=== PATIENT | male | born 1950 | race Caucasian/White ===

== ENCOUNTER → 2017-05-10 | Outpatient (CLI) | payer MEDICARE, OTHER ==
[2017-05-10 13:51] LABS: Basophils # (A) 0.1 k/uL (0-0.2); Basophils % (A) 1 %; Eosinophils # (A) 0.5 k/uL (0-0.7); Eosinophils % (A) 5 %; HCT 41.3 % (39.0-53.0); HDW 2.64; HGB 13.7 gm/dL (13.0-17.5); Luc # (Auto) 0.24; Luc % (Auto) 2; Lymphocytes # (A) 1.8 k/uL (1.0-4.8); Lymphocytes % (A) 17 %; MCH 31.5 pg (25.0-35.0); MCHC 33.3 g/dL (31.0-37.0); MCV 94.7 fL (80.0-100.0); Monocytes # (A) 0.5 k/uL (0-1.0); Monocytes % (A) 5 %; Neutrophils # (A) 7.9 k/uL (1.3-7.7); Neutrophils % (A) 71 %; RBC 4.36 m/uL (4.30-5.90); RDW 14.1 % (11.5-15.5); WBC 11.1 k/uL (3.8-10.6); WBC (Perox) 11.28
[2017-05-10 14:08] LABS: Appearance,Urine Clear (Clear); Bilirubin,Urine Negative (Negative); Glucose,Urine (UA) Negative (Negative); Ketones,Urine Negative (Negative); Leukocyte Esterase,Urine Negative (Negative); Nitrite,Urine Negative (Negative); Protein,Urine Negative (Negative); Specific Gravity,Urine 1.006 (1.001-1.035); UA Billing (MACRO vs. MICRO) CHEM; Urobilinogen,Urine <2.0 mg/dL (<2.0)
[2017-05-10 15:41] LABS: Calcium 9.3 mg/dL (8.4-10.2); Magnesium 1.6 mg/dL (1.6-2.3); Phosphorous 4.1 mg/dL (2.5-4.5); Potassium 4.4 mmol/L (3.5-5.1)
[2017-05-10 15:50] LABS: % Iron Saturation 22.7 % (20-50)
== END | disposition home or self-care (01) ==
LOC: LABWHC1 13:06
PROVIDERS: ATTEND Internal Medicine Nephrology
DX: D64.9 Anemia, unspecified (principal); E55.9 Vitamin D deficiency, unspecified; E21.3 Hyperparathyroidism, unspecified; N39.0 Urinary tract infection, site not specified; M10.9 Gout, unspecified; N18.3 Chronic kidney disease, stage 3 (moderate)
CPT/HCPCS: 36415; 80048; 81003; 82306; 82728; 83540; 83550; 83735; 83970; 84100; 84550; 85025

== ENCOUNTER 2018-09-15 09:55 | Inpatient (IN) | payer MEDICARE, OTHER ==
[2018-09-15] MEDS ORDERED: ACETAMINOPHEN TAB 500 MG TAB PO STA (10:17)
[2018-09-15] MEDS ORDERED: SODIUM CHLORIDE 0.9% 1,000 ML IV STA ×3 (10:17→11:07)
--- NOTE | 2018-09-15 10:49 | ED ---
General Adult HPI - General Chief complaint: Fever Stated complaint: fever, uti Time Seen by Provider: 09/15/18 10:10 Source: patient Mode of arrival: ambulatory Limitations: no limitations - History of Present Illness Initial comments: This 67-year-old white male presents with a complaint of problems walking. He states that he feels very weak with ambulation and has some ataxia. He states that it has been going on for the past one week but worse over the last 2 days. He is unsure if he has a fever at home. He does have some generalized weakness. He denies any localized weakness. He denies any cough or shortness of breath. He does have an indwelling Dumont catheter which she's had for the last 3 months and apparently was placed for some urinary retention issues. He has not had it changed until 2 days ago when he saw his urologist. They apparently removed it and he still is unable to urinate so they did place the Dumont back in. He denies any falls or injuries. He denies any other complaints or modifying factors. He does present with a slight fever. His urine looks quite infected. - Related Data Home Medications Medication Instructions Recorded Confirmed Aspirin EC [Ecotrin Low Dose] 81 mg PO DAILY 09/15/18 09/15/18 Atenolol [Tenormin] 25 mg PO DAILY 09/15/18 09/15/18 Tamsulosin [Flomax] 0.4 mg PO DAILY 09/15/18 09/15/18 buPROPion XL [Wellbutrin Xl] 150 mg PO DAILY 09/15/18 09/15/18 Allergies Allergy/AdvReac Type Severity Reaction Status Date / Time milk Allergy Unknown Verified 09/15/18 10:35 Review of Systems ROS Statement: Those systems with pertinent positive or pertinent negative responses have been documented in the HPI. ROS Other: All systems not noted in ROS Statement are negative. Past Medical History Past Medical History: Coronary Artery Disease (CAD), Hypertension Additional Past Medical History / Comment(s): bladder issues chronic dumont History of Any Multi-Drug Resistant Organisms: None Reported Past Surgical History: Heart Catheterization With Stent Additional Past Surgical History / Comment(s): cystoscope Past Psychological History: Depression Smoking Status: Never smoker Past Alcohol Use History: None Reported Past Drug Use History: None Reported General Exam - General Exam Comments Initial Comments: GENERAL: The patient is well nourished and mildly dehydrated. VITAL SIGNS: Heart rate, blood pressure, respiratory rate reviewed as recorded in nurse's notes. EYES: Pupils are round and reactive. Extraocular movements are intact. No conjunctival / lid redness or swelling. ENT: No external evidence of injury, swelling, or ecchymosis. Airway is patent. Throat is clear. NECK: Nontender. No swelling or evidence of injury. No subcutaneous emphysema. Trachea is midline. No thyroid mass. HEART: Regular rate and rhythm. Good peripheral pulses. LUNGS/CHEST: Breath sounds clear and equal bilaterally. No rales, rhonchi, or wheezes. No ecchymosis, subcutaneous emphysema, or tenderness. ABDOMEN: Abdomen soft without tenderness. No palpable masses or organomegaly. No peritoneal signs. No abdominal wall swelling or ecchymosis. The patient has an indwelling Dumont catheter noted. EXTREMITIES: No extremity tenderness. Normal muscle tone and function. No thoracolumbar tenderness. NEUROLOGIC: Sensation is grossly intact. Cranial nerve exam reveals face is symmetrical, tongue is midline, speech is clear. SKIN: No abrasions or ecchymosis is noted. No induration or masses noted. PSYCHIATRIC: Alert and oriented. Appropriate behavior and judgment. Limitations: no limitations Course Vital Signs 09/15/18 09/15/18 09/15/18 10:00 10:10 11:00 Temperature 100.3 F H Pulse Rate 105 H 102 H 100 Respiratory 18 18 42 H Rate Blood Pressure 99/59 99/55 88/66 O2 Sat by Pulse 96 95 96 Oximetry Medical Decision Making - Medical Decision Making The patient was seen and examined. All diagnostics are reviewed. An IV is established and he does receive some intravenous Rocephin and IV fluids. The patient refuses any Tylenol. Toradol was given intravenously prior to lab results being back. The EKG is completed and shows a normal sinus rhythm at a rate of 100. There is a right bundle branch block with associated ST-T wave changes. The heart rate is 100, QRS duration is 138, GA interval is 188, and the QTC intervals 479. The laboratory does show some electrolyte abnormalities as well as significant renal failure and anemia. The urinalysis does come back showing significant infection. Additional IV fluids are administered. The chest x-ray shows bilateral atelectasis. The computed tomography scan does not show any acute processes. Is felt as though the patient would require admission for further treatment. The case is discussed with Dr. Parson and he is agreeable with admission with nephrology to consult. - Lab Data Result diagrams: 09/15/18 10:04 09/15/18 10:04 Lab Results 09/15/18 09/15/18 09/15/18 Range/Units 10:04 10:04 10:04 WBC 21.0 H (3.8-10.6) k/uL RBC 3.36 L (4.30-5.90) m/uL Hgb 10.2 L (13.0-17.5) gm/dL Hct 30.6 L (39.0-53.0) % MCV 91.0 (80.0-100.0) fL MCH 30.2 (25.0-35.0) pg MCHC 33.2 (31.0-37.0) g/dL RDW 14.9 (11.5-15.5) % Plt Count 377 (150-450) k/uL Neutrophils % (Manual) 62 % Band Neutrophils % 29 % Lymphocytes % (Manual) 4 % Monocytes % (Manual) 5 % Neutrophils # (Manual) 19.10 H (1.3-7.7) k/uL Lymphocytes # (Manual) 0.84 L (1.0-4.8) k/uL Monocytes # (Manual) 1.05 H (0-1.0) k/uL Nucleated RBCs 0 (0-0) /100 WBC Toxic Granulation Present Toxic Vacuolation Present Polychromasia Present Poikilocytosis (manual Present Anisocytosis (manual) Present PT 11.8 (9.0-12.0) sec INR 1.2 H (<1.2) APTT 27.6 (22.0-30.0) sec Sodium 128 L (137-145) mmol/L Potassium 4.2 (3.5-5.1) mmol/L Chloride 93 L (98-107) mmol/L Carbon Dioxide 19 L (22-30) mmol/L Anion Gap 16 mmol/L BUN 56 H (9-20) mg/dL Creatinine 4.70 H (0.66-1.25) mg/dL Est GFR (CKD-EPI)AfAm 14 (>60 ml/min/1.73 sqM) Est GFR (CKD-EPI)NonAf 12 (>60 ml/min/1.73 sqM) Glucose 132 H (74-99) mg/dL Calcium 7.6 L (8.4-10.2) mg/dL Phosphorus 4.7 H (2.5-4.5) mg/dL Magnesium 1.5 L (1.6-2.3) mg/dL Total Bilirubin 0.9 (0.2-1.3) mg/dL AST 241 H (17-59) U/L ALT 70 (21-72) U/L Alkaline Phosphatase 62 (38-126) U/L Total Protein 5.0 L (6.3-8.2) g/dL Albumin 2.5 L (3.5-5.0) g/dL Urine Color Urine Appearance (Clear) Urine pH (5.0-8.0) Ur Specific [place] (1.001-1.035) Urine Protein (Negative) Urine Glucose (UA) (Negative) Urine Ketones (Negative) Urine Blood (Negative) Urine Nitrite (Negative) Urine Bilirubin (Negative) Urine Urobilinogen (<2.0) mg/dL Ur Leukocyte Esterase (Negative) Urine RBC (0-5) /hpf Urine WBC Clumps (None) /hpf 09/15/18 Range/Units 10:04 WBC (3.8-10.6) k/uL RBC (4.30-5.90) m/uL Hgb (13.0-17.5) gm/dL Hct (39.0-53.0) % MCV (80.0-100.0) fL MCH (25.0-35.0) pg MCHC (31.0-37.0) g/dL RDW (11.5-15.5) % Plt Count (150-450) k/uL Neutrophils % (Manual) % Band Neutrophils % % Lymphocytes % (Manual) % Monocytes % (Manual) % Neutrophils # (Manual) (1.3-7.7) k/uL Lymphocytes # (Manual) (1.0-4.8) k/uL Monocytes # (Manual) (0-1.0) k/uL Nucleated RBCs (0-0) /100 WBC Toxic Granulation Toxic Vacuolation Polychromasia Poikilocytosis (manual Anisocytosis (manual) PT (9.0-12.0) sec INR (<1.2) APTT (22.0-30.0) sec Sodium (137-145) mmol/L Potassium (3.5-5.1) mmol/L Chloride (98-107) mmol/L Carbon Dioxide (22-30) mmol/L Anion Gap mmol/L BUN (9-20) mg/dL Creatinine (0.66-1.25) mg/dL Est GFR (CKD-EPI)AfAm (>60 ml/min/1.73 sqM) Est GFR (CKD-EPI)NonAf (>60 ml/min/1.73 sqM) Glucose (74-99) mg/dL Calcium (8.4-10.2) mg/dL Phosphorus (2.5-4.5) mg/dL Magnesium (1.6-2.3) mg/dL Total Bilirubin (0.2-1.3) mg/dL AST (17-59) U/L ALT (21-72) U/L Alkaline Phosphatase (38-126) U/L Total Protein (6.3-8.2) g/dL Albumin (3.5-5.0) g/dL Urine Color Yellow Urine Appearance Turbid (Clear) Urine pH 6.0 (5.0-8.0) Ur Specific [place] (1.001-1.035) Urine Protein 2+ H (Negative) Urine Glucose (UA) Negative (Negative) Urine Ketones Negative (Negative) Urine Blood Moderate H (Negative) Urine Nitrite Negative (Negative) Urine Bilirubin Negative (Negative) Urine Urobilinogen <2.0 (<2.0) mg/dL Ur Leukocyte Esterase Large H (Negative) Urine RBC 22 H (0-5) /hpf Urine WBC Clumps Many H (None) /hpf Disposition Clinical Impression: Fever, UTI (urinary tract infection), Weakness, Anemia, Leukocytosis, Acute kidney injury, Hyponatremia, Hypochloremia, Dehydration, Hypomagnesemia, Hypocalcemia, Hyperphosphatemia, Chronic renal disease, Atelectasis Disposition: ADMITTED IP TO THIS [facility] Condition: Fair Is patient prescribed a controlled substance at d/c from ED?: No Time of Disposition: 11:52 Decision Date: 09/15/18 Decision Time: 11:52
[2018-09-15 10:52] LABS: INR 1.2 (<1.2); Partial Thromboplastin Time 27.6 sec (22.0-30.0); Prothrombin Time 11.8 sec (9.0-12.0)
[2018-09-15] MEDS ORDERED: KETOROLAC 30 MG/ML 1 ML VIAL IVP STA (10:53)
[2018-09-15 10:54] LABS: HCT 30.6 % (39.0-53.0); HGB 10.2 gm/dL (13.0-17.5); MCH 30.2 pg (25.0-35.0); MCHC 33.2 g/dL (31.0-37.0); Mean Platelet Volume 7.1; Platelet Count 377 k/uL (150-450); RBC 3.36 m/uL (4.30-5.90); RDW 14.9 % (11.5-15.5)
[2018-09-15 10:55] LABS: Albumin 2.5 g/dL (3.5-5.0); Calcium 7.6 mg/dL (8.4-10.2); Magnesium 1.5 mg/dL (1.6-2.3); Phosphorus 4.7 mg/dL (2.5-4.5); Potassium 4.2 mmol/L (3.5-5.1); Total Bilirubin 0.9 mg/dL (0.2-1.3)
[2018-09-15 10:56] LABS: Appearance,Urine Turbid (Clear); Bilirubin,Urine Negative (Negative); Blood,Urine Moderate (Negative); Color,Urine Yellow; Glucose,Urine (UA) Negative (Negative); Ketones,Urine Negative (Negative); Leukocyte Esterase,Urine Large (Negative); Nitrite,Urine Negative (Negative); Protein,Urine 2+ (Negative); RBC,Urine 22 /hpf (0-5); Urobilinogen,Urine <2.0 mg/dL (<2.0)
[2018-09-15 11:35] LABS: Band Neutrophils % 29 %; Lymphocytes # (M) 0.84 k/uL (1.0-4.8); Monocytes # (M) 1.05 k/uL (0-1.0); Neutrophils % (M) 62 %; Nucleated Red Blood Cells 0 /100 WBC (0-0); Total Cells Counted 200
[2018-09-15 11:36] LABS: Toxic Granulation Present
[2018-09-15 11:37] LABS: Anisocytosis (M) Present; Poikilocytosis (M) Present; Polychromasia Present; Toxic Vacuolation Present
--- NOTE | 2018-09-15 11:39 | XR ---
EXAMINATION TYPE: XR chest 2V DATE OF EXAM: 09/15/2018 COMPARISON: NONE TECHNIQUE: PA and lateral views submitted. HISTORY: Fever, weakness FINDINGS: The lungs are clear and there is no pneumothorax, pleural effusion, or focal pneumonia. Heart size is prominent is atherosclerotic change aorta. Shoulder. No overt failure. Hypertrophic change and deg enerative disc disease noted. Subsegmental changes at the lung bases on the lateral view. IMPRESSION: 1. Basilar atelectasis favored over early infiltrate correlate clinically
[2018-09-15 11:40] LABS: Creatine Kinase MB 37.4 ng/mL (0.0-2.4)
[2018-09-15] MEDS ORDERED: ONDANSETRON 4 MG/2 ML VIAL IVP PRN (11:45)
[2018-09-15] MEDS ORDERED: NALOXONE 0.4 MG/ML 1 ML VIAL IV PRN (11:45)
--- NOTE | 2018-09-15 11:46 | CT ---
EXAMINATION TYPE: CT brain wo con DATE OF EXAM: 09/15/2018 HISTORY: Weakness and ataxia, fever with urinary tract infection. CT DLP: 1238.4 mGycm. Automated Exposure Control for Dose Reduction was Utilized. TECHNIQUE: CT scan of the head is performed without contrast. COMPARISON: None. FINDINGS: There is no acute intracranial hemorrhage or midline shift identified. There is diffuse v entricular and sulcal prominence consistent with diffuse age-related cerebral atrophy. There is low- attenuation in the periventricular white matter consistent with chronic small vessel ischemic change. The globes are intact and the visualized sinuses are clear. Soft tissue density bilateral externa l auditory canals is felt to reflect cerumen. Nasal septum is deviated to right of midline. Nonaerate d right frontal sinus incidentally seen. Some vascular calcification distal internal carotid arteries is present bilaterally. IMPRESSION: No acute intracranial hemorrhage or midline shift. There is mild to moderate diffuse ag e-related cerebral atrophy and mild chronic small vessel ischemic change noted.
[2018-09-15 11:54] LABS: Troponin I 0.094 ng/mL (0.000-0.034)
[2018-09-15] MEDS ORDERED: SODIUM CHLORIDE 0.9% 1,000 ML IV ONE ×2 (12:21→22:39)
--- NOTE | 2018-09-15 12:25 | ED ---
Medical Decision Making - Lab Data Result diagrams: 09/15/18 10:04 09/15/18 10:04 Lab Results 09/15/18 09/15/18 09/15/18 Range/Units 10:04 10:04 10:04 WBC 21.0 H (3.8-10.6) k/uL RBC 3.36 L (4.30-5.90) m/uL Hgb 10.2 L (13.0-17.5) gm/dL Hct 30.6 L (39.0-53.0) % MCV 91.0 (80.0-100.0) fL MCH 30.2 (25.0-35.0) pg MCHC 33.2 (31.0-37.0) g/dL RDW 14.9 (11.5-15.5) % Plt Count 377 (150-450) k/uL Neutrophils % (Manual) 62 % Band Neutrophils % 29 % Lymphocytes % (Manual) 4 % Monocytes % (Manual) 5 % Neutrophils # (Manual) 19.10 H (1.3-7.7) k/uL Lymphocytes # (Manual) 0.84 L (1.0-4.8) k/uL Monocytes # (Manual) 1.05 H (0-1.0) k/uL Nucleated RBCs 0 (0-0) /100 WBC Toxic Granulation Present Toxic Vacuolation Present Polychromasia Present Poikilocytosis (manual Present Anisocytosis (manual) Present PT (9.0-12.0) sec INR (<1.2) APTT (22.0-30.0) sec Sodium 128 L (137-145) mmol/L Potassium 4.2 (3.5-5.1) mmol/L Chloride 93 L (98-107) mmol/L Carbon Dioxide 19 L (22-30) mmol/L Anion Gap 16 mmol/L BUN 56 H (9-20) mg/dL Creatinine 4.70 H (0.66-1.25) mg/dL Est GFR (CKD-EPI)AfAm 14 (>60 ml/min/1.73 sqM) Est GFR (CKD-EPI)NonAf 12 (>60 ml/min/1.73 sqM) Glucose 132 H (74-99) mg/dL Plasma Lactic Acid [place] (0.7-2.0) mmol/L Calcium 7.6 L (8.4-10.2) mg/dL Phosphorus 4.7 H (2.5-4.5) mg/dL Magnesium 1.5 L (1.6-2.3) mg/dL Total Bilirubin 0.9 (0.2-1.3) mg/dL AST 241 H (17-59) U/L ALT 70 (21-72) U/L Alkaline Phosphatase 62 (38-126) U/L Total Creatine Kinase 81398 H* (55-170) U/L CK-MB (CK-2) 37.4 H (0.0-2.4) ng/mL CK-MB (CK-2) Rel Index Troponin I 0.094 H* (0.000-0.034) ng/mL Total Protein 5.0 L (6.3-8.2) g/dL Albumin 2.5 L (3.5-5.0) g/dL Urine Color Urine Appearance (Clear) Urine pH (5.0-8.0) Ur Specific [place] (1.001-1.035) Urine Protein (Negative) Urine Glucose (UA) (Negative) Urine Ketones (Negative) Urine Blood (Negative) Urine Nitrite (Negative) Urine Bilirubin (Negative) Urine Urobilinogen (<2.0) mg/dL Ur Leukocyte Esterase (Negative) Urine RBC (0-5) /hpf Urine WBC Clumps (None) /hpf 09/15/18 09/15/18 09/15/18 Range/Units 10:04 10:04 10:04 WBC (3.8-10.6) k/uL RBC (4.30-5.90) m/uL Hgb (13.0-17.5) gm/dL Hct (39.0-53.0) % MCV (80.0-100.0) fL MCH (25.0-35.0) pg MCHC (31.0-37.0) g/dL RDW (11.5-15.5) % Plt Count (150-450) k/uL Neutrophils % (Manual) % Band Neutrophils % % Lymphocytes % (Manual) % Monocytes % (Manual) % Neutrophils # (Manual) (1.3-7.7) k/uL Lymphocytes # (Manual) (1.0-4.8) k/uL Monocytes # (Manual) (0-1.0) k/uL Nucleated RBCs (0-0) /100 WBC Toxic Granulation Toxic Vacuolation Polychromasia Poikilocytosis (manual Anisocytosis (manual) PT 11.8 (9.0-12.0) sec INR 1.2 H (<1.2) APTT 27.6 (22.0-30.0) sec Sodium (137-145) mmol/L Potassium (3.5-5.1) mmol/L Chloride (98-107) mmol/L Carbon Dioxide (22-30) mmol/L Anion Gap mmol/L BUN (9-20) mg/dL Creatinine (0.66-1.25) mg/dL Est GFR (CKD-EPI)AfAm (>60 ml/min/1.73 sqM) Est GFR (CKD-EPI)NonAf (>60 ml/min/1.73 sqM) Glucose (74-99) mg/dL Plasma Lactic Acid [place] 4.3 H* (0.7-2.0) mmol/L Calcium (8.4-10.2) mg/dL Phosphorus (2.5-4.5) mg/dL Magnesium (1.6-2.3) mg/dL Total Bilirubin (0.2-1.3) mg/dL AST (17-59) U/L ALT (21-72) U/L Alkaline Phosphatase (38-126) U/L Total Creatine Kinase (55-170) U/L CK-MB (CK-2) (0.0-2.4) ng/mL CK-MB (CK-2) Rel Index Troponin I (0.000-0.034) ng/mL Total Protein (6.3-8.2) g/dL Albumin (3.5-5.0) g/dL Urine Color Yellow Urine Appearance Turbid (Clear) Urine pH 6.0 (5.0-8.0) Ur Specific [place] (1.001-1.035) Urine Protein 2+ H (Negative) Urine Glucose (UA) Negative (Negative) Urine Ketones Negative (Negative) Urine Blood Moderate H (Negative) Urine Nitrite Negative (Negative) Urine Bilirubin Negative (Negative) Urine Urobilinogen <2.0 (<2.0) mg/dL Ur Leukocyte Esterase Large H (Negative) Urine RBC 22 H (0-5) /hpf Urine WBC Clumps Many H (None) /hpf Disposition Clinical Impression: Fever, UTI (urinary tract infection), Weakness, Anemia, Leukocytosis, Acute kidney injury, Hyponatremia, Hypochloremia, Dehydration, Hypomagnesemia, Hypocalcemia, Hyperphosphatemia, Chronic renal disease, Atelectasis Disposition: ADMITTED IP TO THIS HOSP Condition: Fair Procedures - Sepsis Sepsis Focused Exam #1 Time Sepsis Criteria Met: 12:24 Sepsis Focused Exam Date: 09/15/18 Sepsis Focused Exam Time: 12:24 Sepsis Focused Exam Complete: Yes Vital Signs & RN Notes Reviewed: Yes Capillary Refill: < 2 Seconds: Fingers, Toes Peripheral Pulses: Normal: Radial (R), Radial (L) Skin Color: Normal for Patient Respiratory Exam: normal lung sounds Cardiovascular Exam: regular rate
--- NOTE | 2018-09-15 12:32 | ED ---
Medical Decision Making - Medical Decision Making The patient's initial systolic blood pressure was 99. Throughout the ER course , his blood pressure decreased with a systolic blood pressure of 85. The CPK came back severely elevated in the troponin was mildly elevated. This felt as though the patient potentially could have a degree of rhabdomyolysis. It is felt as though he likely is septic as well. He is started on 30 mL/kg IV fluid boluses. He is reassessed multiple times. He does have normal mentation. He initially refused Tylenol stating that he cannot take it and it is bad on his kidneys. He was educated that Tylenol does not affect the kidney function will return does instead. He now is willing to take Tylenol and this is reordered. His lactic acid came back elevated at 4.2. It is felt as though he likely is in septic shock. It is felt as though he is significantly ill and his admission is changed to telemetry. He may need ICU admission if he does not improve with his boluses. He is currently approximately one and a half liters through his 3 L worth of boluses. Approximately 30 minutes of critical care time is utilized and the treatment of this patient. Dr. Parson later does present to the ER and would like the patient admitted to the hospital with Dr. Leon from infectious disease and Dr. Daniels from ICU to consult. He also would like antibiotics switched to vancomycin and Zosyn and this is initiated. Case is discussed with Dr. Daniels and he is agreeable with admission to ICU. - Lab Data Result diagrams: 09/15/18 10:04 09/15/18 10:04 Lab Results 09/15/18 09/15/18 09/15/18 Range/Units 10:04 10:04 10:04 WBC 21.0 H (3.8-10.6) k/uL RBC 3.36 L (4.30-5.90) m/uL Hgb 10.2 L (13.0-17.5) gm/dL Hct 30.6 L (39.0-53.0) % MCV 91.0 (80.0-100.0) fL MCH 30.2 (25.0-35.0) pg MCHC 33.2 (31.0-37.0) g/dL RDW 14.9 (11.5-15.5) % Plt Count 377 (150-450) k/uL Neutrophils % (Manual) 62 % Band Neutrophils % 29 % Lymphocytes % (Manual) 4 % Monocytes % (Manual) 5 % Neutrophils # (Manual) 19.10 H (1.3-7.7) k/uL Lymphocytes # (Manual) 0.84 L (1.0-4.8) k/uL Monocytes # (Manual) 1.05 H (0-1.0) k/uL Nucleated RBCs 0 (0-0) /100 WBC Toxic Granulation Present Toxic Vacuolation Present Polychromasia Present Poikilocytosis (manual Present Anisocytosis (manual) Present PT (9.0-12.0) sec INR (<1.2) APTT (22.0-30.0) sec Sodium 128 L (137-145) mmol/L Potassium 4.2 (3.5-5.1) mmol/L Chloride 93 L (98-107) mmol/L Carbon Dioxide 19 L (22-30) mmol/L Anion Gap 16 mmol/L BUN 56 H (9-20) mg/dL Creatinine 4.70 H (0.66-1.25) mg/dL Est GFR (CKD-EPI)AfAm 14 (>60 ml/min/1.73 sqM) Est GFR (CKD-EPI)NonAf 12 (>60 ml/min/1.73 sqM) Glucose 132 H (74-99) mg/dL Plasma Lactic Acid [place] (0.7-2.0) mmol/L Calcium 7.6 L (8.4-10.2) mg/dL Phosphorus 4.7 H (2.5-4.5) mg/dL Magnesium 1.5 L (1.6-2.3) mg/dL Total Bilirubin 0.9 (0.2-1.3) mg/dL AST 241 H (17-59) U/L ALT 70 (21-72) U/L Alkaline Phosphatase 62 (38-126) U/L Total Creatine Kinase 32009 H* (55-170) U/L CK-MB (CK-2) 37.4 H (0.0-2.4) ng/mL CK-MB (CK-2) Rel Index Troponin I 0.094 H* (0.000-0.034) ng/mL Total Protein 5.0 L (6.3-8.2) g/dL Albumin 2.5 L (3.5-5.0) g/dL Urine Color Urine Appearance (Clear) Urine pH (5.0-8.0) Ur Specific [place] (1.001-1.035) Urine Protein (Negative) Urine Glucose (UA) (Negative) Urine Ketones (Negative) Urine Blood (Negative) Urine Nitrite (Negative) Urine Bilirubin (Negative) Urine Urobilinogen (<2.0) mg/dL Ur Leukocyte Esterase (Negative) Urine RBC (0-5) /hpf Urine WBC Clumps (None) /hpf 09/15/18 09/15/18 09/15/18 Range/Units 10:04 10:04 10:04 WBC (3.8-10.6) k/uL RBC (4.30-5.90) m/uL Hgb (13.0-17.5) gm/dL Hct (39.0-53.0) % MCV (80.0-100.0) fL MCH (25.0-35.0) pg MCHC (31.0-37.0) g/dL RDW (11.5-15.5) % Plt Count (150-450) k/uL Neutrophils % (Manual) % Band Neutrophils % % Lymphocytes % (Manual) % Monocytes % (Manual) % Neutrophils # (Manual) (1.3-7.7) k/uL Lymphocytes # (Manual) (1.0-4.8) k/uL Monocytes # (Manual) (0-1.0) k/uL Nucleated RBCs (0-0) /100 WBC Toxic Granulation Toxic Vacuolation Polychromasia Poikilocytosis (manual Anisocytosis (manual) PT 11.8 (9.0-12.0) sec INR 1.2 H (<1.2) APTT 27.6 (22.0-30.0) sec Sodium (137-145) mmol/L Potassium (3.5-5.1) mmol/L Chloride (98-107) mmol/L Carbon Dioxide (22-30) mmol/L Anion Gap mmol/L BUN (9-20) mg/dL Creatinine (0.66-1.25) mg/dL Est GFR (CKD-EPI)AfAm (>60 ml/min/1.73 sqM) Est GFR (CKD-EPI)NonAf (>60 ml/min/1.73 sqM) Glucose (74-99) mg/dL Plasma Lactic Acid [place] 4.3 H* (0.7-2.0) mmol/L Calcium (8.4-10.2) mg/dL Phosphorus (2.5-4.5) mg/dL Magnesium (1.6-2.3) mg/dL Total Bilirubin (0.2-1.3) mg/dL AST (17-59) U/L ALT (21-72) U/L Alkaline Phosphatase (38-126) U/L Total Creatine Kinase (55-170) U/L CK-MB (CK-2) (0.0-2.4) ng/mL CK-MB (CK-2) Rel Index Troponin I (0.000-0.034) ng/mL Total Protein (6.3-8.2) g/dL Albumin (3.5-5.0) g/dL Urine Color Yellow Urine Appearance Turbid (Clear) Urine pH 6.0 (5.0-8.0) Ur Specific [place] (1.001-1.035) Urine Protein 2+ H (Negative) Urine Glucose (UA) Negative (Negative) Urine Ketones Negative (Negative) Urine Blood Moderate H (Negative) Urine Nitrite Negative (Negative) Urine Bilirubin Negative (Negative) Urine Urobilinogen <2.0 (<2.0) mg/dL Ur Leukocyte Esterase Large H (Negative) Urine RBC 22 H (0-5) /hpf Urine WBC Clumps Many H (None) /hpf Disposition Clinical Impression: Fever, UTI (urinary tract infection), Weakness, Anemia, Leukocytosis, Acute kidney injury, Hyponatremia, Hypochloremia, Dehydration, Hypomagnesemia, Hypocalcemia, Hyperphosphatemia, Chronic renal disease, Atelectasis, Septic shock, Rhabdomyolysis, Elevated troponin Disposition: ADMITTED IP TO THIS HOSP Condition: Fair Procedures - Sepsis Sepsis Focused Exam #1 Time Sepsis Criteria Met: 12:24 Sepsis Focused Exam #2 Time Sepsis Criteria Met: 15:51 Sepsis Focused Exam Date: 09/15/18 Sepsis Focused Exam Time: 15:51 Sepsis Focused Exam Complete: Yes Vital Signs & RN Notes Reviewed: Yes Capillary Refill: < 2 Seconds: Fingers Peripheral Pulses: Normal: Radial (R), Radial (L) Skin Color: Normal for Patient Respiratory Exam: normal lung sounds Cardiovascular Exam: regular rate
[2018-09-15] MEDS: MAGNESIUM SULFATE-D5W PMX 1 GM in DEXTROSE/WATER 1 100ML.BAG IVPB SCH ×2 (12:51→14:56)
[2018-09-15] MEDS ORDERED: PIPERACILLIN-TAZOBACTAM 3.375 GM in SODIUM CHLORIDE 0.9% 100 ML IVPB STA (15:01)
[2018-09-15] MEDS ORDERED: VANCOMYCIN 2,000 MG in SODIUM CHLORIDE 0.9% 500 ML 500 ML IVPB STA ×2 (15:01→21:00)
[2018-09-15] MEDS ORDERED: VANCOMYCIN IV PER PHARMACY 1 EACH MISC MISCELLANE PRN (15:01)
[2018-09-15] MEDS ORDERED: HYDROcodone/APAP 5-325MG 1 EACH TAB PO PRN (18:04)
[2018-09-15] MEDS ORDERED: ACETAMINOPHEN TAB 500 MG TAB PO PRN (18:04)
[2018-09-15 18:44] LABS: Glucose,Whole Blood 94 mg/dL (75-99)
[2018-09-15 20:43] LABS: Amphetamine Screen,Urine Not Detected (NotDetected); Barbiturate Screen,Urine Not Detected (NotDetected); Benzodiazepines Screen,Urine Not Detected (NotDetected); Cocaine Screen,Urine Not Detected (NotDetected); Methadone Screen, Urine Not Detected (NotDetected); Opiate Screen,Urine Not Detected (NotDetected); Oxycodone Screen, Urine Not Detected (NotDetected); Phencyclidine Screen,Urine Not Detected (NotDetected); Tricyclic Antidepressant,Urine Not Detected (NotDetected); Urn Cannabinoid Scrn Not Detected (NotDetected)
[2018-09-15] MEDS: HEPARIN SODIUM,PORCINE 5,000 UNIT/ML 1 ML VIAL SQ SCH (21:34)
--- NOTE | 2018-09-15 21:44 | HP ---
HISTORY AND PHYSICAL CHIEF COMPLAINT: Weakness. HISTORY OF PRESENT ILLNESS: This 67-year-old gentleman with past medical history of CAD, history of myocardial infarction, history of bladder issues with chronic Harper's and CAD stent, tonsillectomy, depression being followed by Dr. Kinza Elizabeth in the outpatient not feeling well over the past several days. The patient complains of weak and dizzy. Patient feeling ataxic. The patient also had a fever and because of multiple symptomatology, patient came to [facility] and was admitted for further evaluation and treatment. Sepsis suspected. Patient also had borderline hypotension with systolic blood pressure 90s. Renal failure. Creatinine is up to 4.6 and white count is also elevated up to 21,000. Patient had multiple electrolytes abnormalities. Patient was admitted for further evaluation and treatment. Plasma lactic acid also elevated. The patient's baseline creatinine was between 1.9 and 2. There is no history of fevers, rigors or chills. There is no history of headache, loss of consciousness or seizures. PAST MEDICAL HISTORY: CAD, stent, history of hypertension, myocardial infarction, prostate disorder , Harper catheter. MEDICATIONS: Home medications are: 1. Wellbutrin XL 150 mg p.o. daily. 2. Flomax 0.4 daily. 3. Tenormin 25 mg daily. 4. Ecotrin 81 mg daily. ALLERGIES: None. FAMILY HISTORY: History of colon cancer in the family. SOCIAL HISTORY: No history of smoking. No history of alcohol intake. REVIEW OF SYSTEMS: ENT: No diminished hearing or vision. CARDIOVASCULAR: No angina or palpitations. RESPIRATORY: As mentioned earlier. GI: As mentioned earlier. : As mentioned earlier. NERVOUS SYSTEM: No numbness or weakness. Allergy/Immunology: No asthma or hayfever. Musculoskeletal as mentioned earlier. Hematology/oncology: No history of anemia. Endocrine as mentioned earlier. CONSTITUTIONAL: As mentioned earlier. Dermatology: Negative. Rheumatology: Negative. Psychiatry: As mentioned earlier. PHYSICAL EXAM: Patient is alert, oriented x2. Pulse 74, blood pressure 92/60. Respirations 18. Temperature is normal. Pulse ox 97% on 2 L. HEENT is conjunctivae normal. Oral mucosa moist. Neck is no jugular venous distention. No lymph node enlargement. Cardiovascular system: S1, S2 muffled. Respirations: Breath sounds diminished in the bases. A few scattered rhonchi and crackles. ABDOMEN: Soft, obese, nontender. No mass palpable. Legs no edema. No swelling. NERVOUS SYSTEM: Higher functions as mentioned earlier. Moves all four extremities. Lymphatics: No lymph nodes palpable in the neck, axillae or groin. SKIN: No ulcer, rash or bleeding. LAB STUDIES: WBC 10, hemoglobin 10.2, sodium 128, creatinine is 1.4 0.70 and lactic acid 4.3 , UA noted. ASSESSMENT: 1. Acute urinary tract infection present on admission probably secondary to Harper catheter with severe sepsis and hypotension. 2. Renal failure, acute on chronic with acute tubular necrosis. 3. Chronic kidney disease stage III baseline. 4. Increased WBC. 5. Anemia. 6. Hyponatremia. 7. Possible acute rhabdomyolysis and increased plasma lactic acid. 8. Hypomagnesemia. 9. Possible acute urinary tract infection. 10.History of coronary artery disease/stent. 11.History of hypertension. 12.History of myocardial infarction. 13.History of prostate issues. 14.History of depression. 15.FULL CODE. RECOMMENDATIONS AND DISCUSSION: In this 67-year-old gentleman who presented with multiple complex medical issues , we will monitor the patient closely, recommend to continue with broad-spectrum IV antibiotics. The patient had features of septic shock and severe sepsis. The exact etiology and origin of sepsis unknown at this time. Possibly UTI. I would recommend IV fluids. The blood pressure is not improving. I would recommend Levophed drip and transferred to ICU with consultation to Dr. Daniels. Otherwise, Dr. Leon, Infectious Disease will be consulted. Resume the home medications and guarded prognosis because of multiple complex medical issues. Further recommendations to follow. Repeat labs after adequate hydration. Patient also acute rhabdomyolysis. Further recommendations to follow. Copy of dictation being forwarded to Dr. Kinza Elizabeth, who is the primary physician. MMODL / DIANEN: [id number] / SANTHOSH
[2018-09-16] MEDS: NOREPINEPHRINE 4 MG in SODIUM CHLORIDE 0.9% 250 ML IV SCH (01:15)
[2018-09-16 01:28] LABS: Glucose,Whole Blood 83 mg/dL (75-99)
[2018-09-16 06:32] LABS: HCT 32.6 % (39.0-53.0); HGB 10.5 gm/dL (13.0-17.5); MCHC 32.1 g/dL (31.0-37.0); MCV 93.4 fL (80.0-100.0); Mean Platelet Volume 7.5; Platelet Count 370 k/uL (150-450); RBC 3.49 m/uL (4.30-5.90); RDW 14.8 % (11.5-15.5); WBC 20.4 k/uL (3.8-10.6)
[2018-09-16 06:40] LABS: Albumin 2.3 g/dL (3.5-5.0); Calcium 6.9 mg/dL (8.4-10.2); Magnesium 2.1 mg/dL (1.6-2.3); Phosphorus 7.9 mg/dL (2.5-4.5); Potassium 4.6 mmol/L (3.5-5.1); Total Bilirubin 0.6 mg/dL (0.2-1.3); Total Protein 4.7 g/dL (6.3-8.2)
--- NOTE | 2018-09-16 08:25 | XR ---
EXAMINATION TYPE: XR chest 1V portable DATE OF EXAM: 09/16/2018 COMPARISON: 09/15/2018 HISTORY: Recent fever and weakness TECHNIQUE: Single frontal view of the chest is obtained. FINDINGS: There is no focal air space opacity, pleural effusion, or pneumothorax seen. There remain s left basilar atelectasis and slight right hemidiaphragm elevation similar to the prior AV right inf rahilar atelectasis is also noted The cardiac silhouette size is upper limits of normal. The osseou s structures are intact. IMPRESSION: Redemonstration of bibasilar atelectasis, overall similar to the prior. Otherwise no acu te cardiopulmonary process.
[2018-09-16] MEDS: ATENOLOL 25 MG TAB PO SCH (08:49)
[2018-09-16] MEDS: buPROPion XL 150 MG TAB.ER.24H PO SCH (08:53)
[2018-09-16] MEDS: ASPIRIN 81 MG PO SCH (08:53)
[2018-09-16] MEDS: HEPARIN SODIUM,PORCINE 5,000 UNIT/ML 1 ML VIAL SQ SCH (08:53)
[2018-09-16] MEDS: TAMSULOSIN 0.4 MG CAP.ER.24H PO SCH ×2 (08:53→08:57)
[2018-09-16] MEDS: PANTOPRAZOLE 40 MG/10 ML VIAL IV SCH (08:53)
[2018-09-16] MEDS ORDERED: VANCOMYCIN 1,750 MG in SODIUM CHLORIDE 0.9% 500 ML 500 ML IVPB ONE ×2 (09:00→14:00)
[2018-09-16] MEDS ORDERED: ENOXAPARIN 40 MG/0.4 ML SYRINGE SQ SCH (09:00)
[2018-09-16] MEDS ORDERED: PIPERACILLIN-TAZOBACTAM 3.375 GM in SODIUM CHLORIDE 0.9% 100 ML IVPB STA (09:29)
--- NOTE | 2018-09-16 12:21 | CONS ---
CONSULTATION This is a 67-year-old male who presented to the emergency department on September 15 with weakness in his legs. He apparently was unable to really get up and move around. It has been going on for at least a number of days, probably a week or so and certainly much worse in the last couple days prior to admission. In addition, he apparently had a fever at home. He had generalized weakness. The patient denied any respiratory complaints including cough, shortness of breath, or phlegm production. He did state that he had an indwelling Harper in because of benign prostatic hypertrophy for a number of months and then more recently it was manipulated by Dr. Kirby and changed. Subsequent to that, that is when he started really noticing that he was not feeling well. The patient was evaluated in the emergency room and thought to have sepsis secondary to urinary tract infection and had some hypotension and received 4 L of fluid. The patient was transferred here to the ICU for further evaluation and management. Currently, he is on 2 L nasal cannula. He did receive 4 L of fluid, 1 L in the ICU at 3 L in the emergency room. He is on norepinephrine at 5 mcg/minute. He is getting a saline IV at 100 mL an hour and has another IV at KVO with saline. The patient is developing some rapid heart rate with irregularity, probably consistent with atrial fibrillation. The patient was placed on Zosyn and Vanco. PAST MEDICAL HISTORY: Include CAD with stents x3, BPH, hypertension, [place], and indwelling Harper catheter. His only allergy is MILK. He is a lifelong nonsmoker. Does not use any alcohol or illicit drugs. Again, currently he is doing reasonably well. He states he is feeling a bit better. The patient does feel weak, though. Past medical history is positive for CAD with stenting x3, BPH, hypertension, myocardial infarction. He has had a chronic indwelling Harper for at least 3 months, which was recently changed. MEDICATIONS: Include aspirin, atenolol, Flomax, and Wellbutrin. SOCIAL HISTORY: Negative for tobacco, alcohol, or illicit drug use. FAMILY HISTORY: Noncontributory as is his occupational history. REVIEW OF SYSTEMS: CONSTITUTIONAL: Weakness and fever. NEUROLOGIC: Negative. HEENT: Negative. CARDIOVASCULAR: Negative. PULMONARY: Negative. GI: Negative. : Negative. RHEUMATOLOGIC: Negative. IMMUNOLOGIC: Negative. ENDOCRINOLOGIC: Negative. DERMATOLOGIC: Negative. Current vital signs are reviewed. His most recent temperature is 97.6, heart rate 77, respiratory rate is 24, blood pressure is 99/66 with a mean 77. Saturations on 4 L are 97%. Does not appear to be too ill. Does not demonstrate any respiratory difficulty, use of accessory muscles or audible wheezing. HEENT examination is grossly unremarkable. Mucous membranes are somewhat dry. No oral lesions. NECK: Supple. Full range of motion. No adenopathy or thyromegaly. Neck veins are flat. Cardiovascular examination reveals an irregular rhythm and rate. Heart rate about 103 beats per minute. It sounds like he might be going into atrial fibrillation. Lungs reveal relatively clear breath sounds. A few scattered mild rhonchi. No wheezes or crackles. Breath sounds equal bilaterally. Abdomen is obese. Bowel sounds are heard. Extremities are intact. No cyanosis, clubbing, or edema. Skin without rash. Neurologic examination appears to be normal. LABS: Reviewed. White count 20.4, hemoglobin 10.5, hematocrit 32.6, platelet count 370, 000, sodium 133, potassium 4.6, chloride is 103, CO2 is 15, anion gap is 15, BUN and creatinine were 61 and 5.08. These electrolytes are consistent with an anion gap metabolic acidosis likely secondary to his renal failure. Calcium 6.9, phosphorus 7.9. His bilirubin is 0.6, AST 174, ALT 73. His alkaline phosphatase is 89. His CK is 5,285. His troponins were 0.069 and 0.067. Urine shows it to be yellow and turbid, 2+ protein, moderate blood, large leukocyte esterase, 22 RBCs, and many WBCs. Drug screen is negative. Cortisol level is 48. Microbiologic studies are pending thus far. Medications are reviewed. He is currently on Zosyn and vancomycin. He is also on the IV fluids and the norepinephrine at 5 mcg/minute. The rest of the medications look appropriate. ASSESSMENT: 1. Hypotension, secondary to urinary tract infection/urosepsis with a chronic indwelling Harper catheter that was recently manipulated and changed. 2. History of coronary artery disease with previous stenting x3. 3. History of benign prostatic hypertrophy with chronic indwelling Harper catheter. 4. History of hypertension. 5. Previous history of myocardial infarction. 6. Anion gap metabolic acidosis. 7. Chronic kidney disease. PLAN: The patient should benefit from an ID and Nephrology consultation. The patient's current situation is relatively stable. He has been adequately fluid resuscitated. He is on a small amount of norepinephrine. The patient will be seen by Nephrology and Infectious Disease. Their input will be appreciated. Will continue to follow closely. Prognosis is guarded. Additional recommendations and suggestions are forthcoming. Will continue to follow. Critical care time is 33 minutes. SCOTT / SRIDHAR: [id number] /
[2018-09-16 14:07] LABS: Band Neutrophils % 15 %; Lymphocytes # (M) 0.61 k/uL (1.0-4.8); Metamyelocytes % 1 %; Monocytes # (M) 0.61 k/uL (0-1.0); Neutrophils % (M) 78 %; Nucleated Red Blood Cells 0 /100 WBC (0-0); Total Cells Counted 200
[2018-09-16 14:08] LABS: Poikilocytosis (M) Present; Toxic Granulation Present; Toxic Vacuolation Present
[2018-09-16] MEDS ORDERED: DEXTROSE 5% IN WATER 250 ML with AMIODARONE 300 MG IV ONE (14:31)
[2018-09-16] MEDS ORDERED: DEXTROSE 5% IN WATER 100 ML with AMIODARONE 150 MG IV ONE (15:00)
--- NOTE | 2018-09-16 16:00 | P.NPCON ---
History of Present Illness - Reason for Consult Consult date: 09/16/18 acute renal failure - Chief Complaint Fever and urinary tract infection - History of Present Illness This is a 67-year-old male known to us previously with chronic kidney disease. He came in because of fever and chills and urinary tract infection with gram negatives. His blood pressure is low and running in the 80s in spite of being hydrated vigorously. He had 6 L in. He was started on levo fed. He went into atrial fibrillation this morning and currently is additionally on Amiodarine drip. He denies any chest pain nausea vomiting diarrhea abdominal pain. No history of taking any nonsteroidals. No history of hematuria kidney stones. He had a Dumont catheter inserted about 3 weeks ago. He has had chronic prostate problems in the past Previously his creatinine has been 1.9 on 10/13/2016 2 years ago, 2.6 dated . Since then he has not had any labs in this hospital. He is known with coronary artery disease, hypertension, was on atenolol at home as well as on Flomax. Past Medical History Past Medical History: Coronary Artery Disease (CAD), Hypertension, Myocardial Infarction ([place]), Prostate Disorder Additional Past Medical History / Comment(s): bladder issues chronic dumont -pt stated it was changed on 09-13-18 Last Myocardial Infarction Date:: 2005 History of Any Multi-Drug Resistant Organisms: None Reported Past Surgical History: Heart Catheterization With Stent, Tonsillectomy Additional Past Surgical History / Comment(s): cystoscope Past Anesthesia/Blood Transfusion Reactions: Motion Sickness Date of Last Stent Placement:: 2005 Smoking Status: Never smoker - Past Family History Mother Family Medical History: Cancer Additional Family Medical History / Comment(s): colon cancer Father Family Medical History: Myocardial Infarction (NC) Medications and Allergies Home Medications Medication Instructions Recorded Confirmed Type Aspirin EC [Ecotrin Low Dose] 81 mg PO DAILY 09/15/18 09/15/18 History Atenolol [Tenormin] 25 mg PO DAILY 09/15/18 09/15/18 History Tamsulosin [Flomax] 0.4 mg PO DAILY 09/15/18 09/15/18 History buPROPion XL [Wellbutrin Xl] 150 mg PO DAILY 09/15/18 09/15/18 History Allergies Allergy/AdvReac Type Severity Reaction Status Date / Time milk Allergy Unknown Verified 09/15/18 10:35 Physical Exam Vitals: Vital Signs Temp Pulse Resp BP Pulse Ox 09/16/18 14:45 103 H 39 H 82/60 96 09/16/18 14:30 122 H 33 H 80/67 95 09/16/18 14:15 142 H 24 80/62 95 09/16/18 14:00 110 H 26 H 92/54 97 09/16/18 13:45 137 H 39 H 97/79 97 09/16/18 13:30 144 H 40 H 84/55 96 09/16/18 13:15 126 H 24 112/37 96 09/16/18 13:00 141 H 31 H 92/70 94 L 09/16/18 12:45 129 H 39 H 97/86 90 L 09/16/18 12:30 131 H 34 H 79/40 95 09/16/18 12:15 116 H 38 H 84/69 90 L 09/16/18 12:00 140 H 30 H 78/64 96 09/16/18 11:45 135 H 32 H 96/66 92 L 09/16/18 11:30 99 24 92/80 96 09/16/18 11:15 128 H 23 89/63 09/16/18 11:00 123 H 27 H 94/73 09/16/18 10:45 122 H 18 97/67 09/16/18 10:30 125 H 30 H 92/75 93 L 09/16/18 10:15 107 H 32 H 87/75 98 09/16/18 10:00 115 H 35 H 78/64 98 09/16/18 09:45 122 H 35 H 84/65 97 09/16/18 09:30 98 49 H 85/58 96 09/16/18 09:15 122 H 34 H 91/66 96 09/16/18 09:00 116 H 51 H 87/67 97 09/16/18 08:45 111 H 29 H 81/61 96 09/16/18 08:30 98 37 H 97/61 98 09/16/18 08:15 80 30 H 96/75 96 09/16/18 08:00 97.8 F 84 33 H 92/64 96 09/16/18 07:45 80 34 H 99/64 96 09/16/18 07:30 80 13 98/65 96 09/16/18 07:15 78 35 H 100/69 97 09/16/18 07:00 77 32 H 99/66 97 09/16/18 06:45 73 41 H 105/66 96 09/16/18 06:30 76 36 H 91/62 97 09/16/18 06:15 72 27 H 95/61 98 09/16/18 06:00 73 24 98/65 97 09/16/18 05:45 76 26 H 100/65 98 09/16/18 05:30 73 25 H 95/59 97 09/16/18 05:15 75 31 H 96/67 97 09/16/18 05:00 74 30 H 91/59 98 09/16/18 04:45 75 26 H 92/64 98 09/16/18 04:30 76 26 H 88/64 97 09/16/18 04:15 75 23 85/58 98 09/16/18 04:00 97.6 F 78 26 H 81/57 97 09/16/18 03:45 79 25 H 88/59 97 09/16/18 03:30 78 24 87/57 97 09/16/18 03:15 80 25 H 85/60 96 09/16/18 03:00 80 24 83/57 96 09/16/18 02:45 79 25 H 86/59 96 09/16/18 02:30 80 29 H 80/53 94 L 09/16/18 02:15 80 28 H 84/54 96 09/16/18 02:00 83 27 H 77/53 96 09/16/18 01:45 86 41 H 80/49 97 09/16/18 01:30 87 34 H 78/50 96 09/16/18 01:15 85 42 H 71/44 97 09/16/18 01:00 86 32 H 78/53 96 09/16/18 00:30 91 30 H 84/59 99 09/16/18 00:00 100.1 F H 98 30 H 78/54 100 09/15/18 23:30 93 35 H 75/49 99 09/15/18 23:00 96 30 H 75/43 99 09/15/18 22:30 96 30 H 78/49 99 09/15/18 22:00 95 20 80/52 100 09/15/18 21:30 94 24 87/57 100 09/15/18 21:00 95 17 98/68 99 09/15/18 20:30 94 28 H 95/62 99 09/15/18 20:00 98.3 F 95 19 95/58 100 09/15/18 19:30 87 28 H 90/70 100 09/15/18 19:04 100.3 F H 72 18 92/62 97 09/15/18 18:17 72 18 92/62 97 09/15/18 18:02 72 18 92/62 97 09/15/18 16:55 71 22 86/59 97 Intake and Output 09/16/18 09/16/18 09/16/18 06:59 14:59 22:59 Intake Total 1903.625 800 Output Total 255 525 Balance 1648.625 275 Intake: IV 1700 800 Sodium Chloride 0.9% 1, 700 800 000 ml @ 100 mls/hr IV . Q10H [facility] Rx#:[id number] Sodium Chloride 0.9% 1, 1000 000 ml @ 999 mls/hr IV . Q1H1M ONE Rx#:[id number] Intake, IV Titration 203.625 Amount Norepinephrine 4 mg In 203.625 Sodium Chloride 0.9% 250 ml @ Titrate IV .Q0M [facility] Rx#:[id number] Output: Urine 255 525 Other: Voiding Method Indwelling Catheter Weight 121 kg On examination is awake alert oriented warm to touch in spite of blood pressure being the 80s to 90s currently on levo fed HEENT exam no JVP neck is supple no facial asymmetry Lungs are clear to auscultation good air entry bilaterally Heart sounds are significant for atrial fibrillation but no murmur rub gallop Abdomen soft nontender no organomegaly ascites masses Extremity exam was no edema Neurologically awake alert oriented. Results - Lab Results Most recent lab results Calcium 6.9 mg/dL (8.4-10.2) L 09/16/18 05:07 Phosphorus 7.9 mg/dL (2.5-4.5) H 09/16/18 05:07 Magnesium 2.1 mg/dL (1.6-2.3) 09/16/18 05:07 09/16/18 05:07 09/16/18 05:07 Assessment and Plan Plan: Impression 1. Acute kidney injury secondary to low blood pressure, likely sepsis with urinary tract infection growing gram-negative but blood culture is so far negative. 2. Chronic kidney disease creatinine has been 1.92 years ago and 10/13/2016 and 2.6 as of 05/10/2017 more than a year ago. Likely from nephrosclerosis. There may be an element of chronic hydronephrosis as well as an ultrasound in 2014 showed hydronephrosis. 3. Non-gap acidosis and gap acidosis from acute kidney injury gap is 15 and bicarb is 15. 4. Hypocalcemia secondary to acute kidney injury and chronic kidney disease. 5. Hyperphosphatemia secondary to same. 6. Anemia of chronic kidney disease hemoglobin is 10.5 7. History of coronary artery disease, possible cardiomyopathy. Currently in A. fib after being started on levo fed Recommendation. 1. Continue IV normal saline 100 mL an hour. 2. Discontinue vancomycin. Subsequently with other antibiotics if necessary for the urinary tract infection 3. Ultrasound of the kidney and bladder to ensure there is no STREAM obstruction such as urethral 4. Avoid any nephrotoxic medications including Toradol. Will continue follow thank you for this consultation
[2018-09-16] MEDS: AMIODARONE 450 MG in DEXTROSE 5% IN WATER 250 ML IV SCH ×4 (16:46→22:50)
--- NOTE | 2018-09-16 17:41 | US ---
EXAMINATION TYPE: US bladder DATE OF EXAM: 09/16/2018 COMPARISON: NONE CLINICAL HISTORY: Urinary retention . EXAM MEASUREMENTS: Post Void Residual Volume: 220.7 mL Bladder appears to have hypoechoic complex debris surrounding the catheter. IMPRESSION: Sonographic evaluation of the urinary bladder reveals the presence of a Harper catheter with echogenic material layering within the urinary bladder likely representing debris.
[2018-09-16] MEDS: CALCIUM ACETATE 667 MG CAP PO SCH (18:12)
[2018-09-16] MEDS: ERGOCALCIFEROL 50,000 UNIT CAP PO SCH (18:12)
[2018-09-16] MEDS ORDERED: HEPARIN SODIUM,PORCINE 5,000 UNIT/ML 1 ML VIAL IV ONE (19:59)
[2018-09-16] MEDS ORDERED: APIXABAN 5 MG TAB PO SCH (21:00)
[2018-09-16] MEDS: HEPARIN SOD,PORK IN 0.45% NACL 25,000 UNIT in 0.45% NACL 1 500ML.BAG IV SCH (21:06)
[2018-09-16 21:19] LABS: Basophils % (A) 0 %; Eosinophils # (A) 0.2 k/uL (0-0.7); Eosinophils % (A) 1 %; HCT 30.4 % (39.0-53.0); HGB 9.9 gm/dL (13.0-17.5); Lymphocytes # (A) 0.8 k/uL (1.0-4.8); Lymphocytes % (A) 4 %; MCH 30.5 pg (25.0-35.0); MCHC 32.7 g/dL (31.0-37.0); MCV 93.3 fL (80.0-100.0); Mean Platelet Volume 7.6; Monocytes # (A) 0.4 k/uL (0-1.0); Monocytes % (A) 2 %; Neutrophils % (A) 93 %; Platelet Count 412 k/uL (150-450); RBC 3.25 m/uL (4.30-5.90); RDW 15.1 % (11.5-15.5); WBC 19.4 k/uL (3.8-10.6)
[2018-09-16 21:23] LABS: INR 1.1 (<1.2); Partial Thromboplastin Time 33.4 sec (22.0-30.0); Prothrombin Time 10.7 sec (9.0-12.0)
[2018-09-16] MEDS: SODIUM CHLORIDE 0.9% 1,000 ML IV SCH (21:50)
--- NOTE | 2018-09-16 22:34 | P.CONS ---
History of Present Illness - Reason for Consult Consult date: 09/16/18 - Chief Complaint weakness - History of Present Illness 67-year-old male presents to Hospital from his assisted living setting because of several days of progressive weakness. The patient relates that he has been somewhat recently hospitalized at which point in time was having further difficulties with urinary retention. He has a known history of BPH and difficulties with his urination. He follows with urology in the outpatient setting. The patient relates that recently he became ill and was hospitalized an outside facility. There he was found and evidence of urinary tract infection and urinary obstruction. Dumont catheter was placed he was treated with a short course of antibiotics and discharged home. He did have follow-up with urology and cultures were performed the outpatient setting the patient relates were negative. The patient did have a change of his Dumont catheter. Within several days he started to feel considerably worse. Having increasing difficulties with fevers chills and progressive weakness to the point in time we was unable to ambulate and he was brought to Hospital by EMS. The patient relates that currently he is feeling poorly. He is weak but his fever and chills and improved. His appetite is improved. He is no longer having emesis he was having briefly while at home. Review of Systems 67 -year-old male HEENT:Denies headache or acute visual change. Denies sinus or mouth discomforts. Denies neck stiffness or pain. Denies significant oral cavity pain. Denies difficulty on swallowing. Lungs: Denies significant shortness of breath, cough, sputum production, or hemoptysis. Cardiovascular: Denies significant shortness of breath, chest pain, chest wall pain, orthopnea, dyspnea on exertion, syncope Gastrointestinal: A brief episode of nausea and emesis this is improved. No abdominal pain. No hematemesis melena or hematochezia. Musculoskeletal: denies significant myalgias or arthralgias. No new joint swelling. Denies new back pain. Skin: Denies new rash or lesions. No new ulcers or wounds are related.. Neuro: No headache present but developed generalized weakness and inability to ambulate because he was so weak does not have gross focal complaint Psychiatric:Denies anxiety or depression. Endocrine: Denies significant chronic fatigue, denies significant weight loss or weight gain. Past Medical History Past Medical History: Coronary Artery Disease (CAD), Hypertension, Myocardial Infarction ([place]), Prostate Disorder Additional Past Medical History / Comment(s): bladder issues chronic dumont -pt stated it was changed on 09-13-18 Last Myocardial Infarction Date:: 2005 History of Any Multi-Drug Resistant Organisms: None Reported Past Surgical History: Heart Catheterization With Stent, Tonsillectomy Additional Past Surgical History / Comment(s): cystoscope Past Anesthesia/Blood Transfusion Reactions: Motion Sickness Date of Last Stent Placement:: 2005 Additional Psychological History / Comment(s): Lives in an assisted living situation. 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 No experience. No international travel. No animal exposures. No tobacco or alcohol use Smoking Status: Never smoker - Past Family History Mother Family Medical History: Cancer Additional Family Medical History / Comment(s): colon cancer Father Family Medical History: Myocardial Infarction ([place]) Medications and Allergies Home Medications and Allergies Comment(s): Current Medications Acetaminophen (Tylenol Tab) 500 mg PO Q6HR PRN PRN Reason: Fever and/ or Pain Last Admin: 09/16/18 00:03 Dose: 500 mg Hydrocodone Bitart/Acetaminophen ([place] 5-325) 1 each PO Q6HR PRN PRN Reason: Pain Aspirin (Aspirin) 81 mg PO DAILY [facility] Last Admin: 09/16/18 08:53 Dose: 81 mg Atenolol (Tenormin) 25 mg PO DAILY [facility] Last Admin: 09/16/18 08:49 Dose: Not Given Bupropion HCl (Wellbutrin Xl) 150 mg PO DAILY [facility] Last Admin: 09/16/18 08:53 Dose: 150 mg Calcium Acetate (Phoslo) 1,334 mg PO BID-W/MEALS [facility] Last Admin: 09/16/18 18:12 Dose: 1,334 mg Ergocalciferol (Vitamin D2) 50,000 unit PO Q7D [facility] Last Admin: 09/16/18 18:12 Dose: 50,000 unit Heparin Sodium (Porcine) (Heparin) 0 unit IV PER PROTOCOL PRN; Protocol PRN Reason: Low PTT Norepinephrine Bitartrate 4 mg (/ Sodium Chloride) 250 mls @ 0 mls/hr IV .Q0M [facility]; Protocol Last Titration: 09/16/18 13:00 Dose: Infused Amiodarone HCl 450 mg/ (Dextrose/Water) 250 mls @ 33.33 mls/hr IV .Q7H31M [facility]; Protocol Stop: 09/17/18 15:01 Last Admin: 09/16/18 16:46 Dose: 1 mg/min, 33.33 mls/hr Ceftazidime 0.5 gm/ Sodium (Chloride) 50 mls @ 100 mls/hr IVPB Q48H [facility] Heparin Sodium/Sodium Chloride (25,000 unit/ Sodium Chloride) 500 mls @ 19.84 mls/hr IV .Q24H [facility]; Protocol Last Admin: 09/16/18 21:06 Dose: 8.2 units/kg/hr, 19.84 mls/hr Sodium Chloride (Saline 0.9%) 1,000 mls @ 100 mls/hr IV .Q10H [facility] Miscellaneous Information (Pharmacy To Dose Iv Vancomycin) 1 each MISCELLANE DIRECTED PRN PRN Reason: Per Protocol Naloxone HCl (Narcan) 0.2 mg IV Q2M PRN PRN Reason: Opioid Reversal Ondansetron HCl (Zofran) 4 mg IVP Q4HR PRN PRN Reason: Nausea And Vomiting Pantoprazole Sodium (Protonix) 40 mg IV DAILY [facility] Last Admin: 09/16/18 08:53 Dose: 40 mg Tamsulosin HCl (Flomax) 0.4 mg PO DAILY [facility] Last Admin: 09/16/18 08:57 Dose: Not Given Home Medications Medication Instructions Recorded Confirmed Type Aspirin EC [Ecotrin Low Dose] 81 mg PO DAILY 09/15/18 09/15/18 History Atenolol [Tenormin] 25 mg PO DAILY 09/15/18 09/15/18 History Tamsulosin [Flomax] 0.4 mg PO DAILY 09/15/18 09/15/18 History buPROPion XL [Wellbutrin Xl] 150 mg PO DAILY 09/15/18 09/15/18 History Allergies Allergy/AdvReac Type Severity Reaction Status Date / Time milk Allergy Unknown Verified 09/15/18 10:35 Physical Exam Vitals: Vital Signs Temp Pulse Resp BP Pulse Ox 09/16/18 21:30 76 28 H 95/61 99 09/16/18 21:15 80 22 93/64 98 09/16/18 21:00 81 34 H 88/61 97 09/16/18 20:45 84 29 H 89/63 97 09/16/18 20:30 106 H 33 H 100/62 96 09/16/18 20:15 98 26 H 83/63 95 09/16/18 20:00 98.4 F 89 33 H 109/58 93 L 09/16/18 19:45 80 35 H 98/37 95 09/16/18 19:30 116 H 28 H 99/58 95 09/16/18 19:15 102 H 37 H 81/63 96 09/16/18 19:00 94 37 H 114/39 96 09/16/18 18:45 110 H 34 H 79/60 96 09/16/18 18:30 90 36 H 84/59 97 09/16/18 18:15 121 H 48 H 79/64 95 09/16/18 18:00 111 H 48 H 94 L 09/16/18 17:45 124 H 16 106/54 93 L 09/16/18 17:30 126 H 51 H 85/70 95 09/16/18 17:15 121 H 30 H 95/79 89 L 09/16/18 17:00 107 H 40 H 87/54 95 09/16/18 16:45 100 37 H 89/62 95 09/16/18 16:30 113 H 41 H 85/71 95 09/16/18 16:15 120 H 37 H 77/67 95 09/16/18 16:00 116 H 31 H 87/70 95 09/16/18 15:45 120 H 43 H 79/67 95 09/16/18 15:30 125 H 41 H 94/68 96 09/16/18 15:15 124 H 24 89/75 95 09/16/18 15:00 131 H 35 H 84/61 95 09/16/18 14:45 103 H 39 H 82/60 96 09/16/18 14:30 122 H 33 H 80/67 95 09/16/18 14:15 142 H 24 80/62 95 09/16/18 14:00 110 H 26 H 92/54 97 09/16/18 13:45 137 H 39 H 97/79 97 09/16/18 13:30 144 H 40 H 84/55 96 09/16/18 13:15 126 H 24 112/37 96 09/16/18 13:00 141 H 31 H 92/70 94 L 09/16/18 12:45 129 H 39 H 97/86 90 L 09/16/18 12:30 131 H 34 H 79/40 95 12/01/18 12:15 116 H 38 H 84/69 90 L 09/16/18 12:00 140 H 30 H 78/64 96 09/16/18 11:45 135 H 32 H 96/66 92 L 09/16/18 11:30 99 24 92/80 96 09/16/18 11:15 128 H 23 89/63 09/16/18 11:00 123 H 27 H 94/73 09/16/18 10:45 122 H 18 97/67 09/16/18 10:30 125 H 30 H 92/75 93 L 09/16/18 10:15 107 H 32 H 87/75 98 09/16/18 10:00 115 H 35 H 78/64 98 09/16/18 09:45 122 H 35 H 84/65 97 09/16/18 09:30 98 49 H 85/58 96 09/16/18 09:15 122 H 34 H 91/66 96 09/16/18 09:00 116 H 51 H 87/67 97 09/16/18 08:45 111 H 29 H 81/61 96 09/16/18 08:30 98 37 H 97/61 98 09/16/18 08:15 80 30 H 96/75 96 09/16/18 08:00 97.8 F 84 33 H 92/64 96 09/16/18 07:45 80 34 H 99/64 96 09/16/18 07:30 80 13 98/65 96 09/16/18 07:15 78 35 H 100/69 97 09/16/18 07:00 77 32 H 99/66 97 09/16/18 06:45 73 41 H 105/66 96 09/16/18 06:30 76 36 H 91/62 97 09/16/18 06:15 72 27 H 95/61 98 09/16/18 06:00 73 24 98/65 97 09/16/18 05:45 76 26 H 100/65 98 09/16/18 05:30 73 25 H 95/59 97 09/16/18 05:15 75 31 H 96/67 97 09/16/18 05:00 74 30 H 91/59 98 09/16/18 04:45 75 26 H 92/64 98 09/16/18 04:30 76 26 H 88/64 97 09/16/18 04:15 75 23 85/58 98 09/16/18 04:00 97.6 F 78 26 H 81/57 97 09/16/18 03:45 79 25 H 88/59 97 09/16/18 03:30 78 24 87/57 97 09/16/18 03:15 80 25 H 85/60 96 09/16/18 03:00 80 24 83/57 96 09/16/18 02:45 79 25 H 86/59 96 09/16/18 02:30 80 29 H 80/53 94 L 09/16/18 02:15 80 28 H 84/54 96 09/16/18 02:00 83 27 H 77/53 96 09/16/18 01:45 86 41 H 80/49 97 09/16/18 01:30 87 34 H 78/50 96 09/16/18 01:15 85 42 H 71/44 97 09/16/18 01:00 86 32 H 78/53 96 09/16/18 00:30 91 30 H 84/59 99 09/16/18 00:00 100.1 F H 98 30 H 78/54 100 09/15/18 23:30 93 35 H 75/49 99 09/15/18 23:00 96 30 H 75/43 99 09/15/18 22:30 96 30 H 78/49 99 09/15/18 22:00 95 20 80/52 100 Intake and Output 09/16/18 09/16/18 09/16/18 06:59 14:59 22:59 Intake Total 1903.625 513.880 4213 Output Total 255 525 610 Balance 1648.625 321.375 590 Intake: IV 1700 800 700 Sodium Chloride 0.9% 1, 700 800 700 000 ml @ 100 mls/hr IV . Q10H [facility] Rx#:[id number] Sodium Chloride 0.9% 1, 1000 000 ml @ 999 mls/hr IV . Q1H1M [facility] Rx#:[id number] Intake, IV Titration 203.625 46.375 Amount Norepinephrine 4 mg In 203.625 46.375 Sodium Chloride 0.9% 250 ml @ Titrate IV .Q0M [facility] Rx#:[id number] Oral 500 Output: Urine 255 525 610 Other: Voiding Method Indwelling Catheter Indwelling Catheter Indwelling Catheter Weight 121 kg HEENT: Anicteric conjunctiva are pink and moist nasal mucosa grossly intact without significant lesions, there is no thrush. Neck: The neck is supple without significant lymphadenopathy or thyromegaly. Lungs: Good bilateral air entry without significant crackles or wheezing. There is no significant bronchial sounds. There is no egophony or dullness. Heart: Regular rate and rhythm with an audible S1-S2, no S3 no S4. There is no significant murmur click or rub, PMI was nondisplaced. Abdomen: Positive bowel sounds soft and nontender without palpable masses or organomegaly. There was no guarding or rebound. Extremities: The upper extremities have excellent pulses they are symmetric, no significant petechiae or telangiectasia. No splinter hemorrhages were noted. The lower extremities are free from significant edema. The peripheral pulses were 2+ and symmetric. Neuro: Awake alert oriented to person place and time. There are no acute new gross focal sensory motor deficits. Dumont catheter in place without tenderness to testicles or penis is no erythema of the region Skin is without rash or breakdown Results CBC & Chem 7: 09/16/18 20:49 09/16/18 05:07 Labs: Abnormal Lab Results - Last 24 Hours (Table) 09/15/18 09/16/18 09/16/18 Range/Units 22:10 05:07 05:07 WBC 20.4 H (3.8-10.6) k/uL RBC 3.49 L (4.30-5.90) m/uL Hgb 10.5 L (13.0-17.5) gm/dL Hct 32.6 L (39.0-53.0) % Neutrophils # (1.3-7.7) k/uL Neutrophils # (Manual) 18.90 H (1.3-7.7) k/uL Lymphocytes # (1.0-4.8) k/uL Lymphocytes # (Manual) 0.61 L (1.0-4.8) k/uL Metamyelocytes # (Man) 0.20 H (0) k/uL APTT (22.0-30.0) sec Sodium 133 L (137-145) mmol/L Carbon Dioxide 15 L (22-30) mmol/L BUN 61 H (9-20) mg/dL Creatinine 5.08 H (0.66-1.25) mg/dL Glucose 71 L (74-99) mg/dL Calcium 6.9 L (8.4-10.2) mg/dL Phosphorus 7.9 H (2.5-4.5) mg/dL AST 174 H (17-59) U/L ALT 73 H (21-72) U/L Creatine Kinase 5285 H* (55-170) U/L Troponin I 0.067 H* (0.000-0.034) ng/mL Total Protein 4.7 L (6.3-8.2) g/dL Albumin 2.3 L (3.5-5.0) g/dL 09/16/18 09/16/18 Range/Units 20:49 20:49 WBC 19.4 H (3.8-10.6) k/uL RBC 3.25 L (4.30-5.90) m/uL Hgb 9.9 L (13.0-17.5) gm/dL Hct 30.4 L (39.0-53.0) % Neutrophils # 18.0 H (1.3-7.7) k/uL Neutrophils # (Manual) (1.3-7.7) k/uL Lymphocytes # 0.8 L (1.0-4.8) k/uL Lymphocytes # (Manual) (1.0-4.8) k/uL Metamyelocytes # (Man) (0) k/uL APTT 33.4 H (22.0-30.0) sec Sodium (137-145) mmol/L Carbon Dioxide (22-30) mmol/L BUN (9-20) mg/dL Creatinine (0.66-1.25) mg/dL Glucose (74-99) mg/dL Calcium (8.4-10.2) mg/dL Phosphorus (2.5-4.5) mg/dL AST (17-59) U/L ALT (21-72) U/L Creatine Kinase (55-170) U/L Troponin I (0.000-0.034) ng/mL Total Protein (6.3-8.2) g/dL Albumin (3.5-5.0) g/dL Microbiology - Last 24 Hours (Table) 09/15/18 10:21 Blood Culture Gram Stain - Preliminary Blood 09/15/18 10:04 Blood Culture - Final Blood 09/15/18 10:04 Urine Culture - Preliminary Urine,Voided Gram Neg Bacilli Laboratory Results WBC 19.4 k/uL (3.8-10.6) H 09/16/18 20:49 RBC 3.25 m/uL (4.30-5.90) L 09/16/18 20:49 Hgb 9.9 gm/dL (13.0-17.5) L 09/16/18 20:49 Hct 30.4 % (39.0-53.0) L 09/16/18 20:49 MCV 93.3 fL (80.0-100.0) 09/16/18 20:49 MCH 30.5 pg (25.0-35.0) 09/16/18 20:49 MCHC 32.7 g/dL (31.0-37.0) 09/16/18 20:49 RDW 15.1 % (11.5-15.5) 09/16/18 20:49 Plt Count 412 k/uL (150-450) 09/16/18 20:49 Neutrophils % 93 % 09/16/18 20:49 Neutrophils % (Manual) 78 % 09/16/18 05:07 Band Neutrophils % 15 % 09/16/18 05:07 Lymphocytes % 4 % 09/16/18 20:49 Lymphocytes % (Manual) 3 % 09/16/18 05:07 Monocytes % 2 % 09/16/18 20:49 Monocytes % (Manual) 3 % 09/16/18 05:07 Eosinophils % 1 % 09/16/18 20:49 Basophils % 0 % 09/16/18 20:49 Metamyelocytes % 1 % 09/16/18 05:07 Neutrophils # 18.0 k/uL (1.3-7.7) H 09/16/18 20:49 Neutrophils # (Manual) 18.90 k/uL (1.3-7.7) H 09/16/18 05:07 Lymphocytes # 0.8 k/uL (1.0-4.8) L 09/16/18 20:49 Lymphocytes # (Manual) 0.61 k/uL (1.0-4.8) L 09/16/18 05:07 Monocytes # 0.4 k/uL (0-1.0) 09/16/18 20:49 Monocytes # (Manual) 0.61 k/uL (0-1.0) 09/16/18 05:07 Eosinophils # 0.2 k/uL (0-0.7) 09/16/18 20:49 Basophils # 0.0 k/uL (0-0.2) 09/16/18 20:49 Metamyelocytes # (Man) 0.20 k/uL (0) H 09/16/18 05:07 Nucleated RBCs 0 /100 WBC (0-0) 09/16/18 05:07 Toxic Granulation Present 09/16/18 05:07 Toxic Vacuolation Present 09/16/18 05:07 Polychromasia Present 09/15/18 10:04 Poikilocytosis (manual Present 09/16/18 05:07 Anisocytosis (manual) Present 09/15/18 10:04 PT 10.7 sec (9.0-12.0) 09/16/18 20:49 INR 1.1 (<1.2) 09/16/18 20:49 APTT 33.4 sec (22.0-30.0) H 09/16/18 20:49 Sodium 133 mmol/L (137-145) L 09/16/18 05:07 Potassium 4.6 mmol/L (3.5-5.1) 09/16/18 05:07 Chloride 103 mmol/L (98-107) 09/16/18 05:07 Carbon Dioxide 15 mmol/L (22-30) L 09/16/18 05:07 Anion Gap 15 mmol/L 09/16/18 05:07 BUN 61 mg/dL (9-20) H 09/16/18 05:07 Creatinine 5.08 mg/dL (0.66-1.25) H 09/16/18 05:07 Est GFR (CKD-EPI)AfAm 13 (>60 ml/min/1.73 sqM) 09/16/18 05:07 Est GFR (CKD-EPI)NonAf 11 (>60 ml/min/1.73 sqM) 09/16/18 05:07 Glucose 71 mg/dL (74-99) L 09/16/18 05:07 POC Glucose (mg/dL) 83 mg/dL (75-99) 09/16/18 01:15 POC Glu Senior [employer] Administrator ID Pari Hunt 09/16/18 01:15 Lactic Ac Sepsis Rflx Y 09/15/18 12:20 Plasma Lactic Acid [place] 1.4 mmol/L (0.7-2.0) 09/15/18 15:55 Calcium 6.9 mg/dL (8.4-10.2) L 09/16/18 05:07 Phosphorus 7.9 mg/dL (2.5-4.5) H 09/16/18 05:07 Magnesium 2.1 mg/dL (1.6-2.3) 09/16/18 05:07 Total Bilirubin 0.6 mg/dL (0.2-1.3) 09/16/18 05:07 AST 174 U/L (17-59) H 09/16/18 05:07 ALT 73 U/L (21-72) H 09/16/18 05:07 Alkaline Phosphatase 89 U/L (38-126) 09/16/18 05:07 Creatine Kinase 5285 U/L (55-170) H* 09/16/18 05:07 Total Creatine Kinase 29802 U/L (55-170) H* 09/15/18 10:04 CK-MB (CK-2) 37.4 ng/mL (0.0-2.4) H 09/15/18 10:04 CK-MB (CK-2) Rel Index 09/15/18 10:04 Troponin I 0.067 ng/mL (0.000-0.034) H* 09/15/18 22:10 Total Protein 4.7 g/dL (6.3-8.2) L 09/16/18 05:07 Albumin 2.3 g/dL (3.5-5.0) L 09/16/18 05:07 Cortisol 48 ug/dL 09/16/18 05:07 Urine Color Yellow 09/15/18 10:04 Urine Appearance Turbid (Clear) 09/15/18 10:04 Urine pH 6.0 (5.0-8.0) 09/15/18 10:04 Ur Specific [place] (1.001-1.035) 09/15/18 10:04 Urine Protein 2+ (Negative) H 09/15/18 10:04 Urine Glucose (UA) Negative (Negative) 09/15/18 10:04 Urine Ketones Negative (Negative) 09/15/18 10:04 Urine Blood Moderate (Negative) H 09/15/18 10:04 Urine Nitrite Negative (Negative) 09/15/18 10:04 Urine Bilirubin Negative (Negative) 09/15/18 10:04 Urine Urobilinogen <2.0 mg/dL (<2.0) 09/15/18 10:04 Ur Leukocyte Esterase Large (Negative) H 09/15/18 10:04 Urine RBC 22 /hpf (0-5) H 09/15/18 10:04 Urine WBC Clumps Many /hpf (None) H 09/15/18 10:04 Urine Opiates Screen Not Detected (NotDetected) 09/15/18 10:21 Ur Oxycodone Screen Not Detected (NotDetected) 09/15/18 10:21 Urine Methadone Screen Not Detected (NotDetected) 09/15/18 10:21 Ur Propoxyphene Screen Not Detected (NotDetected) 09/15/18 10:21 Ur Barbiturates Screen Not Detected (NotDetected) 09/15/18 10:21 U Tricyclic Antidepress Not Detected (NotDetected) 09/15/18 10:21 Ur Phencyclidine Scrn Not Detected (NotDetected) 09/15/18 10:21 Ur Amphetamines Screen Not Detected (NotDetected) 09/15/18 10:21 U Methamphetamines Scrn Not Detected (NotDetected) 09/15/18 10:21 U Benzodiazepines Scrn Not Detected (NotDetected) 09/15/18 10:21 Urine Cocaine Screen Not Detected (NotDetected) 09/15/18 10:21 U Marijuana (THC) Screen Not Detected (NotDetected) 09/15/18 10:21 Microbiology 09/15/18 10:21 Blood Blood Culture Gram Stain - Preliminary 09/15/18 10:04 Blood Blood Culture - Final 09/15/18 10:04 Urine,Voided Urine Culture - Preliminary Gram Neg Bacilli Assessment and Plan (1) Septic shock Narrative/Plan: Who has a complex past medical history presents to Hospital feeling very poorly with markedly increased weakness and about of nausea and emesis. At presentation the patient was hypotensive he had a temperature of 100.3 leukocytosis and evidence of infection from the urinary tract. He has was admitted to the intensive care unit because of his knees for vasopressor therapy despite fluid resuscitation. Patient is doing somewhat better today. He is no longer having nausea and able to eat his dinner. There is evidence of the gram-negative sepsis with the urinalysis being positive and urine culture with gram-negative bacilli. Blood cultures are being positive for gram-positive cocci which is somewhat puzzling at this point in time and await further data. with his history of recent hosiztion and concern for more resitant grm-negatve pathogen ceftaz ting is [place] utiized as well as vanomycin fr now unil we hae further data. Leukocytosis to be monitored. There is evidence of acute renal failure and is being monitored closely also by nephrology. Followup blood cultures to be requested. Current Visit: Yes Status: Acute Code(s): A41.9 - SEPSIS, UNSPECIFIED ORGANISM; R65.21 - SEVERE SEPSIS WITH SEPTIC SHOCK SNOMED Code(s): 71352655 (2) UTI (urinary tract infection) Current Visit: Yes Status: Acute Code(s): N39.0 - URINARY TRACT INFECTION, SITE NOT SPECIFIED SNOMED Code(s): 72428699 (3) Fever Current Visit: Yes Status: Resolved Code(s): R50.9 - FEVER, UNSPECIFIED SNOMED Code(s): 079792435 (4) Leukocytosis Current Visit: Yes Status: Acute Code(s): D72.829 - ELEVATED WHITE BLOOD CELL COUNT, UNSPECIFIED SNOMED Code(s): 399086332
[2018-09-17] MEDS: NOREPINEPHRINE 4 MG in SODIUM CHLORIDE 0.9% 250 ML IV SCH ×2
--- NOTE | 2018-09-17 00:05 | PN ---
PROGRESS NOTE DATE OF SERVICE: 09/16/2018. HISTORY: This 67-year-old gentleman who was admitted with acute urinary tract infection with possible sepsis, also had hypotension. The patient is on pressor support. Patient is being closely monitored in ICU at this time. The creatinine has worsened for 4.7 to 5.08 at this time. White count is still elevated at 20. Creatinine kinase also slightly improved at 5285, indicating rhabdomyolysis. The cultures are showing gram- negative bacilli in the urine. PAST MEDICAL HISTORY: Reviewed. REVIEW OF SYSTEMS: CARDIOVASCULAR: No angina. RESPIRATORY: As mentioned. GI: As mentioned. NERVOUS SYSTEM: As mentioned earlier. CURRENT MEDICATIONS: 1. Tylenol 500 mg as needed. 2. [place] 5 mg. 3. Midodrine drip. 4. Eliquis 5 mg b.i.d. 5. Aspirin 81 mg. 6. Tenormin 25 mg daily. 7. Wellbutrin XL 150 mg daily. 8. PhosLo. 9. Ceftazidime every 48 hours hours. 10.Vitamin D2. 11.Narcan. 12.Levophed drip. 13.Protonix. 14.Flomax. PHYSICAL EXAMINATION: Alert, oriented x2. Pulse is 111, blood pressure 106/60, respirations 16, temperature normal, pulse ox 93% on room air. HEENT: Conjunctivae normal. Oral mucosa moist. NECK: No jugular venous distention. No lymph node enlargement. CARDIOVASCULAR: S1 and S2 muffled. LUNGS: Breath sounds diminished in the bases. A few scattered rhonchi and crackles. ABDOMEN: Soft, nontender. No mass palpable. LEGS: No edema or swelling. NERVOUS SYSTEM: Higher functions as mentioned earlier. Moves all 4 limbs. No focal motor deficits. LYMPHATICS: No lymphadenopathy. SKIN: No ulcer, rash, bleeding. LAB STUDIES: WBC 10.4, hemoglobin is 10.5, sodium 133, creatinine is 5.08. CK is 5285. ASSESSMENT: 1. Acute urinary tract infection possibly gram-negative, present on admission, secondary to Harper catheter with severe sepsis and hypotensive septic shock. 2. Renal failure acute on chronic with acute tubular necrosis prerenal factors. 3. Chronic kidney stage 3 baseline. 4. Increased WBC. 5. Anemia. 6. Hyponatremia. 7. Acute rhabdomyolysis. 8. Increased plasma lactic acid lactic acidosis. 9. Hypomagnesemia. 10.History of coronary artery disease with stent. 11.Hypertension. 12.History of myocardial infarction. 13.History of prostatic issues. 14.History of depression. 15.FULL CODE. RECOMMENDATIONS: Continue current management. Continue monitoring. Symptomatic treatment. Continue broad spectrum IV antibiotics. We will await final ID of the organism. Closely monitor with ICU attending as well as Nephrology. Continue the fluid resuscitation. Bladder ultrasound was requested which showed presence of Harper catheter and echogenic material and debris. Otherwise, will continue to monitor. Once again, the prognosis is guarded because of multiple consultations. See orders for details. Further recommendations to follow. MMODL / IJN: [id number] /
--- NOTE | 2018-09-17 03:03 | CONS ---
CONSULTATION Mr. De La Fuente is a 67-year-old gentleman who is seen in the intensive care unit for cardiac evaluation. Patient's medical records are reviewed. This patient came to the emergency room come with a complaint of primary weakness in his legs and the patient an indwelling Harper because of the prostatic hypertrophy for several months. The patient was found to have urinary tract infection with sepsis with high lactic acid level and the patient was taken to the intensive care unit with sepsis ( ) because of fluid. He denies any chest pain at present. Denies any shortness of breath. PAST MEDICAL HISTORY: Includes history of coronary artery disease with stent, hypertension, MD and indwelling Harper catheter. HOME MEDICATIONS: Aspirin 81 mg ( ) REVIEW OF THE SYSTEM: Otherwise unremarkable. PHYSICAL EXAMINATION: At present reveals a 67-year-old obesely built gentleman who does not appear to be in any acute distress at present. Patient's heart rate is running at the rate 120 to 130. Blood pressure is 106/74 mmHg. Head/. HEENT examination is negative. Neck is supple. Jugular venous pressure is not elevated. Both the carotid pulses are felt. There is no bruit. Chest is symmetrical. HEART: The PMI is not felt. First and second heart sounds are normal Lungs are clinically clear to auscultation and percussion. ABDOMEN: Soft. EXTREMITIES: Peripheral pulses 2+. Chest x-ray shows bilateral basilar atelectasis. Patient's white count is 20,408. Electrolytes are normal. BUN is 61 and creatinine is 5.8. The patient's CPK was 5,400. The patient has a minimally elevated troponin of 0.067 and 0.069 IMPRESSION: 1. This patient is admitted with urinary tract infection and sepsis. The patient developed atrial fibrillation with a regular periventricular response. The patient is not in any acute respiratory distress at present. We will start the patient on Amiodarone drip to control the rate and the patient was supposed to be started on the Eliquis but, in view of the patient's significant renal failure, we will discontinue the Eliquis and resume the patient's IV heparin at present. resume the patient's IV heparin at the present. 2. The patient has a mild elevation in the troponin which is not suggestive of acute coronary syndrome by itself. Most likely secondary to acute sepsis and hypoxia. MMODL / IJN: [id number] /
[2018-09-17 03:48] LABS: Albumin 2.1 g/dL (3.5-5.0); Total Bilirubin 0.4 mg/dL (0.2-1.3); Total Protein 4.4 g/dL (6.3-8.2)
[2018-09-17 03:57] LABS: Basophils % (A) 0 %; Eosinophils # (A) 0.2 k/uL (0-0.7); Eosinophils % (A) 1 %; HCT 30.2 % (39.0-53.0); HGB 9.6 gm/dL (13.0-17.5); Lymphocytes # (A) 0.7 k/uL (1.0-4.8); Lymphocytes % (A) 4 %; MCH 29.5 pg (25.0-35.0); MCHC 31.8 g/dL (31.0-37.0); MCV 92.8 fL (80.0-100.0); Mean Platelet Volume 7.4; Monocytes # (A) 0.4 k/uL (0-1.0); Monocytes % (A) 2 %; Neutrophils # (A) 16.6 k/uL (1.3-7.7); Neutrophils % (A) 92 %; Platelet Count 363 k/uL (150-450); RBC 3.25 m/uL (4.30-5.90); RDW 15.2 % (11.5-15.5); WBC 17.9 k/uL (3.8-10.6)
[2018-09-17 04:12] LABS: Magnesium 2.2 mg/dL (1.6-2.3); Phosphorus 5.8 mg/dL (2.5-4.5)
[2018-09-17] MEDS: HEPARIN SODIUM,PORCINE 5,000 UNIT/ML 1 ML VIAL IV PRN ×3 (04:21→23:55)
[2018-09-17] MEDS: AMIODARONE 450 MG in DEXTROSE 5% IN WATER 250 ML IV SCH ×4 (06:10→16:15)
[2018-09-17] MEDS ORDERED: INSULIN ASPART 100 UNIT/ML 1 ML 10 ML VIAL SQ SCH (07:30)
[2018-09-17] MEDS: PANTOPRAZOLE 40 MG/10 ML VIAL IV SCH (08:27)
[2018-09-17] MEDS: buPROPion XL 150 MG TAB.ER.24H PO SCH (08:28)
[2018-09-17] MEDS: TAMSULOSIN 0.4 MG CAP.ER.24H PO SCH (08:29)
[2018-09-17] MEDS: CALCIUM ACETATE 667 MG CAP PO SCH ×2 (08:29→18:28)
[2018-09-17] MEDS: ASPIRIN 81 MG PO SCH (08:29)
[2018-09-17] MEDS: ATENOLOL 25 MG TAB PO SCH (08:29)
[2018-09-17] MEDS: SODIUM CHLORIDE 0.9% 1,000 ML IV SCH ×2 (09:25→18:28)
--- NOTE | 2018-09-17 10:43 | PN ---
PROGRESS NOTE DATE OF SERVICE: 09/17/2018 This is a 67-year-old gentleman that we saw in consultation yesterday. This is a patient we saw in consultation yesterday. This is a 67-year-old male presented to the emergency department on September 15. He complained of weakness in his legs. He was not able to really get up and move around. He had not been feeling well for a number of days prior to admission and maybe up to a week. He apparently also had a fever. He had a little bit of a respiratory complaint including cough, shortness of breath as well as some phlegm production. The patient has a history of chronic indwelling Harper catheter for BPH. He has had the catheter in for at least 3 months. More recently, Dr. Kirby did a change and probably during the process of manipulation of the catheter, the patient developed what appears to be some underlying sepsis. The patient had blood cultures apparently growing some enterococci and his urine were positive for gram-negative bacilli. The patient has been seen by Dr. Leon. He remains on antibiotics. Yesterday, he was on a higher dose of norepinephrine and it has been weaned down to 3 mcg/minute. Currently he is on O2 at 2 L nasal cannula. An IV 0.9 at 100 mL an hour. The norepinephrine at 3 mcg/minute, amiodarone of 0.5 mg/ minute and heparin via weight based protocol. His cortisol was 48. He remains on Zosyn and vancomycin. He does feel better today. Much more alert and awake. Feels stronger. He has a history of CAD with stents x3, BPH, hypertension, VT, and a chronic indwelling Harper catheter for the BPH. Current vital signs are reviewed temperature is 99.3, heart rate 75, respiratory rate about 20, blood pressure 97/57 with a mean of 70, and saturations are 95% on 2 L. Appears in no acute distress. Looks much more comfortable today. HEENT examination is grossly unremarkable. Nasal O2 in place. Neck is supple. Full range of motion. No adenopathy or thyromegaly. Cardiovascular examination reveals regular rhythm and rate. Heart rate about the 70s. He appears now to be in sinus rhythm. S1, S2 normal. No distinct murmur noted. Lungs reveal a few scattered rhonchi. No wheezes or crackles. Breath sounds equal. Abdomen is obese. Bowel sounds are heard. Extremities are intact. Mild edema. Skin without rash. Neurologic examination appears to be nonfocal. No chest x-ray today. LAB DATA: Includes a white count of 17.9, hemoglobin 9.6, hematocrit 30.2, and platelet count which is normal. His PTT is 35.7, sodium 129, potassium 4, chloride 105, CO2 14 , anion gap is 10, BUN and creatinine were 66, 4.66. His CK is come down nicely to 1195. As I mentioned, his cortisol level was 48. His troponins were mildly elevated. Microbiologic studies as mentioned above includes the Enterococcus species in the blood and gram-negative bacilli in the urine. Medications are reviewed. ASSESSMENT: 1. Hypotension, secondary to urinary tract infection with gram-negative bacilli , yet to be identified from a chronic indwelling Harper catheter that was recently manipulated. 2. History of chronic benign prostatic hypertrophy with chronic indwelling Harper catheter and previous history of urinary tract infection. 3. History of coronary artery disease with previous stenting x3, and mildly elevated troponins, rule out ischemia. 4. History of benign prostatic hypertrophy. 5. History of hypertension. 6. Previous history of myocardial infarction. 7. Anion gap metabolic acidosis, resolved. 8. Chronic kidney disease. 9. Bacteremia, secondary to enterococci. PLAN: Dated September 17, 2018 Nephrology and Infectious Disease were consulted and have seen the patient. He remains on Zosyn and vancomycin. His norepinephrine requirements have come down. Because of atrial fibrillation he was started on amiodarone. He seems to be in normal sinus rhythm now. He continues on IV heparin. He feels better and looks better. We will continue to follow closely. Prognosis is guarded. He will stay here in the ICU obviously. We will continue to see him and make additional recommendations where appropriate. Labs, x-rays, and so forth are reviewed. Critical care time 31 minutes. MMODL / IJN: [id number] / [place]
[2018-09-17] MEDS ORDERED: VANCOMYCIN 1,750 MG in SODIUM CHLORIDE 0.9% 500 ML 500 ML IVPB ONE (13:00)
--- NOTE | 2018-09-17 13:57 | P.PN ---
Subjective Progress Note Date: 09/17/18 Principal diagnosis: This is a 67-year-old male known to us previously with chronic kidney disease. He is being seen in consultation because of acute kidney injury, hyponatremia. He came in because of fever and chills and urinary tract infection with Pseudomonas growing in the urine and blood cultures is showing gram negatives. His blood pressure is low and running in the 80s in spite of being hydrated vigorously. He had 6 L in. He was started on levo fed. He went into atrial fibrillation yesterday morning and was additionally on Amiodarine drip. This morning he is off the the Levophed, he is moving mean arterial pressure is in the mid 60s, his urine output is maintained and his creatinine is improved. He denies any chest pain nausea vomiting diarrhea abdominal pain. He had a Harper catheter inserted about 3 weeks ago. He has had chronic prostate problems in the past Previously his creatinine has been 1.9 on 10/13/2016 2 years ago, 2.6 dated . Since then he has not had any labs in this hospital. He is known with coronary artery disease, hypertension, was on atenolol at home as well as on Flomax. Objective - Vital Signs Vital signs: Vital Signs Temp 98.7 F 09/17/18 12:00 Pulse 71 09/17/18 12:00 Resp 33 H 09/17/18 12:00 BP 91/59 09/17/18 12:00 Pulse Ox 97 09/17/18 12:00 Intake & Output 09/16/18 09/17/18 09/17/18 18:59 06:59 18:59 Intake Total 5964.069 8429.042 600 Output Total 735 1280 830 Balance 511.375 941.042 -230 Weight 125.7 kg Intake: IV 1200 1200 600 Sodium Chloride 0.9% 1, 600 600 000 ml @ 100 mls/hr IV . Q10H [facility] Rx#:[id number] Sodium Chloride 0.9% 1, 1200 600 000 ml @ 100 mls/hr IV . Q10H STA Rx#:[id number] Intake, IV Titration 46.375 521.042 Amount Amiodarone 450 mg In 202.202 Dextrose 5% in Water 250 ml @ 1 MG/MIN 33.33 mls/ hr IV .Q7H31M [facility] Rx#: [id number] Heparin Sod,Pork in 0.45% 143.84 NaCl 25,000 unit In 0.45 % NaCl 1 500ml.bag @ 8.2 UNITS/KG/HR 19.84 mls/hr IV .Q24H [facility]OTT Rx#: [id number] Norepinephrine 4 mg In 46.375 175 Sodium Chloride 0.9% 250 ml @ Titrate IV .Q0M [facility]OTT Rx#:[id number] Oral 500 Output: Urine 735 1280 830 Other: Voiding Method Indwelling Catheter Indwelling Catheter Indwelling Catheter On examination is awake alert oriented comfortable HEENT exam no JVP neck is supple no facial asymmetry Lungs clear to auscultation good air entry bilaterally Heart sounds unremarkable for any murmur rub gallop Abdomen soft nontender slightly protuberant Extremity exam was trace edema Neurologically awake alert oriented but generalized weakness. - Labs CBC & Chem 7: 09/17/18 03:09 09/17/18 03:09 Labs: Abnormal Lab Results - Last 24 Hours (Table) 09/16/18 09/16/18 09/16/18 Range/Units 05:07 20:49 20:49 WBC 19.4 H (3.8-10.6) k/uL RBC 3.25 L (4.30-5.90) m/uL Hgb 9.9 L (13.0-17.5) gm/dL Hct 30.4 L (39.0-53.0) % Neutrophils # 18.0 H (1.3-7.7) k/uL Neutrophils # (Manual) 18.90 H (1.3-7.7) k/uL Lymphocytes # 0.8 L (1.0-4.8) k/uL Lymphocytes # (Manual) 0.61 L (1.0-4.8) k/uL Metamyelocytes # (Man) 0.20 H (0) k/uL APTT 33.4 H (22.0-30.0) sec Sodium (137-145) mmol/L Carbon Dioxide (22-30) mmol/L BUN (9-20) mg/dL Creatinine (0.66-1.25) mg/dL Glucose (74-99) mg/dL Calcium (8.4-10.2) mg/dL Phosphorus (2.5-4.5) mg/dL AST (17-59) U/L Creatine Kinase (55-170) U/L Total Protein (6.3-8.2) g/dL Albumin (3.5-5.0) g/dL 09/17/18 09/17/18 09/17/18 Range/Units 03:09 03:09 03:09 WBC 17.9 H (3.8-10.6) k/uL RBC 3.25 L (4.30-5.90) m/uL Hgb 9.6 L (13.0-17.5) gm/dL Hct 30.2 L (39.0-53.0) % Neutrophils # 16.6 H (1.3-7.7) k/uL Neutrophils # (Manual) (1.3-7.7) k/uL Lymphocytes # 0.7 L (1.0-4.8) k/uL Lymphocytes # (Manual) (1.0-4.8) k/uL Metamyelocytes # (Man) (0) k/uL APTT 35.7 H (22.0-30.0) sec Sodium 129 L (137-145) mmol/L Carbon Dioxide 14 L (22-30) mmol/L BUN 66 H (9-20) mg/dL Creatinine 4.66 H (0.66-1.25) mg/dL Glucose 109 H (74-99) mg/dL Calcium 7.0 L (8.4-10.2) mg/dL Phosphorus (2.5-4.5) mg/dL AST 78 H (17-59) U/L Creatine Kinase 1195 H* (55-170) U/L Total Protein 4.4 L (6.3-8.2) g/dL Albumin 2.1 L (3.5-5.0) g/dL 09/17/18 09/17/18 Range/Units 03:09 10:20 WBC (3.8-10.6) k/uL RBC (4.30-5.90) m/uL Hgb (13.0-17.5) gm/dL Hct (39.0-53.0) % Neutrophils # (1.3-7.7) k/uL Neutrophils # (Manual) (1.3-7.7) k/uL Lymphocytes # (1.0-4.8) k/uL Lymphocytes # (Manual) (1.0-4.8) k/uL Metamyelocytes # (Man) (0) k/uL APTT 36.9 H (22.0-30.0) sec Sodium (137-145) mmol/L Carbon Dioxide (22-30) mmol/L BUN (9-20) mg/dL Creatinine (0.66-1.25) mg/dL Glucose (74-99) mg/dL Calcium (8.4-10.2) mg/dL Phosphorus 5.8 H (2.5-4.5) mg/dL AST (17-59) U/L Creatine Kinase (55-170) U/L Total Protein (6.3-8.2) g/dL Albumin (3.5-5.0) g/dL Microbiology - Last 24 Hours (Table) 09/15/18 10:21 Blood Culture Gram Stain - Preliminary Blood Blood Culture - Preliminary Gram Neg Bacilli 09/15/18 10:04 Urine Culture - Final Urine,Voided Pseudomonas aeruginosa 09/15/18 10:04 Blood Culture - Final Blood Assessment and Plan Plan: Impression 1. Acute kidney injury secondary to low blood pressure, Pseudomonas urinary tract infection and gram-negative sepsis , creatinine is improving urine output is maintained. He is on levo fed which was started yesterday. 2. Chronic kidney disease creatinine has been 1.92 years ago and 10/13/2016 and 2.6 as of 05/10/2017 more than a year ago. Likely from nephrosclerosis. There may be an element of chronic hydronephrosis as well as an ultrasound in 2014 showed hydronephrosis. 3. Non-gap acidosis and gap acidosis from acute kidney injury gap is 15 and bicarb is 15. This morning his bicarb was 14 and anion gap is 10 therefore it is converted to a Non-gap acidosis 4. Hypocalcemia secondary to acute kidney injury and chronic kidney disease. 5. Hyperphosphatemia secondary to same. 6. Anemia of chronic kidney disease hemoglobin is 10.5, down to 9.6 7. History of coronary artery disease, possible cardiomyopathy. Currently in A. fib after being started on levo fed Recommendation. 1. Continue IV normal saline 100 mL an hour. 2. Discontinue vancomycin. Covered with appropriate antibiotics, defer to ID 3. Ultrasound of the kidney and bladder to ensure there is anatomical abnormalities explain his bacteremia 4. Avoid any nephrotoxic medications including Toradol. Will continue follow thank you for this consultation
--- NOTE | 2018-09-17 15:55 | US ---
EXAMINATION TYPE: US renals and bladder DATE OF EXAM: 09/17/2018 COMPARISON: 09/24/2015 CLINICAL HISTORY: renal failure ; ICU patient with UTI per patient EXAM MEASUREMENTS: Right Kidney: 13.5 x 7.6 x 6.0 cm Left Kidney: 13.3 x 5.8 x 6.5 cm Post Void Residual Volume: not assessed as Harper Catheter is present Right Kidney: hydroureter with moderate hydronephrosis Left Kidney: hydroureter with moderate hydronephrosis; lobular cortex is seen; possible junctional fa t wedge defect seen in cortex on image #[id number]. Bladder: Harper Catheter noted in bladder, with internal debris surrounding catheter Bilateral Jets seen: no, IMPRESSION: There is bilateral hydronephrosis. This appears slightly worse than old exam. Kidneys are further enl arged compared to old exam. There is echogenicity in the urinary bladder consistent with inflammatory process. No discrete bladder mass. No definite renal mass.
--- NOTE | 2018-09-17 18:24 | PN ---
PROGRESS NOTE DATE OF SERVICE: 09/17/2018 This 67-year-old gentleman who was admitted with acute urinary tract infection with possible sepsis related to Harper catheter, also had hypotensive shock. The patient has improved significantly. The cultures are showing urine cultures showing Pseudomonas aeruginosa which is poly sensitive and the blood cultures are pending, which are showing gram-negative bacilli. Currently the patient closely monitored in ICU and the patient is on a combination of Zosyn and vancomycin. Infectious disease evaluation has been sought as well. The patient also had evaluated with rapid ventricular response. The patient is on amiodarone drip. PAST MEDICAL HISTORY: Reviewed. REVIEW OF SYSTEMS: Cardiovascular: No angina. Respiratory: As mentioned earlier. GI: No nausea or vomiting. as mentioned earlier. CURRENT MEDICATIONS ARE: 1. Tylenol 500 q.6 hours. 2. Inman 5 mg p.r.n. 3. Aspirin 81 mg. 4. Tenormin 25 mg. 6. PhosLo 1334 b.i.d. 7. Ceftazidime 0.5 mg q4. 8. Vitamin D2 3000. 9. Heparin drip. 10.Narcan. 11. which was stopped this morning. 12.Flomax. 13.Vancomycin. PHYSICAL EXAM: Patient is alert, oriented x3. Pulse 73, blood pressure ntd, respiration 27, temperature normal. Pulse ox 97% on room air. HEENT: Conjunctivae normal. NECK: No jugular venous distention. CARDIOVASCULAR: S1, S2 muffled. RESPIRATORY: Breath sound diminished in the bases. Bilateral scattered rhonchi and crackles. ABDOMEN: Soft, nontender. No mass palpable. LEGS: No edema. No swelling. CENTRAL NERVOUS SYSTEM: No focal deficits. LAB STUDIES: Hemoglobin 9.6, creatinine is 4.66 and creatinine kinase is 1195. ASSESSMENT: 1. Acute urinary tract infection with infection with possible Pseudomonas sepsis secondary to Harper catheter with severe sepsis and hypotensive shock and septic shock. 2. Renal failure, acute on chronic with acute tubular necrosis prerenal factors. 3. Chronic kidney stage 3 baseline. 4. Increased WBC. 5. Anemia. 6. Hyponatremia. 7. Acute rhabdomyolysis. 8. Increased plasma lactic acidosis. 9. Hypomagnesemia. 10.History of coronary artery disease, stent. 11.Hypertension. 12.History of myocardial infarction. 13.History of prostate issues. 14.History of depression. 15.FULL CODE. RECOMMENDATIONS AND DISCUSSION: I recommend to continue current medications, management. Symptomatic treatment. Otherwise at this time, I recommend continue the antibiotics. Final ID of the blood cultures pending at this time. Continue with broad-spectrum IV antibiotics. Monitor blood pressure closely. White count is 17.9 today and CK is also noted. Further recommendations to follow. Prognosis guarded. MMODL / IJN: [id number] / MTDD
[2018-09-17] MEDS: HEPARIN SOD,PORK IN 0.45% NACL 25,000 UNIT in 0.45% NACL 1 500ML.BAG IV SCH (22:17)
[2018-09-17] MEDS: SODIUM BICARBONATE TAB 650 MG TAB PO SCH (22:17)
--- NOTE | 2018-09-18 00:37 | P.PN ---
Subjective Progress Note Date: 09/17/18 67-year-old male presents to Hospital from his assisted living setting because of several days of progressive weakness. The patient relates that he has been somewhat recently hospitalized at which point in time was having further difficulties with urinary retention. He has a known history of BPH and difficulties with his urination. He follows with urology in the outpatient setting. The patient relates that recently he became ill and was hospitalized an outside facility. There he was found and evidence of urinary tract infection and urinary obstruction. Harper catheter was placed he was treated with a short course of antibiotics and discharged home. He did have follow-up with urology and cultures were performed the outpatient setting the patient relates were negative. The patient did have a change of his Harper catheter. Within several days he started to feel considerably worse. Having increasing difficulties with fevers chills and progressive weakness to the point in time we was unable to ambulate and he was brought to Hospital by EMS. The patient relates that currently he is feeling poorly. He is weak but his fever and chills and improved. His appetite is improved. He is no longer having emesis he was having briefly while at home. 09/17/2018 patient is feeling better today. Vasopressor therapy has reduced. He is eating without nausea or emesis. Not having much pain. Fever and chills have improved. Tolerating antibiotic therapy well. Patient's daughter and son- in-law are present and there informed of the current problems. Objective - Vital Signs Vital signs: Vital Signs Temp 98.5 F 09/17/18 20:00 Pulse 80 09/17/18 22:30 Resp 29 H 09/17/18 22:30 BP 97/58 09/17/18 22:30 Pulse Ox 96 09/17/18 22:30 Intake & Output 09/17/18 09/17/18 09/18/18 06:59 18:59 06:59 Intake Total 2221.042 1806.16 454.403 Output Total 1280 1680 800 Balance 941.042 126.16 -345.597 Weight 125.7 kg Intake: IV 1200 1200 400 Sodium Chloride 0.9% 1, 600 1200 400 000 ml @ 100 mls/hr IV . Q10H [facility] Rx#:[id number] Sodium Chloride 0.9% 1, 600 000 ml @ 100 mls/hr IV . Q10H [facility] Rx#:[id number] Intake, IV Titration 521.042 606.16 54.403 Amount Amiodarone 450 mg In 202.202 250 Dextrose 5% in Water 250 ml @ 1 MG/MIN 33.33 mls/ hr IV .Q7H31M [facility] Rx#: [id number] Heparin Sod,Pork in 0.45% 143.84 356.16 54.403 NaCl 25,000 unit In 0.45 % NaCl 1 500ml.bag @ 8.2 UNITS/KG/HR 19.84 mls/hr IV .Q24H [facility] Rx#: [id number] Norepinephrine 4 mg In 175 Sodium Chloride 0.9% 250 ml @ Titrate IV .Q0M [facility] Rx#:[id number] Oral 500 Output: Urine 1280 1680 800 Other: Voiding Method Indwelling Catheter Indwelling Catheter Indwelling Catheter - Exam HEENT: Anicteric conjunctiva are pink and moist nasal mucosa grossly intact without significant lesions, there is no thrush. Neck: The neck is supple without significant lymphadenopathy or thyromegaly. Lungs: Good bilateral air entry without significant crackles or wheezing. There is no significant bronchial sounds. There is no egophony or dullness. Heart: Regular rate and rhythm with an audible S1-S2, no S3 no S4. There is no significant murmur click or rub, PMI was nondisplaced. Abdomen: Positive bowel sounds soft and nontender without palpable masses or organomegaly. There was no guarding or rebound. Extremities: The upper extremities have excellent pulses they are symmetric, no significant petechiae or telangiectasia. No splinter hemorrhages were noted. The lower extremities are free from significant edema. The peripheral pulses were 2+ and symmetric. Neuro: Awake alert oriented to person place and time. There are no acute new gross focal sensory motor deficits. Harper catheter in place without tenderness to testicles or penis is no erythema of the region Skin is without rash or breakdown - Labs CBC & Chem 7: 09/17/18 03:09 09/17/18 03:09 Labs: Abnormal Lab Results - Last 24 Hours (Table) 09/17/18 09/17/18 09/17/18 Range/Units 03:09 03:09 03:09 WBC 17.9 H (3.8-10.6) k/uL RBC 3.25 L (4.30-5.90) m/uL Hgb 9.6 L (13.0-17.5) gm/dL Hct 30.2 L (39.0-53.0) % Neutrophils # 16.6 H (1.3-7.7) k/uL Lymphocytes # 0.7 L (1.0-4.8) k/uL APTT 35.7 H (22.0-30.0) sec Sodium 129 L (137-145) mmol/L Carbon Dioxide 14 L (22-30) mmol/L BUN 66 H (9-20) mg/dL Creatinine 4.66 H (0.66-1.25) mg/dL Glucose 109 H (74-99) mg/dL Calcium 7.0 L (8.4-10.2) mg/dL Phosphorus (2.5-4.5) mg/dL AST 78 H (17-59) U/L Creatine Kinase 1195 H* (55-170) U/L Total Protein 4.4 L (6.3-8.2) g/dL Albumin 2.1 L (3.5-5.0) g/dL 09/17/18 09/17/18 09/17/18 Range/Units 03:09 10:20 22:14 WBC (3.8-10.6) k/uL RBC (4.30-5.90) m/uL Hgb (13.0-17.5) gm/dL Hct (39.0-53.0) % Neutrophils # (1.3-7.7) k/uL Lymphocytes # (1.0-4.8) k/uL APTT 36.9 H 38.1 H (22.0-30.0) sec Sodium (137-145) mmol/L Carbon Dioxide (22-30) mmol/L BUN (9-20) mg/dL Creatinine (0.66-1.25) mg/dL Glucose (74-99) mg/dL Calcium (8.4-10.2) mg/dL Phosphorus 5.8 H (2.5-4.5) mg/dL AST (17-59) U/L Creatine Kinase (55-170) U/L Total Protein (6.3-8.2) g/dL Albumin (3.5-5.0) g/dL Microbiology - Last 24 Hours (Table) 09/15/18 10:21 Blood Culture Gram Stain - Preliminary Blood Blood Culture - Preliminary Gram Neg Bacilli 09/15/18 10:04 Urine Culture - Final Urine,Voided Pseudomonas aeruginosa 09/15/18 10:04 Blood Culture - Final Blood Laboratory Results WBC 17.9 k/uL (3.8-10.6) H 09/17/18 03:09 RBC 3.25 m/uL (4.30-5.90) L 09/17/18 03:09 Hgb 9.6 gm/dL (13.0-17.5) L 09/17/18 03:09 Hct 30.2 % (39.0-53.0) L 09/17/18 03:09 MCV 92.8 fL (80.0-100.0) 09/17/18 03:09 MCH 29.5 pg (25.0-35.0) 09/17/18 03:09 MCHC 31.8 g/dL (31.0-37.0) 09/17/18 03:09 RDW 15.2 % (11.5-15.5) 09/17/18 03:09 Plt Count 363 k/uL (150-450) 09/17/18 03:09 Neutrophils % 92 % 09/17/18 03:09 Neutrophils % (Manual) 78 % 09/16/18 05:07 Band Neutrophils % 15 % 09/16/18 05:07 Lymphocytes % 4 % 09/17/18 03:09 Lymphocytes % (Manual) 3 % 09/16/18 05:07 Monocytes % 2 % 09/17/18 03:09 Monocytes % (Manual) 3 % 09/16/18 05:07 Eosinophils % 1 % 09/17/18 03:09 Basophils % 0 % 09/17/18 03:09 Metamyelocytes % 1 % 09/16/18 05:07 Neutrophils # 16.6 k/uL (1.3-7.7) H 09/17/18 03:09 Neutrophils # (Manual) 18.90 k/uL (1.3-7.7) H 09/16/18 05:07 Lymphocytes # 0.7 k/uL (1.0-4.8) L 09/17/18 03:09 Lymphocytes # (Manual) 0.61 k/uL (1.0-4.8) L 09/16/18 05:07 Monocytes # 0.4 k/uL (0-1.0) 09/17/18 03:09 Monocytes # (Manual) 0.61 k/uL (0-1.0) 09/16/18 05:07 Eosinophils # 0.2 k/uL (0-0.7) 09/17/18 03:09 Basophils # 0.0 k/uL (0-0.2) 09/17/18 03:09 Metamyelocytes # (Man) 0.20 k/uL (0) H 09/16/18 05:07 Nucleated RBCs 0 /100 WBC (0-0) 09/16/18 05:07 Toxic Granulation Present 09/16/18 05:07 Toxic Vacuolation Present 09/16/18 05:07 Polychromasia Present 09/15/18 10:04 Poikilocytosis (manual Present 09/16/18 05:07 Anisocytosis (manual) Present 09/15/18 10:04 PT 10.7 sec (9.0-12.0) 09/16/18 20:49 INR 1.1 (<1.2) 09/16/18 20:49 APTT 38.1 sec (22.0-30.0) H 09/17/18 22:14 Sodium 129 mmol/L (137-145) L 09/17/18 03:09 Potassium 4.0 mmol/L (3.5-5.1) 09/17/18 03:09 Chloride 105 mmol/L (98-107) 09/17/18 03:09 Carbon Dioxide 14 mmol/L (22-30) L 09/17/18 03:09 Anion Gap 10 mmol/L 09/17/18 03:09 BUN 66 mg/dL (9-20) H 09/17/18 03:09 Creatinine 4.66 mg/dL (0.66-1.25) H 09/17/18 03:09 Est GFR (CKD-EPI)AfAm 14 (>60 ml/min/1.73 sqM) 09/17/18 03:09 Est GFR (CKD-EPI)NonAf 12 (>60 ml/min/1.73 sqM) 09/17/18 03:09 Glucose 109 mg/dL (74-99) H 09/17/18 03:09 POC Glucose (mg/dL) 83 mg/dL (75-99) 09/16/18 01:15 POC Glu Finance Specialist ID Pari Hunt 09/16/18 01:15 Lactic Ac Sepsis Rflx Y 09/15/18 12:20 Plasma Lactic Acid Juwan 1.4 mmol/L (0.7-2.0) 09/15/18 15:55 Calcium 7.0 mg/dL (8.4-10.2) L 09/17/18 03:09 Phosphorus 5.8 mg/dL (2.5-4.5) H 09/17/18 03:09 Magnesium 2.2 mg/dL (1.6-2.3) 09/17/18 03:09 Total Bilirubin 0.4 mg/dL (0.2-1.3) 09/17/18 03:09 AST 78 U/L (17-59) H 09/17/18 03:09 ALT 60 U/L (21-72) 09/17/18 03:09 Alkaline Phosphatase 88 U/L (38-126) 09/17/18 03:09 Creatine Kinase 1195 U/L (55-170) H* 09/17/18 03:09 Total Creatine Kinase 83747 U/L (55-170) H* 09/15/18 10:04 CK-MB (CK-2) 37.4 ng/mL (0.0-2.4) H 09/15/18 10:04 CK-MB (CK-2) Rel Index 09/15/18 10:04 Troponin I 0.067 ng/mL (0.000-0.034) H* 09/15/18 22:10 Total Protein 4.4 g/dL (6.3-8.2) L 09/17/18 03:09 Albumin 2.1 g/dL (3.5-5.0) L 09/17/18 03:09 Cortisol 48 ug/dL 09/16/18 05:07 Urine Color Yellow 09/15/18 10:04 Urine Appearance Turbid (Clear) 09/15/18 10:04 Urine pH 6.0 (5.0-8.0) 09/15/18 10:04 Ur Specific [place] (1.001-1.035) 09/15/18 10:04 Urine Protein 2+ (Negative) H 09/15/18 10:04 Urine Glucose (UA) Negative (Negative) 09/15/18 10:04 Urine Ketones Negative (Negative) 09/15/18 10:04 Urine Blood Moderate (Negative) H 09/15/18 10:04 Urine Nitrite Negative (Negative) 09/15/18 10:04 Urine Bilirubin Negative (Negative) 09/15/18 10:04 Urine Urobilinogen <2.0 mg/dL (<2.0) 09/15/18 10:04 Ur Leukocyte Esterase Large (Negative) H 09/15/18 10:04 Urine RBC 22 /hpf (0-5) H 09/15/18 10:04 Urine WBC Clumps Many /hpf (None) H 09/15/18 10:04 Random Vancomycin 12.4 ug/mL 09/17/18 10:20 Urine Opiates Screen Not Detected (NotDetected) 09/15/18 10:21 Ur Oxycodone Screen Not Detected (NotDetected) 09/15/18 10:21 Urine Methadone Screen Not Detected (NotDetected) 09/15/18 10:21 Ur Propoxyphene Screen Not Detected (NotDetected) 09/15/18 10:21 Ur Barbiturates Screen Not Detected (NotDetected) 09/15/18 10:21 U Tricyclic Antidepress Not Detected (NotDetected) 09/15/18 10:21 Ur Phencyclidine Scrn Not Detected (NotDetected) 09/15/18 10:21 Ur Amphetamines Screen Not Detected (NotDetected) 09/15/18 10:21 U Methamphetamines Scrn Not Detected (NotDetected) 09/15/18 10:21 U Benzodiazepines Scrn Not Detected (NotDetected) 09/15/18 10:21 Urine Cocaine Screen Not Detected (NotDetected) 09/15/18 10:21 U Marijuana (THC) Screen Not Detected (NotDetected) 09/15/18 10:21 Microbiology 09/15/18 10:21 Blood Blood Culture Gram Stain - Preliminary 09/15/18 10:21 Blood Blood Culture - Preliminary Gram Neg Bacilli 09/15/18 10:04 Urine,Voided Urine Culture - Final Pseudomonas aeruginosa 09/15/18 10:04 Blood Blood Culture - Final Assessment and Plan (1) Septic shock Narrative/Plan: Who has a complex past medical history presents to Hospital feeling very poorly with markedly increased weakness and about of nausea and emesis. At presentation the patient was hypotensive he had a temperature of 100.3 leukocytosis and evidence of infection from the urinary tract. He has was admitted to the intensive care unit because of his knees for vasopressor therapy despite fluid resuscitation. Patient is doing somewhat better today. He is no longer having nausea and able to eat his dinner. There is evidence of the gram-negative sepsis with the urinalysis being positive and urine culture with gram-negative bacilli. Blood cultures are being positive for gram-positive cocci which is somewhat puzzling at this point in time and await further data. with his history of recent hospitalization and concern for more resistant gram-negative pathogen ceftazidime is being utilized as well as vanomycin for now until we have further data Leukocytosis to be monitored. There is evidence of acute renal failure and is being monitored closely also by nephrology. Followup blood cultures to be requested. 09/17/2018 patient is doing somewhat better today. Vasopressor therapy has been titrated and nearly stopped. Patient is a definitely feeling better eating and drinking well. We'll continue the Fortaz for the isolated Pseudomonas. Blood cultures also gram-negative bacilli awaiting the final identification. Once finalized vancomycin can be discontinued. Follow-up blood cultures are in process at this time. The patient's atrial fibrillation is now converted with amiodarone. This is a lot of significant improvement in his hemodynamics, heart rate was in the 70s today it was 126 yesterday. This is contributing to his improved blood pressure and diminishing vasopressor needs. It is possible the patient will need to go to rehab to complete his course of intravenous antibiotic therapy. Await renal ultrasound. Current Visit: Yes Status: Acute Code(s): A41.9 - SEPSIS, UNSPECIFIED ORGANISM; R65.21 - SEVERE SEPSIS WITH SEPTIC SHOCK SNOMED Code(s): 56174325 (2) UTI (urinary tract infection) Current Visit: Yes Status: Acute Code(s): N39.0 - URINARY TRACT INFECTION, SITE NOT SPECIFIED SNOMED Code(s): 02364725 (3) Fever Current Visit: Yes Status: Resolved Code(s): R50.9 - FEVER, UNSPECIFIED SNOMED Code(s): 053110733 (4) Leukocytosis Current Visit: Yes Status: Acute Code(s): D72.829 - ELEVATED WHITE BLOOD CELL COUNT, UNSPECIFIED SNOMED Code(s): 709060704
[2018-09-18 05:03] LABS: Basophils % (A) 0 %; Eosinophils # (A) 0.4 k/uL (0-0.7); Eosinophils % (A) 3 %; HCT 28.8 % (39.0-53.0); HGB 9.1 gm/dL (13.0-17.5); Hypochromasia Slight; Lymphocytes # (A) 0.8 k/uL (1.0-4.8); Lymphocytes % (A) 8 %; MCH 29.7 pg (25.0-35.0); MCHC 31.6 g/dL (31.0-37.0); MCV 93.8 fL (80.0-100.0); Mean Platelet Volume 7.8; Monocytes # (A) 0.3 k/uL (0-1.0); Monocytes % (A) 3 %; Neutrophils # (A) 9.1 k/uL (1.3-7.7); Neutrophils % (A) 85 %; Platelet Count 343 k/uL (150-450); RBC 3.07 m/uL (4.30-5.90); RDW 15.4 % (11.5-15.5); WBC 10.7 k/uL (3.8-10.6)
[2018-09-18 05:17] LABS: Calcium 7.5 mg/dL (8.4-10.2); Magnesium 2.1 mg/dL (1.6-2.3); Phosphorus 4.6 mg/dL (2.5-4.5); Potassium 4.4 mmol/L (3.5-5.1); Total Bilirubin 0.2 mg/dL (0.2-1.3); Total Protein 4.3 g/dL (6.3-8.2)
[2018-09-18] MEDS: HEPARIN SODIUM,PORCINE 5,000 UNIT/ML 1 ML VIAL IV PRN (05:42)
[2018-09-18] MEDS: HEPARIN SOD,PORK IN 0.45% NACL 25,000 UNIT in 0.45% NACL 1 500ML.BAG IV SCH ×2 (07:48→18:14)
[2018-09-18] MEDS: CALCIUM ACETATE 667 MG CAP PO SCH ×2 (07:48→17:31)
[2018-09-18] MEDS: SODIUM CHLORIDE 0.9% 1,000 ML IV SCH ×2 (07:49→13:55)
[2018-09-18] MEDS: ASPIRIN 81 MG PO SCH (08:30)
[2018-09-18] MEDS: ATENOLOL 25 MG TAB PO SCH (08:30)
[2018-09-18] MEDS: buPROPion XL 150 MG TAB.ER.24H PO SCH (08:30)
[2018-09-18] MEDS: TAMSULOSIN 0.4 MG CAP.ER.24H PO SCH (08:31)
[2018-09-18] MEDS: PANTOPRAZOLE 40 MG/10 ML VIAL IV SCH (08:31)
[2018-09-18] MEDS: SODIUM BICARBONATE TAB 650 MG TAB PO SCH ×4 (08:31→21:30)
--- NOTE | 2018-09-18 09:44 | PN ---
PROGRESS NOTE This patient's laboratory tests and clinical panel were reviewed. Patient is admitted with urosepsis, has been treated with antibiotics. The patient went into atrial fibrillation yesterday morning. Patient was started on IV amiodarone and he has converted to the normal sinus rhythm. Patient is feeling better. Denies any shortness of breath. The patient is afebrile. Heart rate is now 70. First and second heart sounds are heard. Lungs are clinically clear to auscultation [place]. [place] [address] and creatinine is down to 4.66. We will continue the patient on IV heparin. Once the patient's creatinine improves, the patient can be switched to the p.o. Eliquis. MMODL / IJN: [id number] /
--- NOTE | 2018-09-18 09:51 | P.PN ---
Subjective Progress Note Date: 09/18/18 This is 67-year-old gentleman is basically admitted to the hospital with UTI and sepsis. Patient was in atrial fibrillation with fast and corresponds but converted back to sinus rhythm at this time. He does have history of hypertension and also coronary artery disease. He is in acute renal failure with creatinine of about 4.7. Ideally, patient requests anti-cognition therapy. Currently is on heparin. Probably he may have switched to by mouth Coumadin. Patient is in sinus rhythm. He seemed to be feeling well. He denies any chest pain. Doesn't appear to be in acute respiratory distress. He is feeling much better since admission here Objective - Vital Signs Vital signs: Vital Signs Temp 97.6 F 09/18/18 08:00 Pulse 74 09/18/18 09:00 Resp 24 09/18/18 09:00 BP 104/52 09/18/18 09:00 Pulse Ox 99 09/18/18 09:00 Intake & Output 09/17/18 09/18/18 09/18/18 18:59 06:59 18:59 Intake Total 1806.16 1492.331 767.986 Output Total 1680 1900 555 Balance 126.16 -407.669 212.986 Weight 128.3 kg Intake: IV 1200 1200 300 Sodium Chloride 0.9% 1, 1200 1200 300 000 ml @ 100 mls/hr IV . Q10H [facility] Rx#:[id number] Intake, IV Titration 606.16 292.331 102.986 Amount Amiodarone 450 mg In 250 Dextrose 5% in Water 250 ml @ 1 MG/MIN 33.33 mls/ hr IV .Q7H31M [facility] Rx#: [id number] Heparin Sod,Pork in 0.45% 356.16 292.331 102.986 NaCl 25,000 unit In 0.45 % NaCl 1 500ml.bag @ 8.2 UNITS/KG/HR 19.84 mls/hr IV .Q24H [facility] Rx#: [id number] Oral 365 Output: Urine 1680 1900 555 Other: Voiding Method Indwelling Catheter Indwelling Catheter Indwelling Catheter - Exam GENERAL EXAM: Patient is alert and oriented and doesn't appear to be in any acute distress HEENT: Normocephalic. Normal reaction of pupils, equal size, normal range of extraocular motion. No erythema or exudates in the throat. NECK: No masses, no nuchal rigidity. CHEST: No chest wall deformity. LUNGS: Equal air entry with no crackles or wheeze. HEART: S1 and S2 normal with no audible mumurs or gallops. Regular rhythm, ABDOMEN: No hepatosplenomegaly, normal bowel sounds, no guarding or rigidity. SKIN: No rashes CENTRAL NERVOUS SYSTEM: No focal deficits. EXTREMITIES: No cyanosis, clubbing or edema. - Labs CBC & Chem 7: 09/18/18 04:48 09/18/18 04:48 Labs: Abnormal Lab Results - Last 24 Hours (Table) 09/17/18 09/17/18 09/18/18 Range/Units 10:20 22:14 04:48 WBC 10.7 H (3.8-10.6) k/uL RBC 3.07 L (4.30-5.90) m/uL Hgb 9.1 L (13.0-17.5) gm/dL Hct 28.8 L (39.0-53.0) % Neutrophils # 9.1 H (1.3-7.7) k/uL Lymphocytes # 0.8 L (1.0-4.8) k/uL APTT 36.9 H 38.1 H (22.0-30.0) sec Sodium (137-145) mmol/L Carbon Dioxide (22-30) mmol/L BUN (9-20) mg/dL Creatinine (0.66-1.25) mg/dL Calcium (8.4-10.2) mg/dL Phosphorus (2.5-4.5) mg/dL Creatine Kinase (55-170) U/L Total Protein (6.3-8.2) g/dL Albumin (3.5-5.0) g/dL 09/18/18 09/18/18 Range/Units 04:48 04:48 WBC (3.8-10.6) k/uL RBC (4.30-5.90) m/uL Hgb (13.0-17.5) gm/dL Hct (39.0-53.0) % Neutrophils # (1.3-7.7) k/uL Lymphocytes # (1.0-4.8) k/uL APTT 45.7 H (22.0-30.0) sec Sodium 133 L (137-145) mmol/L Carbon Dioxide 17 L (22-30) mmol/L BUN 71 H (9-20) mg/dL Creatinine 4.81 H (0.66-1.25) mg/dL Calcium 7.5 L (8.4-10.2) mg/dL Phosphorus 4.6 H (2.5-4.5) mg/dL Creatine Kinase 313 H (55-170) U/L Total Protein 4.3 L (6.3-8.2) g/dL Albumin 2.0 L (3.5-5.0) g/dL Microbiology - Last 24 Hours (Table) 09/15/18 10:21 Blood Culture Gram Stain - Preliminary Blood Blood Culture - Preliminary Gram Neg Bacilli 09/15/18 10:04 Urine Culture - Final Urine,Voided Pseudomonas aeruginosa Assessment and Plan (1) Paroxysmal atrial fibrillation Current Visit: Yes Status: Acute Code(s): I48.0 - PAROXYSMAL ATRIAL FIBRILLATION SNOMED Code(s): 136866199 (2) Acute kidney injury Current Visit: Yes Status: Acute Code(s): N17.9 - ACUTE KIDNEY FAILURE, UNSPECIFIED SNOMED Code(s): 00241441 (3) Chronic renal disease Current Visit: Yes Status: Acute Code(s): N18.9 - CHRONIC KIDNEY DISEASE, UNSPECIFIED SNOMED Code(s): 629547583 (4) Elevated troponin Narrative/Plan: Patient is back in sinus rhythm. Elevation of troponin is appear to be noncardiac and related to sepsis. Continue with current medical therapy with heparin and anticoagulation. Most probably patient should be switched to by mouth Coumadin Current Visit: Yes Status: Acute Code(s): R74.8 - ABNORMAL LEVELS OF OTHER SERUM ENZYMES SNOMED Code(s): 062558992
--- NOTE | 2018-09-18 10:21 | ECHOF ---
Referral Reason:cad MEASUREMENTS -------- HEIGHT: 177.8 cm WEIGHT: 120.7 kg BP: 84/55 RVIDd: 2.9 cm (< 3.3) IVSd: 1.2 cm (0.6 - 1.1) LVIDd: 4.9 cm (3.9 - 5.3) LVPWd: 1.2 cm (0.6 - 1.1) IVSs: 1.6 cm LVIDs: 3.8 cm LVPWs: 1.4 cm LA Diam: 3.5 cm (2.7 - 3.8) LAESV Index (A-L): 17.03 ml/m Ao Diam: 3.6 cm (2.0 - 3.7) AV Cusp: 2.4 cm (1.5 - 2.6) MV EXCURSION: 18.742 mm (> 18.000) MV EF SLOPE: 150 mm/s (70 - 150) EPSS: 1.4 cm FINDINGS -------- Atrial fibrillation. This was a technically difficult study with suboptimal views. The left ventricular size is normal. There is borderline concentric left ventricular hypertrophy. There is moderate global hypokinesis of LV . Overall left ventricular systolic function is moderat janelle impaired with, an EF between 35 - 40 %. The right ventricle is normal in size. Normal LA size by volume 22+/-6 ml/m2. The right atrium is normal in size. xx ml of Lumason was utilized for enhancement of images. There is mild aortic valve sclerosis. Mild mitral annular calcification present. Mild mitral regurgitation is present. The tricuspid valve appears structurally normal. Mild tricuspid regurgitation present. Trace/mild (physiologic) pulmonic regurgitation. The aortic root size is normal. IVC Not well visulized. There is no pericardial effusion. CONCLUSIONS -------- 1. Atrial fibrillation. 2. This was a technically difficult study with suboptimal views. 3. The left ventricular size is normal. 4. There is borderline concentric left ventricular hypertrophy. 5. There is moderate global hypokinesis of LV . 6. Overall left ventricular systolic function is moderately impaired with, an EF between 35 - 40 %. 7. Normal LA size by volume 22+/-6 ml/m2. 8. xx ml of Lumason was utilized for enhancement of images. 9. There is mild aortic valve sclerosis. 10. Mild mitral annular calcification present. 11. Mild mitral regurgitation is present. 12. The tricuspid valve appears structurally normal. 13. Mild tricuspid regurgitation present. 14. Trace/mild (physiologic) pulmonic regurgitation. 15. The aortic root size is normal. 16. IVC Not well visulized. 17. There is no pericardial effusion. CHIEF OF SERVICE: Bozena Cleary RDCS
[2018-09-18] MEDS: ALBUTEROL NEBULIZED 2.5 MG/3 ML INHALATION SCH ×2 (11:11→19:13)
--- NOTE | 2018-09-18 11:18 | P.PN ---
Subjective Progress Note Date: 09/18/18 Principal diagnosis: Acute urinary tract infection with pseudomonas aeruginosa, gram-negative bacteremia, with septic shock This is a 67-year-old white male patient who was admitted to the hospital from the assisted living setting for acute urinary checked infection, septic shock, urine culture is positive for pseudomonas aeruginosa, blood cultures are positive for gram-negative bacilli, final culture is pending. Patient has a chronic indwelling catheter for his benign prostatic hypertrophy and urinary retention. He follows with urology in the outpatient setting. Patient came in with symptoms of progressive weakness, fevers, chills, and feeling very poorly. Patient was fluid resuscitated, initial blood work on admission showed WBC of 21.0, hemoglobin of 10.2, INR 1.2, sodium 128, chloride is 93, CO2 is 19, BUN is 56, creatinine 4.7, plasma lactic acid was 4.3 and improved with hydration, currently at 1.4. Patient had a elevated CKs, 10,529 on admission, and borderline elevated troponins of 0.094, 0.0169, 0.067. Urinalysis showed large leukocyte esterase, wbc clumps, red blood cells, and protein. Patient is currently on Fortaz, initial antibiotic coverage included Zosyn and vancomycin. Patient also had some altered mentation, and new onset A. fib RVR. Currently he remains in A. fib, and the rate is well controlled, afebrile, he is on 2 L per nasal cannula his pulse ox is 100%, his been off levo fed since 06 50 on 11/2017. He is on heparin infusion at 19.2 units per kilo per hour for anticoagulation for his atrial fibrillation. Ultrasound was completed and showed mild bilateral hydronephrosis. Other medical history includes chronic kidney disease stage III, chronic anemia, hypertension, history of coronary artery disease with previous stenting, history of myocardial infarction, depression. Today patient is seen in follow-up on 09/18/2018 in the intensive care unit, he is awake and alert, responding appropriately, denies any specific complaints, no dyspnea and no chest pain. His A. fib is better controlled. Afebrile. CKs are down to 313, BUN 71 and creatinine 4.81. Urology is following, patient continues on gentle hydration with 0.9 normal saline at a rate of 50 ML per hour, he is receiving oral sodium bicarbonate tablets. His CO2 is improving, and is at 17 today. Objective - Vital Signs Vital signs: Vital Signs Temp 97.6 F 09/18/18 08:00 Pulse 78 09/18/18 10:00 Resp 22 09/18/18 10:00 BP 104/57 09/18/18 10:00 Pulse Ox 100 09/18/18 10:00 Intake & Output 09/17/18 09/18/18 09/18/18 18:59 06:59 18:59 Intake Total 1806.16 1492.331 817.986 Output Total 1680 1900 730 Balance 126.16 -407.669 87.986 Weight 128.3 kg Intake: IV 1200 1200 350 Sodium Chloride 0.9% 1, 1200 1200 350 000 ml @ 50 mls/hr IV . Q20H SCOTT Rx#:[id number] Intake, IV Titration 606.16 292.331 102.986 Amount Amiodarone 450 mg In 250 Dextrose 5% in Water 250 ml @ 1 MG/MIN 33.33 mls/ hr IV .Q7H31M [facility]OTT Rx#: [id number] Heparin Sod,Pork in 0.45% 356.16 292.331 102.986 NaCl 25,000 unit In 0.45 % NaCl 1 500ml.bag @ 8.2 UNITS/KG/HR 19.84 mls/hr IV .Q24H [facility]OTT Rx#: [id number] Oral 365 Output: Urine 1680 1900 730 Other: Voiding Method Indwelling Catheter Indwelling Catheter Indwelling Catheter - Exam GENERAL EXAM: Alert, pleasant, 67-year-old obese white comfortable in no apparent distress. HEAD: Normocephalic/atraumatic. EYES: Normal reaction of pupils, equal size. Conjunctiva pink, sclera white. NOSE: Clear with pink turbinates. THROAT: No erythema or exudates. NECK: No masses, no JVD, no thyroid enlargement, no adenopathy. CHEST: No chest wall deformity. Symmetrical expansion. LUNGS: Equal air entry with a few scattered expiratory wheezes CVS: Irregular rate and rhythm, normal S1 and S2, no gallops, no murmurs, no rubs ABDOMEN: Soft, nontender. No hepatosplenomegaly, normal bowel sounds, no guarding or rigidity. EXTREMITIES: No clubbing, no edema, no cyanosis, 2+ pulses and upper and lower extremities. MUSCULOSKELETAL: Muscle strength and tone normal. SPINE: No scoliosis or deformity SKIN: No rashes CENTRAL NERVOUS SYSTEM: Alert and oriented -3. No focal deficits, tone is normal in all 4 extremities. PSYCHIATRIC: Alert and oriented -3. Appropriate affect. Intact judgment and insight. - Labs CBC & Chem 7: 09/18/18 04:48 09/18/18 04:48 Labs: Abnormal Lab Results - Last 24 Hours (Table) 09/17/18 09/17/18 09/18/18 Range/Units 10:20 22:14 04:48 WBC 10.7 H (3.8-10.6) k/uL RBC 3.07 L (4.30-5.90) m/uL Hgb 9.1 L (13.0-17.5) gm/dL Hct 28.8 L (39.0-53.0) % Neutrophils # 9.1 H (1.3-7.7) k/uL Lymphocytes # 0.8 L (1.0-4.8) k/uL APTT 36.9 H 38.1 H (22.0-30.0) sec Sodium (137-145) mmol/L Carbon Dioxide (22-30) mmol/L BUN (9-20) mg/dL Creatinine (0.66-1.25) mg/dL Calcium (8.4-10.2) mg/dL Phosphorus (2.5-4.5) mg/dL Creatine Kinase (55-170) U/L Total Protein (6.3-8.2) g/dL Albumin (3.5-5.0) g/dL 09/18/18 09/18/18 Range/Units 04:48 04:48 WBC (3.8-10.6) k/uL RBC (4.30-5.90) m/uL Hgb (13.0-17.5) gm/dL Hct (39.0-53.0) % Neutrophils # (1.3-7.7) k/uL Lymphocytes # (1.0-4.8) k/uL APTT 45.7 H (22.0-30.0) sec Sodium 133 L (137-145) mmol/L Carbon Dioxide 17 L (22-30) mmol/L BUN 71 H (9-20) mg/dL Creatinine 4.81 H (0.66-1.25) mg/dL Calcium 7.5 L (8.4-10.2) mg/dL Phosphorus 4.6 H (2.5-4.5) mg/dL Creatine Kinase 313 H (55-170) U/L Total Protein 4.3 L (6.3-8.2) g/dL Albumin 2.0 L (3.5-5.0) g/dL Microbiology - Last 24 Hours (Table) 09/15/18 10:21 Blood Culture Gram Stain - Preliminary Blood Blood Culture - Preliminary Gram Neg Bacilli 09/15/18 10:04 Urine Culture - Final Urine,Voided Pseudomonas aeruginosa Assessment and Plan Plan: Assessment: #1. Septic shock related to acute urinary tract infection, urine culture was positive for pseudomonas aeruginosa #2. Gram-negative bacteremia with sepsis, final culture is pending #3. Altered mental status, hypotension, new onset A. fib RVR, febrile illness related to the above #4. Anion gap metabolic acidosis, related to elevated lactic acidosis secondary to sepsis, improved #5. Non-anion gap metabolic acidosis related to acute kidney injury #6. Chronic kidney disease stage III #7. 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 Hypertension #9. Hyponatremia, improving #10. Rhabdomyolysis, improving #11. He is myocardial infarction #12. History of depression #13. Resident of assisted living facility Plan: With IV hydration, CK is trending down, patient is nonoliguric, nephrology is following, ID service is managing the antibiotics, and current antibiotic coverage includes Fortaz, awaiting final results of the blood culture. Fever no chills, mentation is appropriate. A. fib is better controlled, cardiology is following, patient is anticoagulated with IV heparin. He has been weaned off of the vasopressor support since yesterday. A bit wheezy on this mornings exam, patient is a lifetime nonsmoker, no underlying chronic pulmonary disease, we'll add albuterol 3 times a day. Continue to follow I performed a history & physical examination of the patient and discussed their management with my nurse practitioner, Shannon Hunt. I reviewed the nurse practitioner's note and agree with the documented findings and plan of care. Lung sounds are positive for a few scattered wheezes throughout the lung woods. The findings and the impression was discussed with the patient. I attest to the documentation by the nurse practitioner. Time with Patient: Greater than 30
[2018-09-18] MEDS ORDERED: DEXTROSE 5% IN WATER 100 ML with AMIODARONE 150 MG IV ONE (13:00)
[2018-09-18] MEDS: AMIODARONE 450 MG in DEXTROSE 5% IN WATER 250 ML IV SCH ×4 (14:14→21:31)
--- NOTE | 2018-09-18 17:38 | PN ---
PROGRESS NOTE DATE OF SERVICE: 09/18/2018 This 67-year-old gentleman who was admitted with acute urinary tract infection with possible Pseudomonas sepsis secondary to Harper catheter, also had severe sepsis and hypotension shock and septic shock. At this time, the patient is being closely monitored in ICU. Multiple consultants are following the patient closely. Renal ultrasound showed bilateral hydronephrosis slightly worse than previous. The creatinine is 4.81 at this time. Creatinine kinase is 313. As mentioned earlier, urine cultures showed pseudomonas aeruginosa, blood cultures pending at this time. The patient is currently on Fortaz IV per Infectious Disease recommendations. PAST MEDICAL HISTORY: Reviewed. REVIEW OF SYSTEMS: CARDIOVASCULAR: No angina or palpitations. RESPIRATIONS: As mentioned earlier. GI as mentioned earlier. no dysuria. Central nervous system: As mentioned earlier. CURRENT MEDICATIONS: Reviewed and include: 1. Tylenol 500 q.6 hours. 2. Sloan 5 mg q.8h p.r.n. 3. Ventolin 2.5 t.i.d. 4. Amiodarone. 5. Aspirin 81 mg. 6. Tenormin 25 mg daily. 7. Wellbutrin XR 150 mg. 8. PhosLo 1334 mg b.i.d. 9. Ceftazidime 0.5 g q.48h hours. 10.Vitamin B12 50,000 q.7 days. 11.Heparin. 12.Narcan. 13.Levophed drip previously. 14.Zofran. 15.Protonix. 16.Sodium bicarb. PHYSICAL EXAM: Patient is alert, oriented x3. Pulse of 117, blood pressure 119/62, respiration 18, temperature normal, pulse ox 98% on room air. HEENT: Conjunctivae normal. Oral mucosa moist. Neck is no jugular venous distention. No carotid bruit. No lymph node enlargement. CARDIOVASCULAR: S1, S2. RESPIRATORY SYSTEM: Breath sounds diminished at the bases. Bilateral scattered rhonchi and crackles. ABDOMEN: Soft, nontender. No mass. Legs: No edema. No swelling. NERVOUS SYSTEM: Higher functions as mentioned earlier. Moves all 4 limbs. No focal motor deficits. Lymphatics: No lymph nodes palpable in the neck, axillae or groin. SKIN: No ulcer, rash or bleeding. LAB STUDIES: WBC 11.1, hemoglobin 9.1, sodium 133, and creatinine is 4.81, phosphorus 4.6, creatinine kinase 113. ASSESSMENT: 1. Acute urinary tract infection with possibly Pseudomonas aeruginosa and sepsis secondary to Harper catheter with severe sepsis, hypotension shock and septic shock. 2. Renal failure, acute on chronic with acute tubular necrosis with prerenal factors. 3. Chronic kidney stage 3 baseline. 4. Increased WBC. 5. Anemia. 6. Paroxysmal atrial fibrillation with fast ventricular rate. 7. Hyponatremia. 8. Acute rhabdomyolysis. 9. Increased plasma lactic acidosis. 10.Hypomagnesemia. 11.History of coronary artery disease/stent. 12.Hypertension. 13.History of myocardial infarction. 14.History of prostate issues. 15.History of depression. 16.FULL CODE. RECOMMENDATIONS AND DISCUSSION: I recommend to continue current medications, management. Continue monitoring and symptomatic treatment. Otherwise at this time I recommend continue the current medication, Amiodarone, continue with symptomatic treatment and continue with broad spectrum IV antibiotics. Blood cultures are pending at this time. The patient is currently on heparin. Coumadin is being planned to be initiated at this time. Once again, the prognosis guarded. See orders for details. Further recommendations will follow. Closely follow with multiple consultants. Patient is still monitored in ICU at this time. MMODL / IJN: [id number] / [place]
--- NOTE | 2018-09-18 19:44 | PN ---
PROGRESS NOTE Patient is seen for followup for acute kidney injury, which is mainly cardiorenal. Patient has had good urine output. His serum creatinine is about the same at 4.8 from 4.6 yesterday. The patient went back into atrial fibrillation. He will be started again on amiodarone. PHYSICAL EXAMINATION: On examination today, blood pressure this afternoon 85/63, heart rate of about 125 per minute. Patient is afebrile. Examination of the heart S1, S2. Examination of the lungs, decreased breath sounds at the bases. Abdomen is soft, nontender. Examination of lower extremity shows edema 1+ bilaterally. REIMBURSEMENT SPECIALIST exam is grossly intact. LAB: Shows sodium 133, potassium 4.4, BUN 71, serum creatinine 4.8. CK is 313, albumin 2.0. Vancomycin level 12.4, hemoglobin 9.1. ASSESSMENT: 1. Acute kidney injury mainly cardiorenal and associated with hemodynamic instability with atrial fibrillation. The patient's urine output has improved. Serum creatinine remains elevated. He is not on any nephrotoxic agents. We will repeat labs in a.m. 2. His acute tubular necrosis is also secondary to gram-negative sepsis. 3. CKD, creatinine at about 2.6 as of April of 2017. Evidence of hydronephrosis on a previous ultrasound. The repeat ultrasound done yesterday shows bilateral hydronephrosis. No bladder mass was seen. There is moderate hydronephrosis bilaterally. We should get urology to see the patient. 4. Atrial fibrillation with RVR, being followed by Cardiology. 5. Urinary tract infection with sepsis. PLAN: Consult urology regarding the bilateral hydronephrosis, the patient has had indwelling Harper catheter this admission. MMODL / IJN: [id number] /
--- NOTE | 2018-09-18 21:35 | P.PN ---
Subjective Progress Note Date: 09/18/18 67-year-old male presents to Hospital from his assisted living setting because of several days of progressive weakness. The patient relates that he has been somewhat recently hospitalized at which point in time was having further difficulties with urinary retention. He has a known history of BPH and difficulties with his urination. He follows with urology in the outpatient setting. The patient relates that recently he became ill and was hospitalized an outside facility. There he was found and evidence of urinary tract infection and urinary obstruction. Harper catheter was placed he was treated with a short course of antibiotics and discharged home. He did have follow-up with urology and cultures were performed the outpatient setting the patient relates were negative. The patient did have a change of his Harper catheter. Within several days he started to feel considerably worse. Having increasing difficulties with fevers chills and progressive weakness to the point in time we was unable to ambulate and he was brought to Hospital by EMS. The patient relates that currently he is feeling poorly. He is weak but his fever and chills and improved. His appetite is improved. He is no longer having emesis he was having briefly while at home. 09/17/2018 patient is feeling better today. Vasopressor therapy has reduced. He is eating without nausea or emesis. Not having much pain. Fever and chills have improved. Tolerating antibiotic therapy well. Patient's daughter and son- in-law are present and there informed of the current problems. 09/18/2018 patient does feel slightly better today. He's no longer on vasopressor therapy. However still is being closely monitored with his new onset A. fib and his ongoing sepsis. Follow blood cultures remain positive. Objective - Vital Signs Vital signs: Vital Signs Temp 98.2 F 09/18/18 20:00 Pulse 90 09/18/18 20:00 Resp 27 H 09/18/18 20:00 BP 96/57 09/18/18 20:00 Pulse Ox 95 09/18/18 20:00 Intake & Output 09/18/18 09/18/18 09/19/18 06:59 18:59 06:59 Intake Total 7355.950 3744.719 304.424 Output Total 1900 2275 325 Balance -407.669 -47.281 -20.576 Weight 128.3 kg Intake: IV 1200 900 100 Dextrose 5% in Water 100 100 ml @ 618 mls/hr IV .Q10M ONE with Amiodarone 150 mg Rx#:[id number] Sodium Chloride 0.9% 1, 1200 750 100 000 ml @ 50 mls/hr IV . Q20H [facility] [place] Rx#:[id number] cefTAZidime 0.5 gm In 50 Sodium Chloride 0.9% 50 ml @ 100 mls/hr IVPB Q48H [facility] Rx#:[id number] Intake, IV Titration 292.331 587.719 204.424 Amount Amiodarone 450 mg In 204.424 Dextrose 5% in Water 250 ml @ 1 MG/MIN 33.33 mls/ hr IV .Q7H31M [facility] Rx#: [id number] Heparin Sod,Pork in 0.45% 292.331 587.719 NaCl 25,000 unit In 0.45 % NaCl 1 500ml.bag @ 8.2 UNITS/KG/HR 19.84 mls/hr IV .Q24H [facility] [place] Rx#: [id number] Oral 740 Output: Urine 1900 2275 325 Other: Voiding Method Indwelling Catheter Indwelling Catheter Indwelling Catheter - Exam HEENT: Anicteric conjunctiva are pink and moist nasal mucosa grossly intact without significant lesions, there is no thrush. Neck: The neck is supple without significant lymphadenopathy or thyromegaly. Lungs: Good bilateral air entry without significant crackles or wheezing. There is no significant bronchial sounds. There is no egophony or dullness. Heart: Regular rate and rhythm with an audible S1-S2, no S3 no S4. There is no significant murmur click or rub, PMI was nondisplaced. Abdomen: Positive bowel sounds soft and nontender without palpable masses or organomegaly. There was no guarding or rebound. Extremities: The upper extremities have excellent pulses they are symmetric, no significant petechiae or telangiectasia. No splinter hemorrhages were noted. The lower extremities are free from significant edema. The peripheral pulses were 2+ and symmetric. Neuro: Awake alert oriented to person place and time. There are no acute new gross focal sensory motor deficits. Harper catheter in place without tenderness to testicles or penis is no erythema of the region Skin is without rash or breakdown - Labs CBC & Chem 7: 09/18/18 04:48 09/18/18 04:48 Labs: Abnormal Lab Results - Last 24 Hours (Table) 09/17/18 09/18/18 09/18/18 Range/Units 22:14 04:48 04:48 WBC 10.7 H (3.8-10.6) k/uL RBC 3.07 L (4.30-5.90) m/uL Hgb 9.1 L (13.0-17.5) gm/dL Hct 28.8 L (39.0-53.0) % Neutrophils # 9.1 H (1.3-7.7) k/uL Lymphocytes # 0.8 L (1.0-4.8) k/uL APTT 38.1 H (22.0-30.0) sec Sodium 133 L (137-145) mmol/L Carbon Dioxide 17 L (22-30) mmol/L BUN 71 H (9-20) mg/dL Creatinine 4.81 H (0.66-1.25) mg/dL Calcium 7.5 L (8.4-10.2) mg/dL Phosphorus 4.6 H (2.5-4.5) mg/dL Creatine Kinase 313 H (55-170) U/L Total Protein 4.3 L (6.3-8.2) g/dL Albumin 2.0 L (3.5-5.0) g/dL 09/18/18 09/18/18 Range/Units 04:48 10:40 WBC (3.8-10.6) k/uL RBC (4.30-5.90) m/uL Hgb (13.0-17.5) gm/dL Hct (39.0-53.0) % Neutrophils # (1.3-7.7) k/uL Lymphocytes # (1.0-4.8) k/uL APTT 45.7 H 47.0 H (22.0-30.0) sec Sodium (137-145) mmol/L Carbon Dioxide (22-30) mmol/L BUN (9-20) mg/dL Creatinine (0.66-1.25) mg/dL Calcium (8.4-10.2) mg/dL Phosphorus (2.5-4.5) mg/dL Creatine Kinase (55-170) U/L Total Protein (6.3-8.2) g/dL Albumin (3.5-5.0) g/dL Microbiology - Last 24 Hours (Table) 09/17/18 11:30 Blood Culture Gram Stain - Preliminary Blood Blood Culture - Final Pseudomonas aeruginosa 09/17/18 11:31 Blood Culture - Final Blood Laboratory Results WBC 10.7 k/uL (3.8-10.6) H 09/18/18 04:48 RBC 3.07 m/uL (4.30-5.90) L 09/18/18 04:48 Hgb 9.1 gm/dL (13.0-17.5) L 09/18/18 04:48 Hct 28.8 % (39.0-53.0) L 09/18/18 04:48 MCV 93.8 fL (80.0-100.0) 09/18/18 04:48 MCH 29.7 pg (25.0-35.0) 09/18/18 04:48 MCHC 31.6 g/dL (31.0-37.0) 09/18/18 04:48 RDW 15.4 % (11.5-15.5) 09/18/18 04:48 Plt Count 343 k/uL (150-450) 09/18/18 04:48 Neutrophils % 85 % 09/18/18 04:48 Neutrophils % (Manual) 78 % 09/16/18 05:07 Band Neutrophils % 15 % 09/16/18 05:07 Lymphocytes % 8 % 09/18/18 04:48 Lymphocytes % (Manual) 3 % 09/16/18 05:07 Monocytes % 3 % 09/18/18 04:48 Monocytes % (Manual) 3 % 09/16/18 05:07 Eosinophils % 3 % 09/18/18 04:48 Basophils % 0 % 09/18/18 04:48 Metamyelocytes % 1 % 09/16/18 05:07 Neutrophils # 9.1 k/uL (1.3-7.7) H 09/18/18 04:48 Neutrophils # (Manual) 18.90 k/uL (1.3-7.7) H 09/16/18 05:07 Lymphocytes # 0.8 k/uL (1.0-4.8) L 09/18/18 04:48 Lymphocytes # (Manual) 0.61 k/uL (1.0-4.8) L 09/16/18 05:07 Monocytes # 0.3 k/uL (0-1.0) 09/18/18 04:48 Monocytes # (Manual) 0.61 k/uL (0-1.0) 09/16/18 05:07 Eosinophils # 0.4 k/uL (0-0.7) 09/18/18 04:48 Basophils # 0.0 k/uL (0-0.2) 09/18/18 04:48 Metamyelocytes # (Man) 0.20 k/uL (0) H 09/16/18 05:07 Nucleated RBCs 0 /100 WBC (0-0) 09/16/18 05:07 Toxic Granulation Present 09/16/18 05:07 Toxic Vacuolation Present 09/16/18 05:07 Polychromasia Present 09/15/18 10:04 Hypochromasia Slight 09/18/18 04:48 Poikilocytosis (manual Present 09/16/18 05:07 Anisocytosis (manual) Present 09/15/18 10:04 PT 10.7 sec (9.0-12.0) 09/16/18 20:49 INR 1.1 (<1.2) 09/16/18 20:49 APTT 47.0 sec (22.0-30.0) H 09/18/18 10:40 Sodium 133 mmol/L (137-145) L 09/18/18 04:48 Potassium 4.4 mmol/L (3.5-5.1) 09/18/18 04:48 Chloride 107 mmol/L (98-107) 09/18/18 04:48 Carbon Dioxide 17 mmol/L (22-30) L 09/18/18 04:48 Anion Gap 9 mmol/L 09/18/18 04:48 BUN 71 mg/dL (9-20) H 09/18/18 04:48 Creatinine 4.81 mg/dL (0.66-1.25) H 09/18/18 04:48 Est GFR (CKD-EPI)AfAm 13 (>60 ml/min/1.73 sqM) 09/18/18 04:48 Est GFR (CKD-EPI)NonAf 12 (>60 ml/min/1.73 sqM) 09/18/18 04:48 Glucose 96 mg/dL (74-99) 09/18/18 04:48 POC Glucose (mg/dL) 83 mg/dL (75-99) 09/16/18 01:15 POC Glu Vp Strategy Pari Rea 09/16/18 01:15 Lactic Ac Sepsis Rflx Y 09/15/18 12:20 Plasma Lactic Acid Juwan 1.4 mmol/L (0.7-2.0) 09/15/18 15:55 Calcium 7.5 mg/dL (8.4-10.2) L 09/18/18 04:48 Phosphorus 4.6 mg/dL (2.5-4.5) H 09/18/18 04:48 Magnesium 2.1 mg/dL (1.6-2.3) 09/18/18 04:48 Total Bilirubin 0.2 mg/dL (0.2-1.3) 09/18/18 04:48 AST 52 U/L (17-59) 09/18/18 04:48 ALT 59 U/L (21-72) 09/18/18 04:48 Alkaline Phosphatase 74 U/L (38-126) 09/18/18 04:48 Creatine Kinase 313 U/L (55-170) H 09/18/18 04:48 Total Creatine Kinase 56818 U/L (55-170) H* 09/15/18 10:04 CK-MB (CK-2) 37.4 ng/mL (0.0-2.4) H 09/15/18 10:04 CK-MB (CK-2) Rel Index 09/15/18 10:04 Troponin I 0.067 ng/mL (0.000-0.034) H* 09/15/18 22:10 Total Protein 4.3 g/dL (6.3-8.2) L 09/18/18 04:48 Albumin 2.0 g/dL (3.5-5.0) L 09/18/18 04:48 Cortisol 48 ug/dL 09/16/18 05:07 Urine Color Yellow 09/15/18 10:04 Urine Appearance Turbid (Clear) 09/15/18 10:04 Urine pH 6.0 (5.0-8.0) 09/15/18 10:04 Ur Specific [place] (1.001-1.035) 09/15/18 10:04 Urine Protein 2+ (Negative) H 09/15/18 10:04 Urine Glucose (UA) Negative (Negative) 09/15/18 10:04 Urine Ketones Negative (Negative) 09/15/18 10:04 Urine Blood Moderate (Negative) H 09/15/18 10:04 Urine Nitrite Negative (Negative) 09/15/18 10:04 Urine Bilirubin Negative (Negative) 09/15/18 10:04 Urine Urobilinogen <2.0 mg/dL (<2.0) 09/15/18 10:04 Ur Leukocyte Esterase Large (Negative) H 09/15/18 10:04 Urine RBC 22 /hpf (0-5) H 09/15/18 10:04 Urine WBC Clumps Many /hpf (None) H 09/15/18 10:04 Random Vancomycin 12.4 ug/mL 09/17/18 10:20 Urine Opiates Screen Not Detected (NotDetected) 09/15/18 10:21 Ur Oxycodone Screen Not Detected (NotDetected) 09/15/18 10:21 Urine Methadone Screen Not Detected (NotDetected) 09/15/18 10:21 Ur Propoxyphene Screen Not Detected (NotDetected) 09/15/18 10:21 Ur Barbiturates Screen Not Detected (NotDetected) 09/15/18 10:21 U Tricyclic Antidepress Not Detected (NotDetected) 09/15/18 10:21 Ur Phencyclidine Scrn Not Detected (NotDetected) 09/15/18 10:21 Ur Amphetamines Screen Not Detected (NotDetected) 09/15/18 10:21 U Methamphetamines Scrn Not Detected (NotDetected) 09/15/18 10:21 U Benzodiazepines Scrn Not Detected (NotDetected) 09/15/18 10:21 Urine Cocaine Screen Not Detected (NotDetected) 09/15/18 10:21 U Marijuana (THC) Screen Not Detected (NotDetected) 09/15/18 10:21 Microbiology 09/17/18 11:30 Blood Blood Culture Gram Stain - Preliminary 09/17/18 11:30 Blood Blood Culture - Final Pseudomonas aeruginosa 09/17/18 11:31 Blood Blood Culture - Final 09/15/18 10:21 Blood Blood Culture Gram Stain - Preliminary 09/15/18 10:21 Blood Blood Culture - Preliminary Gram Neg Bacilli 09/15/18 10:04 Urine,Voided Urine Culture - Final Pseudomonas aeruginosa 09/15/18 10:04 Blood Blood Culture - Final laboratory is corrected the blood culture and pseudomonas being isolated as in the urine - Imaging and Cardiology US - abdomen: report reviewed (bilateral hydronephrosis) Assessment and Plan (1) Septic shock Narrative/Plan: Who has a complex past medical history presents to Hospital feeling very poorly with markedly increased weakness and about of nausea and emesis. At presentation the patient was hypotensive he had a temperature of 100.3 leukocytosis and evidence of infection from the urinary tract. He has was admitted to the intensive care unit because of his knees for vasopressor therapy despite fluid resuscitation. Patient is doing somewhat better today. He is no longer having nausea and able to eat his dinner. There is evidence of the gram-negative sepsis with the urinalysis being positive and urine culture with gram-negative bacilli. Blood cultures are being positive for gram-positive cocci which is somewhat puzzling at this point in time and await further data. with his history of recent hospitalization and concern for more resistant gram-negative pathogen ceftazidime is being utilized as well as vanomycin for now until we have further data Leukocytosis to be monitored. There is evidence of acute renal failure and is being monitored closely also by nephrology. Followup blood cultures to be requested. 09/17/2018 patient is doing somewhat better today. Vasopressor therapy has been titrated and nearly stopped. Patient is a definitely feeling better eating and drinking well. We'll continue the Fortaz for the isolated Pseudomonas. Blood cultures also gram-negative bacilli awaiting the final identification. Once finalized vancomycin can be discontinued. Follow-up blood cultures are in process at this time. The patient's atrial fibrillation is now converted with amiodarone. This is a lot of significant improvement in his hemodynamics, heart rate was in the 70s today it was 126 yesterday. This is contributing to his improved blood pressure and diminishing vasopressor needs. It is possible the patient will need to go to rehab to complete his course of intravenous antibiotic therapy. Await renal ultrasound. 09/18/2018 patient feels a little better. There is evidence of urine culture as well as blood cultures now with the pseudomonas aeruginosa. No other pathogens have been isolated. Follow blood culture remains positive. There is evidence of the ultrasound revealing the bilateral hydronephrosis and constantly urological consult has been requested to see if patient needs relief of the obstruction. With his ongoing bacteremia is of great concern. We need to have clearance of his bacteremia before next set of plans can be made. Current Visit: Yes Status: Acute Code(s): A41.9 - SEPSIS, UNSPECIFIED ORGANISM; R65.21 - SEVERE SEPSIS WITH SEPTIC SHOCK SNOMED Code(s): 33524766 (2) UTI (urinary tract infection) Current Visit: Yes Status: Acute Code(s): N39.0 - URINARY TRACT INFECTION, SITE NOT SPECIFIED SNOMED Code(s): 22081126 (3) Fever Current Visit: Yes Status: Resolved Code(s): R50.9 - FEVER, UNSPECIFIED SNOMED Code(s): 852388434 (4) Leukocytosis Current Visit: Yes Status: Acute Code(s): D72.829 - ELEVATED WHITE BLOOD CELL COUNT, UNSPECIFIED SNOMED Code(s): 624668475
--- NOTE | 2018-09-18 22:21 | P.GSCN ---
History of Present Illness Consult date: 09/18/18 Reason for Consult: Urinary retention History of present illness: The patient is a 67-year-old male admitted through the emergency room on 09/15 for evaluation of weakness and a fever secondary to sepsis from a urinary tract infection. The patient was hypotensive in the emergency room and transferred to the intensive care unit where he has been treated with fluids, pressors and antibiotics. Urine and blood cultures are growing pseudomonas aeruginosa. BUN/ creatinine at the time of admission were 56/4.7. Renal ultrasound was obtained and showed evidence of bilateral hydronephrosis. The patient has been treated with an indwelling catheter and has improved hemodynamically. His BUN/ creatinine today remained elevated at 71/4.81. The patient's history began sometime in June or July when he apparently developed abdominal distention and a ventral hernia. He also had a Staphylococcus epidermidis urinary tract infection. He was admitted to [facility] on 08/18 and noted to have a BUN of 31 and a creatinine of 3.7. CT scan of the abdomen and pelvis on 08/18 showed bilateral hydronephrosis and a markedly distended bladder. Apparently 2 L drained from the bladder and a catheter was inserted. The patient was seen by Dr. Kirby who recommended a longer period of catheter drainage. He was seen by Dr Kirby on 09/13 and cystoscopy and a cystometrogram was performed. The patient was able to void following the procedure with a postvoid residual of 200 cc. He returned the following day because he was unable to void and a catheter was inserted and drained 1225 cc. At the time of cystoscopy the patient was noted to have some abnormality of the anterior bladder wall and it was planned for the patient to undergo cystoscopy under anesthesia in 2 or 3 weeks for further evaluation. Patient has a history of bladder outflow obstruction and had previously been evaluated by Dr. Thao but had not been seen by him for at least 7 or 8 years. He apparently had used tamsulosin but had problems with dizziness. He has never undergone surgical treatment of bladder outflow obstruction. Review of Systems - Constitutional Reports weakness, Denies chills - Cardiovascular Reports lightheadedness, Denies chest pain, Denies shortness of breath - Respiratory Denies cough, Denies wheezing - Gastrointestinal Denies abdominal pain - Genitourinary Reports as per HPI Past Medical History Past Medical History: Coronary Artery Disease (CAD), Hypertension, Myocardial Infarction ([place]), Prostate Disorder Additional Past Medical History / Comment(s): bladder issues chronic [facility] -pt stated it was changed on 09-13-18 Last Myocardial Infarction Date:: 2005 History of Any Multi-Drug Resistant Organisms: None Reported Past Surgical History: Heart Catheterization With Stent, Tonsillectomy Additional Past Surgical History / Comment(s): cystoscope Past Anesthesia/Blood Transfusion Reactions: Motion Sickness Date of Last Stent Placement:: 2005 Additional Psychological History / Comment(s): Lives in an assisted living situation. 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 No experience. No international travel. No animal exposures. No tobacco or alcohol use Smoking Status: Never smoker - Past Family History Mother Family Medical History: Cancer Additional Family Medical History / Comment(s): colon cancer Father Family Medical History: Myocardial Infarction ([place]) Medications and Allergies Home Medications Medication Instructions Recorded Confirmed Type Aspirin EC [Ecotrin Low Dose] 81 mg PO DAILY 09/15/18 09/15/18 History Atenolol [Tenormin] 25 mg PO DAILY 09/15/18 09/15/18 History Tamsulosin [Flomax] 0.4 mg PO DAILY 09/15/18 09/15/18 History buPROPion XL [Wellbutrin Xl] 150 mg PO DAILY 09/15/18 09/15/18 History Allergies Allergy/AdvReac Type Severity Reaction Status Date / Time milk Allergy Unknown Verified 09/15/18 10:35 Surgical - Exam Vital Signs Pulse Resp BP Pulse Ox 105 H 18 99/59 96 09/15/18 10:00 09/15/18 10:00 09/15/18 10:00 09/15/18 10:00 - General well developed, well nourished, obese - ENT no hearing loss - Neck no masses, no lymphadectomy - Respiratory normal respiratory effort - Abdomen Abdomen: soft, no organomegaly - Genitourinary normal penis with no external lesions, testicles non-tender, other (Moderate scrotal edema) Results - Labs 09/18/18 04:48 09/18/18 04:48 Abnormal Lab Results - Last 24 Hours (Table) 09/17/18 09/18/18 09/18/18 Range/Units 22:14 04:48 04:48 WBC 10.7 H (3.8-10.6) k/uL RBC 3.07 L (4.30-5.90) m/uL Hgb 9.1 L (13.0-17.5) gm/dL Hct 28.8 L (39.0-53.0) % Neutrophils # 9.1 H (1.3-7.7) k/uL Lymphocytes # 0.8 L (1.0-4.8) k/uL APTT 38.1 H (22.0-30.0) sec Sodium 133 L (137-145) mmol/L Carbon Dioxide 17 L (22-30) mmol/L BUN 71 H (9-20) mg/dL Creatinine 4.81 H (0.66-1.25) mg/dL Calcium 7.5 L (8.4-10.2) mg/dL Phosphorus 4.6 H (2.5-4.5) mg/dL Creatine Kinase 313 H (55-170) U/L Total Protein 4.3 L (6.3-8.2) g/dL Albumin 2.0 L (3.5-5.0) g/dL 09/18/18 09/18/18 Range/Units 04:48 10:40 WBC (3.8-10.6) k/uL RBC (4.30-5.90) m/uL Hgb (13.0-17.5) gm/dL Hct (39.0-53.0) % Neutrophils # (1.3-7.7) k/uL Lymphocytes # (1.0-4.8) k/uL APTT 45.7 H 47.0 H (22.0-30.0) sec Sodium (137-145) mmol/L Carbon Dioxide (22-30) mmol/L BUN (9-20) mg/dL Creatinine (0.66-1.25) mg/dL Calcium (8.4-10.2) mg/dL Phosphorus (2.5-4.5) mg/dL Creatine Kinase (55-170) U/L Total Protein (6.3-8.2) g/dL Albumin (3.5-5.0) g/dL Microbiology - Last 24 Hours (Table) 09/17/18 11:30 Blood Culture Gram Stain - Preliminary Blood Blood Culture - Final Pseudomonas aeruginosa 09/17/18 11:31 Blood Culture - Final Blood Diabetes panel 09/18/18 Range/Units 04:48 Sodium 133 L (137-145) mmol/L Potassium 4.4 (3.5-5.1) mmol/L Chloride 107 (98-107) mmol/L Carbon Dioxide 17 L (22-30) mmol/L BUN 71 H (9-20) mg/dL Creatinine 4.81 H (0.66-1.25) mg/dL Glucose 96 (74-99) mg/dL Calcium 7.5 L (8.4-10.2) mg/dL AST 52 (17-59) U/L ALT 59 (21-72) U/L Alkaline Phosphatase 74 (38-126) U/L Total Protein 4.3 L (6.3-8.2) g/dL Albumin 2.0 L (3.5-5.0) g/dL Calcium panel 09/18/18 Range/Units 04:48 Calcium 7.5 L (8.4-10.2) mg/dL Phosphorus 4.6 H (2.5-4.5) mg/dL Albumin 2.0 L (3.5-5.0) g/dL Pituitary panel 09/18/18 Range/Units 04:48 Sodium 133 L (137-145) mmol/L Potassium 4.4 (3.5-5.1) mmol/L Chloride 107 (98-107) mmol/L Carbon Dioxide 17 L (22-30) mmol/L BUN 71 H (9-20) mg/dL Creatinine 4.81 H (0.66-1.25) mg/dL Glucose 96 (74-99) mg/dL Calcium 7.5 L (8.4-10.2) mg/dL Adrenal panel 09/18/18 Range/Units 04:48 Sodium 133 L (137-145) mmol/L Potassium 4.4 (3.5-5.1) mmol/L Chloride 107 (98-107) mmol/L Carbon Dioxide 17 L (22-30) mmol/L BUN 71 H (9-20) mg/dL Creatinine 4.81 H (0.66-1.25) mg/dL Glucose 96 (74-99) mg/dL Calcium 7.5 L (8.4-10.2) mg/dL Total Bilirubin 0.2 (0.2-1.3) mg/dL AST 52 (17-59) U/L ALT 59 (21-72) U/L Alkaline Phosphatase 74 (38-126) U/L Total Protein 4.3 L (6.3-8.2) g/dL Albumin 2.0 L (3.5-5.0) g/dL Assessment and Plan (1) Hydronephrosis Narrative/Plan: The patient's bilateral hydronephrosis dates back at least several months and possibly even longer than that. It appears to be related to long-standing bladder outflow obstruction with marked overdistention of the bladder. For the time being an indwelling catheter would be the best treatment option. I suspect that the reason the patient's renal function has not improved further is that he did have some nephrotoxic effects related to hypotension and bacteremia at the time of admission. His creatinine had fallen to 2.6 on 08/[address] Kirby plans further evaluation with bladder biopsy later in the month. Current Visit: Yes Status: Acute Code(s): N13.30 - UNSPECIFIED HYDRONEPHROSIS SNOMED Code(s): 86693845 Time with Patient: Greater than 30
[2018-09-19 05:30] LABS: Basophils % (A) 0 %; Eosinophils # (A) 0.4 k/uL (0-0.7); Eosinophils % (A) 3 %; HCT 31.1 % (39.0-53.0); HGB 9.9 gm/dL (13.0-17.5); Hypochromasia Slight; Lymphocytes # (A) 0.9 k/uL (1.0-4.8); Lymphocytes % (A) 8 %; MCH 29.9 pg (25.0-35.0); MCHC 31.7 g/dL (31.0-37.0); MCV 94.2 fL (80.0-100.0); Mean Platelet Volume 7.7; Monocytes # (A) 0.5 k/uL (0-1.0); Monocytes % (A) 4 %; Neutrophils # (A) 9.9 k/uL (1.3-7.7); Neutrophils % (A) 84 %; Platelet Count 408 k/uL (150-450); RDW 15.5 % (11.5-15.5); WBC 11.8 k/uL (3.8-10.6)
[2018-09-19] MEDS: HEPARIN SODIUM,PORCINE 5,000 UNIT/ML 1 ML VIAL IV PRN (05:58)
[2018-09-19] MEDS: HEPARIN SOD,PORK IN 0.45% NACL 25,000 UNIT in 0.45% NACL 1 500ML.BAG IV SCH ×2 (05:59→17:48)
[2018-09-19] MEDS: AMIODARONE 450 MG in DEXTROSE 5% IN WATER 250 ML IV SCH ×4 (06:10→13:39)
[2018-09-19 06:16] LABS: Calcium 7.9 mg/dL (8.4-10.2); Phosphorus 4.5 mg/dL (2.5-4.5); Potassium 4.3 mmol/L (3.5-5.1); Total Bilirubin 0.3 mg/dL (0.2-1.3); Total Protein 4.3 g/dL (6.3-8.2)
[2018-09-19] MEDS: ALBUTEROL NEBULIZED 2.5 MG/3 ML INHALATION SCH ×3 (07:10→19:30)
[2018-09-19] MEDS: CALCIUM ACETATE 667 MG CAP PO SCH ×2 (08:26→17:05)
[2018-09-19] MEDS: SODIUM BICARBONATE TAB 650 MG TAB PO SCH ×4 (08:26→20:11)
[2018-09-19] MEDS: buPROPion XL 150 MG TAB.ER.24H PO SCH (08:26)
[2018-09-19] MEDS: ASPIRIN 81 MG PO SCH (08:27)
[2018-09-19] MEDS: TAMSULOSIN 0.4 MG CAP.ER.24H PO SCH ×2 (08:27→08:31)
[2018-09-19] MEDS: ATENOLOL 25 MG TAB PO SCH (08:27)
[2018-09-19] MEDS: PANTOPRAZOLE 40 MG/10 ML VIAL IV SCH (08:27)
--- NOTE | 2018-09-19 08:46 | P.PN ---
Subjective Progress Note Date: 09/19/18 This is 67-year-old gentleman is basically admitted to the hospital with UTI and sepsis. Patient was in atrial fibrillation with fast and corresponds but converted back to sinus rhythm at this time. He does have history of hypertension and also coronary artery disease. He is in acute renal failure with creatinine of about 4.7. Ideally, patient requests anti-cognition therapy. Currently is on heparin. Probably he may have switched to by mouth Coumadin. Patient is in sinus rhythm. He seemed to be feeling well. He denies any chest pain. Doesn't appear to be in acute respiratory distress. He is feeling much better since admission here. 09/19/2018: This 67-year-old gentleman is admitted to the hospital with sepsis and UTI. He also has bilateral hydronephrosis no chronic out for tract obstruction. Patient went into atrial fibrillation again last night with fast ventricular response. He was in flutter with rates about 110. We will continue his beta isabel and amiodarone. Amiodarone could be switched to by mouth amiodarone after the completion of the tip. His creatinine is still in the range of 4.3. He denies any chest pain, shortness of breath and doesn't appear to be acute distress. His white count longest normal. He is on antibiotics. His blood pressures running in the range of 90. Objective - Vital Signs Vital signs: Vital Signs Temp 97.6 F 09/19/18 08:00 Pulse 141 H 09/19/18 08:00 Resp 13 09/19/18 08:00 BP 93/63 09/19/18 08:00 Pulse Ox 94 L 09/19/18 08:00 Intake & Output 09/18/18 09/19/18 09/19/18 18:59 06:59 18:59 Intake Total 2227.719 1323.583 100 Output Total 2275 7750 475 Balance -47.281 -926.417 -375 Weight 123.8 kg Intake: IV 900 600 100 Dextrose 5% in Water 100 100 ml @ 618 mls/hr IV .Q10M ONE with Amiodarone 150 mg Rx#:[id number] Sodium Chloride 0.9% 1, 750 600 100 000 ml @ 50 mls/hr IV . Q20H [facility] Rx#:[id number] cefTAZidime 0.5 gm In 50 Sodium Chloride 0.9% 50 ml @ 100 mls/hr IVPB Q48H [facility] Rx#:[id number] Intake, IV Titration 587.719 723.583 Amount Amiodarone 450 mg In 223.583 Dextrose 5% in Water 250 ml @ 1 MG/MIN 33.33 mls/ hr IV .Q7H31M [facility] Rx#: [id number] Heparin Sod,Pork in 0.45% 587.719 500 NaCl 25,000 unit In 0.45 % NaCl 1 500ml.bag @ 8.2 UNITS/KG/HR 19.84 mls/hr IV .Q24H [facility] Rx#: [id number] Oral 740 Output: Urine 2275 2250 475 Other: Voiding Method Indwelling Catheter Indwelling Catheter - Exam GENERAL EXAM: Patient is alert and oriented and doesn't appear to be in any acute distress HEENT: Normocephalic. Normal reaction of pupils, equal size, normal range of extraocular motion. No erythema or exudates in the throat. NECK: No masses, no nuchal rigidity. CHEST: No chest wall deformity. LUNGS: Equal air entry with no crackles or wheeze. HEART: S1 and S2 normal. Irregular heart rhythm ABDOMEN: No hepatosplenomegaly, normal bowel sounds, no guarding or rigidity. SKIN: No rashes CENTRAL NERVOUS SYSTEM: No focal deficits. EXTREMITIES: No cyanosis, clubbing or edema. - Labs CBC & Chem 7: 09/19/18 04:38 09/19/18 04:38 Labs: Abnormal Lab Results - Last 24 Hours (Table) 09/18/18 09/19/18 09/19/18 Range/Units 10:40 04:38 04:38 WBC 11.8 H (3.8-10.6) k/uL RBC 3.30 L (4.30-5.90) m/uL Hgb 9.9 L (13.0-17.5) gm/dL Hct 31.1 L (39.0-53.0) % Neutrophils # 9.9 H (1.3-7.7) k/uL Lymphocytes # 0.9 L (1.0-4.8) k/uL APTT 47.0 H (22.0-30.0) sec Sodium 132 L (137-145) mmol/L Chloride 109 H (98-107) mmol/L Carbon Dioxide 14 L (22-30) mmol/L BUN 75 H (9-20) mg/dL Creatinine 4.66 H (0.66-1.25) mg/dL Calcium 7.9 L (8.4-10.2) mg/dL Total Protein 4.3 L (6.3-8.2) g/dL Albumin 2.0 L (3.5-5.0) g/dL 09/19/18 Range/Units 04:38 WBC (3.8-10.6) k/uL RBC (4.30-5.90) m/uL Hgb (13.0-17.5) gm/dL Hct (39.0-53.0) % Neutrophils # (1.3-7.7) k/uL Lymphocytes # (1.0-4.8) k/uL APTT 44.0 H (22.0-30.0) sec Sodium (137-145) mmol/L Chloride (98-107) mmol/L Carbon Dioxide (22-30) mmol/L BUN (9-20) mg/dL Creatinine (0.66-1.25) mg/dL Calcium (8.4-10.2) mg/dL Total Protein (6.3-8.2) g/dL Albumin (3.5-5.0) g/dL Microbiology - Last 24 Hours (Table) 09/17/18 11:30 Blood Culture Gram Stain - Preliminary Blood Blood Culture - Final Pseudomonas aeruginosa 09/17/18 11:31 Blood Culture - Final Blood Assessment and Plan (1) Acute kidney injury Current Visit: Yes Status: Acute Code(s): N17.9 - ACUTE KIDNEY FAILURE, UNSPECIFIED SNOMED Code(s): 51378005 (2) Chronic renal disease Current Visit: Yes Status: Acute Code(s): N18.9 - CHRONIC KIDNEY DISEASE, UNSPECIFIED SNOMED Code(s): 861180401 (3) Elevated troponin Current Visit: Yes Status: Acute Code(s): R74.8 - ABNORMAL LEVELS OF OTHER SERUM ENZYMES SNOMED Code(s): 148870054 (4) Persistent atrial fibrillation Current Visit: Yes Status: Acute Code(s): I48.1 - PERSISTENT ATRIAL FIBRILLATION SNOMED Code(s): 720373363 Plan: We'll continue current medical therapy. Switch to by mouth amiodarone. Continue beta isabel. Patient may be constricted for long-term anticoagulation. Probably, Coumadin may be the best choice for him. He is currently on heparin
--- NOTE | 2018-09-19 11:28 | P.PN ---
Subjective Progress Note Date: 09/19/18 Principal diagnosis: Acute urinary tract infection with pseudomonas aeruginosa, gram-negative bacteremia, with septic shock This is a 67-year-old white male patient who was admitted to the hospital from the assisted living setting for acute urinary checked infection, septic shock, urine culture is positive for pseudomonas aeruginosa, blood cultures are positive for gram-negative bacilli, final culture is pending. Patient has a chronic indwelling catheter for his benign prostatic hypertrophy and urinary retention. He follows with urology in the outpatient setting. Patient came in with symptoms of progressive weakness, fevers, chills, and feeling very poorly. Patient was fluid resuscitated, initial blood work on admission showed WBC of 21.0, hemoglobin of 10.2, INR 1.2, sodium 128, chloride is 93, CO2 is 19, BUN is 56, creatinine 4.7, plasma lactic acid was 4.3 and improved with hydration, currently at 1.4. Patient had a elevated CKs, 10,529 on admission, and borderline elevated troponins of 0.094, 0.0169, 0.067. Urinalysis showed large leukocyte esterase, wbc clumps, red blood cells, and protein. Patient is currently on Fortaz, initial antibiotic coverage included Zosyn and vancomycin. Patient also had some altered mentation, and new onset A. fib RVR. Currently he remains in A. fib, and the rate is well controlled, afebrile, he is on 2 L per nasal cannula his pulse ox is 100%, his been off levo fed since 06 50 on 11/2017. He is on heparin infusion at 19.2 units per kilo per hour for anticoagulation for his atrial fibrillation. Ultrasound was completed and showed mild bilateral hydronephrosis. Other medical history includes chronic kidney disease stage III, chronic anemia, hypertension, history of coronary artery disease with previous stenting, history of myocardial infarction, depression. Today patient is seen in follow-up on 09/18/2018 in the intensive care unit, he is awake and alert, responding appropriately, denies any specific complaints, no dyspnea and no chest pain. His A. fib is better controlled. Afebrile. CKs are down to 313, BUN 71 and creatinine 4.81. Urology is following, patient continues on gentle hydration with 0.9 normal saline at a rate of 50 ML per hour, he is receiving oral sodium bicarbonate tablets. His CO2 is improving, and is at 17 today. On 09/19/2018 patient seen in follow-up in the intensive care unit. He is awake and alert, in no acute distress, on 2 L per nasal cannula his pulse ox of 94%, he remains in A. fib and atrial flutter, and the rate is currently between 82 and 101 BPM. Patient remains on amiodarone drip at 0.5 mg per hour, he is on heparin infusion for anticoagulation. Dyspnea, denies any chest pain, chest x-rays today, urology consultation was noted, patient will continue with the indwelling catheter. Blood and urine cultures were positive for Pseudomonas faecalis, and pseudomonas aeruginosa, blood culture also showed Enterococcus faecalis, patient is currently on Fortaz. His labs have been reviewed, WBCs 11.8, hemoglobin is 9.9, sodium is 142, chloride is 109, CO2 is 14, BUN 75, creatinine is 4.6. No fever no chills. Hemodynamically patient stable. Objective - Vital Signs Vital signs: Vital Signs Temp 97.6 F 09/19/18 08:00 Pulse 90 09/19/18 11:18 Resp 11 L 09/19/18 11:00 BP 96/57 09/19/18 11:00 Pulse Ox 96 09/19/18 11:00 Intake & Output 09/18/18 09/19/18 09/19/18 18:59 06:59 18:59 Intake Total 2227.719 1323.583 700 Output Total 2275 2250 955 Balance -47.281 -926.417 -255 Weight 123.8 kg Intake: IV 900 600 250 Dextrose 5% in Water 100 100 ml @ 618 mls/hr IV .Q10M ONE with Amiodarone 150 mg Rx#:[id number] Sodium Chloride 0.9% 1, 750 600 250 000 ml @ 50 mls/hr IV . Q20H [facility] Rx#:[id number] cefTAZidime 0.5 gm In 50 Sodium Chloride 0.9% 50 ml @ 100 mls/hr IVPB Q48H [facility] Rx#:[id number] Intake, IV Titration 587.719 723.583 Amount Amiodarone 450 mg In 223.583 Dextrose 5% in Water 250 ml @ 1 MG/MIN 33.33 mls/ hr IV .Q7H31M [facility] Rx#: [id number] Heparin Sod,Pork in 0.45% 587.719 500 NaCl 25,000 unit In 0.45 % NaCl 1 500ml.bag @ 8.2 UNITS/KG/HR 19.84 mls/hr IV .Q24H [facility] Rx#: [id number] Oral 740 450 Output: Urine 2275 2250 955 Other: Voiding Method Indwelling Catheter Indwelling Catheter Indwelling Catheter - Exam GENERAL EXAM: Alert, pleasant, 67-year-old obese white comfortable in no apparent distress. HEAD: Normocephalic/atraumatic. EYES: Normal reaction of pupils, equal size. Conjunctiva pink, sclera white. NOSE: Clear with pink turbinates. THROAT: No erythema or exudates. NECK: No masses, no JVD, no thyroid enlargement, no adenopathy. CHEST: No chest wall deformity. Symmetrical expansion. LUNGS: Equal air entry with a few scattered expiratory wheezes CVS: Irregular rate and rhythm, normal S1 and S2, no gallops, no murmurs, no rubs ABDOMEN: Soft, nontender. No hepatosplenomegaly, normal bowel sounds, no guarding or rigidity. EXTREMITIES: No clubbing, no edema, no cyanosis, 2+ pulses and upper and lower extremities. MUSCULOSKELETAL: Muscle strength and tone normal. SPINE: No scoliosis or deformity SKIN: No rashes CENTRAL NERVOUS SYSTEM: Alert and oriented -3. No focal deficits, tone is normal in all 4 extremities. PSYCHIATRIC: Alert and oriented -3. Appropriate affect. Intact judgment and insight. - Labs CBC & Chem 7: 09/19/18 04:38 09/19/18 04:38 Labs: Abnormal Lab Results - Last 24 Hours (Table) 09/19/18 09/19/18 09/19/18 Range/Units 04:38 04:38 04:38 WBC 11.8 H (3.8-10.6) k/uL RBC 3.30 L (4.30-5.90) m/uL Hgb 9.9 L (13.0-17.5) gm/dL Hct 31.1 L (39.0-53.0) % Neutrophils # 9.9 H (1.3-7.7) k/uL Lymphocytes # 0.9 L (1.0-4.8) k/uL APTT 44.0 H (22.0-30.0) sec Sodium 132 L (137-145) mmol/L Chloride 109 H (98-107) mmol/L Carbon Dioxide 14 L (22-30) mmol/L BUN 75 H (9-20) mg/dL Creatinine 4.66 H (0.66-1.25) mg/dL Calcium 7.9 L (8.4-10.2) mg/dL Total Protein 4.3 L (6.3-8.2) g/dL Albumin 2.0 L (3.5-5.0) g/dL Microbiology - Last 24 Hours (Table) 09/15/18 10:21 Blood Culture Gram Stain - Final Blood Blood Culture - Final Enterococcus faecalis Pseudomonas aeruginosa 09/17/18 11:30 Blood Culture Gram Stain - Preliminary Blood Blood Culture - Final Pseudomonas aeruginosa 09/17/18 11:31 Blood Culture - Final Blood Assessment and Plan Plan: Assessment: #1. Septic shock related to acute urinary tract infection, urine culture was positive for pseudomonas aeruginosa #2. Gram-negative bacteremia with sepsis, final culture is pending #3. Altered mental status, hypotension, new onset A. fib RVR, febrile illness related to the above #4. Anion gap metabolic acidosis, related to elevated lactic acidosis secondary to sepsis, improved #5. Non-anion gap metabolic acidosis related to acute kidney injury #6. Chronic kidney disease stage III #7. 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 Hypertension #9. Hyponatremia, improving #10. Rhabdomyolysis, improving #11. He is myocardial infarction #12. History of depression #13. Resident of assisted living facility Plan: Continue current antibiotic coverage, we will check with cardiology whether patient can be started on oral coagulation, and perhaps Coumadin. No fever no chills, and is appropriate, patient denies any acute complaints, increase activity as tolerated. Patient is stable, remains in A. fib flutter and the rate is better controlled. Continue to follow. I performed a history & physical examination of the patient and discussed their management with my nurse practitioner, Shannon Hunt. I reviewed the nurse practitioner's note and agree with the documented findings and plan of care. Lung sounds are positive for clear lung sounds. The findings and the impression was discussed with the patient. I attest to the documentation by the nurse practitioner. Time with Patient: Greater than 30
[2018-09-19] MEDS: SODIUM CHLORIDE 0.9% 1,000 ML IV SCH (11:33)
[2018-09-19 12:39] LABS: INR 1.1 (<1.2); Partial Thromboplastin Time 60.1 sec (22.0-30.0); Prothrombin Time 10.6 sec (9.0-12.0)
[2018-09-19] MEDS: DEXTROSE 5% IN WATER 1,000 ML with SODIUM BICARB (1 MEQ/ML) 150 ML IV SCH (13:10)
[2018-09-19] MEDS: AMIODARONE 200 MG TAB PO SCH ×2 (13:10→20:11)
[2018-09-19] MEDS ORDERED: AMIODARONE 100 MG TAB PO SCH (14:00)
--- NOTE | 2018-09-19 16:00 | PN ---
PROGRESS NOTE DATE OF SERVICE: 09/19/2018 This 67-year-old gentleman admitted with UTI with possible pseudomonas and sepsis secondary to Harper catheter is being closely monitored. Patient has acute on chronic renal failure, also. Currently the creatinine is 4.6 as compared to 4.88 yesterday. Multiple consultants are following the patient. The patient is on broad-spectrum IV antibiotics. Patient is still relatively hypotensive at this time, being followed by multiple consultants. The patient also has bilateral hydronephrosis and Urology has seen the patient for hydronephrosis and recommended that it is probably related to long- standing bladder outlet obstruction with marked overdistention of the bladder. They recommend indwelling Harper catheter. There is no history of any fever, rigor or chills. No history of headache, loss of consciousness, seizures. Past medical history reviewed. REVIEW OF SYSTEMS: CARDIOVASCULAR SYSTEM: No angina, palpitations. RESPIRATORY SYSTEM: As mentioned earlier. GI: No nausea, vomiting. : No dysuria or retention. NERVOUS SYSTEM: No numbness. Generalized weakness. CURRENT MEDICATIONS: Reviewed. They include: 1. Tylenol 500 q.6 p.r.n. 2. [place] 5 mg q.6 p.r.n. 3. Ventolin 2.5 t.i.d. 4. Cordarone 400 mg b.i.d. 5. Aspirin 81 mg daily. 6. Tenormin 25 mg. 7. Wellbutrin XR. 8. PhosLo. 9. Ceftazidime 4.5 mg daily. 10.Vitamin D2. 11.Heparin. 12.Narcan. 13.Protonix. 14.Flomax. 15.Coumadin 5 mg p.o. daily. PHYSICAL EXAMINATION: Patient is alert, oriented x3. Pulse is 124, blood pressure 106/61, respiration 16, temperature 97.9, pulse ox 97% on 2 L. HEENT: Conjunctivae normal. Oral mucosa moist. NECK: No jugular venous distention. No carotid bruit. No lymph node enlargement. CARDIOVASCULAR SYSTEM: S1, S2 muffled. RESPIRATORY SYSTEM: Breath sounds diminished at the bases. Scattered rhonchi and crackles. ABDOMEN: Soft, obese, non-tender. No mass palpable. LEGS: Bilateral leg edema. NERVOUS SYSTEM: Diffusely weak. LABS: WBC 11.2, hemoglobin 9.9, APTT noted. Sodium 132. Creatinine is 4.66. ASSESSMENT: 1. Acute urinary tract infection with possibly Pseudomonas aeruginosa with sepsis secondary to Harper catheter with severe sepsis, hypotensive shock and septic shock. 2. Enterococcus faecalis and vancomycin-sensitive sepsis. 3. Renal failure, acute on chronic, with acute tubular necrosis with prerenal factors. 4. Bilateral hydronephrosis, chronic, because of the urine outflow obstruction. 5. Chronic kidney disease, stage III baseline. 6. Increased white count. 7. Anemia. 8. Paroxysmal atrial fibrillation with a fast ventricular rate. 9. Hyponatremia. 10.Acute rhabdomyolysis. 11.Increased plasma lactic acid and acidosis. 12.Hypomagnesemia. 13.History of coronary artery disease, stent. 14.Hypertension. 15.History of myocardial infarction. 16.History of prostate issues, prostate disease. 17.History of depression. 18.FULL CODE. RECOMMENDATIONS AND DISCUSSION: I recommend to continue current medication, continue symptomatic treatment. Otherwise, continue with broad-spectrum IV antibiotics. The blood cultures also showed Enterococcus faecalis. The most recent culture on 09/17/2018 is also possible for Pseudomonas aeruginosa. We will repeat cultures. I would also recommend a 2D echo with Doppler to complete the workup. Otherwise, continue with current medications. I would also recommend Harper catheter as per urology recommendations. Follow closely with multiple consultants. The blood pressure is borderline at this time. Continue to monitor. Further recommendations to follow. MMODL / IJN: [id number] /
[2018-09-19] MEDS ORDERED: WARFARIN 5 MG TAB PO SCH (18:00)
--- NOTE | 2018-09-19 21:18 | PN ---
PROGRESS NOTE The patient was seen this morning. He was comfortable, not in any acute distress. The patient remains on amiodarone drip. His heart rate this morning was about 110 beats per minute. The patient has had good urine output. Serum creatinine is slightly improved to about 4.6 from 4.8 yesterday. PHYSICAL EXAMINATION: Blood pressure this morning was 99/81, heart rate of about 110 per minute. Patient is afebrile. Examination of the heart S1, S2. Examination of the lungs, decreased breath sounds at bases. Abdomen is soft, nontender, distended. Examination of lower extremity shows edema 1+ bilaterally. 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 The patient is moving all 4 extremities. LABS SHOW: Sodium 132, potassium 4.3, CO2 is 14, chloride 109, BUN 75, serum creatinine 4.6, hemoglobin 9.9 g/dL. ASSESSMENT: 1. Acute kidney injury, currently nonoliguric secondary to hemodynamic instability with atrial fibrillation with RVR as well as cardiorenal syndrome currently with good urine output. Serum creatinine is trending down. 2. Non-anion gap metabolic acidosis secondary to renal failure. Change IV fluids to IV bicarb. 3. Atrial fibrillation with RVR. 4. Bilateral hydronephrosis, which appears to be chronic. The patient has been evaluated by Urology. Further evaluation and followup as outpatient. The patient does have an indwelling Harper catheter, which will be continued. 5. Chronic kidney disease can be associated with chronic outflow obstruction to be followed by Urology as outpatient. 6. Urinary tract infection with sepsis with blood cultures growing pseudomonas aeruginosa and Enterococcus faecalis, and urine culture growing Pseudomonas, maintained on antibiotics. PLAN: Change IV fluids to IV bicarb. Continue to avoid nephrotoxic agents. Continue indwelling Harper catheter. Repeat labs in a.m. MMODL / IJN: [id number] /
[2018-09-19] MEDS ORDERED: ATENOLOL 25 MG TAB PO STA (23:20)
[2018-09-20 05:14] LABS: Basophils # (A) 0.1 k/uL (0-0.2); Basophils % (A) 0 %; Eosinophils # (A) 0.3 k/uL (0-0.7); Eosinophils % (A) 2 %; HGB 9.8 gm/dL (13.0-17.5); Hypochromasia Slight; Lymphocytes % (A) 7 %; MCH 29.7 pg (25.0-35.0); MCHC 31.6 g/dL (31.0-37.0); Mean Platelet Volume 7.3; Monocytes # (A) 0.6 k/uL (0-1.0); Monocytes % (A) 4 %; Neutrophils # (A) 12.3 k/uL (1.3-7.7); Neutrophils % (A) 85 %; Platelet Count 414 k/uL (150-450); RDW 15.7 % (11.5-15.5); WBC 14.5 k/uL (3.8-10.6)
[2018-09-20 05:15] LABS: INR 1.1 (<1.2); Partial Thromboplastin Time 53.7 sec (22.0-30.0); Prothrombin Time 10.7 sec (9.0-12.0)
[2018-09-20 05:22] LABS: Calcium 7.7 mg/dL (8.4-10.2); Magnesium 1.8 mg/dL (1.6-2.3); Phosphorus 4.1 mg/dL (2.5-4.5); Potassium 4.2 mmol/L (3.5-5.1); Total Bilirubin 0.3 mg/dL (0.2-1.3); Total Protein 4.5 g/dL (6.3-8.2)
[2018-09-20] MEDS: ALBUTEROL NEBULIZED 2.5 MG/3 ML INHALATION SCH ×3 (07:20→20:04)
[2018-09-20] MEDS: ATENOLOL 25 MG TAB PO SCH ×2 (08:55→21:17)
[2018-09-20] MEDS: CALCIUM ACETATE 667 MG CAP PO SCH ×3 (08:55→18:15)
[2018-09-20] MEDS: AMIODARONE 200 MG TAB PO SCH ×2 (08:55→21:17)
[2018-09-20] MEDS: PANTOPRAZOLE 40 MG/10 ML VIAL IV SCH (08:55)
[2018-09-20] MEDS: SODIUM BICARBONATE TAB 650 MG TAB PO SCH ×4 (08:55→21:18)
[2018-09-20] MEDS: buPROPion XL 150 MG TAB.ER.24H PO SCH (08:55)
[2018-09-20] MEDS: ASPIRIN 81 MG PO SCH (08:55)
[2018-09-20] MEDS: TAMSULOSIN 0.4 MG CAP.ER.24H PO SCH (08:56)
--- NOTE | 2018-09-20 10:17 | P.PN ---
Subjective Progress Note Date: 09/20/18 This is 67-year-old gentleman is basically admitted to the hospital with UTI and sepsis. Patient was in atrial fibrillation with fast and corresponds but converted back to sinus rhythm at this time. He does have history of hypertension and also coronary artery disease. He is in acute renal failure with creatinine of about 4.7. Ideally, patient requests anti-cognition therapy. Currently is on heparin. Probably he may have switched to by mouth Coumadin. Patient is in sinus rhythm. He seemed to be feeling well. He denies any chest pain. Doesn't appear to be in acute respiratory distress. He is feeling much better since admission here. 09/19/2018: This 67-year-old gentleman is admitted to the hospital with sepsis and UTI. He also has bilateral hydronephrosis no chronic out for tract obstruction. Patient went into atrial fibrillation again last night with fast ventricular response. He was in flutter with rates about 110. We will continue his beta isabel and amiodarone. Amiodarone could be switched to by mouth amiodarone after the completion of the tip. His creatinine is still in the range of 4.3. He denies any chest pain, shortness of breath and doesn't appear to be acute distress. His white count longest normal. He is on antibiotics. His blood pressures running in the range of 90. 09/20/2018: This patient is admitted with sepsis and renal failure. Patient has bilateral hydronephrosis with outflow tract obstruction. Patient is in atrial fibrillation/flutter. Rate seemed to be better controlled this morning. We started Coumadin yesterday. His INR is subtherapeutic. He is going to get Coumadin 7.5 g today. Patient otherwise has no cardiac symptoms. Continue rest of the medication and treatment for sepsis. From cardiac point, patient could be transferred to stepdown unit Objective - Vital Signs Vital signs: Vital Signs Temp 97.3 F L 09/20/18 08:00 Pulse 117 H 09/20/18 10:00 Resp 18 09/20/18 10:00 BP 103/57 09/20/18 10:00 Pulse Ox 94 L 09/20/18 10:00 Intake & Output 09/19/18 09/20/18 09/20/18 18:59 06:59 18:59 Intake Total 1800 1000 750 Output Total 2305 2960 850 Balance -505 -1960 - Weight 121.3 kg Intake: IV 600 600 200 Dextrose 5% in Water 1, 550 200 000 ml @ 50 mls/hr IV . Q23H [facility] with Sodium Bicarb (1 Meq/ml) 150 ml Rx#:[id number] Sodium Chloride 0.9% 1, 600 50 000 ml @ 50 mls/hr IV . Q20H [facility] Rx#:[id number] Oral 1200 400 550 Output: Urine 2305 2960 850 Other: Voiding Method Indwelling Catheter Indwelling Catheter Indwelling Catheter - Exam GENERAL EXAM: Patient is alert and oriented and doesn't appear to be in any acute distress HEENT: Normocephalic. Normal reaction of pupils, equal size, normal range of extraocular motion. No erythema or exudates in the throat. NECK: No masses, no nuchal rigidity. CHEST: No chest wall deformity. LUNGS: Equal air entry with no crackles or wheeze. HEART: S1 and S2 normal. Irregular heart rhythm ABDOMEN: No hepatosplenomegaly, normal bowel sounds, no guarding or rigidity. SKIN: No rashes CENTRAL NERVOUS SYSTEM: No focal deficits. EXTREMITIES: No cyanosis, clubbing or edema. - Labs CBC & Chem 7: 09/20/18 04:35 09/20/18 04:35 Labs: Abnormal Lab Results - Last 24 Hours (Table) 09/19/18 09/20/18 09/20/18 Range/Units 12:05 04:35 04:35 WBC 14.5 H (3.8-10.6) k/uL RBC 3.30 L (4.30-5.90) m/uL Hgb 9.8 L (13.0-17.5) gm/dL Hct 31.0 L (39.0-53.0) % RDW 15.7 H (11.5-15.5) % Neutrophils # 12.3 H (1.3-7.7) k/uL APTT 60.1 H (22.0-30.0) sec Sodium 133 L (137-145) mmol/L Carbon Dioxide 16 L (22-30) mmol/L BUN 77 H (9-20) mg/dL Creatinine 4.42 H (0.66-1.25) mg/dL Glucose 107 H (74-99) mg/dL Calcium 7.7 L (8.4-10.2) mg/dL Creatine Kinase 53 L (55-170) U/L Total Protein 4.5 L (6.3-8.2) g/dL Albumin 2.0 L (3.5-5.0) g/dL 09/20/18 Range/Units 04:35 WBC (3.8-10.6) k/uL RBC (4.30-5.90) m/uL Hgb (13.0-17.5) gm/dL Hct (39.0-53.0) % RDW (11.5-15.5) % Neutrophils # (1.3-7.7) k/uL APTT 53.7 H (22.0-30.0) sec Sodium (137-145) mmol/L Carbon Dioxide (22-30) mmol/L BUN (9-20) mg/dL Creatinine (0.66-1.25) mg/dL Glucose (74-99) mg/dL Calcium (8.4-10.2) mg/dL Creatine Kinase (55-170) U/L Total Protein (6.3-8.2) g/dL Albumin (3.5-5.0) g/dL Microbiology - Last 24 Hours (Table) 09/17/18 11:30 Blood Culture Gram Stain - Final Blood Blood Culture - Final Pseudomonas aeruginosa 09/15/18 10:21 Blood Culture Gram Stain - Final Blood Blood Culture - Final Enterococcus faecalis Pseudomonas aeruginosa Assessment and Plan (1) Acute kidney injury Current Visit: Yes Status: Acute Code(s): N17.9 - ACUTE KIDNEY FAILURE, UNSPECIFIED SNOMED Code(s): 41299016 (2) Chronic renal disease Current Visit: Yes Status: Acute Code(s): N18.9 - CHRONIC KIDNEY DISEASE, UNSPECIFIED SNOMED Code(s): 602798489 (3) Elevated troponin Current Visit: Yes Status: Acute Code(s): R74.8 - ABNORMAL LEVELS OF OTHER SERUM ENZYMES SNOMED Code(s): 749552010 (4) Persistent atrial fibrillation Current Visit: Yes Status: Acute Code(s): I48.1 - PERSISTENT ATRIAL FIBRILLATION SNOMED Code(s): 378882645 Plan: Patient's heart rate is better controlled. He is on combination of beta isabel and amiodarone. We also started him on Coumadin. Patient is going to get to 7.5 g off Coumadin today. May increase activity as tolerated.
[2018-09-20] MEDS: DEXTROSE 5% IN WATER 1,000 ML with SODIUM BICARB (1 MEQ/ML) 150 ML IV SCH (12:36)
--- NOTE | 2018-09-20 14:28 | P.PN ---
Subjective Progress Note Date: 09/20/18 Principal diagnosis: Acute urinary tract infection with pseudomonas aeruginosa, gram-negative bacteremia, with septic shock This is a 67-year-old white male patient who was admitted to the hospital from the assisted living setting for acute urinary checked infection, septic shock, urine culture is positive for pseudomonas aeruginosa, blood cultures are positive for gram-negative bacilli, final culture is pending. Patient has a chronic indwelling catheter for his benign prostatic hypertrophy and urinary retention. He follows with urology in the outpatient setting. Patient came in with symptoms of progressive weakness, fevers, chills, and feeling very poorly. Patient was fluid resuscitated, initial blood work on admission showed WBC of 21.0, hemoglobin of 10.2, INR 1.2, sodium 128, chloride is 93, CO2 is 19, BUN is 56, creatinine 4.7, plasma lactic acid was 4.3 and improved with hydration, currently at 1.4. Patient had a elevated CKs, 10,529 on admission, and borderline elevated troponins of 0.094, 0.0169, 0.067. Urinalysis showed large leukocyte esterase, wbc clumps, red blood cells, and protein. Patient is currently on Fortaz, initial antibiotic coverage included Zosyn and vancomycin. Patient also had some altered mentation, and new onset A. fib RVR. Currently he remains in A. fib, and the rate is well controlled, afebrile, he is on 2 L per nasal cannula his pulse ox is 100%, his been off levo fed since 06 50 on 11/2017. He is on heparin infusion at 19.2 units per kilo per hour for anticoagulation for his atrial fibrillation. Ultrasound was completed and showed mild bilateral hydronephrosis. Other medical history includes chronic kidney disease stage III, chronic anemia, hypertension, history of coronary artery disease with previous stenting, history of myocardial infarction, depression. Today patient is seen in follow-up on 09/18/2018 in the intensive care unit, he is awake and alert, responding appropriately, denies any specific complaints, no dyspnea and no chest pain. His A. fib is better controlled. Afebrile. CKs are down to 313, BUN 71 and creatinine 4.81. Urology is following, patient continues on gentle hydration with 0.9 normal saline at a rate of 50 ML per hour, he is receiving oral sodium bicarbonate tablets. His CO2 is improving, and is at 17 today. On 09/19/2018 patient seen in follow-up in the intensive care unit. He is awake and alert, in no acute distress, on 2 L per nasal cannula his pulse ox of 94%, he remains in A. fib and atrial flutter, and the rate is currently between 82 and 101 BPM. Patient remains on amiodarone drip at 0.5 mg per hour, he is on heparin infusion for anticoagulation. Dyspnea, denies any chest pain, chest x-rays today, urology consultation was noted, patient will continue with the indwelling catheter. Blood and urine cultures were positive for Pseudomonas faecalis, and pseudomonas aeruginosa, blood culture also showed Enterococcus faecalis, patient is currently on Fortaz. His labs have been reviewed, WBCs 11.8, hemoglobin is 9.9, sodium is 142, chloride is 109, CO2 is 14, BUN 75, creatinine is 4.6. No fever no chills. Hemodynamically patient stable. On 09/20/2018 patient seen in follow-up in the intensive care unit, he is awake and alert, oriented 3, in no acute distress, currently is standing, and taken a few steps with the assistance of physical therapy. Lung sounds are clear to auscultation, on 2 L per nasal cannula his pulse ox is 95%, patient is afebrile , hemodynamically stable, IV amiodarone has been switched to oral amiodarone. Patient remains on heparin drip, and he was started on oral Coumadin, today's INR is 1.1, WBC is 14.5, hemoglobin is 9.8, sodium is 133, potassium is 4.2, chloride is 107, CO2 16, BUN is 77 and creatinine is 4.42. Patient is on ceftazidime for evidence of pseudomonas aeruginosa in the urine and blood cultures. No fever, no chills, clinically patient is stable, no difficulty breathing. Objective - Vital Signs Vital signs: Vital Signs Temp 98.1 F 09/20/18 12:00 Pulse 88 09/20/18 13:09 Resp 17 09/20/18 12:00 BP 107/62 09/20/18 12:00 Pulse Ox 95 09/20/18 12:00 Intake & Output 09/19/18 09/20/18 09/20/18 18:59 06:59 18:59 Intake Total 1800 1000 850 Output Total 2305 2960 1495 Balance -746 -7755 -018 Weight 121.3 kg Intake: IV 600 600 300 Dextrose 5% in Water 1, 550 300 000 ml @ 50 mls/hr IV . Q23H [facility] with Sodium Bicarb (1 Meq/ml) 150 ml Rx#:[id number] Sodium Chloride 0.9% 1, 600 50 000 ml @ 50 mls/hr IV . Q20H [facility] Rx#:[id number] Oral 1200 400 550 Output: Urine 2305 2960 1495 Other: Voiding Method Indwelling Catheter Indwelling Catheter Indwelling Catheter - Exam GENERAL EXAM: Alert, pleasant, 67-year-old obese white comfortable in no apparent distress. HEAD: Normocephalic/atraumatic. EYES: Normal reaction of pupils, equal size. Conjunctiva pink, sclera white. NOSE: Clear with pink turbinates. THROAT: No erythema or exudates. NECK: No masses, no JVD, no thyroid enlargement, no adenopathy. CHEST: No chest wall deformity. Symmetrical expansion. LUNGS: Equal air entry with a few scattered expiratory wheezes CVS: Irregular rate and rhythm, normal S1 and S2, no gallops, no murmurs, no rubs ABDOMEN: Soft, nontender. No hepatosplenomegaly, normal bowel sounds, no guarding or rigidity. EXTREMITIES: No clubbing, no edema, no cyanosis, 2+ pulses and upper and lower extremities. MUSCULOSKELETAL: Muscle strength and tone normal. SPINE: No scoliosis or deformity SKIN: No rashes CENTRAL NERVOUS SYSTEM: Alert and oriented -3. No focal deficits, tone is normal in all 4 extremities. PSYCHIATRIC: Alert and oriented -3. Appropriate affect. Intact judgment and insight. - Labs CBC & Chem 7: 09/20/18 04:35 09/20/18 04:35 Labs: Abnormal Lab Results - Last 24 Hours (Table) 09/20/18 09/20/18 09/20/18 Range/Units 04:35 04:35 04:35 WBC 14.5 H (3.8-10.6) k/uL RBC 3.30 L (4.30-5.90) m/uL Hgb 9.8 L (13.0-17.5) gm/dL Hct 31.0 L (39.0-53.0) % RDW 15.7 H (11.5-15.5) % Neutrophils # 12.3 H (1.3-7.7) k/uL APTT 53.7 H (22.0-30.0) sec Sodium 133 L (137-145) mmol/L Carbon Dioxide 16 L (22-30) mmol/L BUN 77 H (9-20) mg/dL Creatinine 4.42 H (0.66-1.25) mg/dL Glucose 107 H (74-99) mg/dL Calcium 7.7 L (8.4-10.2) mg/dL Creatine Kinase 53 L (55-170) U/L Total Protein 4.5 L (6.3-8.2) g/dL Albumin 2.0 L (3.5-5.0) g/dL Microbiology - Last 24 Hours (Table) 09/17/18 11:30 Blood Culture Gram Stain - Final Blood Blood Culture - Final Pseudomonas aeruginosa 09/15/18 10:21 Blood Culture Gram Stain - Final Blood Blood Culture - Final Enterococcus faecalis Pseudomonas aeruginosa Assessment and Plan Plan: Assessment: #1. Septic shock related to acute urinary tract infection, urine culture was positive for pseudomonas aeruginosa #2. Gram-negative bacteremia with sepsis, blood cultures showed Enterococcus faecalis and pseudomonas aeruginosa #3. Altered mental status, hypotension, new onset A. fib RVR, febrile illness related to the above, mentation is back to normal, patient remains in A. fib/ flutter #4. Anion gap metabolic acidosis, related to elevated lactic acidosis secondary to sepsis, improved #5. Non-anion gap metabolic acidosis related to acute kidney injury, improving #6. Chronic kidney disease stage III #7. 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 Hypertension #9. Hyponatremia, improving #10. Rhabdomyolysis, improving #11. He is myocardial infarction #12. History of depression #13. Resident of assisted living facility Plan: Patient is clinically stable, no fever no chills, no specific complaints, increase activity as tolerated, encourage deep breathing and coughing, patient remains on IV Fortaz, and we will check with infectious disease service whether patient can be switched to oral antibiotic, possibly Levaquin. Remains in A. fib, and the rate is better controlled, has been transitioned to oral amiodarone , heparin drip, and he was started on Coumadin, will receiving on the 7.5 mg tonight, from pulmonary/critical care perspective patient is stable, and can move out of the intensive care unit today to selective care. I performed a history & physical examination of the patient and discussed their management with my nurse practitioner, Shannon Hunt. I reviewed the nurse practitioner's note and agree with the documented findings and plan of care. Lung sounds are positive for clear lung sounds. The findings and the impression was discussed with the patient. I attest to the documentation by the nurse practitioner. Time with Patient: Greater than 30
[2018-09-20] MEDS: HEPARIN SOD,PORK IN 0.45% NACL 25,000 UNIT in 0.45% NACL 1 500ML.BAG IV SCH (15:39)
[2018-09-20] MEDS: WARFARIN 7.5 MG TAB PO SCH (18:14)
--- NOTE | 2018-09-20 19:03 | P.PN ---
Subjective this is a pleasant 67 yo M with pmh of hypertension , coronary artery disease presents because he felt generally wean and inability to walk, found to have sever sepsis secondary to UTI and he was admitted to ICU for septic shock . hypotension , new onset a fib. and chronic kidney disease . pt has chronic indwelling catheter secondary to urine retension and BPH. he is more awake today and participated in physical therapy . he has normal temp , BP 115/62 , HR 89, oxygen saturation 94 % on room air. wbc 14.5K . hb 9.8 and creatinine of 4.42. Na 133. pt continued on heparin drip and coumadin. he is also on sodium bicarb drip . REVIEW OF SYSTEMS: CONSTITUTIONAL: No fever, no malaise, no fatigue. HEENT: No recent visual problems or hearing problems. Denied any sore throat. CARDIOVASCULAR:no palpitations, no syncope. PULMONARY: no cough, no hemoptysis. GASTROINTESTINAL: No diarrhea, no nausea, no vomiting, no abdominal pain. Normoactive bowel sounds. NEUROLOGICAL: No headaches, no weakness, no numbness. HEMATOLOGICAL: Denies any bleeding or petechiae. GENITOURINARY: Denies any burning micturition, frequency, or urgency. MUSCULOSKELETAL/RHEUMATOLOGICAL: Denies any joint pain, swelling, or any muscle pain. ENDOCRINE: Denies any polyuria or polydipsia. Objective - Vital Signs Vital signs: Vital Signs Temp 98.2 F 09/20/18 16:00 Pulse 89 09/20/18 18:00 Resp 23 09/20/18 18:00 BP 115/62 09/20/18 18:00 Pulse Ox 94 L 09/20/18 18:00 Intake & Output 09/19/18 09/20/18 09/20/18 18:59 06:59 18:59 Intake Total 1800 1500 1400 Output Total 2305 2960 2150 Balance -505 -1460 -750 Weight 121.3 kg Intake: IV 600 600 550 Dextrose 5% in Water 1, 550 500 000 ml @ 50 mls/hr IV . Q23H [facility] with Sodium Bicarb (1 Meq/ml) 150 ml Rx#:[id number] Sodium Chloride 0.9% 1, 600 50 000 ml @ 50 mls/hr IV . Q20H [facility] Rx#:[id number] cefTAZidime 0.5 gm In 50 Sodium Chloride 0.9% 50 ml @ 100 mls/hr IVPB Q48H [facility] Rx#:[id number] Intake, IV Titration 500 Amount Heparin Sod,Pork in 0.45% 500 NaCl 25,000 unit In 0.45 % NaCl 1 500ml.bag @ 8.2 UNITS/KG/HR 19.84 mls/hr IV .Q24H [facility] Rx#: [id number] Oral 1200 400 850 Output: Urine 2305 2960 2150 Other: Voiding Method Indwelling Catheter Indwelling Catheter Indwelling Catheter - Exam GENERAL: The patient is alert and oriented x3, not in any acute distress. Well developed, well nourished. HEENT: Pupils are round and equally reacting to light. EOMI. No scleral icterus. No conjunctival pallor. Normocephalic, atraumatic. No pharyngeal erythema. No thyromegaly. CARDIOVASCULAR: S1 and S2 present. No murmurs, rubs, or gallops. PULMONARY: Chest is clear to auscultation, no wheezing or crackles. ABDOMEN: Soft, nontender, nondistended, normoactive bowel sounds. No palpable organomegaly. MUSCULOSKELETAL: No joint swelling or deformity. EXTREMITIES: No cyanosis, clubbing, or pedal edema. NEUROLOGICAL: Gross neurological examination did not reveal any focal deficits. SKIN: No rashes. - Labs CBC & Chem 7: 09/20/18 04:35 09/20/18 04:35 Labs: Abnormal Lab Results - Last 24 Hours (Table) 09/20/18 09/20/18 09/20/18 Range/Units 04:35 04:35 04:35 WBC 14.5 H (3.8-10.6) k/uL RBC 3.30 L (4.30-5.90) m/uL Hgb 9.8 L (13.0-17.5) gm/dL Hct 31.0 L (39.0-53.0) % RDW 15.7 H (11.5-15.5) % Neutrophils # 12.3 H (1.3-7.7) k/uL APTT 53.7 H (22.0-30.0) sec Sodium 133 L (137-145) mmol/L Carbon Dioxide 16 L (22-30) mmol/L BUN 77 H (9-20) mg/dL Creatinine 4.42 H (0.66-1.25) mg/dL Glucose 107 H (74-99) mg/dL Calcium 7.7 L (8.4-10.2) mg/dL Creatine Kinase 53 L (55-170) U/L Total Protein 4.5 L (6.3-8.2) g/dL Albumin 2.0 L (3.5-5.0) g/dL Microbiology - Last 24 Hours (Table) 09/17/18 11:30 Blood Culture Gram Stain - Final Blood Blood Culture - Final Pseudomonas aeruginosa Assessment and Plan Assessment: s/p septic shock , secondary to UTI pseudomonas UTI chronic kidney disease stage 3 a fib on anticoagulation with hr is controlled. hypertension Plan: this is pleasant 67 yo M who presents with septic shock and UTI. critical care team are following the pt . c/w antibioitic with ceftazidime. c/w anticoagulation . continue with the same treatment , continue with symptomatic treatment , resume home medication , monitor lytes and vitals including glucose , c/w iv fluids, cardiology consult is appreciated. . c/w same antibioitc . GI and DVT prophylaxis , further recommendation based upon pt clinical course and progress DVT prophylaxis heparin and coumadin GI prophylaxis Protonix PT/OT: pending Prognosis is guarded
--- NOTE | 2018-09-20 21:54 | PN ---
PROGRESS NOTE Patient was seen this morning for followup for acute kidney injury. The patient does have a history of bilateral hydronephrosis, currently with indwelling Harper catheter. He has been evaluated by Urology and no plans for intervention at this time. He will need to follow up as outpatient with Urology. The patient has had atrial fibrillation with RVR. Currently, his ventricular rate is better controlled. Renal function is fairly stable with creatinine staying at about 4.8-4.4 mg/dL. His serum creatinine was 2.6 in 2017. The patient has had good urine output. He was acidotic and was started on IV bicarb yesterday. PHYSICAL EXAMINATION: On examination today, blood pressure this morning was 106/52, heart rate of about 105 per minute. Patient is afebrile. Examination of the heart S1, S2. Examination of the lungs, decreased breath sounds at bases. Abdomen is soft, nontender. Examination of lower extremity shows edema 1+ bilaterally. [employer] exam grossly intact. LAB: Show sodium 133, potassium 4.2, CO2 16, BUN 77, serum creatinine 4.42, hemoglobin 9.8. ASSESSMENT: 1. Chronic kidney disease with evidence of bilateral chronic hydronephrosis, currently with indwelling Harper catheter. There is an element of acute kidney injury associated with hemodynamic instability. Serum creatinine has been fairly stable ranging from 4.8-4.6. The patient has had good urine output. 2. Atrial fibrillation with RVR with improved and controlled ventricular response. 3. Non anion gap metabolic acidosis, currently maintained on IV fluids. Etiology secondary to renal failure. 4. Urinary tract infection with sepsis with urine cultures growing pseudomonas and bacteremia with Pseudomonas and Enterococcus faecalis. PLAN: Continue with IV sodium bicarb. Repeat labs in a.m. Continue to avoid nephrotoxic medications. MMODL / IJN: [id number] /
[2018-09-21] MEDS: HEPARIN SOD,PORK IN 0.45% NACL 25,000 UNIT in 0.45% NACL 1 500ML.BAG IV SCH ×2 (00:24→21:50)
[2018-09-21 06:31] LABS: INR 1.2 (<1.2); Partial Thromboplastin Time 65.5 sec (22.0-30.0); Prothrombin Time 12.4 sec (9.0-12.0)
[2018-09-21 06:36] LABS: Anisocytosis Slight; Basophils # (A) 0.1 k/uL (0-0.2); Basophils % (A) 0 %; Eosinophils # (A) 0.4 k/uL (0-0.7); Eosinophils % (A) 2 %; HCT 30.4 % (39.0-53.0); HGB 9.9 gm/dL (13.0-17.5); Lymphocytes # (A) 1.4 k/uL (1.0-4.8); Lymphocytes % (A) 9 %; MCHC 32.6 g/dL (31.0-37.0); MCV 91.9 fL (80.0-100.0); Mean Platelet Volume 8.5; Monocytes # (A) 0.6 k/uL (0-1.0); Monocytes % (A) 4 %; Neutrophils # (A) 13.5 k/uL (1.3-7.7); Neutrophils % (A) 83 %; Platelet Count 429 k/uL (150-450); RBC 3.31 m/uL (4.30-5.90); RDW 16.2 % (11.5-15.5); WBC 16.2 k/uL (3.8-10.6)
[2018-09-21] MEDS: CALCIUM ACETATE 667 MG CAP PO SCH ×2 (07:02→18:48)
[2018-09-21 07:32] LABS: Albumin 2.3 g/dL (3.5-5.0); Calcium 8.5 mg/dL (8.4-10.2); Potassium 4.7 mmol/L (3.5-5.1); Total Bilirubin 0.3 mg/dL (0.2-1.3); Total Protein 5.4 g/dL (6.3-8.2)
[2018-09-21] MEDS: ALBUTEROL NEBULIZED 2.5 MG/3 ML INHALATION SCH ×3 (08:26→19:30)
[2018-09-21] MEDS: ASPIRIN 81 MG PO SCH (09:57)
[2018-09-21] MEDS: ATENOLOL 25 MG TAB PO SCH ×2 (09:57→21:50)
[2018-09-21] MEDS: SODIUM BICARBONATE TAB 650 MG TAB PO SCH ×4 (09:57→21:49)
[2018-09-21] MEDS: AMIODARONE 200 MG TAB PO SCH ×2 (09:57→21:50)
[2018-09-21] MEDS: PANTOPRAZOLE 40 MG/10 ML VIAL IV SCH (09:57)
[2018-09-21] MEDS: TAMSULOSIN 0.4 MG CAP.ER.24H PO SCH (09:58)
[2018-09-21] MEDS: DEXTROSE 5% IN WATER 1,000 ML with SODIUM BICARB (1 MEQ/ML) 150 ML IV SCH (09:59)
[2018-09-21] MEDS: buPROPion XL 150 MG TAB.ER.24H PO SCH (09:59)
--- NOTE | 2018-09-21 10:45 | P.PN ---
Subjective this is a pleasant 67 yo M with pmh of hypertension , coronary artery disease presents because he felt generally weak and inability to walk, found to have sever sepsis secondary to UTI and he was admitted to ICU for septic shock . hypotension , new onset a fib. and chronic kidney disease . pt has chronic indwelling catheter secondary to urine retension and BPH. he is more awake today and participated in physical therapy . he has normal temp , BP 115/62 , HR 89, oxygen saturation 94 % on room air. wbc 14.5K . hb 9.8 and creatinine of 4.42. Na 133. pt continued on heparin drip and coumadin. he is also on sodium bicarb drip . 09/21/2018 Patient was transferred to the general medical floor. His Harper was still draining purulent discharge and has been changed by the thread grinder tool bedside nurse. Patient denies chest pain or dyspnea. No abdominal pain or discomfort. Harper catheter is in place. His INR is 1.2. Patient got 7.5 mg of Coumadin last night. And atenolol 25 mg twice a day. He has mild leukocytosis at 16 K. He is on ceftazidime. ID team are following the patient. Nephrology team follow-up is appreciated. Continue with IV sodium bicarb and monitor labs. REVIEW OF SYSTEMS: CONSTITUTIONAL: No fever, no malaise, no fatigue. HEENT: No recent visual problems or hearing problems. Denied any sore throat. CARDIOVASCULAR:no palpitations, no syncope. PULMONARY: no cough, no hemoptysis. GASTROINTESTINAL: No diarrhea, no nausea, no vomiting, no abdominal pain. Normoactive bowel sounds. NEUROLOGICAL: No headaches, no weakness, no numbness. HEMATOLOGICAL: Denies any bleeding or petechiae. GENITOURINARY: Denies any burning micturition, frequency, or urgency. MUSCULOSKELETAL/RHEUMATOLOGICAL: Denies any joint pain, swelling, or any muscle pain. ENDOCRINE: Denies any polyuria or polydipsia. Objective - Vital Signs Vital signs: Vital Signs Temp 97.8 F 09/21/18 04:00 Pulse 76 09/21/18 08:33 Resp 10 L 09/21/18 04:00 BP 103/56 09/21/18 04:00 Pulse Ox 94 L 09/21/18 04:00 Intake & Output 09/20/18 09/21/18 09/21/18 18:59 06:59 18:59 Intake Total 1400 898.875 200 Output Total 2150 1525 Balance -750 -626.125 200 Weight 121.7 kg Intake: IV 550 450 Dextrose 5% in Water 1, 500 450 000 ml @ 50 mls/hr IV . Q23H [facility] with Sodium Bicarb (1 Meq/ml) 150 ml Rx#:[id number] cefTAZidime 0.5 gm In 50 Sodium Chloride 0.9% 50 ml @ 100 mls/hr IVPB Q48H [facility] Rx#:[id number] Intake, IV Titration 448.875 Amount Heparin Sod,Pork in 0.45% 448.875 NaCl 25,000 unit In 0.45 % NaCl 1 500ml.bag @ 8.2 UNITS/KG/HR 19.84 mls/hr IV .Q24H [facility] Rx#: [id number] Oral 850 200 Output: Urine 2150 1525 Other: Voiding Method Indwelling Catheter Indwelling Catheter - Exam GENERAL: The patient is alert and oriented x3, not in any acute distress. Well developed, well nourished. HEENT: Pupils are round and equally reacting to light. EOMI. No scleral icterus. No conjunctival pallor. Normocephalic, atraumatic. No pharyngeal erythema. No thyromegaly. CARDIOVASCULAR: S1 and S2 present. No murmurs, rubs, or gallops. PULMONARY: Chest is clear to auscultation, no wheezing or crackles. ABDOMEN: Soft, nontender, nondistended, normoactive bowel sounds. No palpable organomegaly. MUSCULOSKELETAL: No joint swelling or deformity. EXTREMITIES: No cyanosis, clubbing, or pedal edema. NEUROLOGICAL: Gross neurological examination did not reveal any focal deficits. SKIN: No rashes. - Labs CBC & Chem 7: 09/21/18 05:50 09/21/18 05:50 Labs: Abnormal Lab Results - Last 24 Hours (Table) 09/21/18 09/21/18 09/21/18 Range/Units 05:50 05:50 05:50 WBC 16.2 H (3.8-10.6) k/uL RBC 3.31 L (4.30-5.90) m/uL Hgb 9.9 L (13.0-17.5) gm/dL Hct 30.4 L (39.0-53.0) % RDW 16.2 H (11.5-15.5) % Neutrophils # 13.5 H (1.3-7.7) k/uL PT 12.4 H (9.0-12.0) sec INR 1.2 H (<1.2) APTT 65.5 H (22.0-30.0) sec Sodium 136 L (137-145) mmol/L Carbon Dioxide 19 L (22-30) mmol/L BUN 80 H (9-20) mg/dL Creatinine 4.36 H (0.66-1.25) mg/dL Creatine Kinase 44 L (55-170) U/L Total Protein 5.4 L (6.3-8.2) g/dL Albumin 2.3 L (3.5-5.0) g/dL Microbiology - Last 24 Hours (Table) 09/17/18 11:30 Blood Culture Gram Stain - Final Blood Blood Culture - Final Pseudomonas aeruginosa Assessment and Plan Assessment: s/p septic shock , secondary to UTI pseudomonas UTI chronic kidney disease stage 3 Chronic hydronephrosis on both sides. BPH with indwelling Harper catheter a fib on anticoagulation with hr is controlled. hypertension Plan: this is pleasant 67 yo M who presents with septic shock and UTI. critical care team are following the pt . c/w antibioitic with ceftazidime. c/w anticoagulation . continue with the same treatment , continue with symptomatic treatment , resume home medication , monitor lytes and vitals including glucose , c/w iv fluids, cardiology consult is appreciated. . c/w same antibioitc . GI and DVT prophylaxis , further recommendation based upon pt clinical course and progress DVT prophylaxis heparin and coumadin GI prophylaxis Protonix PT/OT: pending Prognosis is guarded
--- NOTE | 2018-09-21 14:43 | P.PN ---
Subjective Progress Note Date: 09/21/18 This is a 67-year-old gentleman admitted to the hospital with UTI and sepsis. He was in atrial fibrillation with rapid ventricular response and converted back to normal sinus rhythm. He does have history of hypertension as well as coronary artery disease. Patient is in acute renal failure. He has bilateral hydronephrosis with outflow tract obstruction. Continues to be in a typical atrial flutter today. Heart rate in the 60s to 70s, blood pressure 115/60. White blood cell count 16.2, hemoglobin 9.9, platelet count 429. Sodium 136, potassium 4.7, BUN 80, creatinine 4.3. INR 1.2, patient is receiving 7-1/2 mg of Coumadin daily Objective - Vital Signs Vital signs: Vital Signs Temp 97.8 F 09/21/18 12:00 Pulse 80 09/21/18 13:28 Resp 20 09/21/18 12:00 BP 115/66 09/21/18 12:00 Pulse Ox 99 09/21/18 12:00 Intake & Output 09/20/18 09/21/18 09/21/18 18:59 06:59 18:59 Intake Total 1400 898.875 300 Output Total 2150 1525 100 Balance -750 -626.125 200 Weight 121.7 kg Intake: IV 550 450 50 Dextrose 5% in Water 1, 500 450 50 000 ml @ 50 mls/hr IV . Q23H [facility] with Sodium Bicarb (1 Meq/ml) 150 ml Rx#:[id number] cefTAZidime 0.5 gm In 50 Sodium Chloride 0.9% 50 ml @ 100 mls/hr IVPB Q48H [facility] Rx#:[id number] Intake, IV Titration 448.875 50 Amount Dextrose 5% in Water 1, 50 000 ml @ 50 mls/hr IV . Q23H [facility] with Sodium Bicarb (1 Meq/ml) 150 ml Rx#:[id number] Heparin Sod,Pork in 0.45% 448.875 NaCl 25,000 unit In 0.45 % NaCl 1 500ml.bag @ 8.2 UNITS/KG/HR 19.84 mls/hr IV .Q24H [facility] Rx#: [id number] Oral 850 200 Output: Urine 2150 1525 100 Other: Voiding Method Indwelling Catheter Indwelling Catheter Indwelling Catheter - Exam GENERAL EXAM: Alert, pleasant, 67-year-old obese white comfortable in no apparent distress. HEAD: Normocephalic/atraumatic. EYES: Normal reaction of pupils, equal size. Conjunctiva pink, sclera white. NOSE: Clear with pink turbinates. THROAT: No erythema or exudates. NECK: No masses, no JVD, no thyroid enlargement, no adenopathy. CHEST: No chest wall deformity. Symmetrical expansion. LUNGS: Equal air entry with a few scattered expiratory wheezes CVS: Irregular rate and rhythm, normal S1 and S2, no gallops, no murmurs, no rubs ABDOMEN: Soft, nontender. No hepatosplenomegaly, normal bowel sounds, no guarding or rigidity. EXTREMITIES: No clubbing, no edema, no cyanosis, 2+ pulses and upper and lower extremities. MUSCULOSKELETAL: Muscle strength and tone normal. SPINE: No scoliosis or deformity SKIN: No rashes CENTRAL NERVOUS SYSTEM: Alert and oriented -3. No focal deficits, tone is normal in all 4 extremities. PSYCHIATRIC: Alert and oriented -3. Appropriate affect. Intact judgment and insight. - Labs CBC & Chem 7: 09/21/18 05:50 09/21/18 05:50 Labs: Abnormal Lab Results - Last 24 Hours (Table) 09/21/18 09/21/18 09/21/18 Range/Units 05:50 05:50 05:50 WBC 16.2 H (3.8-10.6) k/uL RBC 3.31 L (4.30-5.90) m/uL Hgb 9.9 L (13.0-17.5) gm/dL Hct 30.4 L (39.0-53.0) % RDW 16.2 H (11.5-15.5) % Neutrophils # 13.5 H (1.3-7.7) k/uL PT 12.4 H (9.0-12.0) sec INR 1.2 H (<1.2) APTT 65.5 H (22.0-30.0) sec Sodium 136 L (137-145) mmol/L Carbon Dioxide 19 L (22-30) mmol/L BUN 80 H (9-20) mg/dL Creatinine 4.36 H (0.66-1.25) mg/dL Creatine Kinase 44 L (55-170) U/L Total Protein 5.4 L (6.3-8.2) g/dL Albumin 2.3 L (3.5-5.0) g/dL Microbiology - Last 24 Hours (Table) 09/17/18 11:30 Blood Culture Gram Stain - Final Blood Blood Culture - Final Pseudomonas aeruginosa Assessment and Plan Plan: Assessment and plan: #1. Septic shock related to acute urinary tract infection, urine culture was positive for pseudomonas aeruginosa #2. Gram-negative bacteremia with sepsis, blood cultures showed Enterococcus faecalis and pseudomonas aeruginosa #3. Altered mental status, hypotension, new onset A. fib RVR, febrile illness related to the above, mentation is back to normal, patient remains in A. fib/ flutter #4. Anion gap metabolic acidosis, related to elevated lactic acidosis secondary to sepsis, improved #5. Non-anion gap metabolic acidosis related to acute kidney injury, improving #6. Chronic kidney disease stage III #7. 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 Hypertension #9. Hyponatremia, improving #10. Rhabdomyolysis, improving #11. He is myocardial infarction #12. History of depression Plan From cardiology's perspective, we'll continue the patient on his current medications including a daily dose of Coumadin at 7-1/2 mg daily. Check daily PT/INRs. 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
--- NOTE | 2018-09-21 15:29 | P.PN ---
Subjective Patient is seen in follow-up for acute kidney injury. Renal function is stable with creatinine at 4.36 today. Patient has chronic bilateral hydronephrosis and currently is a Harper catheter in place. Urology's following. He is also noted to be bacteremic with blood cultures positive for Pseudomonas and enterococcus and urine culture positive for Pseudomonas. He is maintained on bicarb drip at 50 mL an hour. Oral intake is good. He is nonoliguric. No vomiting or diarrhea. Vital signs are stable. General: The patient appeared well nourished and normally developed. HEENT: Head exam is unremarkable. Neck is without jugular venous distension. LUNGS: Lungs are clear to auscultation and percussion. Breath sounds decreased. HEART: Rate and Rhythm are regular. First and second heart sounds normal. No murmurs, rubs or gallops. ABDOMEN: Abdominal exam reveals normal bowel sounds. Non-tender and non- distended. No evidence of peritonitis. EXTREMITITES: No clubbing, cyanosis, or edema. Objective - Vital Signs Vital signs: Vital Signs Temp 97.8 F 09/21/18 12:00 Pulse 80 09/21/18 13:28 Resp 20 09/21/18 12:00 BP 115/66 09/21/18 12:00 Pulse Ox 99 09/21/18 12:00 Intake & Output 09/20/18 09/21/18 09/21/18 18:59 06:59 18:59 Intake Total 1400 898.875 300 Output Total 2150 1525 1500 Balance -750 -626.125 -1200 Weight 121.7 kg Intake: IV 550 450 50 Dextrose 5% in Water 1, 500 450 50 000 ml @ 50 mls/hr IV . Q23H [facility] with Sodium Bicarb (1 Meq/ml) 150 ml Rx#:[id number] cefTAZidime 0.5 gm In 50 Sodium Chloride 0.9% 50 ml @ 100 mls/hr IVPB Q48H [facility] Rx#:[id number] Intake, IV Titration 448.875 50 Amount Dextrose 5% in Water 1, 50 000 ml @ 50 mls/hr IV . Q23H [facility] with Sodium Bicarb (1 Meq/ml) 150 ml Rx#:[id number] Heparin Sod,Pork in 0.45% 448.875 NaCl 25,000 unit In 0.45 % NaCl 1 500ml.bag @ 8.2 UNITS/KG/HR 19.84 mls/hr IV .Q24H [facility] Rx#: [id number] Oral 850 200 Output: Urine 2150 1525 1500 Other: Voiding Method Indwelling Catheter Indwelling Catheter Indwelling Catheter - Labs CBC & Chem 7: 09/21/18 05:50 09/21/18 05:50 Labs: Abnormal Lab Results - Last 24 Hours (Table) 09/21/18 09/21/18 09/21/18 Range/Units 05:50 05:50 05:50 WBC 16.2 H (3.8-10.6) k/uL RBC 3.31 L (4.30-5.90) m/uL Hgb 9.9 L (13.0-17.5) gm/dL Hct 30.4 L (39.0-53.0) % RDW 16.2 H (11.5-15.5) % Neutrophils # 13.5 H (1.3-7.7) k/uL PT 12.4 H (9.0-12.0) sec INR 1.2 H (<1.2) APTT 65.5 H (22.0-30.0) sec Sodium 136 L (137-145) mmol/L Carbon Dioxide 19 L (22-30) mmol/L BUN 80 H (9-20) mg/dL Creatinine 4.36 H (0.66-1.25) mg/dL Creatine Kinase 44 L (55-170) U/L Total Protein 5.4 L (6.3-8.2) g/dL Albumin 2.3 L (3.5-5.0) g/dL Microbiology - Last 24 Hours (Table) 09/17/18 11:30 Blood Culture Gram Stain - Final Blood Blood Culture - Final Pseudomonas aeruginosa Assessment and Plan Plan: Assessment: 1. Acute kidney injury secondary to ATN secondary to hemodynamic instability and infection. Renal function stable with creatinine at 4.32 today. 2. 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 Will need to establish his baseline renal function. 3. Chronic bilateral hydronephrosis with Harper catheter in place. Urology following. No surgical interventions planned at this time. 4. Metabolic acidosis secondary to acute kidney injury maintained on IV bicarb. Better. 5. Hypovolemic hyponatremia improved with IV hydration. 6. A. fib with RVR. Rate controlled. Maintain on anticoagulation. 7. Bacteremia and UTI as cultures positive for Pseudomonas maintained on IV antibiotics. Plan: Maintain bicarb drip for another 24 hours. Encourage oral intake. Patient will need to follow-up with urology as an outpatient. No urgent need for renal replacement therapy at this time.
--- NOTE | 2018-09-21 16:50 | P.PN ---
Subjective Progress Note Date: 09/21/18 Principal diagnosis: Acute urinary tract infection with pseudomonas aeruginosa, gram-negative bacteremia, with septic shock This is a 67-year-old white male patient who was admitted to the hospital from the assisted living setting for acute urinary checked infection, septic shock, urine culture is positive for pseudomonas aeruginosa, blood cultures are positive for gram-negative bacilli, final culture is pending. Patient has a chronic indwelling catheter for his benign prostatic hypertrophy and urinary retention. He follows with urology in the outpatient setting. Patient came in with symptoms of progressive weakness, fevers, chills, and feeling very poorly. Patient was fluid resuscitated, initial blood work on admission showed WBC of 21.0, hemoglobin of 10.2, INR 1.2, sodium 128, chloride is 93, CO2 is 19, BUN is 56, creatinine 4.7, plasma lactic acid was 4.3 and improved with hydration, currently at 1.4. Patient had a elevated CKs, 10,529 on admission, and borderline elevated troponins of 0.094, 0.0169, 0.067. Urinalysis showed large leukocyte esterase, wbc clumps, red blood cells, and protein. Patient is currently on Fortaz, initial antibiotic coverage included Zosyn and vancomycin. Patient also had some altered mentation, and new onset A. fib RVR. Currently he remains in A. fib, and the rate is well controlled, afebrile, he is on 2 L per nasal cannula his pulse ox is 100%, his been off levo fed since 06 50 on 11/2017. He is on heparin infusion at 19.2 units per kilo per hour for anticoagulation for his atrial fibrillation. Ultrasound was completed and showed mild bilateral hydronephrosis. Other medical history includes chronic kidney disease stage III, chronic anemia, hypertension, history of coronary artery disease with previous stenting, history of myocardial infarction, depression. Today patient is seen in follow-up on 09/18/2018 in the intensive care unit, he is awake and alert, responding appropriately, denies any specific complaints, no dyspnea and no chest pain. His A. fib is better controlled. Afebrile. CKs are down to 313, BUN 71 and creatinine 4.81. Urology is following, patient continues on gentle hydration with 0.9 normal saline at a rate of 50 ML per hour, he is receiving oral sodium bicarbonate tablets. His CO2 is improving, and is at 17 today. On 09/19/2018 patient seen in follow-up in the intensive care unit. He is awake and alert, in no acute distress, on 2 L per nasal cannula his pulse ox of 94%, he remains in A. fib and atrial flutter, and the rate is currently between 82 and 101 BPM. Patient remains on amiodarone drip at 0.5 mg per hour, he is on heparin infusion for anticoagulation. Dyspnea, denies any chest pain, chest x-rays today, urology consultation was noted, patient will continue with the indwelling catheter. Blood and urine cultures were positive for Pseudomonas faecalis, and pseudomonas aeruginosa, blood culture also showed Enterococcus faecalis, patient is currently on Fortaz. His labs have been reviewed, WBCs 11.8, hemoglobin is 9.9, sodium is 142, chloride is 109, CO2 is 14, BUN 75, creatinine is 4.6. No fever no chills. Hemodynamically patient stable. On 09/20/2018 patient seen in follow-up in the intensive care unit, he is awake and alert, oriented 3, in no acute distress, currently is standing, and taken a few steps with the assistance of physical therapy. Lung sounds are clear to auscultation, on 2 L per nasal cannula his pulse ox is 95%, patient is afebrile , hemodynamically stable, IV amiodarone has been switched to oral amiodarone. Patient remains on heparin drip, and he was started on oral Coumadin, today's INR is 1.1, WBC is 14.5, hemoglobin is 9.8, sodium is 133, potassium is 4.2, chloride is 107, CO2 16, BUN is 77 and creatinine is 4.42. Patient is on ceftazidime for evidence of pseudomonas aeruginosa in the urine and blood cultures. No fever, no chills, clinically patient is stable, no difficulty breathing. On 09/21/2018 patient seen in follow-up in the selective care unit. Resting in bed, in no acute distress, denies any dyspnea or chest pain, room air pulse ox is 98%, afebrile, hemodynamically stable. Urine and blood cultures were positive for pseudomonas aeruginosa, patient is on ceftazidime. ID service is following. Today's blood work has been reviewed, WBC is 16.2, hemoglobin is 9.9 , INR is 1.2, sodium is 136, potassium is 4.7, chloride is 107, CO2 is 19, renal profile is relatively stable, BUN is 80 and creatinine is 4.36, nephrology is following. We'll catheter remains in place, urology is planning on leaving the Harper catheter in place. No complaints of dyspnea, discomfort, no fever or chills, patient is on oral Coumadin for anticoagulation for his A. fib flutter. Objective - Vital Signs Vital signs: Vital Signs Temp 98.1 F 09/21/18 15:30 Pulse 71 09/21/18 15:30 Resp 20 09/21/18 15:30 BP 118/70 09/21/18 15:30 Pulse Ox 98 09/21/18 15:30 Intake & Output 09/20/18 09/21/18 09/21/18 18:59 06:59 18:59 Intake Total 1400 898.875 350 Output Total 2150 1525 1500 Balance -750 -626.125 -1150 Weight 121.7 kg Intake: IV 550 450 100 Dextrose 5% in Water 1, 500 450 100 000 ml @ 50 mls/hr IV . Q23H [facility] with Sodium Bicarb (1 Meq/ml) 150 ml Rx#:[id number] cefTAZidime 0.5 gm In 50 Sodium Chloride 0.9% 50 ml @ 100 mls/hr IVPB Q48H [facility] Rx#:[id number] Intake, IV Titration 448.875 50 Amount Dextrose 5% in Water 1, 50 000 ml @ 50 mls/hr IV . Q23H [facility] with Sodium Bicarb (1 Meq/ml) 150 ml Rx#:[id number] Heparin Sod,Pork in 0.45% 448.875 NaCl 25,000 unit In 0.45 % NaCl 1 500ml.bag @ 8.2 UNITS/KG/HR 19.84 mls/hr IV .Q24H [facility] Rx#: [id number] Oral 850 200 Output: Urine 2150 1525 1500 Other: Voiding Method Indwelling Catheter Indwelling Catheter Indwelling Catheter - Exam GENERAL EXAM: Alert, pleasant, 67-year-old obese white comfortable in no apparent distress. HEAD: Normocephalic/atraumatic. EYES: Normal reaction of pupils, equal size. Conjunctiva pink, sclera white. NOSE: Clear with pink turbinates. THROAT: No erythema or exudates. NECK: No masses, no JVD, no thyroid enlargement, no adenopathy. CHEST: No chest wall deformity. Symmetrical expansion. LUNGS: Equal air entry, no rhonchi, no wheezes no crackles CVS: Irregular rate and rhythm, normal S1 and S2, no gallops, no murmurs, no rubs ABDOMEN: Soft, nontender. No hepatosplenomegaly, normal bowel sounds, no guarding or rigidity. EXTREMITIES: No clubbing, no edema, no cyanosis, 2+ pulses and upper and lower extremities. MUSCULOSKELETAL: Muscle strength and tone normal. SPINE: No scoliosis or deformity SKIN: No rashes CENTRAL NERVOUS SYSTEM: Alert and oriented -3. No focal deficits, tone is normal in all 4 extremities. PSYCHIATRIC: Alert and oriented -3. Appropriate affect. Intact judgment and insight. - Labs CBC & Chem 7: 09/21/18 05:50 09/21/18 05:50 Labs: Abnormal Lab Results - Last 24 Hours (Table) 09/21/18 09/21/18 09/21/18 Range/Units 05:50 05:50 05:50 WBC 16.2 H (3.8-10.6) k/uL RBC 3.31 L (4.30-5.90) m/uL Hgb 9.9 L (13.0-17.5) gm/dL Hct 30.4 L (39.0-53.0) % RDW 16.2 H (11.5-15.5) % Neutrophils # 13.5 H (1.3-7.7) k/uL PT 12.4 H (9.0-12.0) sec INR 1.2 H (<1.2) APTT 65.5 H (22.0-30.0) sec Sodium 136 L (137-145) mmol/L Carbon Dioxide 19 L (22-30) mmol/L BUN 80 H (9-20) mg/dL Creatinine 4.36 H (0.66-1.25) mg/dL Creatine Kinase 44 L (55-170) U/L Total Protein 5.4 L (6.3-8.2) g/dL Albumin 2.3 L (3.5-5.0) g/dL Microbiology - Last 24 Hours (Table) 09/17/18 11:30 Blood Culture Gram Stain - Final Blood Blood Culture - Final Pseudomonas aeruginosa Assessment and Plan Plan: Assessment: #1. Septic shock related to acute urinary tract infection, urine culture was positive for pseudomonas aeruginosa #2. Gram-negative bacteremia with sepsis, blood cultures showed Enterococcus faecalis and pseudomonas aeruginosa #3. Altered mental status, hypotension, new onset A. fib RVR, febrile illness related to the above, mentation is back to normal, patient remains in A. fib/ flutter #4. Anion gap metabolic acidosis, related to elevated lactic acidosis secondary to sepsis, improved #5. Non-anion gap metabolic acidosis related to acute kidney injury, improving #6. Chronic kidney disease stage III #7. 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 Hypertension #9. Hyponatremia, improving #10. Rhabdomyolysis, improving #11. He is myocardial infarction #12. History of depression #13. Resident of assisted living facility Plan: Continue current regimen deep breathing and coughing, ambulation, the patient is stable, no acute events overnight, patient is being treated for bacteremia with sepsis, and blood culture showed Enterococcus faecalis and pseudomonas aeruginosa, and septic shock related to Pseudomonas urinary tract infection. Improving, no dyspnea or chest pain. I performed a history & physical examination of the patient and discussed their management with my nurse practitioner, Shannon Hunt. I reviewed the nurse practitioner's note and agree with the documented findings and plan of care. Lung sounds are positive for clear lung sounds. The findings and the impression was discussed with the patient. I attest to the documentation by the nurse practitioner. Time with Patient: Less than 30
[2018-09-21] MEDS: WARFARIN 7.5 MG TAB PO SCH (18:48)
--- NOTE | 2018-09-21 22:48 | P.PN ---
Subjective Progress Note Date: 09/21/18 67-year-old male presents to Hospital from his assisted living setting because of several days of progressive weakness. The patient relates that he has been somewhat recently hospitalized at which point in time was having further difficulties with urinary retention. He has a known history of BPH and difficulties with his urination. He follows with urology in the outpatient setting. The patient relates that recently he became ill and was hospitalized an outside facility. There he was found and evidence of urinary tract infection and urinary obstruction. Harper catheter was placed he was treated with a short course of antibiotics and discharged home. He did have follow-up with urology and cultures were performed the outpatient setting the patient relates were negative. The patient did have a change of his Harper catheter. Within several days he started to feel considerably worse. Having increasing difficulties with fevers chills and progressive weakness to the point in time we was unable to ambulate and he was brought to Hospital by EMS. The patient relates that currently he is feeling poorly. He is weak but his fever and chills and improved. His appetite is improved. He is no longer having emesis he was having briefly while at home. 09/17/2018 patient is feeling better today. Vasopressor therapy has reduced. He is eating without nausea or emesis. Not having much pain. Fever and chills have improved. Tolerating antibiotic therapy well. Patient's daughter and son- in-law are present and there informed of the current problems. 09/18/2018 patient does feel slightly better today. He's no longer on vasopressor therapy. However still is being closely monitored with his new onset A. fib and his ongoing sepsis. Follow blood cultures remain positive. 09/21/2018 patient moved out of ICU no longer on vasopressor therapy, feeling better. Still has some confusion, and leukocytosis has increased. Objective - Vital Signs Vital signs: Vital Signs Temp 98.1 F 09/21/18 15:30 Pulse 70 09/21/18 19:43 Resp 20 09/21/18 15:30 BP 118/70 09/21/18 15:30 Pulse Ox 98 09/21/18 15:30 Intake & Output 09/21/18 09/21/18 09/22/18 06:59 18:59 06:59 Intake Total 898.875 850 Output Total 1525 1500 800 Balance -626.125 -650 -800 Weight 121.7 kg Intake: IV 450 100 Dextrose 5% in Water 1, 450 100 000 ml @ 50 mls/hr IV . Q23H SCOTT with Sodium Bicarb (1 Meq/ml) 150 ml Rx#:[id number] Intake, IV Titration 448.875 550 Amount Dextrose 5% in Water 1, 50 000 ml @ 50 mls/hr IV . Q23H [facility] with Sodium Bicarb (1 Meq/ml) 150 ml Rx#:[id number] Heparin Sod,Pork in 0.45% 448.875 500 NaCl 25,000 unit In 0.45 % NaCl 1 500ml.bag @ 8.2 UNITS/KG/HR 19.84 mls/hr IV .Q24H [facility] Rx#: [id number] Oral 200 Output: Urine 1525 1500 800 Other: Voiding Method Indwelling Catheter Indwelling Catheter # Voids 1 - Exam HEENT: Anicteric conjunctiva are pink and moist nasal mucosa grossly intact without significant lesions, there is no thrush. Neck: The neck is supple without significant lymphadenopathy or thyromegaly. Lungs: Good bilateral air entry without significant crackles or wheezing. There is no significant bronchial sounds. There is no egophony or dullness. Heart: Regular rate and rhythm with an audible S1-S2, no S3 no S4. There is no significant murmur click or rub, PMI was nondisplaced. Abdomen: Positive bowel sounds soft and nontender without palpable masses or organomegaly. There was no guarding or rebound. Extremities: The upper extremities have excellent pulses they are symmetric, no significant petechiae or telangiectasia. No splinter hemorrhages were noted. The lower extremities are free from significant edema. The peripheral pulses were 2+ and symmetric. Neuro: Awake alert oriented to person place. There are no acute new gross focal sensory motor deficits. A bit more confused this evening Harper catheter in place without tenderness to testicles or penis is no erythema of the region Skin is without rash or breakdown - Labs CBC & Chem 7: 09/21/18 05:50 09/21/18 05:50 Labs: Abnormal Lab Results - Last 24 Hours (Table) 09/21/18 09/21/18 09/21/18 Range/Units 05:50 05:50 05:50 WBC 16.2 H (3.8-10.6) k/uL RBC 3.31 L (4.30-5.90) m/uL Hgb 9.9 L (13.0-17.5) gm/dL Hct 30.4 L (39.0-53.0) % RDW 16.2 H (11.5-15.5) % Neutrophils # 13.5 H (1.3-7.7) k/uL PT 12.4 H (9.0-12.0) sec INR 1.2 H (<1.2) APTT 65.5 H (22.0-30.0) sec Sodium 136 L (137-145) mmol/L Carbon Dioxide 19 L (22-30) mmol/L BUN 80 H (9-20) mg/dL Creatinine 4.36 H (0.66-1.25) mg/dL Creatine Kinase 44 L (55-170) U/L Total Protein 5.4 L (6.3-8.2) g/dL Albumin 2.3 L (3.5-5.0) g/dL Microbiology - Last 24 Hours (Table) 09/20/18 20:35 Blood Culture Gram Stain - Preliminary Blood 09/20/18 20:35 Blood Culture - Final Blood Laboratory Results WBC 16.2 k/uL (3.8-10.6) H 09/21/18 05:50 RBC 3.31 m/uL (4.30-5.90) L 09/21/18 05:50 Hgb 9.9 gm/dL (13.0-17.5) L 09/21/18 05:50 Hct 30.4 % (39.0-53.0) L 09/21/18 05:50 MCV 91.9 fL (80.0-100.0) 09/21/18 05:50 MCH 30.0 pg (25.0-35.0) 09/21/18 05:50 MCHC 32.6 g/dL (31.0-37.0) 09/21/18 05:50 RDW 16.2 % (11.5-15.5) H 09/21/18 05:50 Plt Count 429 k/uL (150-450) 09/21/18 05:50 Neutrophils % 83 % 09/21/18 05:50 Neutrophils % (Manual) 78 % 09/16/18 05:07 Band Neutrophils % 15 % 09/16/18 05:07 Lymphocytes % 9 % 09/21/18 05:50 Lymphocytes % (Manual) 3 % 09/16/18 05:07 Monocytes % 4 % 09/21/18 05:50 Monocytes % (Manual) 3 % 09/16/18 05:07 Eosinophils % 2 % 09/21/18 05:50 Basophils % 0 % 09/21/18 05:50 Metamyelocytes % 1 % 09/16/18 05:07 Neutrophils # 13.5 k/uL (1.3-7.7) H 09/21/18 05:50 Neutrophils # (Manual) 18.90 k/uL (1.3-7.7) H 09/16/18 05:07 Lymphocytes # 1.4 k/uL (1.0-4.8) 09/21/18 05:50 Lymphocytes # (Manual) 0.61 k/uL (1.0-4.8) L 09/16/18 05:07 Monocytes # 0.6 k/uL (0-1.0) 09/21/18 05:50 Monocytes # (Manual) 0.61 k/uL (0-1.0) 09/16/18 05:07 Eosinophils # 0.4 k/uL (0-0.7) 09/21/18 05:50 Basophils # 0.1 k/uL (0-0.2) 09/21/18 05:50 Metamyelocytes # (Man) 0.20 k/uL (0) H 09/16/18 05:07 Nucleated RBCs 0 /100 WBC (0-0) 09/16/18 05:07 Toxic Granulation Present 09/16/18 05:07 Toxic Vacuolation Present 09/16/18 05:07 Polychromasia Present 09/15/18 10:04 Hypochromasia Slight 09/20/18 04:35 Poikilocytosis (manual Present 09/16/18 05:07 Anisocytosis Slight 09/21/18 05:50 Anisocytosis (manual) Present 09/15/18 10:04 PT 12.4 sec (9.0-12.0) H 09/21/18 05:50 INR 1.2 (<1.2) H 09/21/18 05:50 APTT 65.5 sec (22.0-30.0) H 09/21/18 05:50 Sodium 136 mmol/L (137-145) L 09/21/18 05:50 Potassium 4.7 mmol/L (3.5-5.1) 09/21/18 05:50 Chloride 107 mmol/L (98-107) 09/21/18 05:50 Carbon Dioxide 19 mmol/L (22-30) L 09/21/18 05:50 Anion Gap 10 mmol/L 09/21/18 05:50 BUN 80 mg/dL (9-20) H 09/21/18 05:50 Creatinine 4.36 mg/dL (0.66-1.25) H 09/21/18 05:50 Est GFR (CKD-EPI)AfAm 15 (>60 ml/min/1.73 sqM) 09/21/18 05:50 Est GFR (CKD-EPI)NonAf 13 (>60 ml/min/1.73 sqM) 09/21/18 05:50 Glucose 89 mg/dL (74-99) 09/21/18 05:50 POC Glucose (mg/dL) 83 mg/dL (75-99) 09/16/18 01:15 POC Glu Correction Officer ID Pari Hunt 09/16/18 01:15 Lactic Ac Sepsis Rflx Y 09/15/18 12:20 Plasma Lactic Acid Juwan 1.4 mmol/L (0.7-2.0) 09/15/18 15:55 Calcium 8.5 mg/dL (8.4-10.2) 09/21/18 05:50 Phosphorus 4.1 mg/dL (2.5-4.5) 09/20/18 04:35 Magnesium 1.8 mg/dL (1.6-2.3) 09/20/18 04:35 Total Bilirubin 0.3 mg/dL (0.2-1.3) 09/21/18 05:50 AST 46 U/L (17-59) 09/21/18 05:50 ALT 41 U/L (21-72) 09/21/18 05:50 Alkaline Phosphatase 111 U/L (38-126) 09/21/18 05:50 Creatine Kinase 44 U/L (55-170) L 09/21/18 05:50 Total Creatine Kinase 49887 U/L (55-170) H* 09/15/18 10:04 CK-MB (CK-2) 37.4 ng/mL (0.0-2.4) H 09/15/18 10:04 CK-MB (CK-2) Rel Index 09/15/18 10:04 Troponin I 0.067 ng/mL (0.000-0.034) H* 09/15/18 22:10 Total Protein 5.4 g/dL (6.3-8.2) L 09/21/18 05:50 Albumin 2.3 g/dL (3.5-5.0) L 09/21/18 05:50 Cortisol 48 ug/dL 09/16/18 05:07 Urine Color Yellow 09/15/18 10:04 Urine Appearance Turbid (Clear) 09/15/18 10:04 Urine pH 6.0 (5.0-8.0) 09/15/18 10:04 Ur Specific [place] (1.001-1.035) 09/15/18 10:04 Urine Protein 2+ (Negative) H 09/15/18 10:04 Urine Glucose (UA) Negative (Negative) 09/15/18 10:04 Urine Ketones Negative (Negative) 09/15/18 10:04 Urine Blood Moderate (Negative) H 09/15/18 10:04 Urine Nitrite Negative (Negative) 09/15/18 10:04 Urine Bilirubin Negative (Negative) 09/15/18 10:04 Urine Urobilinogen <2.0 mg/dL (<2.0) 09/15/18 10:04 Ur Leukocyte Esterase Large (Negative) H 09/15/18 10:04 Urine RBC 22 /hpf (0-5) H 09/15/18 10:04 Urine WBC Clumps Many /hpf (None) H 09/15/18 10:04 Random Vancomycin 12.4 ug/mL 09/17/18 10:20 Urine Opiates Screen Not Detected (NotDetected) 09/15/18 10:21 Ur Oxycodone Screen Not Detected (NotDetected) 09/15/18 10:21 Urine Methadone Screen Not Detected (NotDetected) 09/15/18 10:21 Ur Propoxyphene Screen Not Detected (NotDetected) 09/15/18 10:21 Ur Barbiturates Screen Not Detected (NotDetected) 09/15/18 10:21 U Tricyclic Antidepress Not Detected (NotDetected) 09/15/18 10:21 Ur Phencyclidine Scrn Not Detected (NotDetected) 09/15/18 10:21 Ur Amphetamines Screen Not Detected (NotDetected) 09/15/18 10:21 U Methamphetamines Scrn Not Detected (NotDetected) 09/15/18 10:21 U Benzodiazepines Scrn Not Detected (NotDetected) 09/15/18 10:21 Urine Cocaine Screen Not Detected (NotDetected) 09/15/18 10:21 U Marijuana (THC) Screen Not Detected (NotDetected) 09/15/18 10:21 Microbiology 09/20/18 20:35 Blood Blood Culture Gram Stain - Preliminary 09/20/18 20:35 Blood Blood Culture - Final 09/17/18 11:30 Blood Blood Culture Gram Stain - Final 09/17/18 11:30 Blood Blood Culture - Final Pseudomonas aeruginosa 09/15/18 10:21 Blood Blood Culture Gram Stain - Final 09/15/18 10:21 Blood Blood Culture - Final Enterococcus faecalis Pseudomonas aeruginosa 09/17/18 11:31 Blood Blood Culture - Final 09/15/18 10:04 Urine,Voided Urine Culture - Final Pseudomonas aeruginosa 09/15/18 10:04 Blood Blood Culture - Final Assessment and Plan (1) Septic shock Narrative/Plan: Who has a complex past medical history presents to Hospital feeling very poorly with markedly increased weakness and about of nausea and emesis. At presentation the patient was hypotensive he had a temperature of 100.3 leukocytosis and evidence of infection from the urinary tract. He has was admitted to the intensive care unit because of his knees for vasopressor therapy despite fluid resuscitation. Patient is doing somewhat better today. He is no longer having nausea and able to eat his dinner. There is evidence of the gram-negative sepsis with the urinalysis being positive and urine culture with gram-negative bacilli. Blood cultures are being positive for gram-positive cocci which is somewhat puzzling at this point in time and await further data. with his history of recent hospitalization and concern for more resistant gram-negative pathogen ceftazidime is being utilized as well as vanomycin for now until we have further data Leukocytosis to be monitored. There is evidence of acute renal failure and is being monitored closely also by nephrology. Followup blood cultures to be requested. 09/17/2018 patient is doing somewhat better today. Vasopressor therapy has been titrated and nearly stopped. Patient is a definitely feeling better eating and drinking well. We'll continue the Fortaz for the isolated Pseudomonas. Blood cultures also gram-negative bacilli awaiting the final identification. Once finalized vancomycin can be discontinued. Follow-up blood cultures are in process at this time. The patient's atrial fibrillation is now converted with amiodarone. This is a lot of significant improvement in his hemodynamics, heart rate was in the 70s today it was 126 yesterday. This is contributing to his improved blood pressure and diminishing vasopressor needs. It is possible the patient will need to go to rehab to complete his course of intravenous antibiotic therapy. Await renal ultrasound. 09/18/2018 patient feels a little better. There is evidence of urine culture as well as blood cultures now with the pseudomonas aeruginosa. No other pathogens have been isolated. Follow blood culture remains positive. There is evidence of the ultrasound revealing the bilateral hydronephrosis and constantly urological consult has been requested to see if patient needs relief of the obstruction. With his ongoing bacteremia is of great concern. We need to have clearance of his bacteremia before next set of plans can be made. 09/21/2018 patient has had improvement vaso-longer hypotensive vasopressors have been discontinued it is moved out of the intensive care unit to the cardiac care floor for ongoing evaluation. Patient offered still has some possible cultures and there is evidence of gram-positive cocci now being seen in contrast to the gram-negative bacilli of the Pseudomonas that was isolated prior. He has been evaluated by neurology with no plans for surgical intervention For the new isolated pathogens in the markedly elevated creatinine Will utilize daptomycin not vancomycin to avoid any further renal failure. Follow blood cultures will be requested to further characterize the current ongoing infection. Fortunately he seems to be feeling slightly better. But continues to have significant leukocytosis and renal failure superimposed on his baseline renal disease. Current Visit: Yes Status: Acute Code(s): A41.9 - SEPSIS, UNSPECIFIED ORGANISM; R65.21 - SEVERE SEPSIS WITH SEPTIC SHOCK SNOMED Code(s): 48011906 (2) UTI (urinary tract infection) Current Visit: Yes Status: Acute Code(s): N39.0 - URINARY TRACT INFECTION, SITE NOT SPECIFIED SNOMED Code(s): 07230126 (3) Fever Current Visit: Yes Status: Resolved Code(s): R50.9 - FEVER, UNSPECIFIED SNOMED Code(s): 590480428 (4) Leukocytosis Current Visit: Yes Status: Acute Code(s): D72.829 - ELEVATED WHITE BLOOD CELL COUNT, UNSPECIFIED SNOMED Code(s): 813145385
[2018-09-21] MEDS: DAPTOmycin 500 MG in SODIUM CHLORIDE 0.9% 50 ML IVPB SCH (23:31)
[2018-09-22 06:30] LABS: Anisocytosis Slight; Basophils # (A) 0.1 k/uL (0-0.2); Basophils % (A) 1 %; Eosinophils # (A) 0.3 k/uL (0-0.7); Eosinophils % (A) 2 %; HGB 9.4 gm/dL (13.0-17.5); Hypochromasia Slight; Lymphocytes # (A) 1.5 k/uL (1.0-4.8); Lymphocytes % (A) 10 %; MCH 29.9 pg (25.0-35.0); MCHC 31.2 g/dL (31.0-37.0); MCV 95.8 fL (80.0-100.0); Mean Platelet Volume 7.7; Monocytes # (A) 0.4 k/uL (0-1.0); Monocytes % (A) 2 %; Neutrophils # (A) 13.2 k/uL (1.3-7.7); Neutrophils % (A) 84 %; Platelet Count 453 k/uL (150-450); RBC 3.13 m/uL (4.30-5.90); RDW 16.2 % (11.5-15.5); WBC 15.7 k/uL (3.8-10.6)
[2018-09-22 06:50] LABS: INR 1.5 (<1.2); Prothrombin Time 15.5 sec (9.0-12.0)
[2018-09-22 06:54] LABS: Partial Thromboplastin Time 130.2 sec (22.0-30.0)
[2018-09-22] MEDS: CALCIUM ACETATE 667 MG CAP PO SCH ×2 (06:59→17:54)
[2018-09-22] MEDS: PANTOPRAZOLE 40 MG/10 ML VIAL IV SCH (08:11)
[2018-09-22] MEDS: buPROPion XL 150 MG TAB.ER.24H PO SCH (08:11)
[2018-09-22] MEDS: SODIUM BICARBONATE TAB 650 MG TAB PO SCH ×4 (08:12→21:12)
[2018-09-22] MEDS: AMIODARONE 200 MG TAB PO SCH ×2 (08:12→21:12)
[2018-09-22] MEDS: ASPIRIN 81 MG PO SCH (08:12)
[2018-09-22] MEDS: DEXTROSE 5% IN WATER 1,000 ML with SODIUM BICARB (1 MEQ/ML) 150 ML IV SCH (08:12)
[2018-09-22] MEDS: ATENOLOL 25 MG TAB PO SCH ×2 (08:12→21:12)
[2018-09-22] MEDS: TAMSULOSIN 0.4 MG CAP.ER.24H PO SCH (08:14)
[2018-09-22] MEDS: ALBUTEROL NEBULIZED 2.5 MG/3 ML INHALATION SCH ×3 (08:19→20:32)
--- NOTE | 2018-09-22 14:23 | P.PN ---
Subjective Progress Note Date: 09/22/18 This is a 67-year-old gentleman admitted to the hospital with UTI and sepsis. He was in atrial fibrillation with rapid ventricular response and converted back to normal sinus rhythm. He does have history of hypertension as well as coronary artery disease. Patient is in acute renal failure. He has bilateral hydronephrosis with outflow tract obstruction. Continues to be in a typical atrial flutter today. Heart rate in the 60s to 70s, blood pressure 115/60. White blood cell count 16.2, hemoglobin 9.9, platelet count 429. Sodium 136, potassium 4.7, BUN 80, creatinine 4.3. INR 1.2, patient is receiving 7-1/2 mg of Coumadin daily. 09/22/2018 Patient was seen and examined today, continues to put out excellent urine. INR today 1.5, on Coumadin 7-1/2 mg daily. I pressure 124/70 with a heart rate in the 60s. White blood cell count 15.7, hemoglobin 9.4, platelet count 453. Objective - Vital Signs Vital signs: Vital Signs Temp 98.1 F 09/22/18 11:32 Pulse 72 09/22/18 13:20 Resp 18 09/22/18 11:32 BP 124/70 09/22/18 11:32 Pulse Ox 96 09/22/18 11:32 Intake & Output 09/21/18 09/22/18 09/22/18 18:59 06:59 18:59 Intake Total 850 516.83 330 Output Total 1500 2750 Balance -650 -2233.17 330 Weight 121 kg 121 kg Intake: IV 100 100 Dextrose 5% in Water 1, 100 100 000 ml @ 50 mls/hr IV . Q23H [facility]OTT with Sodium Bicarb (1 Meq/ml) 150 ml Rx#:[id number] Intake, IV Titration 550 516.83 0 Amount DAPTOmycin 500 mg In 50 Sodium Chloride 0.9% 50 ml @ 100 mls/hr IVPB Q48H SCOTT Rx#:[id number] Dextrose 5% in Water 1, 50 000 ml @ 50 mls/hr IV . Q23H SCOTT with Sodium Bicarb (1 Meq/ml) 150 ml Rx#:[id number] Heparin Sod,Pork in 0.45% 500 466.83 0 NaCl 25,000 unit In 0.45 % NaCl 1 500ml.bag @ 8.2 UNITS/KG/HR 19.84 mls/hr IV .Q24H [facility] Rx#: [id number] Oral 200 230 Output: Urine 1500 2750 Other: Voiding Method Indwelling Catheter Indwelling Catheter Indwelling Catheter # Voids 1 1 - Exam GENERAL EXAM: Alert, pleasant, 67-year-old obese white comfortable in no apparent distress. HEAD: Normocephalic/atraumatic. EYES: Normal reaction of pupils, equal size. Conjunctiva pink, sclera white. NOSE: Clear with pink turbinates. THROAT: No erythema or exudates. NECK: No masses, no JVD, no thyroid enlargement, no adenopathy. CHEST: No chest wall deformity. Symmetrical expansion. LUNGS: Equal air entry with a few scattered expiratory wheezes CVS: Irregular rate and rhythm, normal S1 and S2, no gallops, no murmurs, no rubs ABDOMEN: Soft, nontender. No hepatosplenomegaly, normal bowel sounds, no guarding or rigidity. EXTREMITIES: No clubbing, no edema, no cyanosis, 2+ pulses and upper and lower extremities. MUSCULOSKELETAL: Muscle strength and tone normal. SPINE: No scoliosis or deformity SKIN: No rashes CENTRAL NERVOUS SYSTEM: Alert and oriented -3. No focal deficits, tone is normal in all 4 extremities. PSYCHIATRIC: Alert and oriented -3. Appropriate affect. Intact judgment and insight. - Labs CBC & Chem 7: 09/22/18 05:49 09/21/18 05:50 Labs: Abnormal Lab Results - Last 24 Hours (Table) 09/22/18 09/22/18 Range/Units 05:49 05:49 WBC 15.7 H (3.8-10.6) k/uL RBC 3.13 L (4.30-5.90) m/uL Hgb 9.4 L (13.0-17.5) gm/dL Hct 30.0 L (39.0-53.0) % RDW 16.2 H (11.5-15.5) % Plt Count 453 H (150-450) k/uL Neutrophils # 13.2 H (1.3-7.7) k/uL PT 15.5 H (9.0-12.0) sec INR 1.5 H (<1.2) APTT 130.2 H* (22.0-30.0) sec Microbiology - Last 24 Hours (Table) 09/20/18 20:35 Blood Culture Gram Stain - Preliminary Blood Blood Culture - Preliminary Coagulase Negative Staph 09/20/18 20:35 Blood Culture - Final Blood Assessment and Plan Plan: Assessment and plan: #1. Septic shock related to acute urinary tract infection, urine culture was positive for pseudomonas aeruginosa #2. Gram-negative bacteremia with sepsis, blood cultures showed Enterococcus faecalis and pseudomonas aeruginosa #3. Altered mental status, hypotension, new onset A. fib RVR, febrile illness related to the above, mentation is back to normal, patient remains in A. fib/ flutter #4. Anion gap metabolic acidosis, related to elevated lactic acidosis secondary to sepsis, improved #5. Non-anion gap metabolic acidosis related to acute kidney injury, improving #6. Chronic kidney disease stage III #7. 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 Hypertension #9. Hyponatremia, improving #10. Rhabdomyolysis, improving #11. He is myocardial infarction #12. History of depression Plan From cardiology's perspective, we'll continue the patient on his current medications including a daily dose of Coumadin at 7-1/2 mg daily. Check daily PT/INRs. We will follow along with you now on an as-needed basis only, please don't hesitate to call with any questions. DNP note has been reviewed, I agree with a documented findings and plan of care. Patient was seen and examined.
--- NOTE | 2018-09-22 15:48 | P.PN ---
Progress Note - Text Progress Note Date: 09/22/18 Mr. De La Fuente is afebrile, but his WBC count remains elevated. The Harper catheter was draining clear yellow urine. His serum creatinine level remains stable ( 4.36), but has failed to return to baseline (2.6 last month at [facility]). I irrigated his Harper catheter to confirm that it is patent and properly positioned. Retrograde pyelograms could be performed to rule out ureteral obstruction, though I have no reason to suspect this. I would recommend that current treatment be continued at this time. We will continue to follow him with you.
--- NOTE | 2018-09-22 17:27 | PN ---
PROGRESS NOTE Patient is seen for followup for acute kidney injury. Renal function has been stable. Patient has an indwelling Harper catheter. Creatinine has been at about 4.3 mg/dL to 4.8. Patient has had good urine output. He was maintained on IV bicarb, which still continues at 50 mL/hour. Patient had atrial fibrillation with RVR and sepsis with pseudomonas bacteremia and Enterococcus faecalis bacteremia with urine culture showing pseudomonas. On examination this morning, blood pressure was 124/70, heart rate 72 per minute. He is afebrile. EXAMINATION OF THE HEART: S1, S2. EXAMINATION OF LUNGS: Bilateral breath sounds are heard. ABDOMEN: Soft, non-tender. Examination of lower extremities shows edema 1+ bilaterally. ADMINISTRATIVE PROCESSOR exam is grossly intact. Labs show sodium 136 from yesterday, serum creatinine 4.36 yesterday. Hemoglobin 9.4 g/dL. ASSESSMENT: 1. Acute kidney injury secondary to acute tubular necrosis associated with sepsis, bacteremia and urinary tract infection. Patient also has chronic bilateral obstructive uropathy with bilateral hydronephrosis, currently with a Harper catheter in place, and patient was evaluated by Urology. No further intervention at this time. 2. Chronic kidney disease secondary to obstructive uropathy. Follow up with Urology and Nephrology as outpatient. No indication for renal replacement therapy at this time. 3. Hypovolemic hyponatremia, currently improved. 4. Atrial fibrillation with rapid ventricular response with controlled ventricular response currently, maintained on anticoagulation. 5. Metabolic acidosis, maintained on IV sodium bicarb and oral. CO2 is at 19. I will continue with the sodium bicarb for now. Continue his oral dose of sodium bicarb as well. MMODL / IJN: [id number] /
[2018-09-22] MEDS: WARFARIN 7.5 MG TAB PO SCH (17:54)
[2018-09-22] MEDS: HEPARIN SOD,PORK IN 0.45% NACL 25,000 UNIT in 0.45% NACL 1 500ML.BAG IV SCH (22:31)
--- NOTE | 2018-09-22 22:39 | P.PN ---
Subjective this is a pleasant 67 yo M with pmh of hypertension , coronary artery disease presents because he felt generally weak and inability to walk, found to have sever sepsis secondary to UTI and he was admitted to ICU for septic shock . hypotension , new onset a fib. and chronic kidney disease . pt has chronic indwelling catheter secondary to urine retension and BPH. he is more awake today and participated in physical therapy . he has normal temp , BP 115/62 , HR 89, oxygen saturation 94 % on room air. wbc 14.5K . hb 9.8 and creatinine of 4.42. Na 133. pt continued on heparin drip and coumadin. he is also on sodium bicarb drip . 09/21/2018 Patient was transferred to the general medical floor. His Harper was still draining purulent discharge and has been changed by the early childhood lead teacher bedside nurse. Patient denies chest pain or dyspnea. No abdominal pain or discomfort. Harper catheter is in place. His INR is 1.2. Patient got 7.5 mg of Coumadin last night. And atenolol 25 mg twice a day. He has mild leukocytosis at 16 K. He is on ceftazidime. ID team are following the patient. Nephrology team follow-up is appreciated. Continue with IV sodium bicarb and monitor labs. 08/23/2018 Patient was seen and examined in the select unit. He thinks he is improving with less swelling his arms and legs. He woke in the hallway today with a physical therapist. However he feels generally weak and he might need subacute rehab. Patient remains on antibiotics as per ID team. He has mild leukocytosis at 15.7 K. Patient continue on Coumadin with his INR today is 1.5. REVIEW OF SYSTEMS: CONSTITUTIONAL: No fever, no malaise, no fatigue. HEENT: No recent visual problems or hearing problems. Denied any sore throat. CARDIOVASCULAR:no palpitations, no syncope. PULMONARY: no cough, no hemoptysis. GASTROINTESTINAL: No diarrhea, no nausea, no vomiting, no abdominal pain. Normoactive bowel sounds. NEUROLOGICAL: No headaches, no weakness, no numbness. HEMATOLOGICAL: Denies any bleeding or petechiae. GENITOURINARY: Denies any burning micturition, frequency, or urgency. MUSCULOSKELETAL/RHEUMATOLOGICAL: Denies any joint pain, swelling, or any muscle pain. ENDOCRINE: Denies any polyuria or polydipsia. Objective - Vital Signs Vital signs: Vital Signs Temp 98.1 F 09/22/18 11:32 Pulse 72 09/22/18 13:20 Resp 18 09/22/18 11:32 BP 124/70 09/22/18 11:32 Pulse Ox 96 09/22/18 11:32 Intake & Output 09/21/18 09/22/18 09/22/18 18:59 06:59 18:59 Intake Total 850 516.83 330 Output Total 1500 2750 Balance -650 -2233.17 330 Weight 121 kg 121 kg Intake: IV 100 100 Dextrose 5% in Water 1, 100 100 000 ml @ 50 mls/hr IV . Q23H SCOTT with Sodium Bicarb (1 Meq/ml) 150 ml Rx#:[id number] Intake, IV Titration 550 516.83 0 Amount DAPTOmycin 500 mg In 50 Sodium Chloride 0.9% 50 ml @ 100 mls/hr IVPB Q48H SCOTT Rx#:[id number] Dextrose 5% in Water 1, 50 000 ml @ 50 mls/hr IV . Q23H SCOTT with Sodium Bicarb (1 Meq/ml) 150 ml Rx#:[id number] Heparin Sod,Pork in 0.45% 500 466.83 0 NaCl 25,000 unit In 0.45 % NaCl 1 500ml.bag @ 8.2 UNITS/KG/HR 19.84 mls/hr IV .Q24H SCOTT Rx#: [id number] Oral 200 230 Output: Urine 1500 2750 Other: Voiding Method Indwelling Catheter Indwelling Catheter Indwelling Catheter # Voids 1 1 - Exam GENERAL: The patient is alert and oriented x3, not in any acute distress. Well developed, well nourished. HEENT: Pupils are round and equally reacting to light. EOMI. No scleral icterus. No conjunctival pallor. Normocephalic, atraumatic. No pharyngeal erythema. No thyromegaly. CARDIOVASCULAR: S1 and S2 present. No murmurs, rubs, or gallops. PULMONARY: Chest is clear to auscultation, no wheezing or crackles. ABDOMEN: Soft, nontender, nondistended, normoactive bowel sounds. No palpable organomegaly. MUSCULOSKELETAL: No joint swelling or deformity. EXTREMITIES: No cyanosis, clubbing, or pedal edema. NEUROLOGICAL: Gross neurological examination did not reveal any focal deficits. SKIN: No rashes. - Labs CBC & Chem 7: 09/22/18 05:49 09/21/18 05:50 Labs: Abnormal Lab Results - Last 24 Hours (Table) 09/22/18 09/22/18 Range/Units 05:49 05:49 WBC 15.7 H (3.8-10.6) k/uL RBC 3.13 L (4.30-5.90) m/uL Hgb 9.4 L (13.0-17.5) gm/dL Hct 30.0 L (39.0-53.0) % RDW 16.2 H (11.5-15.5) % Plt Count 453 H (150-450) k/uL Neutrophils # 13.2 H (1.3-7.7) k/uL PT 15.5 H (9.0-12.0) sec INR 1.5 H (<1.2) APTT 130.2 H* (22.0-30.0) sec Microbiology - Last 24 Hours (Table) 09/20/18 20:35 Blood Culture Gram Stain - Preliminary Blood Blood Culture - Preliminary Coagulase Negative Staph 09/20/18 20:35 Blood Culture - Final Blood Assessment and Plan Assessment: s/p septic shock , secondary to UTI pseudomonas UTI chronic kidney disease stage 3 Chronic hydronephrosis on both sides. BPH with indwelling Harper catheter a fib on anticoagulation with hr is controlled. hypertension Plan: this is pleasant 67 yo M who presents with septic shock and UTI. critical care team are following the pt . c/w antibioitic with ceftazidime. c/w anticoagulation . continue with the same treatment , continue with symptomatic treatment , resume home medication , monitor lytes and vitals including glucose , c/w iv fluids, cardiology consult is appreciated. . c/w same antibioitc . GI and DVT prophylaxis , further recommendation based upon pt clinical course and progress DVT prophylaxis heparin and coumadin GI prophylaxis Protonix PT/OT: pending Prognosis is guarded
[2018-09-23] MEDS: DEXTROSE 5% IN WATER 1,000 ML with SODIUM BICARB (1 MEQ/ML) 150 ML IV SCH (05:28)
[2018-09-23] MEDS: CALCIUM ACETATE 667 MG CAP PO SCH ×2 (06:28→16:28)
[2018-09-23 06:36] LABS: Anisocytosis Slight; Basophils # (A) 0.1 k/uL (0-0.2); Basophils % (A) 0 %; Eosinophils # (A) 0.2 k/uL (0-0.7); Eosinophils % (A) 2 %; HCT 28.7 % (39.0-53.0); Lymphocytes # (A) 1.5 k/uL (1.0-4.8); Lymphocytes % (A) 11 %; MCH 29.4 pg (25.0-35.0); MCHC 31.5 g/dL (31.0-37.0); MCV 93.5 fL (80.0-100.0); Mean Platelet Volume 7.5; Monocytes # (A) 0.3 k/uL (0-1.0); Monocytes % (A) 2 %; Neutrophils # (A) 12.2 k/uL (1.3-7.7); Neutrophils % (A) 84 %; Platelet Count 492 k/uL (150-450); RBC 3.07 m/uL (4.30-5.90); WBC 14.6 k/uL (3.8-10.6)
[2018-09-23 06:43] LABS: INR 2.5 (<1.2); Prothrombin Time 24.1 sec (9.0-12.0)
[2018-09-23 06:52] LABS: Calcium 7.9 mg/dL (8.4-10.2); Potassium 3.9 mmol/L (3.5-5.1)
[2018-09-23] MEDS: ALBUTEROL NEBULIZED 2.5 MG/3 ML INHALATION SCH ×3 (07:34→20:54)
[2018-09-23] MEDS: TAMSULOSIN 0.4 MG CAP.ER.24H PO SCH (09:00)
[2018-09-23] MEDS: PANTOPRAZOLE 40 MG TABLET PO SCH (09:05)
[2018-09-23] MEDS: ASPIRIN 81 MG PO SCH (09:05)
[2018-09-23] MEDS: SODIUM BICARBONATE TAB 650 MG TAB PO SCH ×4 (09:05→20:57)
[2018-09-23] MEDS: AMIODARONE 200 MG TAB PO SCH ×2 (09:05→20:56)
[2018-09-23] MEDS: ATENOLOL 25 MG TAB PO SCH ×2 (09:05→20:57)
[2018-09-23] MEDS: buPROPion XL 150 MG TAB.ER.24H PO SCH (09:07)
[2018-09-23] MEDS: ERGOCALCIFEROL 50,000 UNIT CAP PO SCH (09:08)
--- NOTE | 2018-09-23 09:28 | P.PN ---
Subjective Progress Note Date: 09/22/18 67-year-old male presents to Hospital from his assisted living setting because of several days of progressive weakness. The patient relates that he has been somewhat recently hospitalized at which point in time was having further difficulties with urinary retention. He has a known history of BPH and difficulties with his urination. He follows with urology in the outpatient setting. The patient relates that recently he became ill and was hospitalized an outside facility. There he was found and evidence of urinary tract infection and urinary obstruction. Harper catheter was placed he was treated with a short course of antibiotics and discharged home. He did have follow-up with urology and cultures were performed the outpatient setting the patient relates were negative. The patient did have a change of his Harper catheter. Within several days he started to feel considerably worse. Having increasing difficulties with fevers chills and progressive weakness to the point in time we was unable to ambulate and he was brought to Hospital by EMS. The patient relates that currently he is feeling poorly. He is weak but his fever and chills and improved. His appetite is improved. He is no longer having emesis he was having briefly while at home. 09/17/2018 patient is feeling better today. Vasopressor therapy has reduced. He is eating without nausea or emesis. Not having much pain. Fever and chills have improved. Tolerating antibiotic therapy well. Patient's daughter and son- in-law are present and there informed of the current problems. 09/18/2018 patient does feel slightly better today. He's no longer on vasopressor therapy. However still is being closely monitored with his new onset A. fib and his ongoing sepsis. Follow blood cultures remain positive. 09/21/2018 patient moved out of ICU no longer on vasopressor therapy, feeling better. Still has some confusion, and leukocytosis has increased. 09/22/2018 patient still has some confusion but is feeling somewhat better. Has no complaints of pain or discomfort. Eating well. No nausea or emesis. Objective - Vital Signs Vital signs: Vital Signs Temp 98.1 F 09/23/18 08:00 Pulse 72 09/23/18 08:00 Resp 18 09/23/18 08:00 BP 116/71 09/23/18 08:00 Pulse Ox 98 09/23/18 08:00 Intake & Output 09/22/18 09/23/18 09/23/18 18:59 06:59 18:59 Intake Total 863.17 480 Output Total 700 3700 Balance 163.17 -3220 Weight 121 kg 120.1 kg Intake: IV 600 Dextrose 5% in Water 1, 600 000 ml @ 50 mls/hr IV . Q23H SCOTT with Sodium Bicarb (1 Meq/ml) 150 ml Rx#:[id number] Intake, IV Titration 33.17 Amount Heparin Sod,Pork in 0.45% 33.17 NaCl 25,000 unit In 0.45 % NaCl 1 500ml.bag @ 8.2 UNITS/KG/HR 19.84 mls/hr IV .Q24H SCOTT Rx#: [id number] Oral 230 480 Output: Urine 700 3700 Other: Voiding Method Indwelling Catheter Indwelling Catheter Indwelling Catheter # Voids 1 - Exam HEENT: Anicteric conjunctiva are pink and moist nasal mucosa grossly intact without significant lesions, there is no thrush. Neck: The neck is supple without significant lymphadenopathy or thyromegaly. Lungs: Good bilateral air entry without significant crackles or wheezing. There is no significant bronchial sounds. There is no egophony or dullness. Heart: Regular rate and rhythm with an audible S1-S2, no S3 no S4. There is no significant murmur click or rub, PMI was nondisplaced. Abdomen: Positive bowel sounds soft and nontender without palpable masses or organomegaly. There was no guarding or rebound. Extremities: The upper extremities have excellent pulses they are symmetric, no significant petechiae or telangiectasia. No splinter hemorrhages were noted. The lower extremities are free from significant edema. The peripheral pulses were 2+ and symmetric. Neuro: Awake alert oriented to person place. There are no acute new gross focal sensory motor deficits. A bit more confused this evening Harper catheter in place Skin is without rash or breakdown - Labs CBC & Chem 7: 09/23/18 06:13 09/23/18 06:13 Labs: Abnormal Lab Results - Last 24 Hours (Table) 09/22/18 09/23/18 09/23/18 Range/Units 13:12 06:13 06:13 WBC 14.6 H (3.8-10.6) k/uL RBC 3.07 L (4.30-5.90) m/uL Hgb 9.0 L (13.0-17.5) gm/dL Hct 28.7 L (39.0-53.0) % RDW 16.0 H (11.5-15.5) % Plt Count 492 H (150-450) k/uL Neutrophils # 12.2 H (1.3-7.7) k/uL PT 24.1 H (9.0-12.0) sec INR 2.5 H (<1.2) APTT 67.9 H (22.0-30.0) sec Sodium (137-145) mmol/L BUN (9-20) mg/dL Creatinine (0.66-1.25) mg/dL Glucose (74-99) mg/dL Calcium (8.4-10.2) mg/dL 09/23/18 Range/Units 06:13 WBC (3.8-10.6) k/uL RBC (4.30-5.90) m/uL Hgb (13.0-17.5) gm/dL Hct (39.0-53.0) % RDW (11.5-15.5) % Plt Count (150-450) k/uL Neutrophils # (1.3-7.7) k/uL PT (9.0-12.0) sec INR (<1.2) APTT (22.0-30.0) sec Sodium 136 L (137-145) mmol/L BUN 74 H (9-20) mg/dL Creatinine 3.99 H (0.66-1.25) mg/dL Glucose 100 H (74-99) mg/dL Calcium 7.9 L (8.4-10.2) mg/dL Microbiology - Last 24 Hours (Table) 09/22/18 06:06 Blood Culture - Preliminary Blood No Growth after 24 hours 09/22/18 05:49 Blood Culture - Preliminary Blood No Growth after 24 hours 09/20/18 20:35 Blood Culture Gram Stain - Final Blood Blood Culture - Final Staph hominis sub sp. hominis Assessment and Plan (1) Septic shock Narrative/Plan: Who has a complex past medical history presents to Hospital feeling very poorly with markedly increased weakness and about of nausea and emesis. At presentation the patient was hypotensive he had a temperature of 100.3 leukocytosis and evidence of infection from the urinary tract. He has was admitted to the intensive care unit because of his knees for vasopressor therapy despite fluid resuscitation. Patient is doing somewhat better today. He is no longer having nausea and able to eat his dinner. There is evidence of the gram-negative sepsis with the urinalysis being positive and urine culture with gram-negative bacilli. Blood cultures are being positive for gram-positive cocci which is somewhat puzzling at this point in time and await further data. with his history of recent hospitalization and concern for more resistant gram-negative pathogen ceftazidime is being utilized as well as vanomycin for now until we have further data Leukocytosis to be monitored. There is evidence of acute renal failure and is being monitored closely also by nephrology. Followup blood cultures to be requested. 09/17/2018 patient is doing somewhat better today. Vasopressor therapy has been titrated and nearly stopped. Patient is a definitely feeling better eating and drinking well. We'll continue the Fortaz for the isolated Pseudomonas. Blood cultures also gram-negative bacilli awaiting the final identification. Once finalized vancomycin can be discontinued. Follow-up blood cultures are in process at this time. The patient's atrial fibrillation is now converted with amiodarone. This is a lot of significant improvement in his hemodynamics, heart rate was in the 70s today it was 126 yesterday. This is contributing to his improved blood pressure and diminishing vasopressor needs. It is possible the patient will need to go to rehab to complete his course of intravenous antibiotic therapy. Await renal ultrasound. 09/18/2018 patient feels a little better. There is evidence of urine culture as well as blood cultures now with the pseudomonas aeruginosa. No other pathogens have been isolated. Follow blood culture remains positive. There is evidence of the ultrasound revealing the bilateral hydronephrosis and constantly urological consult has been requested to see if patient needs relief of the obstruction. With his ongoing bacteremia is of great concern. We need to have clearance of his bacteremia before next set of plans can be made. 09/21/2018 patient has had improvement vaso-longer hypotensive vasopressors have been discontinued it is moved out of the intensive care unit to the cardiac care floor for ongoing evaluation. Patient offered still has some possible cultures and there is evidence of gram-positive cocci now being seen in contrast to the gram-negative bacilli of the Pseudomonas that was isolated prior. He has been evaluated by neurology with no plans for surgical intervention For the new isolated pathogens in the markedly elevated creatinine Will utilize daptomycin not vancomycin to avoid any further renal failure. Follow blood cultures will be requested to further characterize the current ongoing infection. Fortunately he seems to be feeling slightly better. But continues to have significant leukocytosis and renal failure superimposed on his baseline renal disease. 09/22/2018 patient has improved he is moved out of intensive care unit with resolution of his hypotension. The multiple cultures were Pseudomonas of the urine and the blood. And then the most recent blood culture had some gram- positive cocci. Does appear that this is going to be a contamination based on a coagulase-negative staph being found so far. Patient relates family may come and visit, and this is again this weekend from [place]. Patient responding well to current intravenous antibiotic therapy which will be continued. Has been seen by urology with no plans for further intervention. Now that the bacteremia appears to be clearing will agree that it is not need urological intervention at this time. We'll need transition to extended care discharge to complete his many week course of intravenous antibiotic therapy. Nephrology following not planning on renal replacement therapy at this time. Current Visit: Yes Status: Acute Code(s): A41.9 - SEPSIS, UNSPECIFIED ORGANISM; R65.21 - SEVERE SEPSIS WITH SEPTIC SHOCK SNOMED Code(s): 32247985 (2) UTI (urinary tract infection) Current Visit: Yes Status: Acute Code(s): N39.0 - URINARY TRACT INFECTION, SITE NOT SPECIFIED SNOMED Code(s): 26348959 (3) Fever Current Visit: Yes Status: Resolved Code(s): R50.9 - FEVER, UNSPECIFIED SNOMED Code(s): 170637017 (4) Leukocytosis Current Visit: Yes Status: Acute Code(s): D72.829 - ELEVATED WHITE BLOOD CELL COUNT, UNSPECIFIED SNOMED Code(s): 388423045
--- NOTE | 2018-09-23 10:28 | P.PN ---
Subjective this is a pleasant 67 yo M with pmh of hypertension , coronary artery disease presents because he felt generally weak and inability to walk, found to have sever sepsis secondary to UTI and he was admitted to ICU for septic shock . hypotension , new onset a fib. and chronic kidney disease . pt has chronic indwelling catheter secondary to urine retension and BPH. he is more awake today and participated in physical therapy . he has normal temp , BP 115/62 , HR 89, oxygen saturation 94 % on room air. wbc 14.5K . hb 9.8 and creatinine of 4.42. Na 133. pt continued on heparin drip and coumadin. he is also on sodium bicarb drip . 09/21/2018 Patient was transferred to the general medical floor. His Harper was still draining purulent discharge and has been changed by the early breastfeeding care specialist bedside nurse. Patient denies chest pain or dyspnea. No abdominal pain or discomfort. Harper catheter is in place. His INR is 1.2. Patient got 7.5 mg of Coumadin last night. And atenolol 25 mg twice a day. He has mild leukocytosis at 16 K. He is on ceftazidime. ID team are following the patient. Nephrology team follow-up is appreciated. Continue with IV sodium bicarb and monitor labs. 09/22/2018 Patient was seen and examined in the select unit. He thinks he is improving with less swelling his arms and legs. He woke in the hallway today with a physical therapist. However he feels generally weak and he might need subacute rehab. Patient remains on antibiotics as per ID team. He has mild leukocytosis at 15.7 K. Patient continue on Coumadin with his INR today is 1.5. 09/23/2018 Patient lying in bed comfortable. With no chest pain or dyspnea. No suprapubic tenderness. Harper catheter in place draining yellow urine with some turbulence. Patient is afebrile and vital signs stable. Patient leukocytosis is improving slowly from 15.7 to 14.6 K. He remains on antibiotics. Urology follow-up is appreciated. There were considering retrograde pyelography if his needed. However continue with same treatment now. INR is 2.5 today, we'll change his Coumadin dose from 7.5 to 5.0 mg daily REVIEW OF SYSTEMS: CONSTITUTIONAL: No fever, no malaise, no fatigue. HEENT: No recent visual problems or hearing problems. Denied any sore throat. CARDIOVASCULAR:no palpitations, no syncope. PULMONARY: no cough, no hemoptysis. GASTROINTESTINAL: No diarrhea, no nausea, no vomiting, no abdominal pain. Normoactive bowel sounds. NEUROLOGICAL: No headaches, no weakness, no numbness. HEMATOLOGICAL: Denies any bleeding or petechiae. GENITOURINARY: Denies any burning micturition, frequency, or urgency. MUSCULOSKELETAL/RHEUMATOLOGICAL: Denies any joint pain, swelling, or any muscle pain. ENDOCRINE: Denies any polyuria or polydipsia. Objective - Vital Signs Vital signs: Vital Signs Temp 98.1 F 09/23/18 08:00 Pulse 72 09/23/18 08:00 Resp 18 09/23/18 08:00 BP 116/71 09/23/18 08:00 Pulse Ox 98 09/23/18 08:00 Intake & Output 09/22/18 09/23/18 09/23/18 18:59 06:59 18:59 Intake Total 863.17 480 Output Total 700 3700 Balance 163.17 -3220 Weight 121 kg 120.1 kg Intake: IV 600 Dextrose 5% in Water 1, 600 000 ml @ 50 mls/hr IV . Q23H SCOTT with Sodium Bicarb (1 Meq/ml) 150 ml Rx#:[id number] Intake, IV Titration 33.17 Amount Heparin Sod,Pork in 0.45% 33.17 NaCl 25,000 unit In 0.45 % NaCl 1 500ml.bag @ 8.2 UNITS/KG/HR 19.84 mls/hr IV .Q24H SCOTT Rx#: [id number] Oral 230 480 Output: Urine 700 3700 Other: Voiding Method Indwelling Catheter Indwelling Catheter Indwelling Catheter # Voids 1 - Exam GENERAL: The patient is alert and oriented x3, not in any acute distress. Well developed, well nourished. HEENT: Pupils are round and equally reacting to light. EOMI. No scleral icterus. No conjunctival pallor. Normocephalic, atraumatic. No pharyngeal erythema. No thyromegaly. CARDIOVASCULAR: S1 and S2 present. No murmurs, rubs, or gallops. PULMONARY: Chest is clear to auscultation, no wheezing or crackles. ABDOMEN: Soft, nontender, nondistended, normoactive bowel sounds. No palpable organomegaly. MUSCULOSKELETAL: No joint swelling or deformity. EXTREMITIES: No cyanosis, clubbing, or pedal edema. NEUROLOGICAL: Gross neurological examination did not reveal any focal deficits. SKIN: No rashes. - Labs CBC & Chem 7: 09/23/18 06:13 09/23/18 06:13 Labs: Abnormal Lab Results - Last 24 Hours (Table) 09/22/18 09/23/18 09/23/18 Range/Units 13:12 06:13 06:13 WBC 14.6 H (3.8-10.6) k/uL RBC 3.07 L (4.30-5.90) m/uL Hgb 9.0 L (13.0-17.5) gm/dL Hct 28.7 L (39.0-53.0) % RDW 16.0 H (11.5-15.5) % Plt Count 492 H (150-450) k/uL Neutrophils # 12.2 H (1.3-7.7) k/uL PT 24.1 H (9.0-12.0) sec INR 2.5 H (<1.2) APTT 67.9 H (22.0-30.0) sec Sodium (137-145) mmol/L BUN (9-20) mg/dL Creatinine (0.66-1.25) mg/dL Glucose (74-99) mg/dL Calcium (8.4-10.2) mg/dL 09/23/18 Range/Units 06:13 WBC (3.8-10.6) k/uL RBC (4.30-5.90) m/uL Hgb (13.0-17.5) gm/dL Hct (39.0-53.0) % RDW (11.5-15.5) % Plt Count (150-450) k/uL Neutrophils # (1.3-7.7) k/uL PT (9.0-12.0) sec INR (<1.2) APTT (22.0-30.0) sec Sodium 136 L (137-145) mmol/L BUN 74 H (9-20) mg/dL Creatinine 3.99 H (0.66-1.25) mg/dL Glucose 100 H (74-99) mg/dL Calcium 7.9 L (8.4-10.2) mg/dL Microbiology - Last 24 Hours (Table) 09/22/18 06:06 Blood Culture - Preliminary Blood No Growth after 24 hours 09/22/18 05:49 Blood Culture - Preliminary Blood No Growth after 24 hours 09/20/18 20:35 Blood Culture Gram Stain - Final Blood Blood Culture - Final Staph hominis sub sp. hominis Assessment and Plan Assessment: s/p septic shock , secondary to UTI pseudomonas UTI chronic kidney disease stage 3 Chronic hydronephrosis on both sides. BPH with indwelling Harper catheter a fib on anticoagulation with hr is controlled. hypertension Plan: this is pleasant 67 yo M who presents with septic shock and UTI. critical care team are following the pt . c/w antibioitic with ceftazidime. c/w anticoagulation . continue with the same treatment , continue with symptomatic treatment , resume home medication , monitor lytes and vitals including glucose , c/w iv fluids, cardiology consult is appreciated. . c/w same antibioitc . GI and DVT prophylaxis , further recommendation based upon pt clinical course and progress DVT prophylaxis heparin and coumadin GI prophylaxis Protonix PT/OT: pending Prognosis is guarded
--- NOTE | 2018-09-23 10:47 | P.PN ---
Subjective Patient is seen in follow-up for acute kidney injury. Renal function is improved with creatinine down to 3.99 today. Patient has chronic bilateral hydronephrosis and currently has a Harper catheter in place. Urology's following. He is also noted to be bacteremic with blood cultures positive for staph hominis, Pseudomonas and enterococcus and urine culture positive for Pseudomonas. He is maintained on bicarb drip at 50 mL an hour. Oral intake is good. He is nonoliguric. No vomiting or diarrhea. Vital signs are stable. General: The patient appeared well nourished and normally developed. HEENT: Head exam is unremarkable. Neck is without jugular venous distension. LUNGS: Lungs are clear to auscultation and percussion. Breath sounds decreased. HEART: Rate and Rhythm are regular. First and second heart sounds normal. No murmurs, rubs or gallops. ABDOMEN: Abdominal exam reveals normal bowel sounds. Non-tender and non- distended. No evidence of peritonitis. EXTREMITITES: No clubbing, cyanosis, or edema. Objective - Vital Signs Vital signs: Vital Signs Temp 98.1 F 09/23/18 08:00 Pulse 72 09/23/18 08:00 Resp 18 09/23/18 08:00 BP 116/71 09/23/18 08:00 Pulse Ox 98 09/23/18 08:00 Intake & Output 09/22/18 09/23/18 09/23/18 18:59 06:59 18:59 Intake Total 863.17 480 Output Total 700 3700 Balance 163.17 -3220 Weight 121 kg 120.1 kg Intake: IV 600 Dextrose 5% in Water 1, 600 000 ml @ 50 mls/hr IV . Q23H [facility] with Sodium Bicarb (1 Meq/ml) 150 ml Rx#:[id number] Intake, IV Titration 33.17 Amount Heparin Sod,Pork in 0.45% 33.17 NaCl 25,000 unit In 0.45 % NaCl 1 500ml.bag @ 8.2 UNITS/KG/HR 19.84 mls/hr IV .Q24H [facility] Rx#: [id number] Oral 230 480 Output: Urine 700 3700 Other: Voiding Method Indwelling Catheter Indwelling Catheter Indwelling Catheter # Voids 1 - Labs CBC & Chem 7: 09/23/18 06:13 12/08/18 06:13 Labs: Abnormal Lab Results - Last 24 Hours (Table) 09/22/18 09/23/18 09/23/18 Range/Units 13:12 06:13 06:13 WBC 14.6 H (3.8-10.6) k/uL RBC 3.07 L (4.30-5.90) m/uL Hgb 9.0 L (13.0-17.5) gm/dL Hct 28.7 L (39.0-53.0) % RDW 16.0 H (11.5-15.5) % Plt Count 492 H (150-450) k/uL Neutrophils # 12.2 H (1.3-7.7) k/uL PT 24.1 H (9.0-12.0) sec INR 2.5 H (<1.2) APTT 67.9 H (22.0-30.0) sec Sodium (137-145) mmol/L BUN (9-20) mg/dL Creatinine (0.66-1.25) mg/dL Glucose (74-99) mg/dL Calcium (8.4-10.2) mg/dL 09/23/18 Range/Units 06:13 WBC (3.8-10.6) k/uL RBC (4.30-5.90) m/uL Hgb (13.0-17.5) gm/dL Hct (39.0-53.0) % RDW (11.5-15.5) % Plt Count (150-450) k/uL Neutrophils # (1.3-7.7) k/uL PT (9.0-12.0) sec INR (<1.2) APTT (22.0-30.0) sec Sodium 136 L (137-145) mmol/L BUN 74 H (9-20) mg/dL Creatinine 3.99 H (0.66-1.25) mg/dL Glucose 100 H (74-99) mg/dL Calcium 7.9 L (8.4-10.2) mg/dL Microbiology - Last 24 Hours (Table) 09/22/18 06:06 Blood Culture - Preliminary Blood No Growth after 24 hours 09/22/18 05:49 Blood Culture - Preliminary Blood No Growth after 24 hours 09/20/18 20:35 Blood Culture Gram Stain - Final Blood Blood Culture - Final Staph hominis sub sp. hominis Assessment and Plan Plan: Assessment: 1. Acute kidney injury secondary to ATN secondary to hemodynamic instability and infection. Renal function better with creatinine at 3.99 today. 2. 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 Will need to establish his baseline renal function. 3. Chronic bilateral hydronephrosis with Harper catheter in place. Urology following. No surgical interventions planned at this time. 4. Metabolic acidosis secondary to acute kidney injury maintained on IV bicarb. Better. 5. Hypovolemic hyponatremia improved with IV hydration. Stable. 6. A. fib with RVR. Rate controlled. Maintain on anticoagulation and oral amiodarone. 7. Staph hominis, Pseudomonas and enterococcus bacteremia maintain on IV antibiotics. 8. UTI with urine culture positive for Pseudomonas. Plan: Hep-Lock IV fluids. Encourage oral intake. Patient will need to follow-up with urology and nephrology as an outpatient. No urgent need for renal replacement therapy at this time.
[2018-09-23] MEDS: HEPARIN SOD,PORK IN 0.45% NACL 25,000 UNIT in 0.45% NACL 1 500ML.BAG IV SCH ×2 (16:21→21:50)
[2018-09-23] MEDS: WARFARIN 5 MG TAB PO SCH (16:28)
[2018-09-23] MEDS: DAPTOmycin 500 MG in SODIUM CHLORIDE 0.9% 50 ML IVPB SCH (23:35)
[2018-09-24] MEDS: CALCIUM ACETATE 667 MG CAP PO SCH ×2 (06:19→16:50)
[2018-09-24 06:38] LABS: Anisocytosis Slight; Basophils % (A) 0 %; Eosinophils # (A) 0.2 k/uL (0-0.7); Eosinophils % (A) 1 %; HCT 29.1 % (39.0-53.0); HGB 9.2 gm/dL (13.0-17.5); Lymphocytes # (A) 1.4 k/uL (1.0-4.8); Lymphocytes % (A) 10 %; MCH 29.4 pg (25.0-35.0); MCHC 31.6 g/dL (31.0-37.0); MCV 93.1 fL (80.0-100.0); Mean Platelet Volume 7.4; Monocytes # (A) 0.4 k/uL (0-1.0); Monocytes % (A) 3 %; Neutrophils # (A) 11.9 k/uL (1.3-7.7); Neutrophils % (A) 85 %; Platelet Count 519 k/uL (150-450); RBC 3.13 m/uL (4.30-5.90); RDW 16.1 % (11.5-15.5); WBC 14.1 k/uL (3.8-10.6)
[2018-09-24 06:45] LABS: INR 2.8 (<1.2); Partial Thromboplastin Time 94.5 sec (22.0-30.0); Prothrombin Time 26.7 sec (9.0-12.0)
[2018-09-24 07:16] LABS: Calcium 8.7 mg/dL (8.4-10.2); Potassium 4.1 mmol/L (3.5-5.1)
[2018-09-24] MEDS: TAMSULOSIN 0.4 MG CAP.ER.24H PO SCH (07:55)
[2018-09-24] MEDS: ASPIRIN 81 MG PO SCH (07:56)
[2018-09-24] MEDS: SODIUM BICARBONATE TAB 650 MG TAB PO SCH ×2 (07:56→20:47)
[2018-09-24] MEDS: ATENOLOL 25 MG TAB PO SCH ×2 (07:56→20:46)
[2018-09-24] MEDS: buPROPion XL 150 MG TAB.ER.24H PO SCH (07:56)
[2018-09-24] MEDS: AMIODARONE 200 MG TAB PO SCH ×2 (07:56→20:46)
[2018-09-24] MEDS: PANTOPRAZOLE 40 MG TABLET PO SCH (07:56)
[2018-09-24] MEDS: ALBUTEROL NEBULIZED 2.5 MG/3 ML INHALATION SCH ×3 (08:05→20:18)
--- NOTE | 2018-09-24 10:43 | P.PN ---
Subjective Patient is seen in follow-up for acute kidney injury. Renal function is improved with creatinine down to 3.83 today. Patient has chronic bilateral hydronephrosis and currently has a Harper catheter in place. Urology's following. He is also noted to be bacteremic with blood cultures positive for staph hominis, Pseudomonas and enterococcus and urine culture positive for Pseudomonas. He is off IV fluids. Oral intake is good. He is nonoliguric. No vomiting or diarrhea. Vital signs are stable. General: The patient appeared well nourished and normally developed. HEENT: Head exam is unremarkable. Neck is without jugular venous distension. LUNGS: Lungs are clear to auscultation and percussion. Breath sounds decreased. HEART: Rate and Rhythm are regular. First and second heart sounds normal. No murmurs, rubs or gallops. ABDOMEN: Abdominal exam reveals normal bowel sounds. Non-tender and non- distended. No evidence of peritonitis. EXTREMITITES: No clubbing, cyanosis, or edema. Objective - Vital Signs Vital signs: Vital Signs Temp 98.5 F 09/24/18 08:00 Pulse 76 09/24/18 08:19 Resp 18 09/24/18 08:00 BP 121/61 09/24/18 08:00 Pulse Ox 95 09/24/18 08:07 Intake & Output 09/23/18 09/24/18 09/24/18 18:59 06:59 18:59 Intake Total 740 980.963 Output Total 3000 2950 Balance -2260 -1969.037 Weight 118.7 kg Intake: Intake, IV Titration 500 500.963 Amount Heparin Sod,Pork in 0.45% 500 500.963 NaCl 25,000 unit In 0.45 % NaCl 1 500ml.bag @ 8.2 UNITS/KG/HR 19.84 mls/hr IV .Q24H [facility] Rx#: [id number] Oral 240 480 Output: Urine 3000 2950 Other: Voiding Method Indwelling Catheter Indwelling Catheter Indwelling Catheter # Bowel Movements 1 - Labs CBC & Chem 7: 09/24/18 06:16 09/24/18 06:16 Labs: Abnormal Lab Results - Last 24 Hours (Table) 09/23/18 09/23/18 09/24/18 Range/Units 14:07 22:00 06:16 WBC 14.1 H (3.8-10.6) k/uL RBC 3.13 L (4.30-5.90) m/uL Hgb 9.2 L (13.0-17.5) gm/dL Hct 29.1 L (39.0-53.0) % RDW 16.1 H (11.5-15.5) % Plt Count 519 H (150-450) k/uL Neutrophils # 11.9 H (1.3-7.7) k/uL PT (9.0-12.0) sec INR (<1.2) APTT 159.5 H* 82.8 H (22.0-30.0) sec BUN (9-20) mg/dL Creatinine (0.66-1.25) mg/dL Glucose (74-99) mg/dL 09/24/18 09/24/18 Range/Units 06:16 06:16 WBC (3.8-10.6) k/uL RBC (4.30-5.90) m/uL Hgb (13.0-17.5) gm/dL Hct (39.0-53.0) % RDW (11.5-15.5) % Plt Count (150-450) k/uL Neutrophils # (1.3-7.7) k/uL PT 26.7 H (9.0-12.0) sec INR 2.8 H (<1.2) APTT 94.5 H (22.0-30.0) sec BUN 66 H (9-20) mg/dL Creatinine 3.83 H (0.66-1.25) mg/dL Glucose 101 H (74-99) mg/dL Microbiology - Last 24 Hours (Table) 09/22/18 06:06 Blood Culture - Preliminary Blood No Growth after 48 hours 09/22/18 05:49 Blood Culture - Preliminary Blood No Growth after 48 hours Assessment and Plan Plan: Assessment: 1. Acute kidney injury secondary to ATN secondary to hemodynamic instability and infection. Renal function better with creatinine at 3.83 today. 2. 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 Will need to establish his baseline renal function. 3. Chronic bilateral hydronephrosis with Harper catheter in place. Urology following. No surgical interventions planned at this time. 4. Metabolic acidosis secondary to acute kidney injury s/p IV bicarb. Better. 5. Hypovolemic hyponatremia improved with IV hydration. Stable. 6. A. fib with RVR. Rate controlled. Maintain on anticoagulation and oral amiodarone. 7. Staph hominis, Pseudomonas and enterococcus bacteremia maintain on IV antibiotics. 8. UTI with urine culture positive for Pseudomonas. 9. Hyperphosphatemia maintained on PhosLo. Plan: Remains off IV fluids. Encourage oral intake. Decreased oral bicarb to twice daily. Patient will need to follow-up with urology and nephrology as an outpatient. No urgent need for renal replacement therapy at this time.
--- NOTE | 2018-09-24 12:31 | P.PN ---
Subjective this is a pleasant 67 yo M with pmh of hypertension , coronary artery disease presents because he felt generally weak and inability to walk, found to have sever sepsis secondary to UTI and he was admitted to ICU for septic shock . hypotension , new onset a fib. and chronic kidney disease . pt has chronic indwelling catheter secondary to urine retension and BPH. he is more awake today and participated in physical therapy . he has normal temp , BP 115/62 , HR 89, oxygen saturation 94 % on room air. wbc 14.5K . hb 9.8 and creatinine of 4.42. Na 133. pt continued on heparin drip and coumadin. he is also on sodium bicarb drip . 09/21/2018 Patient was transferred to the general medical floor. His Harper was still draining purulent discharge and has been changed by the early childhood specialist bedside nurse. Patient denies chest pain or dyspnea. No abdominal pain or discomfort. Harper catheter is in place. His INR is 1.2. Patient got 7.5 mg of Coumadin last night. And atenolol 25 mg twice a day. He has mild leukocytosis at 16 K. He is on ceftazidime. ID team are following the patient. Nephrology team follow-up is appreciated. Continue with IV sodium bicarb and monitor labs. 09/22/2018 Patient was seen and examined in the select unit. He thinks he is improving with less swelling his arms and legs. He woke in the hallway today with a physical therapist. However he feels generally weak and he might need subacute rehab. Patient remains on antibiotics as per ID team. He has mild leukocytosis at 15.7 K. Patient continue on Coumadin with his INR today is 1.5. 09/23/2018 Patient lying in bed comfortable. With no chest pain or dyspnea. No suprapubic tenderness. Harper catheter in place draining yellow urine with some turbulence. Patient is afebrile and vital signs stable. Patient leukocytosis is improving slowly from 15.7 to 14.6 K. He remains on antibiotics. Urology follow-up is appreciated. There were considering retrograde pyelography if his needed. However continue with same treatment now. INR is 2.5 today, we'll change his Coumadin dose from 7.5 to 5.0 mg daily 09/24/2018 Patient lying in bed comfortable. With no chest pain or dyspnea. No suprapubic tenderness. Harper catheter in place draining yellow urine with some turbulence. Patient is afebrile and vital signs stable. Patient leukocytosis is improving slowly from 15.7 to 14.6 K to 14.1K. He remains on antibiotics. Urology follow-up is appreciated. There were considering retrograde pyelography if his needed. However continue with same treatment now. INR is 2.8 today, continue with Coumadin 5.0 mg daily REVIEW OF SYSTEMS: CONSTITUTIONAL: No fever, no malaise, no fatigue. HEENT: No recent visual problems or hearing problems. Denied any sore throat. CARDIOVASCULAR:no palpitations, no syncope. PULMONARY: no cough, no hemoptysis. GASTROINTESTINAL: No diarrhea, no nausea, no vomiting, no abdominal pain. Normoactive bowel sounds. NEUROLOGICAL: No headaches, no weakness, no numbness. HEMATOLOGICAL: Denies any bleeding or petechiae. GENITOURINARY: Denies any burning micturition, frequency, or urgency. MUSCULOSKELETAL/RHEUMATOLOGICAL: Denies any joint pain, swelling, or any muscle pain. ENDOCRINE: Denies any polyuria or polydipsia. Objective - Vital Signs Vital signs: Vital Signs Temp 98.5 F 09/24/18 08:00 Pulse 72 09/24/18 12:00 Resp 18 09/24/18 12:00 BP 121/61 09/24/18 08:00 Pulse Ox 95 09/24/18 08:07 Intake & Output 09/23/18 09/24/18 09/24/18 18:59 06:59 18:59 Intake Total 740 980.963 Output Total 3000 2950 1500 Balance -2259.037 -1500 Weight 118.7 kg Intake: Intake, IV Titration 500 500.963 Amount Heparin Sod,Pork in 0.45% 500 500.963 NaCl 25,000 unit In 0.45 % NaCl 1 500ml.bag @ 8.2 UNITS/KG/HR 19.84 mls/hr IV .Q24H [facility] Rx#: [id number] Oral 240 480 Output: Urine 3000 2950 1500 Other: Voiding Method Indwelling Catheter Indwelling Catheter Indwelling Catheter # Bowel Movements 1 - Exam GENERAL: The patient is alert and oriented x3, not in any acute distress. Well developed, well nourished. HEENT: Pupils are round and equally reacting to light. EOMI. No scleral icterus. No conjunctival pallor. Normocephalic, atraumatic. No pharyngeal erythema. No thyromegaly. CARDIOVASCULAR: S1 and S2 present. No murmurs, rubs, or gallops. PULMONARY: Chest is clear to auscultation, no wheezing or crackles. ABDOMEN: Soft, nontender, nondistended, normoactive bowel sounds. No palpable organomegaly. MUSCULOSKELETAL: No joint swelling or deformity. EXTREMITIES: No cyanosis, clubbing, or pedal edema. NEUROLOGICAL: Gross neurological examination did not reveal any focal deficits. SKIN: No rashes. - Labs CBC & Chem 7: 09/24/18 06:16 09/24/18 06:16 Labs: Abnormal Lab Results - Last 24 Hours (Table) 09/23/18 09/23/18 09/24/18 Range/Units 14:07 22:00 06:16 WBC 14.1 H (3.8-10.6) k/uL RBC 3.13 L (4.30-5.90) m/uL Hgb 9.2 L (13.0-17.5) gm/dL Hct 29.1 L (39.0-53.0) % RDW 16.1 H (11.5-15.5) % Plt Count 519 H (150-450) k/uL Neutrophils # 11.9 H (1.3-7.7) k/uL PT (9.0-12.0) sec INR (<1.2) APTT 159.5 H* 82.8 H (22.0-30.0) sec BUN (9-20) mg/dL Creatinine (0.66-1.25) mg/dL Glucose (74-99) mg/dL 09/24/18 09/24/18 Range/Units 06:16 06:16 WBC (3.8-10.6) k/uL RBC (4.30-5.90) m/uL Hgb (13.0-17.5) gm/dL Hct (39.0-53.0) % RDW (11.5-15.5) % Plt Count (150-450) k/uL Neutrophils # (1.3-7.7) k/uL PT 26.7 H (9.0-12.0) sec INR 2.8 H (<1.2) APTT 94.5 H (22.0-30.0) sec BUN 66 H (9-20) mg/dL Creatinine 3.83 H (0.66-1.25) mg/dL Glucose 101 H (74-99) mg/dL Microbiology - Last 24 Hours (Table) 09/22/18 06:06 Blood Culture - Preliminary Blood No Growth after 48 hours 09/22/18 05:49 Blood Culture - Preliminary Blood No Growth after 48 hours Assessment and Plan Assessment: s/p septic shock , secondary to UTI pseudomonas UTI chronic kidney disease stage 3 Chronic hydronephrosis on both sides. BPH with indwelling Harper catheter a fib on anticoagulation with hr is controlled. hypertension Plan: this is pleasant 67 yo M who presents with septic shock and UTI. critical care team are following the pt . c/w antibioitic with ceftazidime. c/w anticoagulation . continue with the same treatment , continue with symptomatic treatment , resume home medication , monitor lytes and vitals including glucose , c/w iv fluids, cardiology consult is appreciated. . c/w same antibioitc . GI and DVT prophylaxis , further recommendation based upon pt clinical course and progress DVT prophylaxis heparin and coumadin GI prophylaxis Protonix PT/OT: pending Prognosis is guarded
[2018-09-24] MEDS: WARFARIN 5 MG TAB PO SCH (16:50)
[2018-09-25] MEDS: CALCIUM ACETATE 667 MG CAP PO SCH ×2 (06:26→16:31)
[2018-09-25 08:06] LABS: Basophils % (A) 0 %; Eosinophils # (A) 0.3 k/uL (0-0.7); Eosinophils % (A) 2 %; HCT 28.7 % (39.0-53.0); HGB 9.2 gm/dL (13.0-17.5); Lymphocytes # (A) 1.2 k/uL (1.0-4.8); Lymphocytes % (A) 12 %; MCH 29.5 pg (25.0-35.0); MCHC 32.1 g/dL (31.0-37.0); Mean Platelet Volume 7.4; Monocytes # (A) 0.3 k/uL (0-1.0); Monocytes % (A) 3 %; Neutrophils # (A) 8.3 k/uL (1.3-7.7); Neutrophils % (A) 82 %; Platelet Count 474 k/uL (150-450); RBC 3.12 m/uL (4.30-5.90); RDW 15.7 % (11.5-15.5); WBC 10.2 k/uL (3.8-10.6)
[2018-09-25 08:15] LABS: Calcium 8.2 mg/dL (8.4-10.2); Magnesium 1.5 mg/dL (1.6-2.3); Potassium 4.4 mmol/L (3.5-5.1)
[2018-09-25] MEDS: ALBUTEROL NEBULIZED 2.5 MG/3 ML INHALATION SCH ×3 (08:27→19:18)
[2018-09-25] MEDS: ASPIRIN 81 MG PO SCH (08:30)
[2018-09-25] MEDS: SODIUM BICARBONATE TAB 650 MG TAB PO SCH ×2 (08:30→20:53)
[2018-09-25] MEDS: buPROPion XL 150 MG TAB.ER.24H PO SCH (08:30)
[2018-09-25] MEDS: ATENOLOL 25 MG TAB PO SCH ×2 (08:30→20:53)
[2018-09-25] MEDS: TAMSULOSIN 0.4 MG CAP.ER.24H PO SCH (08:30)
[2018-09-25] MEDS: AMIODARONE 200 MG TAB PO SCH ×2 (08:30→20:53)
[2018-09-25] MEDS: PANTOPRAZOLE 40 MG TABLET PO SCH (08:30)
[2018-09-25 09:02] LABS: INR 2.9 (<1.2); Prothrombin Time 28.1 sec (9.0-12.0)
[2018-09-25] MEDS: MAGNESIUM SULFATE-D5W PMX 1 GM in DEXTROSE/WATER 1 100ML.BAG IVPB SCH ×2 (11:02→12:01)
[2018-09-25 12:14] LABS: Glucose,Whole Blood 103 mg/dL (75-99)
[2018-09-25] MEDS: WARFARIN 2.5 MG TAB PO SCH (13:24)
[2018-09-25] MEDS: WARFARIN 2 MG TAB PO SCH (16:09)
[2018-09-25 16:39] LABS: Glucose,Whole Blood 110 mg/dL (75-99)
[2018-09-25] MEDS: MAGNESIUM OXIDE 400 MG TAB PO SCH (20:53)
--- NOTE | 2018-09-25 21:12 | P.PN ---
Subjective this is a pleasant 67 yo M with pmh of hypertension , coronary artery disease presents because he felt generally weak and inability to walk, found to have sever sepsis secondary to UTI and he was admitted to ICU for septic shock . hypotension , new onset a fib. and chronic kidney disease . pt has chronic indwelling catheter secondary to urine retension and BPH. he is more awake today and participated in physical therapy . he has normal temp , BP 115/62 , HR 89, oxygen saturation 94 % on room air. wbc 14.5K . hb 9.8 and creatinine of 4.42. Na 133. pt continued on heparin drip and coumadin. he is also on sodium bicarb drip . 09/21/2018 Patient was transferred to the general medical floor. His Harper was still draining purulent discharge and has been changed by the early childhood coordinator bedside nurse. Patient denies chest pain or dyspnea. No abdominal pain or discomfort. Harper catheter is in place. His INR is 1.2. Patient got 7.5 mg of Coumadin last night. And atenolol 25 mg twice a day. He has mild leukocytosis at 16 K. He is on ceftazidime. ID team are following the patient. Nephrology team follow-up is appreciated. Continue with IV sodium bicarb and monitor labs. 09/22/2018 Patient was seen and examined in the select unit. He thinks he is improving with less swelling his arms and legs. He woke in the hallway today with a physical therapist. However he feels generally weak and he might need subacute rehab. Patient remains on antibiotics as per ID team. He has mild leukocytosis at 15.7 K. Patient continue on Coumadin with his INR today is 1.5. 09/23/2018 Patient lying in bed comfortable. With no chest pain or dyspnea. No suprapubic tenderness. Harper catheter in place draining yellow urine with some turbulence. Patient is afebrile and vital signs stable. Patient leukocytosis is improving slowly from 15.7 to 14.6 K. He remains on antibiotics. Urology follow-up is appreciated. There were considering retrograde pyelography if his needed. However continue with same treatment now. INR is 2.5 today, we'll change his Coumadin dose from 7.5 to 5.0 mg daily 09/24/2018 Patient lying in bed comfortable. With no chest pain or dyspnea. No suprapubic tenderness. Harper catheter in place draining yellow urine with some turbulence. Patient is afebrile and vital signs stable. Patient leukocytosis is improving slowly from 15.7 to 14.6 K to 14.1K. He remains on antibiotics. Urology follow-up is appreciated. There were considering retrograde pyelography if his needed. However continue with same treatment now. INR is 2.8 today, continue with Coumadin 5.0 mg daily 09/25/2018 pt with no chest pain , no dyspena , no distress, no abd pain , he is planned to get picc line , his INR is on the high therapeutic range. his coumadin is lowered to 4.5 mg daily. REVIEW OF SYSTEMS: CONSTITUTIONAL: No fever, no malaise, no fatigue. HEENT: No recent visual problems or hearing problems. Denied any sore throat. CARDIOVASCULAR:no palpitations, no syncope. PULMONARY: no cough, no hemoptysis. GASTROINTESTINAL: No diarrhea, no nausea, no vomiting, no abdominal pain. Normoactive bowel sounds. NEUROLOGICAL: No headaches, no weakness, no numbness. HEMATOLOGICAL: Denies any bleeding or petechiae. GENITOURINARY: Denies any burning micturition, frequency, or urgency. MUSCULOSKELETAL/RHEUMATOLOGICAL: Denies any joint pain, swelling, or any muscle pain. ENDOCRINE: Denies any polyuria or polydipsia. Objective - Vital Signs Vital signs: Vital Signs Temp 97.6 F 09/25/18 16:00 Pulse 66 09/25/18 19:30 Resp 18 09/25/18 16:00 BP 113/61 09/25/18 16:00 Pulse Ox 95 09/25/18 16:00 Intake & Output 09/25/18 09/25/18 09/26/18 06:59 18:59 06:59 Intake Total 800 480 Output Total 2975 1651 Balance -2175 -1171 Weight 115.7 kg Intake: IV 200 0.9 200 Oral 600 480 Output: Urine 2975 1650 Stool 1 Other: Voiding Method Indwelling Catheter Indwelling Catheter # Voids 1 0 - Exam GENERAL: The patient is alert and oriented x3, not in any acute distress. Well developed, well nourished. HEENT: Pupils are round and equally reacting to light. EOMI. No scleral icterus. No conjunctival pallor. Normocephalic, atraumatic. No pharyngeal erythema. No thyromegaly. CARDIOVASCULAR: S1 and S2 present. No murmurs, rubs, or gallops. PULMONARY: Chest is clear to auscultation, no wheezing or crackles. ABDOMEN: Soft, nontender, nondistended, normoactive bowel sounds. No palpable organomegaly. MUSCULOSKELETAL: No joint swelling or deformity. EXTREMITIES: No cyanosis, clubbing, or pedal edema. NEUROLOGICAL: Gross neurological examination did not reveal any focal deficits. SKIN: No rashes. - Labs CBC & Chem 7: 09/25/18 07:12 09/25/18 07:12 Labs: Abnormal Lab Results - Last 24 Hours (Table) 09/25/18 09/25/18 09/25/18 Range/Units 07:12 07:12 07:12 RBC 3.12 L (4.30-5.90) m/uL Hgb 9.2 L (13.0-17.5) gm/dL Hct 28.7 L (39.0-53.0) % RDW 15.7 H (11.5-15.5) % Plt Count 474 H (150-450) k/uL Neutrophils # 8.3 H (1.3-7.7) k/uL PT 28.1 H (9.0-12.0) sec INR 2.9 H (<1.2) Sodium 136 L (137-145) mmol/L BUN 62 H (9-20) mg/dL Creatinine 3.66 H (0.66-1.25) mg/dL POC Glucose (mg/dL) (75-99) mg/dL Calcium 8.2 L (8.4-10.2) mg/dL Magnesium 1.5 L (1.6-2.3) mg/dL 09/25/18 09/25/18 Range/Units 11:55 16:19 RBC (4.30-5.90) m/uL Hgb (13.0-17.5) gm/dL Hct (39.0-53.0) % RDW (11.5-15.5) % Plt Count (150-450) k/uL Neutrophils # (1.3-7.7) k/uL PT (9.0-12.0) sec INR (<1.2) Sodium (137-145) mmol/L BUN (9-20) mg/dL Creatinine (0.66-1.25) mg/dL POC Glucose (mg/dL) 103 H 110 H (75-99) mg/dL Calcium (8.4-10.2) mg/dL Magnesium (1.6-2.3) mg/dL Microbiology - Last 24 Hours (Table) 09/20/18 20:35 Blood Culture Gram Stain - Final Blood Blood Culture - Final Staph hominis sub sp. hominis 09/22/18 06:06 Blood Culture - Preliminary Blood No Growth after 72 hours 09/22/18 05:49 Blood Culture - Preliminary Blood No Growth after 72 hours Assessment and Plan Assessment: s/p septic shock , secondary to UTI pseudomonas UTI chronic kidney disease stage 3 Chronic hydronephrosis on both sides. BPH with indwelling Harper catheter a fib on anticoagulation with hr is controlled. hypertension Plan: this is pleasant 67 yo M who presents with septic shock and UTI. critical care team are following the pt . c/w antibioitic with ceftazidime. c/w anticoagulation . continue with the same treatment , continue with symptomatic treatment , resume home medication , monitor lytes and vitals including glucose , c/w iv fluids, cardiology consult is appreciated. . c/w same antibioitc . GI and DVT prophylaxis , further recommendation based upon pt clinical course and progress DVT prophylaxis heparin and coumadin GI prophylaxis Protonix PT/OT: pending Prognosis is guarded
--- NOTE | 2018-09-25 22:17 | PN ---
PROGRESS NOTE Patient is seen for followup for acute kidney injury. Renal function has improved with creatinine down from 4.7 to 3.6 mg/dL now. The patient continues to have an indwelling Harper catheter. Overall, he states he is feeling better. PHYSICAL EXAMINATION: This morning, blood pressure was 121/61, heart rate of 65 per minute. Patient is afebrile. Examination of the heart S1, S2. Examination of the lungs bilateral breath sounds are heard. Abdomen is soft, nontender. Examination of lower extremity shows edema 1+ bilaterally. LAB: Show sodium 136, potassium 4.4, BUN 62, serum creatinine 3.6, magnesium 1.5, hemoglobin 9.2 g/dL. ASSESSMENT: 1. Acute kidney injury on top of chronic kidney disease. The acute kidney injury component is related to acute tubular necrosis and bacteremia. The patient also has underlying chronic hydronephrosis with chronic indwelling Harper catheter. 2. Chronic kidney disease secondary to underlying obstructive uropathy. Plan is to follow up as outpatient with Urology. 3. Pseudomonas bacteremia as well as Enterococcus faecalis bacteremia. Maintained on IV antibiotics. 4. Urinary tract infection with Pseudomonas. PLAN: Continue with indwelling Harper catheter. Follow up with Urology as outpatient. Continue with PhosLo. May continue with daptomycin and ceftazidime as per ID. Encourage increased oral intake. MMODL / IJN: [id number] /
--- NOTE | 2018-09-25 23:32 | P.PN ---
Subjective Progress Note Date: 09/25/18 67-year-old male presents to Hospital from his assisted living setting because of several days of progressive weakness. The patient relates that he has been somewhat recently hospitalized at which point in time was having further difficulties with urinary retention. He has a known history of BPH and difficulties with his urination. He follows with urology in the outpatient setting. The patient relates that recently he became ill and was hospitalized an outside facility. There he was found and evidence of urinary tract infection and urinary obstruction. Harper catheter was placed he was treated with a short course of antibiotics and discharged home. He did have follow-up with urology and cultures were performed the outpatient setting the patient relates were negative. The patient did have a change of his Harper catheter. Within several days he started to feel considerably worse. Having increasing difficulties with fevers chills and progressive weakness to the point in time we was unable to ambulate and he was brought to Hospital by EMS. The patient relates that currently he is feeling poorly. He is weak but his fever and chills and improved. His appetite is improved. He is no longer having emesis he was having briefly while at home. 09/17/2018 patient is feeling better today. Vasopressor therapy has reduced. He is eating without nausea or emesis. Not having much pain. Fever and chills have improved. Tolerating antibiotic therapy well. Patient's daughter and son- in-law are present and there informed of the current problems. 09/18/2018 patient does feel slightly better today. He's no longer on vasopressor therapy. However still is being closely monitored with his new onset A. fib and his ongoing sepsis. Follow blood cultures remain positive. 09/21/2018 patient moved out of ICU no longer on vasopressor therapy, feeling better. Still has some confusion, and leukocytosis has increased. 09/22/2018 patient still has some confusion but is feeling somewhat better. Has no complaints of pain or discomfort. Eating well. No nausea or emesis. 09/25/2018 patient is feeling somewhat better today. Confusion is improved. Easily recognized me and is able to state my name. Is aware that he is Vignesh Doe. Objective - Vital Signs Vital signs: Vital Signs Temp 98.1 F 09/25/18 20:15 Pulse 70 09/25/18 20:15 Resp 17 09/25/18 20:15 BP 115/64 09/25/18 20:15 Pulse Ox 97 09/25/18 20:15 Intake & Output 09/25/18 09/25/18 09/26/18 06:59 18:59 06:59 Intake Total 800 480 Output Total 2975 1651 900 Balance -2175 -1171 -900 Weight 115.7 kg Intake: IV 200 0.9 200 Oral 600 480 Output: Urine 2975 1650 900 Stool 1 Other: Voiding Method Indwelling Catheter Indwelling Catheter Indwelling Catheter # Voids 1 0 - Exam HEENT: Anicteric conjunctiva are pink and moist nasal mucosa grossly intact without significant lesions, there is no thrush. Neck: The neck is supple without significant lymphadenopathy or thyromegaly. Lungs: Good bilateral air entry without significant crackles or wheezing. There is no significant bronchial sounds. There is no egophony or dullness. Heart: Regular rate and rhythm with an audible S1-S2, no S3 no S4. There is no significant murmur click or rub, PMI was nondisplaced. Abdomen: Positive bowel sounds soft and nontender without palpable masses or organomegaly. There was no guarding or rebound. Extremities: The upper extremities have excellent pulses they are symmetric, no significant petechiae or telangiectasia. No splinter hemorrhages were noted. The lower extremities are free from significant edema. The peripheral pulses were 2+ and symmetric. Neuro: Awake alert oriented to person place. There are no acute new gross focal sensory motor deficits. A bit more confused this evening Harper catheter in place Skin is without rash or breakdown - Labs CBC & Chem 7: 09/25/18 07:12 09/25/18 07:12 Labs: Abnormal Lab Results - Last 24 Hours (Table) 09/25/18 09/25/18 09/25/18 Range/Units 07:12 07:12 07:12 RBC 3.12 L (4.30-5.90) m/uL Hgb 9.2 L (13.0-17.5) gm/dL Hct 28.7 L (39.0-53.0) % RDW 15.7 H (11.5-15.5) % Plt Count 474 H (150-450) k/uL Neutrophils # 8.3 H (1.3-7.7) k/uL PT 28.1 H (9.0-12.0) sec INR 2.9 H (<1.2) Sodium 136 L (137-145) mmol/L BUN 62 H (9-20) mg/dL Creatinine 3.66 H (0.66-1.25) mg/dL POC Glucose (mg/dL) (75-99) mg/dL Calcium 8.2 L (8.4-10.2) mg/dL Magnesium 1.5 L (1.6-2.3) mg/dL 09/25/18 09/25/18 Range/Units 11:55 16:19 RBC (4.30-5.90) m/uL Hgb (13.0-17.5) gm/dL Hct (39.0-53.0) % RDW (11.5-15.5) % Plt Count (150-450) k/uL Neutrophils # (1.3-7.7) k/uL PT (9.0-12.0) sec INR (<1.2) Sodium (137-145) mmol/L BUN (9-20) mg/dL Creatinine (0.66-1.25) mg/dL POC Glucose (mg/dL) 103 H 110 H (75-99) mg/dL Calcium (8.4-10.2) mg/dL Magnesium (1.6-2.3) mg/dL Microbiology - Last 24 Hours (Table) 09/20/18 20:35 Blood Culture Gram Stain - Final Blood Blood Culture - Final Staph hominis sub sp. hominis 09/22/18 06:06 Blood Culture - Preliminary Blood No Growth after 72 hours 09/22/18 05:49 Blood Culture - Preliminary Blood No Growth after 72 hours Laboratory Results WBC 10.2 k/uL (3.8-10.6) 09/25/18 07:12 RBC 3.12 m/uL (4.30-5.90) L 09/25/18 07:12 Hgb 9.2 gm/dL (13.0-17.5) L 09/25/18 07:12 Hct 28.7 % (39.0-53.0) L 09/25/18 07:12 MCV 92.0 fL (80.0-100.0) 09/25/18 07:12 MCH 29.5 pg (25.0-35.0) 09/25/18 07:12 MCHC 32.1 g/dL (31.0-37.0) 09/25/18 07:12 RDW 15.7 % (11.5-15.5) H 09/25/18 07:12 Plt Count 474 k/uL (150-450) H 09/25/18 07:12 Neutrophils % 82 % 09/25/18 07:12 Neutrophils % (Manual) 78 % 09/16/18 05:07 Band Neutrophils % 15 % 09/16/18 05:07 Lymphocytes % 12 % 09/25/18 07:12 Lymphocytes % (Manual) 3 % 09/16/18 05:07 Monocytes % 3 % 09/25/18 07:12 Monocytes % (Manual) 3 % 09/16/18 05:07 Eosinophils % 2 % 09/25/18 07:12 Basophils % 0 % 09/25/18 07:12 Metamyelocytes % 1 % 09/16/18 05:07 Neutrophils # 8.3 k/uL (1.3-7.7) H 09/25/18 07:12 Neutrophils # (Manual) 18.90 k/uL (1.3-7.7) H 09/16/18 05:07 Lymphocytes # 1.2 k/uL (1.0-4.8) 09/25/18 07:12 Lymphocytes # (Manual) 0.61 k/uL (1.0-4.8) L 09/16/18 05:07 Monocytes # 0.3 k/uL (0-1.0) 09/25/18 07:12 Monocytes # (Manual) 0.61 k/uL (0-1.0) 09/16/18 05:07 Eosinophils # 0.3 k/uL (0-0.7) 09/25/18 07:12 Basophils # 0.0 k/uL (0-0.2) 09/25/18 07:12 Metamyelocytes # (Man) 0.20 k/uL (0) H 09/16/18 05:07 Nucleated RBCs 0 /100 WBC (0-0) 09/16/18 05:07 Toxic Granulation Present 09/16/18 05:07 Toxic Vacuolation Present 09/16/18 05:07 Polychromasia Present 09/15/18 10:04 Hypochromasia Slight 09/22/18 05:49 Poikilocytosis (manual Present 09/16/18 05:07 Anisocytosis Slight 09/24/18 06:16 Anisocytosis (manual) Present 09/15/18 10:04 PT 28.1 sec (9.0-12.0) H 09/25/18 07:12 INR 2.9 (<1.2) H 09/25/18 07:12 APTT 94.5 sec (22.0-30.0) H 09/24/18 06:16 Sodium 136 mmol/L (137-145) L 09/25/18 07:12 Potassium 4.4 mmol/L (3.5-5.1) 09/25/18 07:12 Chloride 100 mmol/L (98-107) 09/25/18 07:12 Carbon Dioxide 28 mmol/L (22-30) 09/25/18 07:12 Anion Gap 8 mmol/L 09/25/18 07:12 BUN 62 mg/dL (9-20) H 09/25/18 07:12 Creatinine 3.66 mg/dL (0.66-1.25) H 09/25/18 07:12 Est GFR (CKD-EPI)AfAm 19 (>60 ml/min/1.73 sqM) 09/25/18 07:12 Est GFR (CKD-EPI)NonAf 16 (>60 ml/min/1.73 sqM) 09/25/18 07:12 Glucose 89 mg/dL (74-99) 09/25/18 07:12 POC Glucose (mg/dL) 110 mg/dL (75-99) H 09/25/18 16:19 POC Glu Banquet Kitchen Supervisor ID Leonora Gonzalez 09/25/18 16:19 Lactic Ac Sepsis Rflx Y 09/15/18 12:20 Plasma Lactic Acid Juwan 1.4 mmol/L (0.7-2.0) 09/15/18 15:55 Calcium 8.2 mg/dL (8.4-10.2) L 09/25/18 07:12 Phosphorus 4.1 mg/dL (2.5-4.5) 09/20/18 04:35 Magnesium 1.5 mg/dL (1.6-2.3) L 09/25/18 07:12 Total Bilirubin 0.3 mg/dL (0.2-1.3) 09/21/18 05:50 AST 46 U/L (17-59) 09/21/18 05:50 ALT 41 U/L (21-72) 09/21/18 05:50 Alkaline Phosphatase 111 U/L (38-126) 09/21/18 05:50 Creatine Kinase 44 U/L (55-170) L 09/21/18 05:50 Total Creatine Kinase 39935 U/L (55-170) H* 09/15/18 10:04 CK-MB (CK-2) 37.4 ng/mL (0.0-2.4) H 09/15/18 10:04 CK-MB (CK-2) Rel Index 09/15/18 10:04 Troponin I 0.067 ng/mL (0.000-0.034) H* 09/15/18 22:10 Total Protein 5.4 g/dL (6.3-8.2) L 09/21/18 05:50 Albumin 2.3 g/dL (3.5-5.0) L 09/21/18 05:50 Cortisol 48 ug/dL 09/16/18 05:07 Urine Color Yellow 09/15/18 10:04 Urine Appearance Turbid (Clear) 09/15/18 10:04 Urine pH 6.0 (5.0-8.0) 09/15/18 10:04 Ur Specific [place] (1.001-1.035) 09/15/18 10:04 Urine Protein 2+ (Negative) H 09/15/18 10:04 Urine Glucose (UA) Negative (Negative) 09/15/18 10:04 Urine Ketones Negative (Negative) 09/15/18 10:04 Urine Blood Moderate (Negative) H 09/15/18 10:04 Urine Nitrite Negative (Negative) 09/15/18 10:04 Urine Bilirubin Negative (Negative) 09/15/18 10:04 Urine Urobilinogen <2.0 mg/dL (<2.0) 09/15/18 10:04 Ur Leukocyte Esterase Large (Negative) H 09/15/18 10:04 Urine RBC 22 /hpf (0-5) H 09/15/18 10:04 Urine WBC Clumps Many /hpf (None) H 09/15/18 10:04 Random Vancomycin 12.4 ug/mL 09/17/18 10:20 Urine Opiates Screen Not Detected (NotDetected) 09/15/18 10:21 Ur Oxycodone Screen Not Detected (NotDetected) 09/15/18 10:21 Urine Methadone Screen Not Detected (NotDetected) 09/15/18 10:21 Ur Propoxyphene Screen Not Detected (NotDetected) 09/15/18 10:21 Ur Barbiturates Screen Not Detected (NotDetected) 09/15/18 10:21 U Tricyclic Antidepress Not Detected (NotDetected) 09/15/18 10:21 Ur Phencyclidine Scrn Not Detected (NotDetected) 09/15/18 10:21 Ur Amphetamines Screen Not Detected (NotDetected) 09/15/18 10:21 U Methamphetamines Scrn Not Detected (NotDetected) 09/15/18 10:21 U Benzodiazepines Scrn Not Detected (NotDetected) 09/15/18 10:21 Urine Cocaine Screen Not Detected (NotDetected) 09/15/18 10:21 U Marijuana (THC) Screen Not Detected (NotDetected) 09/15/18 10:21 Microbiology 09/20/18 20:35 Blood Blood Culture Gram Stain - Final 09/20/18 20:35 Blood Blood Culture - Final Staph hominis sub sp. hominis 09/22/18 06:06 Blood Blood Culture - Preliminary No Growth after 72 hours 09/22/18 05:49 Blood Blood Culture - Preliminary No Growth after 72 hours 09/20/18 20:35 Blood Blood Culture - Final 09/17/18 11:30 Blood Blood Culture Gram Stain - Final 09/17/18 11:30 Blood Blood Culture - Final Pseudomonas aeruginosa 09/15/18 10:21 Blood Blood Culture Gram Stain - Final 09/15/18 10:21 Blood Blood Culture - Final Enterococcus faecalis Pseudomonas aeruginosa 09/17/18 11:31 Blood Blood Culture - Final 09/15/18 10:04 Urine,Voided Urine Culture - Final Pseudomonas aeruginosa 09/15/18 10:04 Blood Blood Culture - Final Assessment and Plan (1) Septic shock Narrative/Plan: Who has a complex past medical history presents to Hospital feeling very poorly with markedly increased weakness and about of nausea and emesis. At presentation the patient was hypotensive he had a temperature of 100.3 leukocytosis and evidence of infection from the urinary tract. He has was admitted to the intensive care unit because of his knees for vasopressor therapy despite fluid resuscitation. Patient is doing somewhat better today. He is no longer having nausea and able to eat his dinner. There is evidence of the gram-negative sepsis with the urinalysis being positive and urine culture with gram-negative bacilli. Blood cultures are being positive for gram-positive cocci which is somewhat puzzling at this point in time and await further data. with his history of recent hospitalization and concern for more resistant gram-negative pathogen ceftazidime is being utilized as well as vanomycin for now until we have further data Leukocytosis to be monitored. There is evidence of acute renal failure and is being monitored closely also by nephrology. Followup blood cultures to be requested. 09/17/2018 patient is doing somewhat better today. Vasopressor therapy has been titrated and nearly stopped. Patient is a definitely feeling better eating and drinking well. We'll continue the Fortaz for the isolated Pseudomonas. Blood cultures also gram-negative bacilli awaiting the final identification. Once finalized vancomycin can be discontinued. Follow-up blood cultures are in process at this time. The patient's atrial fibrillation is now converted with amiodarone. This is a lot of significant improvement in his hemodynamics, heart rate was in the 70s today it was 126 yesterday. This is contributing to his improved blood pressure and diminishing vasopressor needs. It is possible the patient will need to go to rehab to complete his course of intravenous antibiotic therapy. Await renal ultrasound. 09/18/2018 patient feels a little better. There is evidence of urine culture as well as blood cultures now with the pseudomonas aeruginosa. No other pathogens have been isolated. Follow blood culture remains positive. There is evidence of the ultrasound revealing the bilateral hydronephrosis and constantly urological consult has been requested to see if patient needs relief of the obstruction. With his ongoing bacteremia is of great concern. We need to have clearance of his bacteremia before next set of plans can be made. 09/21/2018 patient has had improvement vaso-longer hypotensive vasopressors have been discontinued it is moved out of the intensive care unit to the cardiac care floor for ongoing evaluation. Patient offered still has some possible cultures and there is evidence of gram-positive cocci now being seen in contrast to the gram-negative bacilli of the Pseudomonas that was isolated prior. He has been evaluated by neurology with no plans for surgical intervention For the new isolated pathogens in the markedly elevated creatinine Will utilize daptomycin not vancomycin to avoid any further renal failure. Follow blood cultures will be requested to further characterize the current ongoing infection. Fortunately he seems to be feeling slightly better. But continues to have significant leukocytosis and renal failure superimposed on his baseline renal disease. 09/22/2018 patient has improved he is moved out of intensive care unit with resolution of his hypotension. The multiple cultures were Pseudomonas of the urine and the blood. And then the most recent blood culture had some gram- positive cocci. Does appear that this is going to be a contamination based on a coagulase-negative staph being found so far. Patient relates family may come and visit, and this is again this weekend from [place]. Patient responding well to current intravenous antibiotic therapy which will be continued. Has been seen by urology with no plans for further intervention. Now that the bacteremia appears to be clearing will agree that it is not need urological intervention at this time. We'll need transition to extended care discharge to complete his many week course of intravenous antibiotic therapy. Nephrology following not planning on renal replacement therapy at this time. 09/25/2018 patient has further improvement. His mental status is definitely improved. He is able to eat his meal without any acute difficulties. No nausea or emesis noted. There is now evidence of negative blood cultures and we have requested PICC line to be placed so that his intravenous antibiotic therapy can be continued over the next many weeks. Urology has no plans for a surgical intervention for his chronic hydronephrosis. As far as his acute and chronic renal failure being followed by nephrology with no current plans for renal replacement therapy. With his protracted high-grade bacteremia we'll plan at least 4 weeks of ceftazidime and daptomycin therapy. Current Visit: Yes Status: Acute Code(s): A41.9 - SEPSIS, UNSPECIFIED ORGANISM; R65.21 - SEVERE SEPSIS WITH SEPTIC SHOCK SNOMED Code(s): 27016734 (2) UTI (urinary tract infection) Current Visit: Yes Status: Acute Code(s): N39.0 - URINARY TRACT INFECTION, SITE NOT SPECIFIED SNOMED Code(s): 57478768 (3) Fever Current Visit: Yes Status: Resolved Code(s): R50.9 - FEVER, UNSPECIFIED SNOMED Code(s): 436732593 (4) Leukocytosis Current Visit: Yes Status: Acute Code(s): D72.829 - ELEVATED WHITE BLOOD CELL COUNT, UNSPECIFIED SNOMED Code(s): 314808518
[2018-09-25] MEDS: DAPTOmycin 500 MG in SODIUM CHLORIDE 0.9% 50 ML IVPB SCH (23:47)
[2018-09-26 06:41] LABS: Basophils % (A) 0 %; Eosinophils # (A) 0.3 k/uL (0-0.7); Eosinophils % (A) 3 %; HGB 9.9 gm/dL (13.0-17.5); Hypochromasia Slight; Lymphocytes # (A) 1.3 k/uL (1.0-4.8); Lymphocytes % (A) 13 %; MCH 29.7 pg (25.0-35.0); MCHC 31.9 g/dL (31.0-37.0); MCV 92.9 fL (80.0-100.0); Mean Platelet Volume 7.2; Monocytes # (A) 0.3 k/uL (0-1.0); Monocytes % (A) 3 %; Neutrophils # (A) 7.7 k/uL (1.3-7.7); Neutrophils % (A) 79 %; Platelet Count 497 k/uL (150-450); RBC 3.34 m/uL (4.30-5.90); RDW 15.6 % (11.5-15.5); WBC 9.8 k/uL (3.8-10.6)
[2018-09-26] MEDS: CALCIUM ACETATE 667 MG CAP PO SCH ×2 (06:51→17:16)
[2018-09-26 06:53] LABS: Calcium 8.2 mg/dL (8.4-10.2); Potassium 4.3 mmol/L (3.5-5.1)
[2018-09-26] MEDS: ALBUTEROL NEBULIZED 2.5 MG/3 ML INHALATION SCH ×3 (08:22→20:39)
[2018-09-26] MEDS: ASPIRIN 81 MG PO SCH (08:35)
[2018-09-26] MEDS: AMIODARONE 200 MG TAB PO SCH ×2 (08:35→21:00)
[2018-09-26] MEDS: ATENOLOL 25 MG TAB PO SCH ×2 (08:35→21:00)
[2018-09-26] MEDS: TAMSULOSIN 0.4 MG CAP.ER.24H PO SCH (08:36)
[2018-09-26] MEDS: buPROPion XL 150 MG TAB.ER.24H PO SCH (08:36)
[2018-09-26] MEDS: PANTOPRAZOLE 40 MG TABLET PO SCH (08:36)
[2018-09-26] MEDS: SODIUM BICARBONATE TAB 650 MG TAB PO SCH ×2 (08:36→21:00)
[2018-09-26] MEDS: MAGNESIUM OXIDE 400 MG TAB PO SCH ×2 (08:36→21:00)
--- NOTE | 2018-09-26 11:01 | P.PN ---
Subjective this is a pleasant 67 yo M with pmh of hypertension , coronary artery disease presents because he felt generally weak and inability to walk, found to have sever sepsis secondary to UTI and he was admitted to ICU for septic shock . hypotension , new onset a fib. and chronic kidney disease . pt has chronic indwelling catheter secondary to urine retension and BPH. he is more awake today and participated in physical therapy . he has normal temp , BP 115/62 , HR 89, oxygen saturation 94 % on room air. wbc 14.5K . hb 9.8 and creatinine of 4.42. Na 133. pt continued on heparin drip and coumadin. he is also on sodium bicarb drip . 09/21/2018 Patient was transferred to the general medical floor. His Harper was still draining purulent discharge and has been changed by the tmr teacher bedside nurse. Patient denies chest pain or dyspnea. No abdominal pain or discomfort. Harper catheter is in place. His INR is 1.2. Patient got 7.5 mg of Coumadin last night. And atenolol 25 mg twice a day. He has mild leukocytosis at 16 K. He is on ceftazidime. ID team are following the patient. Nephrology team follow-up is appreciated. Continue with IV sodium bicarb and monitor labs. 09/22/2018 Patient was seen and examined in the select unit. He thinks he is improving with less swelling his arms and legs. He woke in the hallway today with a physical therapist. However he feels generally weak and he might need subacute rehab. Patient remains on antibiotics as per ID team. He has mild leukocytosis at 15.7 K. Patient continue on Coumadin with his INR today is 1.5. 09/23/2018 Patient lying in bed comfortable. With no chest pain or dyspnea. No suprapubic tenderness. Harper catheter in place draining yellow urine with some turbulence. Patient is afebrile and vital signs stable. Patient leukocytosis is improving slowly from 15.7 to 14.6 K. He remains on antibiotics. Urology follow-up is appreciated. There were considering retrograde pyelography if his needed. However continue with same treatment now. INR is 2.5 today, we'll change his Coumadin dose from 7.5 to 5.0 mg daily 09/24/2018 Patient lying in bed comfortable. With no chest pain or dyspnea. No suprapubic tenderness. Harper catheter in place draining yellow urine with some turbulence. Patient is afebrile and vital signs stable. Patient leukocytosis is improving slowly from 15.7 to 14.6 K to 14.1K. He remains on antibiotics. Urology follow-up is appreciated. There were considering retrograde pyelography if his needed. However continue with same treatment now. INR is 2.8 today, continue with Coumadin 5.0 mg daily 09/25/2018 pt with no chest pain , no dyspena , no distress, no abd pain , he is planned to get picc line , his INR is on the high therapeutic range. his coumadin is lowered to 4.5 mg daily. 09/26/2018 Patient clinically the same with no chest pain or dyspnea or abdominal pain. He has good bowel movement. Still the plan is for PICC/midline. INR and magnesium: Pending from today Objective - Vital Signs Vital signs: Vital Signs Temp 97.6 F 09/26/18 07:55 Pulse 64 09/26/18 08:33 Resp 16 09/26/18 08:00 BP 131/69 09/26/18 07:55 Pulse Ox 94 L 09/26/18 08:22 Intake & Output 09/25/18 09/26/18 09/26/18 18:59 06:59 18:59 Intake Total 480 260 10 Output Total 1651 2051 Balance -1171 -1791 10 Weight 112.9 kg Intake: IV 20 10 0.9 20 10 Oral 480 240 Output: Urine 1650 2050 Stool 1 1 Other: Voiding Method Indwelling Catheter Indwelling Catheter Indwelling Catheter # Voids 0 1 - Exam GENERAL: The patient is alert and oriented x3, not in any acute distress. Well developed, well nourished. HEENT: Pupils are round and equally reacting to light. EOMI. No scleral icterus. No conjunctival pallor. Normocephalic, atraumatic. No pharyngeal erythema. No thyromegaly. CARDIOVASCULAR: S1 and S2 present. No murmurs, rubs, or gallops. PULMONARY: Chest is clear to auscultation, no wheezing or crackles. ABDOMEN: Soft, nontender, nondistended, normoactive bowel sounds. No palpable organomegaly. MUSCULOSKELETAL: No joint swelling or deformity. EXTREMITIES: No cyanosis, clubbing, or pedal edema. NEUROLOGICAL: Gross neurological examination did not reveal any focal deficits. SKIN: No rashes. - Labs CBC & Chem 7: 09/26/18 06:12 09/26/18 06:12 Labs: Abnormal Lab Results - Last 24 Hours (Table) 09/25/18 09/25/18 09/26/18 Range/Units 11:55 16:19 06:12 RBC 3.34 L (4.30-5.90) m/uL Hgb 9.9 L (13.0-17.5) gm/dL Hct 31.0 L (39.0-53.0) % RDW 15.6 H (11.5-15.5) % Plt Count 497 H (150-450) k/uL BUN (9-20) mg/dL Creatinine (0.66-1.25) mg/dL POC Glucose (mg/dL) 103 H 110 H (75-99) mg/dL Calcium (8.4-10.2) mg/dL 09/26/18 Range/Units 06:12 RBC (4.30-5.90) m/uL Hgb (13.0-17.5) gm/dL Hct (39.0-53.0) % RDW (11.5-15.5) % Plt Count (150-450) k/uL BUN 53 H (9-20) mg/dL Creatinine 3.76 H (0.66-1.25) mg/dL POC Glucose (mg/dL) (75-99) mg/dL Calcium 8.2 L (8.4-10.2) mg/dL Microbiology - Last 24 Hours (Table) 09/22/18 06:06 Blood Culture - Preliminary Blood No Growth after 96 hours 09/22/18 05:49 Blood Culture - Preliminary Blood No Growth after 96 hours 09/20/18 20:35 Blood Culture Gram Stain - Final Blood Blood Culture - Final Staph hominis sub sp. hominis Assessment and Plan Assessment: s/p septic shock , secondary to UTI pseudomonas UTI chronic kidney disease stage 3 Chronic hydronephrosis on both sides. BPH with indwelling Harper catheter a fib on anticoagulation with hr is controlled. hypertension Plan: this is pleasant 67 yo M who presents with septic shock and UTI. critical care team are following the pt . c/w antibioitic with ceftazidime. c/w anticoagulation . continue with the same treatment , continue with symptomatic treatment , resume home medication , monitor lytes and vitals including glucose , c/w iv fluids, cardiology consult is appreciated. . c/w same antibioitc . GI and DVT prophylaxis , further recommendation based upon pt clinical course and progress DVT prophylaxis heparin and coumadin GI prophylaxis Protonix PT/OT: pending Prognosis is guarded
[2018-09-26 11:11] LABS: INR 2.7 (<1.2); Prothrombin Time 25.7 sec (9.0-12.0)
[2018-09-26] MEDS: WARFARIN 2.5 MG TAB PO SCH (15:04)
[2018-09-26] MEDS: WARFARIN 2 MG TAB PO SCH (15:04)
[2018-09-26] MEDS ORDERED: DARBEPOETIN ALFA 60 MCG/0.3 ML SYRINGE SQ SCH (20:30)
--- NOTE | 2018-09-26 21:04 | PN ---
PROGRESS NOTE Patient is seen for followup for chronic kidney disease and acute kidney injury. Patient has chronic hydronephrosis and currently has an indwelling Harper catheter. Renal function has improved to some degree, with creatinine coming down from around 5 to 3.6 mg/dL. It is at 3.7 today. Patient is not on any IV fluids. He wants to go home. However, he is waiting for a PICC line. On examination this morning, blood pressure was 122/64, heart rate of 68 per minute. Patient is afebrile. EXAMINATION OF THE HEART: S1, S2. EXAMINATION OF LUNGS: Bilateral breath sounds are heard. ABDOMEN: Soft, non-tender. Examination of lower extremities shows trace edema bilaterally. HOT BLAST WORKER exam is grossly intact. Labs show sodium 139, potassium 4.3, BUN 53, serum creatinine 3.76. INR was 2.7, hemoglobin 9.9 g/dL. ASSESSMENT: 1. Acute kidney injury, acute tubular necrosis, on top of chronic kidney disease, which is mainly secondary to hydronephrosis, currently with indwelling Harper catheter. Renal function has improved since admission. Serum creatinine has been staying at about 3.6 to 3.7 mg/dL now. Patient will likely need to start renal replacement therapy down the road if renal function does not improve further. 2. Sepsis with pseudomonas bacteremia and Enterococcus faecalis bacteremia, currently improved and status post antibiotics. 3. Urinary tract infection with urine culture growing pseudomonas bacteremia. 4. Anemia of chronic disease, maintained on Aranesp. 5. Chronic kidney disease mineral bone disorder, currently on PhosLo. 6. Metabolic acidosis, maintained on oral sodium bicarb. PLAN: Maintain patient on Aranesp. Continue antibiotics. Continue indwelling Harper catheter. Monitor renal function as outpatient. Patient will need close followup as outpatient. MMODL / IJN: [id number] /
--- NOTE | 2018-09-26 22:02 | P.PN ---
Subjective Progress Note Date: 09/26/18 67-year-old male presents to Hospital from his assisted living setting because of several days of progressive weakness. The patient relates that he has been somewhat recently hospitalized at which point in time was having further difficulties with urinary retention. He has a known history of BPH and difficulties with his urination. He follows with urology in the outpatient setting. The patient relates that recently he became ill and was hospitalized an outside facility. There he was found and evidence of urinary tract infection and urinary obstruction. Harper catheter was placed he was treated with a short course of antibiotics and discharged home. He did have follow-up with urology and cultures were performed the outpatient setting the patient relates were negative. The patient did have a change of his Harper catheter. Within several days he started to feel considerably worse. Having increasing difficulties with fevers chills and progressive weakness to the point in time we was unable to ambulate and he was brought to Hospital by EMS. The patient relates that currently he is feeling poorly. He is weak but his fever and chills and improved. His appetite is improved. He is no longer having emesis he was having briefly while at home. 09/17/2018 patient is feeling better today. Vasopressor therapy has reduced. He is eating without nausea or emesis. Not having much pain. Fever and chills have improved. Tolerating antibiotic therapy well. Patient's daughter and son- in-law are present and there informed of the current problems. 09/18/2018 patient does feel slightly better today. He's no longer on vasopressor therapy. However still is being closely monitored with his new onset A. fib and his ongoing sepsis. Follow blood cultures remain positive. 09/21/2018 patient moved out of ICU no longer on vasopressor therapy, feeling better. Still has some confusion, and leukocytosis has increased. 09/22/2018 patient still has some confusion but is feeling somewhat better. Has no complaints of pain or discomfort. Eating well. No nausea or emesis. 09/25/2018 patient is feeling somewhat better today. Confusion is improved. Easily recognized me and is able to state my name. Is aware that he is Vignesh Doe. 09/26/2018 patient does feel better again today. Is unable to eat throughout the day without troubles. Continues to have improved mentation able to state my name and location in the year. Likes of the quiet room and does not like the TV on. Denies much discomfort. Objective - Vital Signs Vital signs: Vital Signs Temp 97.6 F 09/26/18 07:55 Pulse 66 09/26/18 20:49 Resp 16 09/26/18 15:21 BP 126/68 09/26/18 15:20 Pulse Ox 97 09/26/18 15:20 Intake & Output 09/26/18 09/26/18 09/27/18 06:59 18:59 06:59 Intake Total 260 50 Output Total 2050 2500 Balance -1791 -2450 Weight 112.9 kg Intake: IV 20 50 0.9 20 50 Oral 240 Output: Urine 2049 2500 Stool 1 Other: Voiding Method Indwelling Catheter Indwelling Catheter # Voids 1 - Exam HEENT: Anicteric conjunctiva are pink and moist nasal mucosa grossly intact without significant lesions, there is no thrush. Neck: The neck is supple without significant lymphadenopathy or thyromegaly. Lungs: Good bilateral air entry without significant crackles or wheezing. There is no significant bronchial sounds. There is no egophony or dullness. Heart: Regular rate and rhythm with an audible S1-S2, no S3 no S4. There is no significant murmur click or rub, PMI was nondisplaced. Abdomen: Positive bowel sounds soft and nontender without palpable masses or organomegaly. There was no guarding or rebound. Extremities: The upper extremities have excellent pulses they are symmetric, no significant petechiae or telangiectasia. No splinter hemorrhages were noted. The lower extremities are free from significant edema. The peripheral pulses were 2+ and symmetric. Neuro: Awake alert oriented to person place. There are no acute new gross focal sensory motor deficits. A bit more confused this evening Harper catheter in place Skin is without rash or breakdown - Labs CBC & Chem 7: 09/26/18 06:12 09/26/18 06:12 Labs: Abnormal Lab Results - Last 24 Hours (Table) 09/26/18 09/26/18 09/26/18 Range/Units 06:12 06:12 10:27 RBC 3.34 L (4.30-5.90) m/uL Hgb 9.9 L (13.0-17.5) gm/dL Hct 31.0 L (39.0-53.0) % RDW 15.6 H (11.5-15.5) % Plt Count 497 H (150-450) k/uL PT 25.7 H (9.0-12.0) sec INR 2.7 H (<1.2) BUN 53 H (9-20) mg/dL Creatinine 3.76 H (0.66-1.25) mg/dL Calcium 8.2 L (8.4-10.2) mg/dL Microbiology - Last 24 Hours (Table) 09/22/18 06:06 Blood Culture - Preliminary Blood No Growth after 96 hours 09/22/18 05:49 Blood Culture - Preliminary Blood No Growth after 96 hours Laboratory Results WBC 9.8 k/uL (3.8-10.6) 09/26/18 06:12 RBC 3.34 m/uL (4.30-5.90) L 09/26/18 06:12 Hgb 9.9 gm/dL (13.0-17.5) L 09/26/18 06:12 Hct 31.0 % (39.0-53.0) L 09/26/18 06:12 MCV 92.9 fL (80.0-100.0) 09/26/18 06:12 MCH 29.7 pg (25.0-35.0) 09/26/18 06:12 MCHC 31.9 g/dL (31.0-37.0) 09/26/18 06:12 RDW 15.6 % (11.5-15.5) H 09/26/18 06:12 Plt Count 497 k/uL (150-450) H 09/26/18 06:12 Neutrophils % 79 % 09/26/18 06:12 Neutrophils % (Manual) 78 % 09/16/18 05:07 Band Neutrophils % 15 % 09/16/18 05:07 Lymphocytes % 13 % 09/26/18 06:12 Lymphocytes % (Manual) 3 % 09/16/18 05:07 Monocytes % 3 % 09/26/18 06:12 Monocytes % (Manual) 3 % 09/16/18 05:07 Eosinophils % 3 % 09/26/18 06:12 Basophils % 0 % 09/26/18 06:12 Metamyelocytes % 1 % 09/16/18 05:07 Neutrophils # 7.7 k/uL (1.3-7.7) 09/26/18 06:12 Neutrophils # (Manual) 18.90 k/uL (1.3-7.7) H 09/16/18 05:07 Lymphocytes # 1.3 k/uL (1.0-4.8) 09/26/18 06:12 Lymphocytes # (Manual) 0.61 k/uL (1.0-4.8) L 09/16/18 05:07 Monocytes # 0.3 k/uL (0-1.0) 09/26/18 06:12 Monocytes # (Manual) 0.61 k/uL (0-1.0) 09/16/18 05:07 Eosinophils # 0.3 k/uL (0-0.7) 09/26/18 06:12 Basophils # 0.0 k/uL (0-0.2) 09/26/18 06:12 Metamyelocytes # (Man) 0.20 k/uL (0) H 09/16/18 05:07 Nucleated RBCs 0 /100 WBC (0-0) 09/16/18 05:07 Toxic Granulation Present 09/16/18 05:07 Toxic Vacuolation Present 09/16/18 05:07 Polychromasia Present 09/15/18 10:04 Hypochromasia Slight 09/26/18 06:12 Poikilocytosis (manual Present 09/16/18 05:07 Anisocytosis Slight 09/24/18 06:16 Anisocytosis (manual) Present 09/15/18 10:04 PT 25.7 sec (9.0-12.0) H 09/26/18 10:27 INR 2.7 (<1.2) H 09/26/18 10:27 APTT 94.5 sec (22.0-30.0) H 09/24/18 06:16 Sodium 139 mmol/L (137-145) 09/26/18 06:12 Potassium 4.3 mmol/L (3.5-5.1) 09/26/18 06:12 Chloride 105 mmol/L (98-107) 09/26/18 06:12 Carbon Dioxide 28 mmol/L (22-30) 09/26/18 06:12 Anion Gap 6 mmol/L 09/26/18 06:12 BUN 53 mg/dL (9-20) H 09/26/18 06:12 Creatinine 3.76 mg/dL (0.66-1.25) H 09/26/18 06:12 Est GFR (CKD-EPI)AfAm 18 (>60 ml/min/1.73 sqM) 09/26/18 06:12 Est GFR (CKD-EPI)NonAf 16 (>60 ml/min/1.73 sqM) 09/26/18 06:12 Glucose 98 mg/dL (74-99) 09/26/18 06:12 POC Glucose (mg/dL) 110 mg/dL (75-99) H 09/25/18 16:19 POC Glu Dry Transfer Man ID Leonora Gonzalez 09/25/18 16:19 Lactic Ac Sepsis Rflx Y 09/15/18 12:20 Plasma Lactic Acid Juwan 1.4 mmol/L (0.7-2.0) 09/15/18 15:55 Calcium 8.2 mg/dL (8.4-10.2) L 09/26/18 06:12 Phosphorus 4.1 mg/dL (2.5-4.5) 09/20/18 04:35 Magnesium 1.8 mg/dL (1.6-2.3) 09/26/18 06:12 Total Bilirubin 0.3 mg/dL (0.2-1.3) 09/21/18 05:50 AST 46 U/L (17-59) 09/21/18 05:50 ALT 41 U/L (21-72) 09/21/18 05:50 Alkaline Phosphatase 111 U/L (38-126) 09/21/18 05:50 Creatine Kinase 44 U/L (55-170) L 09/21/18 05:50 Total Creatine Kinase 69384 U/L (55-170) H* 09/15/18 10:04 CK-MB (CK-2) 37.4 ng/mL (0.0-2.4) H 09/15/18 10:04 CK-MB (CK-2) Rel Index 09/15/18 10:04 Troponin I 0.067 ng/mL (0.000-0.034) H* 09/15/18 22:10 Total Protein 5.4 g/dL (6.3-8.2) L 09/21/18 05:50 Albumin 2.3 g/dL (3.5-5.0) L 09/21/18 05:50 Cortisol 48 ug/dL 09/16/18 05:07 Urine Color Yellow 09/15/18 10:04 Urine Appearance Turbid (Clear) 09/15/18 10:04 Urine pH 6.0 (5.0-8.0) 09/15/18 10:04 Ur Specific Gypsy (1.001-1.035) 09/15/18 10:04 Urine Protein 2+ (Negative) H 09/15/18 10:04 Urine Glucose (UA) Negative (Negative) 09/15/18 10:04 Urine Ketones Negative (Negative) 09/15/18 10:04 Urine Blood Moderate (Negative) H 09/15/18 10:04 Urine Nitrite Negative (Negative) 09/15/18 10:04 Urine Bilirubin Negative (Negative) 09/15/18 10:04 Urine Urobilinogen <2.0 mg/dL (<2.0) 09/15/18 10:04 Ur Leukocyte Esterase Large (Negative) H 09/15/18 10:04 Urine RBC 22 /hpf (0-5) H 09/15/18 10:04 Urine WBC Clumps Many /hpf (None) H 09/15/18 10:04 Random Vancomycin 12.4 ug/mL 09/17/18 10:20 Urine Opiates Screen Not Detected (NotDetected) 09/15/18 10:21 Ur Oxycodone Screen Not Detected (NotDetected) 09/15/18 10:21 Urine Methadone Screen Not Detected (NotDetected) 09/15/18 10:21 Ur Propoxyphene Screen Not Detected (NotDetected) 09/15/18 10:21 Ur Barbiturates Screen Not Detected (NotDetected) 09/15/18 10:21 U Tricyclic Antidepress Not Detected (NotDetected) 09/15/18 10:21 Ur Phencyclidine Scrn Not Detected (NotDetected) 09/15/18 10:21 Ur Amphetamines Screen Not Detected (NotDetected) 09/15/18 10:21 U Methamphetamines Scrn Not Detected (NotDetected) 09/15/18 10:21 U Benzodiazepines Scrn Not Detected (NotDetected) 09/15/18 10:21 Urine Cocaine Screen Not Detected (NotDetected) 09/15/18 10:21 U Marijuana (THC) Screen Not Detected (NotDetected) 09/15/18 10:21 Microbiology 09/22/18 06:06 Blood Blood Culture - Preliminary No Growth after 96 hours 09/22/18 05:49 Blood Blood Culture - Preliminary No Growth after 96 hours 09/20/18 20:35 Blood Blood Culture Gram Stain - Final 09/20/18 20:35 Blood Blood Culture - Final Staph hominis sub sp. hominis 09/20/18 20:35 Blood Blood Culture - Final 09/17/18 11:30 Blood Blood Culture Gram Stain - Final 09/17/18 11:30 Blood Blood Culture - Final Pseudomonas aeruginosa 09/15/18 10:21 Blood Blood Culture Gram Stain - Final 09/15/18 10:21 Blood Blood Culture - Final Enterococcus faecalis Pseudomonas aeruginosa 09/17/18 11:31 Blood Blood Culture - Final 09/15/18 10:04 Urine,Voided Urine Culture - Final Pseudomonas aeruginosa 09/15/18 10:04 Blood Blood Culture - Final Assessment and Plan (1) Septic shock Narrative/Plan: Who has a complex past medical history presents to Hospital feeling very poorly with markedly increased weakness and about of nausea and emesis. At presentation the patient was hypotensive he had a temperature of 100.3 leukocytosis and evidence of infection from the urinary tract. He has was admitted to the intensive care unit because of his knees for vasopressor therapy despite fluid resuscitation. Patient is doing somewhat better today. He is no longer having nausea and able to eat his dinner. There is evidence of the gram-negative sepsis with the urinalysis being positive and urine culture with gram-negative bacilli. Blood cultures are being positive for gram-positive cocci which is somewhat puzzling at this point in time and await further data. with his history of recent hospitalization and concern for more resistant gram-negative pathogen ceftazidime is being utilized as well as vanomycin for now until we have further data Leukocytosis to be monitored. There is evidence of acute renal failure and is being monitored closely also by nephrology. Followup blood cultures to be requested. 09/17/2018 patient is doing somewhat better today. Vasopressor therapy has been titrated and nearly stopped. Patient is a definitely feeling better eating and drinking well. We'll continue the Fortaz for the isolated Pseudomonas. Blood cultures also gram-negative bacilli awaiting the final identification. Once finalized vancomycin can be discontinued. Follow-up blood cultures are in process at this time. The patient's atrial fibrillation is now converted with amiodarone. This is a lot of significant improvement in his hemodynamics, heart rate was in the 70s today it was 126 yesterday. This is contributing to his improved blood pressure and diminishing vasopressor needs. It is possible the patient will need to go to rehab to complete his course of intravenous antibiotic therapy. Await renal ultrasound. 09/18/2018 patient feels a little better. There is evidence of urine culture as well as blood cultures now with the pseudomonas aeruginosa. No other pathogens have been isolated. Follow blood culture remains positive. There is evidence of the ultrasound revealing the bilateral hydronephrosis and constantly urological consult has been requested to see if patient needs relief of the obstruction. With his ongoing bacteremia is of great concern. We need to have clearance of his bacteremia before next set of plans can be made. 09/21/2018 patient has had improvement vaso-longer hypotensive vasopressors have been discontinued it is moved out of the intensive care unit to the cardiac care floor for ongoing evaluation. Patient offered still has some possible cultures and there is evidence of gram-positive cocci now being seen in contrast to the gram-negative bacilli of the Pseudomonas that was isolated prior. He has been evaluated by neurology with no plans for surgical intervention For the new isolated pathogens in the markedly elevated creatinine Will utilize daptomycin not vancomycin to avoid any further renal failure. Follow blood cultures will be requested to further characterize the current ongoing infection. Fortunately he seems to be feeling slightly better. But continues to have significant leukocytosis and renal failure superimposed on his baseline renal disease. 09/22/2018 patient has improved he is moved out of intensive care unit with resolution of his hypotension. The multiple cultures were Pseudomonas of the urine and the blood. And then the most recent blood culture had some gram- positive cocci. Does appear that this is going to be a contamination based on a coagulase-negative staph being found so far. Patient relates family may come and visit, and this is again this weekend from [place]. Patient responding well to current intravenous antibiotic therapy which will be continued. Has been seen by urology with no plans for further intervention. Now that the bacteremia appears to be clearing will agree that it is not need urological intervention at this time. We'll need transition to extended care discharge to complete his many week course of intravenous antibiotic therapy. Nephrology following not planning on renal replacement therapy at this time. 09/25/2018 patient has further improvement. His mental status is definitely improved. He is able to eat his meal without any acute difficulties. No nausea or emesis noted. There is now evidence of negative blood cultures and we have requested PICC line to be placed so that his intravenous antibiotic therapy can be continued over the next many weeks. Urology has no plans for a surgical intervention for his chronic hydronephrosis. As far as his acute and chronic renal failure being followed by nephrology with no current plans for renal replacement therapy. With his protracted high-grade bacteremia we'll plan at least 4 weeks of ceftazidime and daptomycin therapy. 09/26/2018 patient is comfortable today. Mentation remains improved. Eating well without other acute complaints. The weight is PICC line to be placed to complete his 4 week course of antibiotic therapy with daptomycin and ceftazidime for his high-grade bacteremia within the basis of his chronic urinary tract infection. Has been seen by urology with no urological surgical plans. Once IV access placed will go to [facility] in [place]. Current Visit: Yes Status: Acute Code(s): A41.9 - SEPSIS, UNSPECIFIED ORGANISM; R65.21 - SEVERE SEPSIS WITH SEPTIC SHOCK SNOMED Code(s): 58308905 (2) UTI (urinary tract infection) Current Visit: Yes Status: Acute Code(s): N39.0 - URINARY TRACT INFECTION, SITE NOT SPECIFIED SNOMED Code(s): 88461806 (3) Fever Current Visit: Yes Status: Resolved Code(s): R50.9 - FEVER, UNSPECIFIED SNOMED Code(s): 005925273 (4) Leukocytosis Current Visit: Yes Status: Acute Code(s): D72.829 - ELEVATED WHITE BLOOD CELL COUNT, UNSPECIFIED SNOMED Code(s): 173683900
[2018-09-26] MEDS ORDERED: PHYTONADIONE ORAL 5 MG/5 ML ORAL.SYRG PO STA (23:02)
[2018-09-27 06:36] LABS: Basophils # (A) 0.1 k/uL (0-0.2); Basophils % (A) 1 %; Eosinophils # (A) 0.3 k/uL (0-0.7); Eosinophils % (A) 3 %; HGB 9.8 gm/dL (13.0-17.5); Lymphocytes # (A) 1.3 k/uL (1.0-4.8); Lymphocytes % (A) 16 %; MCH 30.1 pg (25.0-35.0); MCHC 32.8 g/dL (31.0-37.0); MCV 91.8 fL (80.0-100.0); Monocytes # (A) 0.3 k/uL (0-1.0); Monocytes % (A) 4 %; Neutrophils # (A) 6.3 k/uL (1.3-7.7); Neutrophils % (A) 75 %; Platelet Count 481 k/uL (150-450); RBC 3.26 m/uL (4.30-5.90); RDW 15.5 % (11.5-15.5); WBC 8.3 k/uL (3.8-10.6)
[2018-09-27 06:41] LABS: INR 2.2 (<1.2); Prothrombin Time 21.2 sec (9.0-12.0)
[2018-09-27] MEDS: CALCIUM ACETATE 667 MG CAP PO SCH ×2 (06:46→17:47)
[2018-09-27 07:25] LABS: Calcium 8.3 mg/dL (8.4-10.2); Potassium 4.4 mmol/L (3.5-5.1)
[2018-09-27] MEDS: TAMSULOSIN 0.4 MG CAP.ER.24H PO SCH (08:24)
[2018-09-27] MEDS: MAGNESIUM OXIDE 400 MG TAB PO SCH ×2 (08:27→21:24)
[2018-09-27] MEDS: ATENOLOL 25 MG TAB PO SCH ×2 (08:27→21:24)
[2018-09-27] MEDS: AMIODARONE 200 MG TAB PO SCH ×2 (08:27→21:24)
[2018-09-27] MEDS: ASPIRIN 81 MG PO SCH (08:27)
[2018-09-27] MEDS: PANTOPRAZOLE 40 MG TABLET PO SCH (08:28)
[2018-09-27] MEDS: SODIUM BICARBONATE TAB 650 MG TAB PO SCH ×2 (08:28→21:24)
[2018-09-27] MEDS: ALBUTEROL NEBULIZED 2.5 MG/3 ML INHALATION SCH ×3 (08:42→20:08)
[2018-09-27] MEDS ORDERED: PHYTONADIONE ORAL 5 MG/5 ML ORAL.SYRG PO STA (09:09)
[2018-09-27] MEDS: buPROPion XL 150 MG TAB.ER.24H PO SCH (10:35)
--- NOTE | 2018-09-27 10:35 | P.PN ---
Subjective this is a pleasant 67 yo M with pmh of hypertension , coronary artery disease presents because he felt generally weak and inability to walk, found to have sever sepsis secondary to UTI and he was admitted to ICU for septic shock . hypotension , new onset a fib. and chronic kidney disease . pt has chronic indwelling catheter secondary to urine retension and BPH. he is more awake today and participated in physical therapy . he has normal temp , BP 115/62 , HR 89, oxygen saturation 94 % on room air. wbc 14.5K . hb 9.8 and creatinine of 4.42. Na 133. pt continued on heparin drip and coumadin. he is also on sodium bicarb drip . 09/21/2018 Patient was transferred to the general medical floor. His Harper was still draining purulent discharge and has been changed by the furniture builder bedside nurse. Patient denies chest pain or dyspnea. No abdominal pain or discomfort. Harper catheter is in place. His INR is 1.2. Patient got 7.5 mg of Coumadin last night. And atenolol 25 mg twice a day. He has mild leukocytosis at 16 K. He is on ceftazidime. ID team are following the patient. Nephrology team follow-up is appreciated. Continue with IV sodium bicarb and monitor labs. 09/22/2018 Patient was seen and examined in the select unit. He thinks he is improving with less swelling his arms and legs. He woke in the hallway today with a physical therapist. However he feels generally weak and he might need subacute rehab. Patient remains on antibiotics as per ID team. He has mild leukocytosis at 15.7 K. Patient continue on Coumadin with his INR today is 1.5. 09/23/2018 Patient lying in bed comfortable. With no chest pain or dyspnea. No suprapubic tenderness. Harper catheter in place draining yellow urine with some turbulence. Patient is afebrile and vital signs stable. Patient leukocytosis is improving slowly from 15.7 to 14.6 K. He remains on antibiotics. Urology follow-up is appreciated. There were considering retrograde pyelography if his needed. However continue with same treatment now. INR is 2.5 today, we'll change his Coumadin dose from 7.5 to 5.0 mg daily 09/24/2018 Patient lying in bed comfortable. With no chest pain or dyspnea. No suprapubic tenderness. Harper catheter in place draining yellow urine with some turbulence. Patient is afebrile and vital signs stable. Patient leukocytosis is improving slowly from 15.7 to 14.6 K to 14.1K. He remains on antibiotics. Urology follow-up is appreciated. There were considering retrograde pyelography if his needed. However continue with same treatment now. INR is 2.8 today, continue with Coumadin 5.0 mg daily 09/25/2018 pt with no chest pain , no dyspena , no distress, no abd pain , he is planned to get picc line , his INR is on the high therapeutic range. his coumadin is lowered to 4.5 mg daily. 09/26/2018 Patient clinically the same with no chest pain or dyspnea or abdominal pain. He has good bowel movement. Still the plan is for PICC/midline. INR and magnesium: Pending from today 09/27/2018 Patients with no new symptoms no chest pain. No dyspnea. His INR today is 2.2 , down from 2.7. We'll give him another dose of vitamin K 2.5 mg and check his INR so possibly he can get the PICC line today. Objective - Vital Signs Vital signs: Vital Signs Temp 98.1 F 09/27/18 08:00 Pulse 68 09/27/18 08:59 Resp 16 09/27/18 08:00 BP 121/66 09/27/18 08:00 Pulse Ox 96 09/27/18 08:00 Intake & Output 09/26/18 09/27/18 09/27/18 18:59 06:59 18:59 Intake Total 50 550 240 Output Total 2500 1875 Balance -2450 -1325 240 Weight 112.9 kg Intake: IV 50 70 0.9 50 70 Oral 480 240 Output: Urine 2500 1875 Other: Voiding Method Indwelling Catheter Indwelling Catheter Indwelling Catheter - Exam GENERAL: The patient is alert and oriented x3, not in any acute distress. Well developed, well nourished. HEENT: Pupils are round and equally reacting to light. EOMI. No scleral icterus. No conjunctival pallor. Normocephalic, atraumatic. No pharyngeal erythema. No thyromegaly. CARDIOVASCULAR: S1 and S2 present. No murmurs, rubs, or gallops. PULMONARY: Chest is clear to auscultation, no wheezing or crackles. ABDOMEN: Soft, nontender, nondistended, normoactive bowel sounds. No palpable organomegaly. MUSCULOSKELETAL: No joint swelling or deformity. EXTREMITIES: No cyanosis, clubbing, or pedal edema. NEUROLOGICAL: Gross neurological examination did not reveal any focal deficits. SKIN: No rashes. - Labs CBC & Chem 7: 09/27/18 06:11 09/27/18 06:11 Labs: Abnormal Lab Results - Last 24 Hours (Table) 09/26/18 09/27/18 09/27/18 Range/Units 10:27 06:11 06:11 RBC 3.26 L (4.30-5.90) m/uL Hgb 9.8 L (13.0-17.5) gm/dL Hct 30.0 L (39.0-53.0) % Plt Count 481 H (150-450) k/uL PT 25.7 H (9.0-12.0) sec INR 2.7 H (<1.2) BUN 51 H (9-20) mg/dL Creatinine 3.54 H (0.66-1.25) mg/dL Calcium 8.3 L (8.4-10.2) mg/dL 09/27/18 Range/Units 06:11 RBC (4.30-5.90) m/uL Hgb (13.0-17.5) gm/dL Hct (39.0-53.0) % Plt Count (150-450) k/uL PT 21.2 H (9.0-12.0) sec INR 2.2 H (<1.2) BUN (9-20) mg/dL Creatinine (0.66-1.25) mg/dL Calcium (8.4-10.2) mg/dL Microbiology - Last 24 Hours (Table) 09/22/18 06:06 Blood Culture - Preliminary Blood No Growth after 120 hours 09/22/18 05:49 Blood Culture - Preliminary Blood No Growth after 120 hours Assessment and Plan Assessment: s/p septic shock , secondary to UTI pseudomonas UTI chronic kidney disease stage 3 Chronic hydronephrosis on both sides. BPH with indwelling Harper catheter a fib on anticoagulation with hr is controlled. hypertension Plan: this is pleasant 67 yo M who presents with septic shock and UTI. critical care team are following the pt . c/w antibioitic with ceftazidime. c/w anticoagulation . continue with the same treatment , continue with symptomatic treatment , resume home medication , monitor lytes and vitals including glucose , c/w iv fluids, cardiology consult is appreciated. . c/w same antibioitc . GI and DVT prophylaxis , further recommendation based upon pt clinical course and progress DVT prophylaxis heparin and coumadin GI prophylaxis Protonix PT/OT: pending Prognosis is guarded
[2018-09-27] MEDS: WARFARIN 2.5 MG TAB PO SCH (16:13)
[2018-09-27] MEDS: WARFARIN 2 MG TAB PO SCH (16:13)
[2018-09-27 18:45] LABS: INR 1.6 (<1.2); Prothrombin Time 15.9 sec (9.0-12.0)
--- NOTE | 2018-09-27 21:56 | PN ---
PROGRESS NOTE Patient is seen for followup for chronic kidney disease and acute kidney injury. Renal function has been slowly improving. Patient has chronic indwelling Harper catheter. He has obstructive uropathy. PHYSICAL EXAMINATION: Blood pressure was 121/66 this morning. Heart rate of 66 per minute. Patient is afebrile. Examination of the heart S1, S2. Examination lungs bilateral breath sounds are heard. ABDOMEN: Soft. Nontender. Examination lower extremity shows trace edema bilaterally. GYPSUM CALCINER exam grossly intact. LAB: Show sodium 138, potassium 4.4, BUN 51, serum creatinine 3.54, hemoglobin 9.8 g/dL. ASSESSMENT: 1. Acute kidney injury. Currently slowly improving, mainly acute tubular necrosis associated with sepsis. 2. Chronic kidney disease secondary to obstructive uropathy with bilateral hydronephrosis and chronic indwelling Harper catheter. 3. Sepsis with Pseudomonas bacteremia and Enterococcus faecalis bacteremia, currently improved. 4. Urinary tract infection with urine culture growing Pseudomonas. 5. Anemia of chronic disease maintained on Aranesp. PLAN: Continue indwelling Harper catheter. Follow up as outpatient with Urology. MMODL / IJN: [id number] /
[2018-09-28] MEDS: DAPTOmycin 500 MG in SODIUM CHLORIDE 0.9% 50 ML IVPB SCH (00:38)
[2018-09-28 00:41] VITALS: RESP 16
[2018-09-28 07:24] LABS: INR 1.2 (<1.2); Prothrombin Time 12.8 sec (9.0-12.0)
[2018-09-28 07:25] LABS: Basophils # (A) 0.1 k/uL (0-0.2); Basophils % (A) 1 %; Eosinophils # (A) 0.3 k/uL (0-0.7); Eosinophils % (A) 3 %; HCT 30.9 % (39.0-53.0); HGB 9.7 gm/dL (13.0-17.5); Hypochromasia Slight; Lymphocytes # (A) 1.5 k/uL (1.0-4.8); Lymphocytes % (A) 18 %; MCH 28.9 pg (25.0-35.0); MCHC 31.3 g/dL (31.0-37.0); MCV 92.5 fL (80.0-100.0); Monocytes # (A) 0.3 k/uL (0-1.0); Monocytes % (A) 4 %; Neutrophils % (A) 73 %; Platelet Count 463 k/uL (150-450); RBC 3.34 m/uL (4.30-5.90); RDW 15.5 % (11.5-15.5); WBC 8.3 k/uL (3.8-10.6)
[2018-09-28] MEDS: TAMSULOSIN 0.4 MG CAP.ER.24H PO SCH (08:05)
[2018-09-28] MEDS: SODIUM BICARBONATE TAB 650 MG TAB PO SCH (08:05)
[2018-09-28] MEDS: MAGNESIUM OXIDE 400 MG TAB PO SCH (08:05)
[2018-09-28] MEDS: CALCIUM ACETATE 667 MG CAP PO SCH ×2 (08:06→16:29)
[2018-09-28] MEDS: buPROPion XL 150 MG TAB.ER.24H PO SCH (08:06)
[2018-09-28] MEDS: PANTOPRAZOLE 40 MG TABLET PO SCH (08:06)
[2018-09-28] MEDS: ATENOLOL 25 MG TAB PO SCH (08:06)
[2018-09-28] MEDS: ASPIRIN 81 MG PO SCH (08:06)
[2018-09-28] MEDS: AMIODARONE 200 MG TAB PO SCH (08:06)
[2018-09-28] MEDS: ALBUTEROL NEBULIZED 2.5 MG/3 ML INHALATION SCH ×2 (08:35→13:38)
[2018-09-28] MEDS ORDERED: LIDOCAINE 1% INJ 10MG/ML (20 ML MDV) ONE (12:43)
[2018-09-28] MEDS ORDERED: LIDOCAINE 1% INJ 10MG/ML (20 ML MDV) SQ ONE (12:56)
[2018-09-28 13:56] VITALS: BMI 35.6
--- NOTE | 2018-09-28 14:52 | P.DS ---
Providers Date of admission: 09/15/18 11:45 Attending physician: Lilian Parson Consults: 09/15/18 11:47 Consult Physician Urgent Consulting Provider: Cheryl Salmeron Consult Reason/Comments: ZI Do you want consulting provider notified?: Yes 09/15/18 15:02 Consult Physician Urgent Consulting Provider: Choco Leon Consult Reason/Comments: septic shock Do you want consulting provider notified?: Yes 09/15/18 15:03 Consult Physician Stat Consulting Provider: Kam Daniels Consult Reason/Comments: septic shock Do you want consulting provider notified?: Yes 09/16/18 10:46 Consult Physician Routine Consulting Provider: Beto Dillard Consult Reason/Comments: A-Fib Do you want consulting provider notified?: Yes 09/18/18 16:01 Consult Physician Urgent Consulting Provider: Blaise Hobson Consult Reason/Comments: hydronephrosis Do you want consulting provider notified?: Already Contacted Primary care physician: [facility] Hospital Course: s/p septic shock , secondary to UTI pseudomonas UTI The Kidney injury chronic kidney disease stage 3 Chronic hydronephrosis on both sides. BPH with indwelling Harper catheter a fib on anticoagulation with hr is controlled. hypertension Hospital course: this is a pleasant 67 yo M with pmh of hypertension , coronary artery disease presents because he felt generally weak and inability to walk, found to have sever sepsis secondary to UTI and he was admitted to ICU for septic shock . pt has chronic indwelling catheter secondary to urine retension and BPH. Also patient has new onset a fib. and chronic kidney disease . pt has chronic indwelling catheter secondary to urine retension and BPH. Urine culture were positive for pseudomonas and blood culture were positive for pseudomonas and enterococcus. Patient is treated with antibiotic ceftazidime. And he showed interval improvement in his mental status and general health. Upon discharge his WBC was trending downwards slightly from 16.14.6 to 14.1 and today back to normal at 8.3 K. Patient remains on Coumadin 5 mg daily and is INR is 2.8 and 2.9. . pt can be discharged on Coumadin 4.5 mf daily. However vitamin K was given for lower INR for he gets PICC line on 09/28/2018. After that 1 dose of Coumadin 7.5 mg is given and then to resume his Coumadin and check his [facility]R at the [facility]. Creatinine is improving slightly from 3.9 to 3.8 and 3.5. Patient has indwelling Harper catheter, as per urologist this is the main treatment for his bladder obstruction. Dr. Kirby the urologist plans for further evaluation with bladder biopsy later on. Urology was recommended to see the patient as outpatient follow-up. He went need biopsy of the bladder. I offered to make an appointment for the patient with urologist. However he declined he stated that he will make it by himself as he is going [facility]. Also I offered to talk to his family however patient declined. Patient eventually returned to his baseline. He has no chest pain or dyspnea upon discharge. No abdominal pain or nausea vomiting. No change in bowel habits. All catheter placed with clear urine. And patient feels better Patient was cleared for discharge by urology, nephrology, infectious disease. As well as cardiology and pulmonary team. Problems and management plan were discussed with the patient in details and he verbalized understanding and acceptance Patient was found stable and can be discharged home however he needs follow-up as an outpatient. Appointments and dates are discussed with patient and he agrees with this. discharge exam Gen: patient is a AAOx3, no distress CVS: S1-S2, RRR, no murmur Lungs: B/L CTA, no wheezing Abdomen: soft, no distention, no tenderness, positive bowel sounds. Harper catheter is in place Extremity: no leg edema or induration Time spent more than 35 minutes Patient Condition at Discharge: Fair Plan - Discharge Summary Discharge Rx Participant: No New Discharge Prescriptions: New cefTAZidime [Fortaz] 1 gm IVPB Q24H #22 vial DAPTOmycin [Cubicin] 500 mg IVPB Q48H #11 vial No Action Tamsulosin [Flomax] 0.4 mg PO DAILY buPROPion XL [Wellbutrin Xl] 150 mg PO DAILY Atenolol [Tenormin] 25 mg PO DAILY Aspirin EC [Ecotrin Low Dose] 81 mg PO DAILY Discharge Medication List Aspirin EC [Ecotrin Low Dose] 81 mg PO DAILY 09/15/18 [History] Atenolol [Tenormin] 25 mg PO DAILY 09/15/18 [History] Tamsulosin [Flomax] 0.4 mg PO DAILY 09/15/18 [History] buPROPion XL [Wellbutrin Xl] 150 mg PO DAILY 09/15/18 [History] DAPTOmycin [Cubicin] 500 mg IVPB Q48H #11 vial 09/28/18 [Rx] cefTAZidime [Fortaz] 1 gm IVPB Q24H #22 vial 09/28/18 [Rx] Follow up Appointment(s)/Referral(s): Cheryl Salmeron MD [STAFF PHYSICIAN] - 1 Week Guevara Kirby MD [STAFF PHYSICIAN] - 1 Week Choco Leon MD [STAFF PHYSICIAN] - 1 Week Kinza Elizabeth MD [Primary Care Provider] - 1 Week Ambulatory/Diagnostic Orders: Basic Metabolic Panel [LAB.AMB] Location: None Selected Comprehensive Metabolic Panel [LAB.AMB] Location: None Selected Patient Instructions/Handouts: Cardioversion (DC), Cardioversion (GEN) Activity/Diet/Wound Care/Special Instructions: ECF on D/C IV ABX at DC Discharge Disposition: TRANSFER TO SNF/ECF
[2018-09-28 15:41] VITALS: BP 125/77; PULSE 54; TEMP 98.5
--- NOTE | 2018-09-28 16:01 | IR ---
EXAMINATION TYPE: IR cvc insert >=5 years DATE OF EXAM: 09/28/2018 COMPARISON: NONE CLINICAL HISTORY: Urinary tract infection Needs long-term intravenous access for antibiotics. PROCEDURE: After informed consent, the skin overlying the right basilic vein was localized with ultrasound and n oted to be compressible and patent. An ultrasound image was obtained and submitted on the patient's chart. The overlying skin was prepped and draped and Lidocaine was used for local anesthesia. A ski n marian was made with a scalpel. Access was gained to the vein under ultrasound guidance with a 21 ga uge needle and a 0.018 inch wire was advanced. Access site was dilated with Peel-Away sheath and cat heter tailored to the appropriate length and advanced such that the distal tip is at the cavoatrial j unction. Spot image was obtained verifying placement. Catheter was fixed to the skin and a sterile dressing was placed following hemostasis. Catheter was aspirated and flushed with saline. Patient w as discharged in stable condition without complication.Maximal barrier technique is utilized. Ultras ound image is documented on the chart. Ultrasound used with sterile technique. Fluoro time and fluoroscopic images submitted to document procedure: 21 intraoperative C-arm images, 0.1 minutes fluoroscopy time IMPRESSION: STATUS POST ULTRASOUND AND FLUOROSCOPIC GUIDED PICC LINE PLACEMENT, READY FOR USE. THIS PROCEDURE WAS PERFORMED BY THE UNDERSIGNED.
[2018-09-28] MEDS ORDERED: WARFARIN 7.5 MG TAB PO SCH (18:00)
--- NOTE | 2018-09-29 | PN ---
PROGRESS NOTE Patient is seen for followup for chronic kidney disease and acute kidney injury. He has chronic obstructive uropathy with chronic indwelling Harper catheter. Renal function has improved slightly since admission, with creatinine down to about 3.5 from 5.0 initially. Patient will be discharged today. On examination this afternoon, blood pressure was 125/77, heart rate 54 per minute. Patient is afebrile. EXAMINATION OF THE HEART: S1, S2. EXAMINATION OF LUNGS: Bilateral breath sounds are heard. ABDOMEN: Soft, non-tender. Examination of lower extremities shows chronic skin changes; 1+ edema noted. We do not have labs from today. Serum creatinine was 3.54 yesterday. ASSESSMENT: 1. Chronic kidney disease secondary to obstructive uropathy with bilateral hydronephrosis and chronic indwelling Harper catheter. This seems to be improving. 2. Acute kidney injury, mainly acute tubular necrosis, slowly improving. 3. Sepsis with pseudomonas bacteremia and Enterococcus faecalis bacteremia, now improved. 4. Urinary tract infection with urine culture growing pseudomonas, maintained on antibiotics. 5. Anemia of chronic disease, currently on Aranesp. PLAN: Follow up with Urology as outpatient and follow up with Nephrology as well. MMODL / IJN: [id number] /
== END 2018-09-28 17:45 | DRG 698 ==
LOC: EC 09:55 → 3SCARD 11:45 → 2SICU 11:45 → UNDOADMIN 11:45 → 3SCARD 09-21 06:34 → 4SSUR 09-27 10:51
PROVIDERS: ADMIT Hospitalist; ATTEND Hospitalist
PROC: 02HV33Z Insertion of Infusion Device into Superior Vena Cava, Percutaneous Approach (ICD-10-PCS; principal; 2018-09-28 08:55)
DX: T83.511A Infection and inflammatory reaction due to indwelling urethral catheter, initial encounter (principal); R65.21 Severe sepsis with septic shock; N17.0 Acute kidney failure with tubular necrosis; A41.52 Sepsis due to Pseudomonas; A41.81 Sepsis due to Enterococcus; N13.6 Pyonephrosis; J98.11 Atelectasis; E87.1 Hypo-osmolality and hyponatremia; E87.2 Acidosis; M62.82 Rhabdomyolysis; I48.3 Typical atrial flutter; I48.1 Persistent atrial fibrillation; N13.8 Other obstructive and reflux uropathy; E83.51 Hypocalcemia; E83.42 Hypomagnesemia; E83.39 Other disorders of phosphorus metabolism; E87.8 Other disorders of electrolyte and fluid balance, not elsewhere classified; E83.9 Disorder of mineral metabolism, unspecified; N18.3 Chronic kidney disease, stage 3 (moderate); I13.10 Hypertensive heart and chronic kidney disease without heart failure, with stage 1 through stage 4 chronic kidney disease, or unspecified chronic kidney disease; D63.1 Anemia in chronic kidney disease; N40.1 Benign prostatic hyperplasia with lower urinary tract symptoms; R33.8 Other retention of urine; I25.2 Old myocardial infarction; I45.10 Unspecified right bundle-branch block; E86.0 Dehydration; I25.10 Atherosclerotic heart disease of native coronary artery without angina pectoris; F32.9 Major depressive disorder, single episode, unspecified; K43.9 Ventral hernia without obstruction or gangrene; R27.0 Ataxia, unspecified; R77.8 Other specified abnormalities of plasma proteins; E66.9 Obesity, unspecified; Z68.35 Body mass index [BMI] 35.0-35.9, adult; Z79.82 Long term (current) use of aspirin; Z79.899 Other long term (current) drug therapy; Z87.440 Personal history of urinary (tract) infections; Z95.5 Presence of coronary angioplasty implant and graft; Z91.011 Allergy to milk products; Y84.6 Urinary catheterization as the cause of abnormal reaction of the patient, or of later complication, without mention of misadventure at the time of the procedure; Z80.0 Family history of malignant neoplasm of digestive organs; Z82.49 Family history of ischemic heart disease and other diseases of the circulatory system
CPT/HCPCS: 36415; 36569; 70450; 71045; 71046; 76770; 76857; 76937; 77001; 80048; 80053; 80202; 80306; 81001; 82533; 82550; 82553; 83605; 83735; 84100; 84484; 85025; 85610; 85730; 87040; 87077; 87086; 87150; 87186; 93005; 93306; 94640; 94760; 96361; 96365; 96366; 96375; 99285

== ENCOUNTER 2019-04-02 09:12 | Emergency (ER) | payer MEDICARE, OTHER ==
[2019-04-02 09:31] VITALS: RESP 18
[2019-04-02] MEDS ORDERED: SODIUM CHLORIDE 0.9% 1,000 ML IV STA ×2 (09:57)
--- NOTE | 2019-04-02 10:00 | ED ---
Recheck HPI - General Chief Complaint: Recheck/Abnormal Lab/Rx Stated Complaint: UTI Time Seen by Provider: 04/02/19 09:36 Source: patient, RN notes reviewed, old records reviewed Mode of arrival: ambulatory Limitations: no limitations - History of Present Illness Initial Comments: Patient is a 60-year-old male with history of chronic urinary tract infections, presents emergency department today with left-sided abdominal pain. He reports he was diagnosed with urinary tract infection on Tuesday of last week. He is taking the antibiotics since that time has persisted to have some left-sided down pain. He also reports he was diagnosed with shingles over the left side of his abdomen and ribs. He states that he has been treated with Valtrex and then later also like a beer. He states that he started with Valtrex in approximately 5 days after starting Valtrex is when he noticed he started have the left-sided abdominal pain. Patient states that he is nonspecific any pain medication due to history of kidney problems and liver problems and throat swelling when he takes Tylenol. - Related Data Home Medications Medication Instructions Recorded Confirmed buPROPion XL [Wellbutrin XL] 150 mg PO DAILY 09/15/18 04/02/19 Nitrofurantoin Monohyd/M-Cryst 100 mg PO Q12HR 04/02/19 04/02/19 [Macrobid] Warfarin Sodium 1 mg PO SUTUTH 04/02/19 04/02/19 Warfarin Sodium 5 mg PO MOWEFRSA 04/02/19 04/02/19 Warfarin [Coumadin] 2.5 mg PO SUTUTH 04/02/19 04/02/19 Previous Rx's Medication Instructions Recorded Atenolol [Tenormin] 25 mg PO BID tab 09/28/18 Ciprofloxacin HCl [Cipro] 500 mg PO BID 7 Days #14 tab 04/02/19 Allergies Allergy/AdvReac Type Severity Reaction Status Date / Time buspirone Allergy Unknown Verified 04/02/19 10:27 diazepam [From Valium] Allergy Unknown Verified 04/02/19 10:27 Iodinated Contrast- Oral and Allergy Unknown Verified 04/02/19 10:27 IV Dye milk Allergy Unknown Verified 04/02/19 10:27 phenazopyridine Allergy Unknown Verified 04/02/19 10:27 [From Pyridium] sertraline Allergy Unknown Verified 04/02/19 10:27 amlodipine [From Norvasc] AdvReac Swelling Verified 04/02/19 10:27 ciprofloxacin [From Cipro] AdvReac Swelling Verified 04/02/19 10:27 valacyclovir [From Valtrex] AdvReac Swelling Verified 04/02/19 10:27 Review of Systems ROS Statement: Those systems with pertinent positive or pertinent negative responses have been documented in the HPI. ROS Other: All systems not noted in ROS Statement are negative. Past Medical History Past Medical History: Coronary Artery Disease (CAD), Hypertension, Myocardial Infarction ([place]), Prostate Disorder Additional Past Medical History / Comment(s): bladder issues chronic dumont -pt s tated it was changed on 09-13-18 Last Myocardial Infarction Date:: 2005 History of Any Multi-Drug Resistant Organisms: None Reported Past Surgical History: Heart Catheterization With Stent, Tonsillectomy Additional Past Surgical History / Comment(s): cystoscope Past Anesthesia/Blood Transfusion Reactions: Motion Sickness Date of Last Stent Placement:: 2005 Past Psychological History: Depression Smoking Status: Never smoker Past Alcohol Use History: None Reported Past Drug Use History: None Reported - Past Family History Mother Family Medical History: Cancer Additional Family Medical History / Comment(s): colon cancer Father Family Medical History: Myocardial Infarction ([place]) General Exam - General Exam Comments Initial Comments: This is a 60-year-old male. Alert and oriented 3. No distress. Limitations: no limitations General appearance: alert, in no apparent distress Head exam: Present: atraumatic, normocephalic, normal inspection Eye exam: Present: normal appearance, PERRL, EOMI. Absent: scleral icterus, conjunctival injection, periorbital swelling ENT exam: Present: normal exam, mucous membranes moist Neck exam: Present: normal inspection. Absent: tenderness, meningismus, lymphadenopathy Respiratory exam: Present: normal lung sounds bilaterally. Absent: respiratory distress, wheezes, rales, rhonchi, stridor Cardiovascular Exam: Present: regular rate, normal rhythm, normal heart sounds. Absent: systolic murmur, diastolic murmur, rubs, gallop, clicks GI/Abdominal exam: Present: soft, normal bowel sounds, other (Healing lesions from recent herpetic zoster infection over the left flank and abdomen area. Tender to touch over the lesions.). Absent: distended, tenderness, guarding, rebound, rigid exam: Present: other (Patient has indwelling Dumont catheter.). Absent: normal inspection Extremities exam: Present: normal inspection, full ROM, normal capillary refill. Absent: tenderness, pedal edema, joint swelling, calf tenderness Back exam: Present: normal inspection Course Vital Signs 04/02/19 04/02/19 04/02/19 09:26 13:29 14:58 Temperature 98.0 F 97.9 F 97.7 F Pulse Rate 75 61 60 Respiratory 18 18 18 Rate Blood Pressure 157/82 163/86 161/91 O2 Sat by Pulse 97 99 97 Oximetry Medical Decision Making - Medical Decision Making 60-year-old male indwelling catheter presents for x-rays today for concerns for left-sided abdominal pain after being on antibiotics for UTI recently as well as pain started after he was having shingles outbreak. Patient has evidence of healed shingles lesions over the left flank area patient's labwork was reviewed. Urinalysis does show signs of infection. I discussed that Macrobid is likely not treating this completely. Patient states PCP was called, they did not do a urine culture when they tested his initial urine. I discussed watching the Patient to antibiotic for better coverage. Will discharge Patient with a prescription for Cipro Cipro. Patient has left-sided pain seems to be similar to postherpetic neuralgia. His bladder was reviewed and unremarkable. Patient obtained blood cultures. Patient was given a new Dumont catheter, and leg bag. Patient has advised that he needs to change his bed bag at home with alarming to him now as it is likely came continuing to contaminate. He also states that he seems to mess with his catheter by pushing in out of his penis seems to slip out. Patient has been advised to follow-up with his urologist. 7 appointment on Tuesday. Patient agrees to treatment plan will comply. After Patient was discharge Patient went to pharmacy to fill a prescription for Cipro. He later stated that seems to cause an ALLERGY for Patient. Patient's antibiotic was switched to Keflex. - Lab Data Result diagrams: 04/02/19 11:03 04/02/19 11:03 Lab Results 04/02/19 04/02/19 04/02/19 Range/Units 11:03 11:03 11:03 WBC 8.2 (3.8-10.6) k/uL RBC 4.98 (4.30-5.90) m/uL Hgb 15.0 (13.0-17.5) gm/dL Hct 46.4 (39.0-53.0) % MCV 93.2 (80.0-100.0) fL MCH 30.2 (25.0-35.0) pg MCHC 32.4 (31.0-37.0) g/dL RDW 15.5 (11.5-15.5) % Plt Count 256 (150-450) k/uL Neutrophils % 71 % Lymphocytes % 18 % Monocytes % 6 % Eosinophils % 3 % Basophils % 1 % Neutrophils # 5.8 (1.3-7.7) k/uL Lymphocytes # 1.4 (1.0-4.8) k/uL Monocytes # 0.5 (0-1.0) k/uL Eosinophils # 0.3 (0-0.7) k/uL Basophils # 0.1 (0-0.2) k/uL PT 18.6 H (9.0-12.0) sec INR 1.9 H (<1.2) APTT 34.1 H (22.0-30.0) sec Sodium 139 (137-145) mmol/L Potassium 4.4 (3.5-5.1) mmol/L Chloride 104 (98-107) mmol/L Carbon Dioxide 26 (22-30) mmol/L Anion Gap 9 mmol/L BUN 30 H (9-20) mg/dL Creatinine 2.64 H (0.66-1.25) mg/dL Est GFR (CKD-EPI)AfAm 28 (>60 ml/min/1.73 sqM) Est GFR (CKD-EPI)NonAf 24 (>60 ml/min/1.73 sqM) Glucose 99 (74-99) mg/dL Plasma Lactic Acid Juwan (0.7-2.0) mmol/L Calcium 9.1 (8.4-10.2) mg/dL Total Bilirubin 0.5 (0.2-1.3) mg/dL AST 23 (17-59) U/L ALT 19 L (21-72) U/L Alkaline Phosphatase 58 (38-126) U/L Total Protein 7.0 (6.3-8.2) g/dL Albumin 4.1 (3.5-5.0) g/dL Amylase 70 (30-110) U/L Lipase 90 (23-300) U/L Urine Color Urine Appearance (Clear) Urine pH (5.0-8.0) Ur Specific Dawson (1.001-1.035) Urine Protein (Negative) Urine Glucose (UA) (Negative) Urine Ketones (Negative) Urine Blood (Negative) Urine Nitrite (Negative) Urine Bilirubin (Negative) Urine Urobilinogen (<2.0) mg/dL Ur Leukocyte Esterase (Negative) Urine RBC (0-5) /hpf Urine WBC (0-5) /hpf Urine WBC Clumps (None) /hpf Urine Bacteria (None) /hpf 04/02/19 04/02/19 Range/Units 11:03 12:14 WBC (3.8-10.6) k/uL RBC (4.30-5.90) m/uL Hgb (13.0-17.5) gm/dL Hct (39.0-53.0) % MCV (80.0-100.0) fL MCH (25.0-35.0) pg MCHC (31.0-37.0) g/dL RDW (11.5-15.5) % Plt Count (150-450) k/uL Neutrophils % % Lymphocytes % % Monocytes % % Eosinophils % % Basophils % % Neutrophils # (1.3-7.7) k/uL Lymphocytes # (1.0-4.8) k/uL Monocytes # (0-1.0) k/uL Eosinophils # (0-0.7) k/uL Basophils # (0-0.2) k/uL PT (9.0-12.0) sec INR (<1.2) APTT (22.0-30.0) sec Sodium (137-145) mmol/L Potassium (3.5-5.1) mmol/L Chloride (98-107) mmol/L Carbon Dioxide (22-30) mmol/L Anion Gap mmol/L BUN (9-20) mg/dL Creatinine (0.66-1.25) mg/dL Est GFR (CKD-EPI)AfAm (>60 ml/min/1.73 sqM) Est GFR (CKD-EPI)NonAf (>60 ml/min/1.73 sqM) Glucose (74-99) mg/dL Plasma Lactic Acid Juwan 1.7 (0.7-2.0) mmol/L Calcium (8.4-10.2) mg/dL Total Bilirubin (0.2-1.3) mg/dL AST (17-59) U/L ALT (21-72) U/L Alkaline Phosphatase (38-126) U/L Total Protein (6.3-8.2) g/dL Albumin (3.5-5.0) g/dL Amylase (30-110) U/L Lipase (23-300) U/L Urine Color Light Yellow Urine Appearance Clear (Clear) Urine pH 6.5 (5.0-8.0) Ur Specific Dawson 1.005 (1.001-1.035) Urine Protein Trace H (Negative) Urine Glucose (UA) Negative (Negative) Urine Ketones Negative (Negative) Urine Blood Small H (Negative) Urine Nitrite Negative (Negative) Urine Bilirubin Negative (Negative) Urine Urobilinogen <2.0 (<2.0) mg/dL Ur Leukocyte Esterase Large H (Negative) Urine RBC <1 (0-5) /hpf Urine WBC 24 H (0-5) /hpf Urine WBC Clumps Moderate H (None) /hpf Urine Bacteria Rare H (None) /hpf - Radiology Data Radiology results: report reviewed Disposition Clinical Impression: UTI (urinary tract infection), Post herpetic neuralgia Disposition: HOME SELF-CARE Condition: Good Instructions (If sedation given, give patient instructions): Urinary Tract Infection in Men (ED) Additional Instructions: Follow-up with your primary care doctor and urology on Tuesday. Remove your previous bed bag for catheter. Use her new leg bag and bed catheter bag that we gave eat today. Take the new antibiotic. Return to the emergency department if any alarming signs or symptoms occur. Prescriptions: Ciprofloxacin HCl [Cipro] 500 mg PO BID 7 Days #14 tab Is patient prescribed a controlled substance at d/c from ED?: No Referrals: Baljinder Oconnell MD [Primary Care Provider] - 1-2 days Guevara Kirby MD [STAFF PHYSICIAN] - 1-2 days Time of Disposition: 13:58
[2019-04-02 11:21] LABS: Basophils # (A) 0.1 k/uL (0-0.2); Basophils % (A) 1 %; Eosinophils # (A) 0.3 k/uL (0-0.7); Eosinophils % (A) 3 %; HCT 46.4 % (39.0-53.0); Lymphocytes # (A) 1.4 k/uL (1.0-4.8); Lymphocytes % (A) 18 %; MCH 30.2 pg (25.0-35.0); MCHC 32.4 g/dL (31.0-37.0); MCV 93.2 fL (80.0-100.0); Mean Platelet Volume 6.8; Monocytes # (A) 0.5 k/uL (0-1.0); Monocytes % (A) 6 %; Neutrophils # (A) 5.8 k/uL (1.3-7.7); Neutrophils % (A) 71 %; Platelet Count 256 k/uL (150-450); RBC 4.98 m/uL (4.30-5.90); RDW 15.5 % (11.5-15.5); WBC 8.2 k/uL (3.8-10.6)
[2019-04-02 11:30] LABS: INR 1.9 (<1.2); Partial Thromboplastin Time 34.1 sec (22.0-30.0); Prothrombin Time 18.6 sec (9.0-12.0)
[2019-04-02 11:31] LABS: Albumin 4.1 g/dL (3.5-5.0); Calcium 9.1 mg/dL (8.4-10.2); Potassium 4.4 mmol/L (3.5-5.1); Total Bilirubin 0.5 mg/dL (0.2-1.3)
--- NOTE | 2019-04-02 11:34 | XR ---
EXAMINATION TYPE: XR KUB DATE OF EXAM: 04/02/2019 11:30 AM CLINICAL HISTORY: Abdominal pain TECHNIQUE: Two Upright KUB images of the abdomen are obtained. COMPARISON: CT abdomen and pelvis February 04, 2014. FINDINGS: Scattered gas is seen in non-distended stomach and small bowel loops. Gas and fecal materia l is seen in non-distended colon. Bilateral pelvic phleboliths are noted. Lung bases are clear. Visua lized osseous structures are intact. IMPRESSION: Overall nonobstructive bowel gas pattern. No significant change from prior.
[2019-04-02 12:47] LABS: Appearance,Urine Clear (Clear); Bacteria,Urine Rare /hpf; Bilirubin,Urine Negative (Negative); Blood,Urine Small (Negative); Color,Urine Light Yellow; Glucose,Urine (UA) Negative (Negative); Ketones,Urine Negative (Negative); Leukocyte Esterase,Urine Large (Negative); Nitrite,Urine Negative (Negative); PH, Urine 6.5 (5.0-8.0); Protein,Urine Trace (Negative); RBC,Urine <1 /hpf (0-5); Specific Gravity,Urine 1.005 (1.001-1.035); Urobilinogen,Urine <2.0 mg/dL (<2.0); WBC,Urine 24 /hpf (0-5)
[2019-04-02] MEDS ORDERED: cefTRIAXone IN SWFI 1,000 MG/10 ML SYRINGE IVP STA (12:54)
[2019-04-02] MEDS ORDERED: ACET/COD 300 MG/30 MG STARTER PACK 6 TAB BTL PO STA (14:00)
[2019-04-02 14:59] VITALS: BP 161/91; PULSE 60; TEMP 97.7
== END 2019-04-02 14:58 | disposition home or self-care (01) ==
LOC: EC 09:12
DX: N39.0 Urinary tract infection, site not specified (principal); B02.29 Other postherpetic nervous system involvement; F32.9 Major depressive disorder, single episode, unspecified; Z79.01 Long term (current) use of anticoagulants; Z79.899 Other long term (current) drug therapy; Z88.8 Allergy status to other drugs, medicaments and biological substances; Z91.041 Radiographic dye allergy status; Z91.011 Allergy to milk products; Z88.1 Allergy status to other antibiotic agents; I25.2 Old myocardial infarction; I25.10 Atherosclerotic heart disease of native coronary artery without angina pectoris; Z95.5 Presence of coronary angioplasty implant and graft
CPT/HCPCS: 99284; 51702; 96374; 96361 ×2; 36415; 80053; 82150; 83605; 83690; 85025; 85610; 85730; 81001; 87040; 87086; 87077; 87186; 74018; J0696

== ENCOUNTER 2023-05-05 02:24 | Emergency (ER) | payer MEDICARE, OTHER ==
[2023-05-05 02:36] VITALS: RESP 18; TEMP 97.9
--- NOTE | 2023-05-05 02:41 | ED ---
General Adult HPI - General Chief complaint: ENT Stated complaint: Swollen Throat, Cough Time Seen by Provider: 05/05/23 02:30 Source: patient, EMS Mode of arrival: EMS Limitations: no limitations - History of Present Illness Initial comments: Dictation was produced using [employer] dictation software. please excuse any grammatical, word or spelling errors. Chief Complaint: 72-year-old male presents with dysphagia History of Present Illness: Patient is 72-year-old male is brought in from [facility] by EMS. Patient called because he is having difficulty swallowing. Patient states that her symptoms began 3 days ago after he is eaten multiple days of salad. States that he is coughing up white phlegm which is making it hard for him to swallow. Patient able to tolerate liquids. States that he is able to tolerate solids if he drinks liquids with it. Denies any foreign body sensation throughout at the moment. No other complaints. The ROS documented in this emergency department record has been reviewed and confirmed by me. Those systems with pertinent positive or negative responses have been documented in the HPI. All other systems are other negative and/or noncontributory. - Related Data Home Medications Medication Instructions Recorded Confirmed buPROPion XL [Wellbutrin XL] 150 mg PO DAILY 09/15/18 04/02/19 Nitrofurantoin Monohyd/M-Cryst 100 mg PO Q12HR 04/02/19 04/02/19 [Macrobid] Warfarin Sodium 1 mg PO SUTUTH 04/02/19 04/02/19 Warfarin Sodium 5 mg PO MOWEFRSA 04/02/19 04/02/19 Warfarin [Coumadin] 2.5 mg PO SUTUTH 04/02/19 04/02/19 Previous Rx's Medication Instructions Recorded atenoloL [Tenormin] 25 mg PO BID tab 09/28/18 Ciprofloxacin HCl [Cipro] 500 mg PO BID 7 Days #14 tab 04/02/19 Allergies Allergy/AdvReac Type Severity Reaction Status Date / Time azithromycin Allergy Unknown Verified 05/05/23 02:37 buspirone Allergy Unknown Verified 04/02/19 10:27 diazepam [From Valium] Allergy Unknown Verified 04/02/19 10:27 Iodinated Contrast Media Allergy Unknown Verified 04/02/19 10:27 [Iodinated Contrast- Oral and IV Dye] milk Allergy Unknown Verified 04/02/19 10:27 phenazopyridine Allergy Unknown Verified 04/02/19 10:27 [From Pyridium] sertraline Allergy Unknown Verified 04/02/19 10:27 amlodipine [From Norvasc] AdvReac Swelling Verified 04/02/19 10:27 ciprofloxacin [From Cipro] AdvReac Swelling Verified 04/02/19 10:27 valacyclovir [From Valtrex] AdvReac Swelling Verified 04/02/19 10:27 Review of Systems ROS Statement: Those systems with pertinent positive or pertinent negative responses have been documented in the HPI. ROS Other: All systems not noted in ROS Statement are negative. Past Medical History Past Medical History: Coronary Artery Disease (CAD), Hypertension, Myocardial Infarction ([place]), Prostate Disorder Additional Past Medical History / Comment(s): bladder issues chronic dumont -pt stated it was changed on 09-13-18 Last Myocardial Infarction Date:: 2005 History of Any Multi-Drug Resistant Organisms: None Reported Past Surgical History: Heart Catheterization With Stent, Tonsillectomy Additional Past Surgical History / Comment(s): cystoscope Past Anesthesia/Blood Transfusion Reactions: Motion Sickness Date of Last Stent Placement:: 2005 Past Psychological History: Depression Past Alcohol Use History: None Reported Past Drug Use History: None Reported - Past Family History Mother Family Medical History: Cancer Additional Family Medical History / Comment(s): colon cancer Father Family Medical History: Myocardial Infarction ([place]) General Exam - General Exam Comments Initial Comments: PHYSICAL EXAM: General Impression: Alert and oriented x3, not in acute distress HEENT: Normocephalic atraumatic, extra-ocular movements intact, pupils equal and reactive to light bilaterally, mucous membranes moist. Cardiovascular: Heart regular rate and rhythm Chest: Able to complete full sentences, no retractions, no tachypnea Abdomen: abdomen soft, non-tender, non-distended, no organomegaly Musculoskeletal: Pulses present and equal in all extremities, no peripheral edema Motor: no focal deficits noted Neurological: CN II-XII grossly intact, no focal motor or sensory deficits noted Skin: Intact with no visualized rashes Psych: Normal affect and mood Limitations: no limitations Course Vital Signs 05/05/23 02:28 Temperature 97.9 F Pulse Rate 60 Respiratory 18 Rate Blood Pressure 165/80 O2 Sat by Pulse 95 Oximetry Medical Decision Making - Medical Decision Making Was pt. sent in by a medical professional or institution (Dr., PA, MINE CAPTAIN, urgent care, hospital, or detention...) When possible be specific @ -No Did you speak to anyone other than the patient for history (EMS, parent, family, police, friend...)? What history was obtained from this source @ -No Did you review nursing and triage notes (agree or disagree)? Why? @ -I reviewed and agree with nursing and triage notes Were old charts reviewed (outside hosp., previous admission, EMS record, old EKG, old radiological studies, urgent care reports/EKG's, detention records)? Report findings @ -No old charts were reviewed Differential Diagnosis (chest pain, altered mental status, abdominal pain women, abdominal pain men, vaginal bleeding, musculoskeletal, weakness, fever, dyspnea, syncope, headache, dizziness, GI bleed, back pain, seizure, CVA, palpatations, mental health)? @ -not applicable EKG interpreted by me (3pts min.). @ -None done X-rays interpreted by me (1pt min.). @ -2 view Chest x-ray is unremarkable CT interpreted by me (1pt min.). @ -None done U/S interpreted by me (1pt. min.). @ -None done What testing was considered but not performed or refused? (CT, X-rays, U/S, labs)? Why? @ -None What meds were considered but not given or refused? Why? @ -None Did you discuss the management of the patient with other professionals (professionals i.e. MUKESH Giles, MINE CAPTAIN, lab, RT, psych nurse, social studies department chair, braider setter, teacher, account officer, rifle case repairer)? Give summary @ -No Was smoking cessation discussed for >3mins.? @ -No Was critical care preformed (if so, how long)? @ -No Were there social determinants of health that impacted care today? How? (Homelessness, low income, unemployed, alcoholism, drug addiction, transportation, low edu. Level, literacy, decrease access to med. care, custodial, rehab)? @ -No Was there de-escalation of care discussed even if they declined (Discuss DNR or withdrawal of care, Hospice)? DNR status @ -No What co-morbidities impacted this encounter? (DM, HTN, Smoking, COPD, CAD, Cancer, CVA, ARF, Chemo, Hep., AIDS, mental health diagnosis, sleep apnea, morbid obesity)? @ -None Was patient admitted / discharged? Hospital course, mention meds given and route, prescriptions, significant lab abnormalities, going to OR and other pertinent info. @ -70-year-old male with chief complaint of dysphagia. Vital signs stable. Patient's old. No acute distress. Patient tolerating oral intake is given a sandwich. He is able to tolerate solid food and also liquids. Patient states that he gags on his own white phlegm. Chest x-ray is nonacute. Patient discharged told to follow-up with his primary care doctor. He is also given referral to GI. Undiagnosed new problem with uncertain prognosis? @ -No Drug Therapy requiring intensive monitoring for toxicity (Heparin, Nitro, Insulin, Cardizem)? @ -No Were any procedures done? @ -No Diagnosis/symptom? Acute, or Chronic, or Acute on Chronic? Uncomplicated (without systemic symptoms) or Complicated (systemic symptoms)? @ -1 dysphagia Side effects of treatment? @ -No Exacerbation, Progression, or Severe Exacerbation? @ -No Poses a threat to life or bodily function? How? (Chest pain, [place], [place], pneumonia, PE, COPD, DKA, ARF, appy, cholecystitis, CVA, Diverticulitis, Homicidal, Suicidal, threat to staff... and all critical care pts) @ -No Disposition Clinical Impression: Dysphagia Disposition: HOME SELF-CARE Condition: Fair Instructions (If sedation given, give patient instructions): Dysphagia (ED) Is patient prescribed a controlled substance at d/c from ED?: No Referrals: Guillermina Chan III, MD [Primary Care Provider] - 1-2 days Luanne Meza MD [STAFF PHYSICIAN] - 1-2 days Time of Disposition: 03:05
--- NOTE | 2023-05-05 04:53 | XR ---
EXAM: XR Chest, 2 Views CLINICAL HISTORY: white phlegm TECHNIQUE: Frontal and lateral views of the chest. COMPARISON: 09/16/2018 FINDINGS: Lungs: There is improved lung expansion. Minimal horizontal curvilinear changes noted at the lung bases. No definite focal airspace consolidation. The pulmonary vasculature is unremarkable. Pleural space: Unremarkable. No pneumothorax. No large pleural effusion. Heart: Unremarkable. No cardiomegaly. Mediastinum: Unremarkable. No significant abnormality identified. The trachea is midline. Bones/joints: Unremarkable. IMPRESSION: Presumed bibasilar subsegmental atelectasis. No definite focal consolidation. No pleural effusion or pneumothorax.
[2023-05-05 05:07] VITALS: BP 140/91; PULSE 57
== END 2023-05-05 05:13 | disposition home or self-care (01) ==
LOC: EC 02:24
DX: R13.10 Dysphagia, unspecified (principal); I25.10 Atherosclerotic heart disease of native coronary artery without angina pectoris; I10 Essential (primary) hypertension; I25.2 Old myocardial infarction; F32.A Depression, unspecified; Z79.01 Long term (current) use of anticoagulants; Z88.6 Allergy status to analgesic agent; Z88.8 Allergy status to other drugs, medicaments and biological substances; Z91.011 Allergy to milk products; Z91.041 Radiographic dye allergy status; Z88.1 Allergy status to other antibiotic agents
CPT/HCPCS: 71046; 99284

== ENCOUNTER 2023-05-09 09:17 | Observation (INO) | payer MEDICARE, OTHER ==
[2023-05-09] MEDS ORDERED: methylPREDNISolone SOD SUCCI 125 MG/2 ML VIAL IV STA (09:21)
[2023-05-09] MEDS ORDERED: FAMOTIDINE 20 MG/2 ML VIAL IV STA (09:21)
[2023-05-09] MEDS ORDERED: diphenhydrAMINE 50 MG/ML 1 ML VIAL IVP STA (09:21)
--- NOTE | 2023-05-09 09:22 | ED ---
General Adult HPI - General Stated complaint: Swollen Throat Time Seen by Provider: 05/09/23 09:20 - History of Present Illness Initial comments: Dictation was produced using [employer] dictation software. please excuse any grammatical, word or spelling errors. Chief Complaint: 72-year-old male with dysphasia History of Present Illness: 72-year-old male who was here 4 days ago for same complaint. I did evaluate the patient 4 days ago he was discharged home with outpatient follow-up. Patient presents here today again for dysphasia. Tried to take his medications since that he couldn't tolerated. Patient denies any difficulty breathing. Denies any pain. No neck pain The ROS documented in this emergency department record has been reviewed and confirmed by me. Those systems with pertinent positive or negative responses have been documented in the HPI. All other systems are other negative and/or noncontributory. - Related Data Home Medications Medication Instructions Recorded Confirmed buPROPion XL [Wellbutrin XL] 150 mg PO DAILY 09/15/18 05/09/23 Warfarin Sodium 6.25 mg PO MOFR@2100 04/02/19 05/09/23 Warfarin [Coumadin] 2.5 mg PO SUTUWETHSA@2100 04/02/19 05/09/23 Nystatin 100,000 Unit/gm Powd 1 applic TOPICAL BID 05/09/23 05/09/23 [Mycostatin Powder] atenoloL [Tenormin] 25 mg PO DAILY 05/09/23 05/09/23 Allergies Allergy/AdvReac Type Severity Reaction Status Date / Time acetaminophen [From Tylenol] Allergy Swelling Verified 05/09/23 09:32 azithromycin Allergy Unknown Verified 05/09/23 09:29 buspirone Allergy Unknown Verified 05/09/23 09:29 diazepam [From Valium] Allergy Unknown Verified 05/09/23 09:29 Iodinated Contrast Media Allergy Unknown Verified 05/09/23 09:29 [Iodinated Contrast- Oral and IV Dye] milk Allergy Unknown Verified 05/09/23 09:29 phenazopyridine Allergy Unknown Verified 05/09/23 09:29 [From Pyridium] sertraline Allergy Unknown Verified 05/09/23 09:29 amlodipine [From Norvasc] AdvReac Swelling Verified 05/09/23 09:29 ciprofloxacin [From Cipro] AdvReac Swelling Verified 05/09/23 09:29 valacyclovir [From Valtrex] AdvReac Swelling Verified 05/09/23 09:29 Review of Systems ROS Statement: Those systems with pertinent positive or pertinent negative responses have been documented in the HPI. ROS Other: All systems not noted in ROS Statement are negative. Past Medical History Past Medical History: Coronary Artery Disease (CAD), Hypertension, Myocardial Infarction ([place]), Prostate Disorder Additional Past Medical History / Comment(s): bladder issues chronic dumont -pt stated it was changed on 09-13-18 Last Myocardial Infarction Date:: 2005 History of Any Multi-Drug Resistant Organisms: None Reported Past Surgical History: Heart Catheterization With Stent, Tonsillectomy Additional Past Surgical History / Comment(s): cystoscope Past Anesthesia/Blood Transfusion Reactions: Motion Sickness Date of Last Stent Placement:: 2005 Past Psychological History: Depression Past Alcohol Use History: None Reported Past Drug Use History: None Reported - Past Family History Mother Family Medical History: Cancer Additional Family Medical History / Comment(s): colon cancer Father Family Medical History: Myocardial Infarction ([place]) General Exam - General Exam Comments Initial Comments: PHYSICAL EXAM: General Impression: Alert and oriented x3, not in acute distress HEENT: Normocephalic atraumatic, extra-ocular movements intact, pupils equal and reactive to light bilaterally, mucous membranes moist. Cardiovascular: Heart regular rate and rhythm Chest: Able to complete full sentences, no retractions, no tachypnea Abdomen: abdomen soft, non-tender, non-distended, no organomegaly Musculoskeletal: Pulses present and equal in all extremities, no peripheral edema Motor: no focal deficits noted Neurological: CN II-XII grossly intact, no focal motor or sensory deficits noted Skin: Intact with no visualized rashes Psych: Normal affect and mood Course Vital Signs 05/09/23 05/09/23 09:18 11:14 Temperature 97.6 F Pulse Rate 59 L 571 H Respiratory 18 16 Rate Blood Pressure 153/82 157/80 O2 Sat by Pulse 97 97 Oximetry Medical Decision Making - Medical Decision Making Was pt. sent in by a medical professional or institution (, PA, PATIENT CARE ASSISTANT, urgent care, hospital, or prison...) When possible be specific @ -No Did you speak to anyone other than the patient for history (EMS, parent, family, police, friend...)? What history was obtained from this source @ -No Did you review nursing and triage notes (agree or disagree)? Why? @ -I reviewed and agree with nursing and triage notes Were old charts reviewed (outside hosp., previous admission, EMS record, old EKG, old radiological studies, urgent care reports/EKG's, prison records)? Report findings @ -No old charts were reviewed Differential Diagnosis (chest pain, altered mental status, abdominal pain women, abdominal pain men, vaginal bleeding, musculoskeletal, weakness, fever, dyspnea, syncope, headache, dizziness, GI bleed, back pain, seizure, CVA, palpatations, mental health)? @ -not applicable EKG interpreted by me (3pts min.). @ -None done X-rays interpreted by me (1pt min.). @ -None done CT interpreted by me (1pt min.). @ -CT soft tissue neck shows no acute processes U/S interpreted by me (1pt. min.). @ -None done What testing was considered but not performed or refused? (CT, X-rays, U/S, labs)? Why? @ -None What meds were considered but not given or refused? Why? @ -None Did you discuss the management of the patient with other professionals (prof cary i.e. , PA, PATIENT CARE ASSISTANT, lab, RT, psych nurse, social media job titles, baker pastry, teacher, correction officer head, caser shoe parts)? Give summary @ -No Was smoking cessation discussed for >3mins.? @ -No Was critical care preformed (if so, how long)? @ -No Were there social determinants of health that impacted care today? How? (Homelessness, low income, unemployed, alcoholism, drug addiction, transportat ion, low edu. Level, literacy, decrease access to med. care, residential, rehab)? @ -No Was there de-escalation of care discussed even if they declined (Discuss DNR or withdrawal of care, Hospice)? DNR status @ -No What co-morbidities impacted this encounter? (DM, HTN, Smoking, COPD, CAD, Cancer, CVA, ARF, Chemo, Hep., AIDS, mental health diagnosis, sleep apnea, morbid obesity)? @ -None Was patient admitted / discharged? Hospital course, mention meds given and route, prescriptions, significant lab abnormalities, going to OR and other pertinent info. @ -72-year-old male referred presents to the emergency department for dysphagia. Vital signs stable. Patient is well-appearing. CT soft tissue neck is negative. Patient be admitted for swallow studies further inpatient evaluation Undiagnosed new problem with uncertain prognosis? @ -No Drug Therapy requiring intensive monitoring for toxicity (Heparin, Nitro, Insulin, Cardizem)? @ -No Were any procedures done? @ -No Diagnosis/symptom? Acute, or Chronic, or Acute on Chronic? Uncomplicated (without systemic symptoms) or Complicated (systemic symptoms)? @ -Dysphagia Side effects of treatment? @ -No Exacerbation, Progression, or Severe Exacerbation? @ -No Poses a threat to life or bodily function? How? (Chest pain, [place], [place], pneumonia, PE, COPD, DKA, ARF, appy, cholecystitis, CVA, Diverticulitis, Homicidal, Suicidal, threat to staff... and all critical care pts) @ -No - Lab Data Result diagrams: 05/09/23 09:33 05/09/23 09:33 Lab Results 05/09/23 05/09/23 05/09/23 Range/Units 09:33 09:33 09:33 WBC 9.1 (3.8-10.6) k/uL RBC 5.43 (4.30-5.90) m/uL Hgb 18.2 H (13.0-17.5) gm/dL Hct 51.6 (39.0-53.0) % MCV 95.1 (80.0-100.0) fL MCH 33.5 (25.0-35.0) pg MCHC 35.3 (31.0-37.0) g/dL RDW 13.8 (11.5-15.5) % Plt Count 230 (150-450) k/uL MPV 7.1 Neutrophils % 77 % Lymphocytes % 15 % Monocytes % 4 % Eosinophils % 2 % Basophils % 0 % Neutrophils # 7.1 (1.3-7.7) k/uL Lymphocytes # 1.4 (1.0-4.8) k/uL Monocytes # 0.4 (0-1.0) k/uL Eosinophils # 0.2 (0-0.7) k/uL Basophils # 0.0 (0-0.2) k/uL PT 31.1 H (9.0-12.0) sec INR 3.2 H (<1.2) APTT 42.0 H (22.0-30.0) sec Sodium 132 L (137-145) mmol/L Potassium 4.5 (3.5-5.1) mmol/L Chloride 96 L (98-107) mmol/L Carbon Dioxide 28 (22-30) mmol/L Anion Gap 8 mmol/L BUN 15 (9-20) mg/dL Creatinine 1.89 H (0.66-1.25) mg/dL Est GFR (CKD-EPI)AfAm 40 (>60 ml/min/1.73 sqM) Est GFR (CKD-EPI)NonAf 35 (>60 ml/min/1.73 sqM) Glucose 103 H (74-99) mg/dL Calcium 9.1 (8.4-10.2) mg/dL Disposition Clinical Impression: Dysphagia Disposition: ADMITTED IP TO THIS [facility] Condition: Fair Referrals: None,Stated [Primary Care Provider] - 1-2 days Decision Time: 11:39
[2023-05-09 09:56] LABS: Basophils % (A) 0 %; Eosinophils # (A) 0.2 k/uL (0-0.7); Eosinophils % (A) 2 %; HCT 51.6 % (39.0-53.0); HGB 18.2 gm/dL (13.0-17.5); Lymphocytes # (A) 1.4 k/uL (1.0-4.8); Lymphocytes % (A) 15 %; MCH 33.5 pg (25.0-35.0); MCHC 35.3 g/dL (31.0-37.0); MCV 95.1 fL (80.0-100.0); Mean Platelet Volume 7.1; Monocytes # (A) 0.4 k/uL (0-1.0); Monocytes % (A) 4 %; Neutrophils # (A) 7.1 k/uL (1.3-7.7); Neutrophils % (A) 77 %; Platelet Count 230 k/uL (150-450); RBC 5.43 m/uL (4.30-5.90); RDW 13.8 % (11.5-15.5); WBC 9.1 k/uL (3.8-10.6)
[2023-05-09 10:06] LABS: INR 3.2 (<1.2); Prothrombin Time 31.1 sec (9.0-12.0)
[2023-05-09 10:15] LABS: African American GFR (CKD) 40 (>60 ml/min/1.73 sqM); Anion Gap 8 mmol/L; Blood Urea Nitrogen 15 mg/dL (9-20); Calcium 9.1 mg/dL (8.4-10.2); Carbon Dioxide 28 mmol/L (22-30); Chloride 96 mmol/L (98-107); Glucose 103 mg/dL (74-99); Non-African American GFR(CKD) 35 (>60 ml/min/1.73 sqM); Potassium 4.5 mmol/L (3.5-5.1); Sodium 132 mmol/L (137-145)
--- NOTE | 2023-05-09 10:52 | CT ---
EXAMINATION TYPE: CT soft tissue neck w con CT DLP: 1553.6 mGycm, Automated exposure control for dose reduction was used. DATE OF EXAM: 05/09/2023 10:45 AM COMPARISON: CT brain 09/15/2018. CLINICAL INDICATION:Male, 72 years old with history of dysphagia; PHH, Dysphagia TECHNIQUE: Standard enhanced CT of the neck following intravenous administration of 50 cc of Isovue 3 00. Axial sections with coronal and sagittal reformats were obtained. Patient was premedicated due t o iodine allergy. FINDINGS: Brain: Visualized portions are grossly unremarkable. Orbits: Unremarkable Sinuses: Grossly unremarkable. Suprahyoid Neck: The oropharynx, oral cavity, parapharyngeal and retropharyngeal spaces are clear and symmetric. The nasopharynx is unremarkable. Infrahyoid Neck: The larynx, hypopharynx, and supraglottic area are clear and symmetric. Parotid Glands: Unremarkable. Submandibular Glands: Unremarkable. Musculoskeletal: Degenerative disc disease changes of the visualized spine are present. Degenerative mild retrolisthesis of C3 on C4 and C4 on C5. No acute osseous abnormality. Lymph nodes: Multiple nonenlarged lymph nodes are seen along both anterior chains of the neck. Vascular structures: Minimal atherosclerotic calcifications of the internal carotid arteries. Thoracic Inlet/airway: Airway is patent. Some linear scarring demonstrated within the left apex. Calc ified granuloma within the right upper lobe. Soft tissues/Thyroid: Thyroid and remainder of the soft tissues are unremarkable. Other: none. IMPRESSION No CT evidence for significant abnormality.
[2023-05-09] MEDS ORDERED: SODIUM CHLORIDE 0.9% 1,000 ML IV STA (11:17)
[2023-05-09] MEDS ORDERED: NALOXONE 0.4 MG/ML 1 ML VIAL IV PRN (11:37)
[2023-05-09] MEDS: SODIUM CHLORIDE 0.9% 1,000 ML IV SCH (13:31)
--- NOTE | 2023-05-09 15:49 | P.HPIM ---
History of Present Illness H&P Date: 05/09/23 Patient is a 72-year-old male with PMH of schizophrenia, atrial fibrillation presents the ED for dysphagia. Patient reports symptoms ongoing for the past 20 days. He reports difficulty swallowing solids. No issues swallowing liquids. He does not smoke cigarettes or drink alcohol. He denies any weight loss. Symptoms have been progressively getting worse which prompted him to come to the ED. He denies any headache, lower extremity edema, nausea or vomiting, fever or chills, cough, chest pain, shortness of breath, palpitations, changes in urination or bowel habits. No changes in appetite or weight. He denies any dizziness, numbness/weakness/tingling of extremities. In the ED, his vital signs were stable. CBC showed hemoglobin of 18.2. INR is 3.2. BMP shows sodium of 132, chloride of 97, creatinine of 1.89 and glucose of 103. CT of the neck was negative for significant abnormality. Pertinent positives and negatives as discussed in HPI, a complete review of systems was performed and all other systems are negative. General: non toxic, no distress, appears at stated age Derm: warm, dry Head: atraumatic, normocephalic, symmetric Eyes: EOMI, no lid lag, anicteric sclera Mouth: no lip lesion, mucus membranes moist Cardiovascular: S1S2 reg, no murmur Lungs: CTA bilateral, no rhonchi, no rales , no accessory muscle use Abdominal: soft, nontender to palpation, no guarding, no appreciable organomegaly Ext: no gross muscle atrophy, no edema, no contractures Neuro: no focal neuro deficits Psych: Alert, oriented, appropriate affect Dysphagia Supratherapeutic INR Hypochloremic hyponatremia Elevated creatinine likely component of CKD Based on my assessment of this patient, this patient meets a moderate complexity level of care. Patient has an acute diagnosis of dysphagia that poses a threat to life or bodily function. Dysphagia: Speech therapy consulted. Barium swallow ordered. CLD and advance as tolerated. Hypochloremic hyponatremia: Possible dehydration. Status post 1L NS bolus in the ED. Repeat BMP tomorrow morning. Elevated creatinine likely component of CKD Daughter is the decision maker if he can't make decisions for himself. Full code. Coumadin for DVT prophylaxis. I have reviewed the following insurance healthcare consultant notes: I have reviewed the results of the following tests: CBC, BMP, Neck CT I have ordered the following tests: Barium swallow I have discussed the care of this patient with the following independent historian: I have independently interpreted the following test below: I have discussed the management of this patient with the following physician: Past Medical History Past Medical History: Coronary Artery Disease (CAD), Hypertension, Myocardial Infarction ([place]), Prostate Disorder Additional Past Medical History / Comment(s): bladder issues chronic dumont -pt stated it was changed on 09-13-18 Last Myocardial Infarction Date:: 2005 History of Any Multi-Drug Resistant Organisms: None Reported Past Surgical History: Heart Catheterization With Stent, Tonsillectomy Additional Past Surgical History / Comment(s): cystoscope Past Anesthesia/Blood Transfusion Reactions: Motion Sickness Date of Last Stent Placement:: 2005 Past Psychological History: Depression Past Alcohol Use History: None Reported Past Drug Use History: None Reported - Past Family History Mother Family Medical History: Cancer Additional Family Medical History / Comment(s): colon cancer Father Family Medical History: Myocardial Infarction ([place]) Medications and Allergies Home Medications Medication Instructions Recorded Confirmed Type buPROPion XL [Wellbutrin XL] 150 mg PO DAILY 09/15/18 05/09/23 History Warfarin Sodium 6.25 mg PO MOFR@209904/02/19 05/09/23 History Warfarin [Coumadin] 2.5 mg PO SUTUWETHSA@209904/02/19 05/09/23 History Nystatin 100,000 Unit/gm Powd 1 applic TOPICAL BID 05/09/23 05/09/23 History [Mycostatin Powder] atenoloL [Tenormin] 25 mg PO DAILY 05/09/23 05/09/23 History Allergies Allergy/AdvReac Type Severity Reaction Status Date / Time acetaminophen [From Tylenol] Allergy Swelling Verified 05/09/23 09:32 azithromycin Allergy Unknown Verified 05/09/23 09:29 buspirone Allergy Unknown Verified 05/09/23 09:29 diazepam [From Valium] Allergy Unknown Verified 05/09/23 09:29 Iodinated Contrast Media Allergy Unknown Verified 05/09/23 09:29 [Iodinated Contrast- Oral and IV Dye] milk Allergy Unknown Verified 05/09/23 09:29 phenazopyridine Allergy Unknown Verified 05/09/23 09:29 [From Pyridium] sertraline Allergy Unknown Verified 05/09/23 09:29 amlodipine [From Norvasc] AdvReac Swelling Verified 05/09/23 09:29 ciprofloxacin [From Cipro] AdvReac Swelling Verified 05/09/23 09:29 valacyclovir [From Valtrex] AdvReac Swelling Verified 05/09/23 09:29 Physical Exam Vitals: Vital Signs Temp Pulse Resp BP Pulse Ox 05/09/23 13:28 61 16 151/74 96 05/09/23 11:14 57 L 16 157/80 97 05/09/23 09:18 97.6 F 59 L 18 153/82 97 Intake and Output 05/09/23 05/09/23 05/09/23 06:59 14:59 22:59 Other: Weight 107.955 kg Results CBC & Chem 7: 05/09/23 09:33 05/09/23 09:33 Labs: Abnormal Lab Results - Last 24 Hours (Table) 05/09/23 05/09/23 05/09/23 Range/Units 09:33 09:33 09:33 Hgb 18.2 H (13.0-17.5) gm/dL PT 31.1 H (9.0-12.0) sec INR 3.2 H (<1.2) APTT 42.0 H (22.0-30.0) sec Sodium 132 L (137-145) mmol/L Chloride 96 L (98-107) mmol/L Creatinine 1.89 H (0.66-1.25) mg/dL Glucose 103 H (74-99) mg/dL
[2023-05-09] MEDS ORDERED: WARFARIN 0.5 MG TAB PO ONE (18:00)
[2023-05-09] MEDS ORDERED: WARFARIN 2.5 MG TAB PO SCH (21:00)
[2023-05-09] MEDS: NYSTATIN 100,000 UNIT/ML SUSP 500,000 UNIT/5 ML CUP PO SCH ×2 (21:27→21:37)
[2023-05-10 07:38] LABS: INR 3.7 (<1.2); Prothrombin Time 36.4 sec (9.0-12.0)
[2023-05-10] MEDS: NYSTATIN 100,000 UNIT/ML SUSP 500,000 UNIT/5 ML CUP PO SCH ×4 (09:12→21:14)
[2023-05-10] MEDS: buPROPion XL 150 MG TAB.ER.24H PO SCH (09:12)
[2023-05-10] MEDS: atenoloL 25 MG TAB PO SCH (09:12)
[2023-05-10 10:09] LABS: African American GFR (CKD) 37 (>60 ml/min/1.73 sqM); Anion Gap 9 mmol/L; Basophils % (A) 0 %; Blood Urea Nitrogen 19 mg/dL (9-20); Calcium 8.8 mg/dL (8.4-10.2); Carbon Dioxide 24 mmol/L (22-30); Chloride 96 mmol/L (98-107); Eosinophils % (A) 0 %; Glucose 116 mg/dL (74-99); HGB 17.6 gm/dL (13.0-17.5); Lymphocytes # (A) 1.3 k/uL (1.0-4.8); Lymphocytes % (A) 9 %; MCH 32.8 pg (25.0-35.0); MCHC 33.8 g/dL (31.0-37.0); MCV 96.9 fL (80.0-100.0); Mean Platelet Volume 7.7; Monocytes # (A) 0.6 k/uL (0-1.0); Monocytes % (A) 4 %; Neutrophils % (A) 86 %; Non-African American GFR(CKD) 32 (>60 ml/min/1.73 sqM); Platelet Count 263 k/uL (150-450); Potassium 4.3 mmol/L (3.5-5.1); RBC 5.37 m/uL (4.30-5.90); RDW 13.9 % (11.5-15.5); Sodium 129 mmol/L (137-145)
--- NOTE | 2023-05-10 11:56 | FL ---
EXAMINATION TYPE: FL barium swallow DATE OF EXAM: 05/10/2023 11:39 AM COMPARISON: CT neck 05/09/2023 CLINICAL INDICATION:Male, 72 years old with history of dysphagia; globus sensation TECHNIQUE: The procedure was explained and patient history elicited. All patient questions were ans wered prior to start of procedure. Multiple spot fluoroscopic images of the esophagus were obtained a fter the oral ingestion of effervescent crystals and liquid barium as the contrast agent. Fluoroscopic time: 11 seconds Fluoroscopic images: 0 Radiographs taken: 91 DAP: Machine does not report dose FINDINGS: The esophagus demonstrates normal primary and secondary peristalsis. The esophageal mucosa is smooth without evidence of focal stricture, ulceration, or abnormal outpouching. No gastroesophageal reflu x disease was identified. Tertiary contractions are present. IMPRESSION: 1. Esophageal dysmotility 2. Abnormality to correlate with patient's globus sensation.
--- NOTE | 2023-05-10 12:41 | P.PN ---
Subjective Progress Note Date: 05/10/23 Hospital Course: 72-year-old male with PMH of schizophrenia, atrial fibrillation presents the ED for dysphagia. In the ED, his vital signs were stable. CBC showed hemoglobin of 18.2. INR is 3.2. BMP shows sodium of 132, chloride of 97, creatinine of 1.89 and glucose of 103. CT of the neck was negative for significant abnormality. Seen by speech therapy. Barium swallow completed. Shows esophageal dysmotility, no evidence of focal stricture, ulceration, abnormal outpouching. Psychiatry was also initially consulted due to concerns for possible functional dysphagia. Subjective: Patient seen and examined at bedside. Claims that his swallowing has improved. Pertinent positives and negatives as discussed above, a complete review of systems was performed and all other systems are negative. Vitals Signs Reviewed. General: nontoxic, no distress, appears at stated age Derm: warm, dry Head: atraumatic, normocephalic, symmetric Eyes: EOMI, no lid lag, anicteric sclera Mouth: no lip lesion, mucus membranes moist Cardiovascular: S1S2 reg, no murmur Lungs: CTA bilateral, no rhonchi, no rales , no accessory muscle use Abdominal: soft, nontender to palpation, no guarding, no appreciable organomegaly Ext: no gross muscle atrophy, no edema, no contractures Neuro: CN II-XI grossly intact, no focal neuro deficits Psych: Alert, oriented, appropriate affect Data Reviewed Today: Pertinent Labs: WBC 14, hemoglobin 17.6, INR 3.7, sodium 129, creatinine 2.04 Imaging: Barium swallow showed esophageal dysmotility, no evidence of focal stricture, ulceration, abnormal outpouching Assessment and Plan: Dysphagia, suspected functional Supratherapeutic INR Chronic kidney disease Leukocytosis Oral thrush Hypochloremic hyponatremia Hypertension Schizophrenia? Atrial fibrillation not on anticoagulation -Psychiatry has been consulted -Warfarin pharmacy to dose, monitor for any acute bleeding -Leukocytosis, likely reactive -Nystatin suspension oral -Hyponatremia likely in the setting of hypovolemia given reduced oral intake, repeat BMP tomorrow -Normal saline at 100 mL an hour -Continue atenolol DVT ppx: warfarin Code status: full code Anticipated discharge place: home Anticipated discharge time: 1-2 days Objective - Vital Signs Vital signs: Vital Signs Temp 97.7 F 05/10/23 07:00 Pulse 60 05/10/23 07:00 Resp 20 05/10/23 07:00 BP 163/75 05/10/23 07:00 Pulse Ox 94 L 05/10/23 07:00 FiO2 Intake & Output 05/09/23 05/10/23 05/10/23 18:59 06:59 18:59 Intake Total 740 Output Total 1999 Balance -1260 Weight 107.955 kg Intake: Intake, IV Titration 240 Amount Sodium Chloride 0.9% 1, 240 000 ml @ 20 mls/hr IV . Q24H [facility] Rx#:[id number] Oral 500 Output: Urine 2000 Other: Voiding Method Indwelling Catheter Indwelling Catheter - Labs CBC & Chem 7: 05/10/23 06:32 05/10/23 06:32 Labs: Abnormal Lab Results - Last 24 Hours (Table) 05/10/23 05/10/23 05/10/23 Range/Units 06:32 06:32 06:32 WBC 14.0 H (3.8-10.6) k/uL Hgb 17.6 H (13.0-17.5) gm/dL Neutrophils # 12.0 H (1.3-7.7) k/uL PT 36.4 H (9.0-12.0) sec INR 3.7 H (<1.2) Sodium 129 L (137-145) mmol/L Chloride 96 L (98-107) mmol/L Creatinine 2.04 H (0.66-1.25) mg/dL Glucose 116 H (74-99) mg/dL
--- NOTE | 2023-05-10 13:11 | P.CN ---
Psychiatric Consult - . Consult date: 05/10/23 Consult:: 05/10/23 13:10 IDENTIFYING DATA: This patient is a , retired, 72-year-old male who presented to our hospital on 05/09/2023 for dysphagia HISTORY OF PRESENT ILLNESS: The patient presented to the hospital on 05/09/2023 for dysphagia. The patient presented to the emergency department for the same complaint 4 days prior to this admission. Psychiatry has been consulted for possible psychogenic causes for dysphagia. Prior to this psychiatrist evaluating the patient, the patient did undergo a barium swallow which confirmed esophageal dysmotility. When evaluated by psychiatry, the patient is vehemently denying any depression or anxiety symptoms. He denies any hopelessness, helplessness, anhedonia, sleep difficulty, or change in day-to-day functions. He vehemently denies any suicidal or homicidal ideation, intention, and/or plan. He denies any auditory or visual hallucinations. He reports no paranoia or other delusions at this time. Patient expresses that he is very happy and stays active. He reports that he also has significant support from his sister in [facility]. He also states that his ability to swallow has improved today compared to yesterday. PAST PSYCHIATRIC HISTORY: Patient has a reported history of depression. The patient reports that he has been on Wellbutrin for "years." He also reports previous trials of Zoloft, Valium, and BuSpar. He reports that he was hospita lized psychiatrically once before back in 2011. Patient denies any psychiatric outpatient follow-up. He reports one prior suicide attempt back in 2011. PAST MEDICAL HISTORY: Past Medical History: Coronary Artery Disease (CAD), Hypertension, Myocardial Infarction ([place]), Prostate Disorder Additional Past Medical History / Comment(s): bladder issues chronic dumont -pt stated it was changed on 09-13-18 Last Myocardial Infarction Date:: 2005 History of Any Multi-Drug Resistant Organisms: None Reported Past Surgical History: Heart Catheterization With Stent, Tonsillectomy Additional Past Surgical History / Comment(s): cystoscope Past Anesthesia/Blood Transfusion Reactions: Motion Sickness Date of Last Stent Placement:: 2005 Past Psychological History: Depression Past Alcohol Use History: None Reported Past Drug Use History: None Reported ALLERGIES: Allergies Allergy/AdvReac Type Severity Reaction Status Date / Time acetaminophen [From Tylenol] Allergy Swelling Verified 05/09/23 09:32 azithromycin Allergy Unknown Verified 05/09/23 09:29 buspirone Allergy Unknown Verified 05/09/23 09:29 diazepam [From Valium] Allergy Unknown Verified 05/09/23 09:29 Iodinated Contrast Media Allergy Unknown Verified 05/09/23 09:29 [Iodinated Contrast- Oral and IV Dye] milk Allergy Unknown Verified 05/09/23 09:29 phenazopyridine Allergy Unknown Verified 05/09/23 09:29 [From Pyridium] sertraline Allergy Unknown Verified 05/09/23 09:29 amlodipine [From Norvasc] AdvReac Swelling Verified 05/09/23 09:29 ciprofloxacin [From Cipro] AdvReac Swelling Verified 05/09/23 09:29 valacyclovir [From Valtrex] AdvReac Swelling Verified 05/09/23 09:29 CHEMICAL DEPENDENCY HISTORY: The patient denies any current alcohol, tobacco, marijuana, or illicit drug use. He reports that he last drank alcohol back in 2011. FAMILY PSYCHIATRIC/SUBSTANCE USE HISTORY: The patient does not endorse any family psychiatric history. SOCIAL HISTORY: Patient states that he was in 2007. He reports that he has one daughter named Genet who currently lives in [place]. He has been living in [facility] for the past 6 years. 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 He reports that he likes to spend his days walking and people watching. He states that his sister also lives in town and provides support. MENTAL STATUS EXAM: General Appearance: Patient appears to be stated age is alert, pleasant, and cooperative. Patient appears to have fair hygiene and grooming wearing hospital gown with fair eye contact. Behavior: Patient is calmly seated upright in bed without any agitated behavior. Speech: Patient's speech is fluent and nonpressured. Mood/Affect: Patient reports their mood is "I am very happy", affect is congruent and bright. Suicidality/Homicidality: Patient reports no suicidal or homicidal ideation, intention, and/or plan. Perceptions: Patient denies any visual hallucinations and denies any auditory hallucinations Though content/process: There is no evidence of any delusional thought content and thought process is linear and goal-directed. Memory and concentration: AOX3, grossly intact for the purposes of this session. Can spell "WORLD" backwards Judgment and insight:Excellent IMPRESSIONS: Esophageal dysmotility Hypertension Major depressive disorder PLAN: -Continue your medical management. -At this time patient DOES NOT meet criteria for inpatient psychiatric admi ssion. The patient is not presenting with imminent risk of harm to self or others. He is not overtly manic or psychotic. -Would recommend the following medication changes/additions: No medication recommendations to be made. -Patient does not require one-to-one sitter. -Continue with outpatient psychiatric treatment. -Psychiatry will sign off at this point, please contact with any questions. 05/10/23 13:10
[2023-05-10] MEDS: SODIUM CHLORIDE 0.9% 1,000 ML IV SCH ×2 (13:15→19:20)
[2023-05-10] MEDS ORDERED: WARFARIN 0.5 MG TAB PO ONE (18:00)
[2023-05-10] MEDS ORDERED: WARFARIN 2.5 MG TAB PO SCH (21:00)
[2023-05-11 06:26] LABS: INR 3.9 (<1.2); Prothrombin Time 37.7 sec (9.0-12.0)
[2023-05-11 07:30] VITALS: BP 177/90; PULSE 53; TEMP 97
[2023-05-11] MEDS: buPROPion XL 150 MG TAB.ER.24H PO SCH (08:57)
[2023-05-11] MEDS: NYSTATIN 100,000 UNIT/ML SUSP 500,000 UNIT/5 ML CUP PO SCH ×2 (08:57→13:14)
[2023-05-11] MEDS: atenoloL 25 MG TAB PO SCH (08:57)
[2023-05-11] MEDS: SODIUM CHLORIDE 0.9% 1,000 ML IV SCH (08:59)
[2023-05-11 09:22] LABS: Basophils # (A) 0.06 X 10*3/uL (0.00-0.10); Basophils % (A) 0.5 %; Eosinophils # (A) 0.07 X 10*3/uL (0.04-0.35); Eosinophils % (A) 0.6 %; HCT 48.9 % (39.6-50.0); HGB 16.5 d/dL (13.0-17.0); Lymphocytes # (A) 2.49 X 10*3/uL (0.90-5.00); Lymphocytes % (A) 22.7 %; MCH 32.2 pg (27.0-32.0); MCHC 33.7 d/dL (32.0-37.0); MCV 95.3 FL (80.0-97.0); Mean Platelet Volume 9.3 FL (9.5-12.2); Monocytes # (A) 0.74 X 10*3/uL (0.20-1.00); Monocytes % (A) 6.8 %; NRBC Per 100 WBC 0 X 10*3/uL (0.00-0.01); Neutrophils # (A) 7.54 X 10*3/uL (1.80-7.70); Neutrophils % (A) 68.9 %; Platelet Count 223 X 10*3/uL (140-440); RBC 5.13 X 10*6/uL (4.40-5.60); RDW 14.2 % (11.5-14.5); WBC 10.95 X 10*3/uL (4.50-10.00)
[2023-05-11 09:45] LABS: BUN/Creat Ratio 10.67 Ratio (12.00-20.00); Blood Urea Nitrogen 22.4 mg/dL (9.0-27.0); Calcium 8.5 mg/dL (8.7-10.3); Carbon Dioxide 24.8 mmol/L (21.6-31.8); Chloride 100 mmol/L (96-109); Glucose 88 mg/dL (70-110); Potassium 4.4 mmol/L (3.5-5.5); Sodium 134 mmol/L (135-145)
[2023-05-11 10:28] VITALS: RESP 17
--- NOTE | 2023-05-11 11:13 | P.DS ---
Providers Date of admission: 05/09/23 11:37 Expected date of discharge: 05/11/23 Attending physician: Ria Richardson DO Consults: 05/09/23 12:13 Consult Physician Routine Consulting Provider: Matt Blackwell Consult Reason/Comments: possible psych related dysphagia Do you want consulting provider notified?: Already Contacted Primary care physician: Stated None Hospital Course: Discharge Diagnosis: Functional dysphagia Supratherapeutic INR Atrial fibrillation on warfarin Chronic kidney disease Leukocytosis Oral thrush Hypochloremic hyponatremia, secondary to dehydration Hypertension Depression Hospital Course: 72-year-old male with PMH of schizophrenia, atrial fibrillation presents the ED for dysphagia. In the ED, his vital signs were stable. CBC showed hemoglobin of 18.2. INR is 3.2. BMP shows sodium of 132, chloride of 97, creatinine of 1.89 and glucose of 103. CT of the neck was negative for significant abnormality. Seen by speech therapy. Barium swallow completed. Shows esophageal dysmotility, no evidence of focal stricture, ulceration, abnormal outpouching. Psychiatry was consulted due to concerns for possible functional dysphagia. No changes made psych medications. Patient will follow-up with GI for further workup. He does have mild oral thrush, being discharged on appropriate antifungal. Hyponatremia resolved with fluids. Warfarin dosing adjusted. Patient follow-up with his pot operator for further adjustment. Patient seen and examined at bedside. Vital signs reviewed and stable. General: nontoxic, no distress, appears at stated age Derm: warm, dry Head: atraumatic, normocephalic, symmetric Eyes: EOMI, no lid lag, anicteric sclera Mouth: no lip lesion, mucus membranes moist Cardiovascular: S1S2 reg, no murmur Lungs: CTA bilateral, no rhonchi, no rales , no accessory muscle use Abdominal: soft, nontender to palpation, no guarding, no appreciable organomegaly Ext: no gross muscle atrophy, no edema, no contractures Neuro: CN II-XI grossly intact, no focal neuro deficits Psych: Alert, oriented, appropriate affect A total of 35 minutes of time were spent preparing this complex discharge summary. Patient was discharged on 05/11/23 at 11:05. Patient Condition at Discharge: Stable Plan - Discharge Summary Discharge Rx Participant: No New Discharge Prescriptions: New Nystatin 100,000 Unit/ml Susp [Mycostatin Oral Susp] 500,000 unit PO QID 7 Days #140 ml Continue buPROPion XL [Wellbutrin XL] 150 mg PO DAILY atenoloL [Tenormin] 25 mg PO DAILY Changed Warfarin [Coumadin] 2.5 mg PO DIRECTED #10 Discontinued Warfarin Sodium 6.25 mg PO MOFR@2100 Nystatin 100,000 Unit/gm Powd [Mycostatin Powder] 1 applic TOPICAL BID Discharge Medication List buPROPion XL [Wellbutrin XL] 150 mg PO DAILY 09/15/18 [History] atenoloL [Tenormin] 25 mg PO DAILY 05/09/23 [History] Nystatin 100,000 Unit/ml Susp [Mycostatin Oral Susp] 500,000 unit PO QID 7 Days #140 ml 05/11/23 [Rx] Warfarin [Coumadin] 2.5 mg PO DIRECTED #10 05/11/23 [Rx] Follow up Appointment(s)/Referral(s): Larry Rodriguez DO [STAFF PHYSICIAN] - 1 Week Luanne Meza MD [STAFF PHYSICIAN] - 1 Week None,Stated [Primary Care Provider] - 1-2 days Patient Instructions/Handouts: Elevated INR (DC), Dysphagia (GEN) Activity/Diet/Wound Care/Special Instructions: Please see your pot operator within 1 week to adjust your coumadin dose. Please see GI for your difficulty swallowing. Please see your PCP for repeat blood work for your kidneys. Discharge Disposition: HOME SELF-CARE
[2023-05-11] MEDS ORDERED: WARFARIN 0.5 MG TAB PO ONE (18:00)
== END 2023-05-11 13:54 | disposition home or self-care (01) ==
LOC: SUPCPDRO 09:17 → EC 09:17 → 6NMEDSUR 11:37 → 5NMEDONC 17:15
PROVIDERS: ADMIT Internal Medicine; ATTEND Internal Medicine
DX: K22.4 Dyskinesia of esophagus (principal); I25.10 Atherosclerotic heart disease of native coronary artery without angina pectoris; F32.A Depression, unspecified; E86.0 Dehydration; I25.2 Old myocardial infarction; M50.31 Other cervical disc degeneration, high cervical region; I65.23 Occlusion and stenosis of bilateral carotid arteries; J84.10 Pulmonary fibrosis, unspecified; I12.9 Hypertensive chronic kidney disease with stage 1 through stage 4 chronic kidney disease, or unspecified chronic kidney disease; B37.0 Candidal stomatitis; N18.9 Chronic kidney disease, unspecified; F20.9 Schizophrenia, unspecified; I48.91 Unspecified atrial fibrillation; Z79.899 Other long term (current) drug therapy; Z79.01 Long term (current) use of anticoagulants; Z91.041 Radiographic dye allergy status; Z88.1 Allergy status to other antibiotic agents; Z88.8 Allergy status to other drugs, medicaments and biological substances; Z95.5 Presence of coronary angioplasty implant and graft; Z80.0 Family history of malignant neoplasm of digestive organs; Z82.49 Family history of ischemic heart disease and other diseases of the circulatory system
CPT/HCPCS: 96361; 96374; 96375; 99285; 36415; 92610; 80048 ×3; 85025 ×3; 85610 ×3; 85730; 74220; 70491; G0378 ×4; J1200; J2930; Q9967

== ENCOUNTER 2023-05-31 18:07 | Emergency (ER) | payer MEDICARE, OTHER ==
--- NOTE | 2023-05-31 18:37 | ED ---
ENT HPI - General Source: patient, EMS, RN notes reviewed <Marilia Bello - Last Filed: 05/31/23 18:35> <Analy Traylor - Last Filed: 05/31/23 22:14> - General Chief complaint: ENT Stated complaint: Oral Thrush Time Seen by Provider: 05/31/23 18:35 - History of Present Illness Initial comments: Patient is 72-year-old male presenting to the emergency room with complaints of the development of thrush which began 2 days ago. He reports that he previously had a thrush infection and symptoms are the same. He reports sore throat with gagging when attempting to swallow but no overt aphasia. He denies any chest pain, shortness of breath, abdominal pain, fevers or chills. He also is complaining of a rash to bilateral lower extremities which worsened while using Vaseline lotion and nystatin. (Marilia Bello) Quick note reviewed: This is a pleasant 72-year-old male with no significant past medical history who presents to the emergency department with a chief complaint of mouth problem. Patient believes that he has oral thrush. He reports taking a white coating in his mouth approximately 2 days ago. He repo rts that he has had thrush in the past that his symptoms feel the same. He denies any fever, chills, dyspnea, cough. Patient also notes that he has a rash to his bilateral lower extremities however has seen his primary care for this has given her Vaseline and nystatin lotion. (Analy Traylor) - Related Data Home Medications Medication Instructions Recorded Confirmed buPROPion XL [Wellbutrin XL] 150 mg PO DAILY 09/15/18 05/09/23 atenoloL [Tenormin] 25 mg PO DAILY 05/09/23 05/09/23 Previous Rx's Medication Instructions Recorded Nystatin 100,000 Unit/ml Susp 500,000 unit PO QID 7 Days #140 ml 05/11/23 [Mycostatin Oral Susp] Warfarin [Coumadin] 2.5 mg PO DIRECTED #10 05/11/23 Nystatin 100,000 Unit/ml Susp 5 ml PO QID #140 ml 05/31/23 [Mycostatin Oral Susp] Allergies Allergy/AdvReac Type Severity Reaction Status Date / Time acetaminophen [From Tylenol] Allergy Swelling Verified 05/09/23 09:32 azithromycin Allergy Unknown Verified 05/09/23 09:29 buspirone Allergy Unknown Verified 05/09/23 09:29 diazepam [From Valium] Allergy Unknown Verified 05/09/23 09:29 Iodinated Contrast Media Allergy Unknown Verified 05/09/23 09:29 [Iodinated Contrast- Oral and IV Dye] milk Allergy Unknown Verified 05/09/23 09:29 phenazopyridine Allergy Unknown Verified 05/09/23 09:29 [From Pyridium] sertraline Allergy Unknown Verified 05/09/23 09:29 amlodipine [From Norvasc] AdvReac Swelling Verified 05/09/23 09:29 ciprofloxacin [From Cipro] AdvReac Swelling Verified 05/09/23 09:29 valacyclovir [From Valtrex] AdvReac Swelling Verified 05/09/23 09:29 Review of Systems ROS Other: All systems not noted in ROS Statement are negative. <Marilia Bello - Last Filed: 05/31/23 18:35> ROS Other: All systems not noted in ROS Statement are negative. <Analy Trayolr - Last Filed: 05/31/23 22:14> ROS Statement: Those systems with pertinent positive or pertinent negative responses have been documented in the HPI. Past Medical History Past Medical History: Coronary Artery Disease (CAD), Hypertension, Myocardial Infarction (NH), Prostate Disorder Additional Past Medical History / Comment(s): bladder issues chronic dumont -pt stated it was changed on 05/06/23 Last Myocardial Infarction Date:: 2007 History of Any Multi-Drug Resistant Organisms: None Reported Past Surgical History: Heart Catheterization With Stent, Tonsillectomy Additional Past Surgical History / Comment(s): cystoscope, heart cath with stents Past Anesthesia/Blood Transfusion Reactions: Motion Sickness Date of Last Stent Placement:: 2005 Past Psychological History: Depression Additional Psychological History / Comment(s): Lives in an assisted living situation. 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 No experience. No international travel. No animal exposures. No tobacco or alcohol use Smoking Status: Never smoker Past Alcohol Use History: None Reported Past Drug Use History: None Reported - Past Family History Mother Family Medical History: Cancer Additional Family Medical History / Comment(s): colon cancer Father Family Medical History: Myocardial Infarction (NH) <Marilia Bello - Last Filed: 05/31/23 18:35> General Exam <Marilia Bello - Last Filed: 05/31/23 18:35> <Analy Traylor - Last Filed: 05/31/23 22:14> - General Exam Comments Initial Comments: Visual Physical Exam Vital signs reviewed General: Well-appearing, nontoxic, no acute distress. Head: Normocephalic, atraumatic Eyes: PERRLA, EOMI ENT: Airway patent Chest: Nonlabored breathing Skin: No visual rash, normal skin tone Neuro: Alert and oriented 3 Musculoskeletal: No gross abnormalities I performed the Quicknote portion of this note signed Marilia Bello ELECTRONIC SERVICE TECHNICIAN-c (Marilia Bello) General: Alert, in no acute distress Head: atraumatic normocephalic. Eyes PERRL, EOMI intact, mucous membranes moist, tongue with small amount of white area to the posterior tongue and oropharynx Respiratory: Lungs clear to auscultation bilaterally Cardiovascular: Heart rate regular rate and rhythm Abdominal: Soft without guarding or rebound Extremities: Normal inspection with full range of motion and normal capillary refill Neuroogic: alert and oriented 3, CN II-XII intact, able to ambulate with steady gait Skin: warm dry and intact with normal color (Analy Traylor) Course Vital Signs 05/31/23 05/31/23 18:34 20:18 Temperature 98 F 98.7 F Pulse Rate 50 L 64 Respiratory 20 16 Rate Blood Pressure 160/80 143/76 O2 Sat by Pulse 97 94 L Oximetry Medical Decision Making <Analy Traylor - Last Filed: 05/31/23 22:14> - Medical Decision Making Was pt. sent in by a medical professional or institution (, PA, ELECTRONIC SERVICE TECHNICIAN, urgent care, hospital, or assisted...) When possible be specific @ -[No] Did you speak to anyone other than the patient for history (EMS, parent, family, police, friend...)? What history was obtained from this source @ -EMS Did you review nursing and triage notes (agree or disagree)? Why? @ -[I reviewed and agree with nursing and triage notes] Were old charts reviewed (outside hosp., previous admission, EMS record, old EKG, old radiological studies, urgent care reports/EKG's, assisted records)? Report findings @ -[No old charts were reviewed] Differential Diagnosis (chest pain, altered mental status, abdominal pain women, abdominal pain men, vaginal bleeding, weakness, fever, dyspnea, syncope, headache, dizziness, GI bleed, back pain, seizure, CVA, palpatations, mental health, musculoskeletal)? @ -[not applicable] EKG interpreted by me (3pts min.). @ -[As above] X-rays interpreted by me (1pt min.). @ -[None done] CT interpreted by me (1pt min.). @ -[None done] U/S interpreted by me (1pt. min.). @ -[None done] What testing was considered but not performed or refused? (CT, X-rays, U/S, labs)? Why? @ -[None] What meds were considered but not given or refused? Why? @ -[None] Did you discuss the management of the patient with other professionals (professionals i.e. , PA, ELECTRONIC SERVICE TECHNICIAN, lab, RT, psych nurse, social media content manager, siding installer, teacher, international first officer, therapeutic case manager)? Give summary @ -[No] Was smoking cessation discussed for >3mins.? @ -[No] Was critical care preformed (if so, how long)? @ -[No] Were there social determinants of health that impacted care today? How? (Homelessness, low income, unemployed, alcoholism, drug addiction, transportation, low edu. Level, literacy, decrease access to med. care, prison, rehab)? @ -[No] Was there de-escalation of care discussed even if they declined (Discuss DNR or withdrawal of care, Hospice)? DNR status @ -[No] What co-morbidities impacted this encounter? (DM, HTN, Smoking, COPD, CAD, Cancer, CVA, ARF, Chemo, Hep., AIDS, mental health diagnosis, sleep apnea, morbid obesity)? @ -[None] Was patient admitted / discharged? Hospital course, mention meds given and route, prescriptions, significant lab abnormalities, going to OR and other pertinent info. @ Discharged. This is a pleasant 52-year-old female who presents to the emergency department with mouth rash. Patient had a thorough history and physical exam performed. Oral cavity consistent with oral thrush. Patient was given nystatin suspension. He was given a prescription for nystatin suspension instructed to swish and spit every 6 hours. Return precautions were discussed at length. Patient discharged in stable condition. All questions were addressed. Case discussed with JOSELINE Cuevas who agrees with plan of care Undiagnosed new problem with uncertain prognosis? @ -[No] Drug Therapy requiring intensive monitoring for toxicity (Heparin, Nitro, Insulin, Cardizem)? @ -[No] Were any procedures done? @ -[No] Diagnosis/symptom? @ -Oral thrush Acute, or Chronic, or Acute on Chronic? @ -Acute Uncomplicated (without systemic symptoms) or Complicated (systemic symptoms)? @ -Uncomplicated Side effects of treatment? @ -[No] Exacerbation, Progression, or Severe Exacerbation? @ -[No] Poses a threat to life or bodily function? How? (Chest pain, USA, NH, pneumonia, PE, COPD, DKA, ARF, appy, cholecystitis, CVA, Diverticulitis, Homicidal, Suicidal, threat to staff... and all critical care pts) @ -Low likelihood (Analy Traylor) Disposition <Marilia Bello - Last Filed: 05/31/23 18:35> Is patient prescribed a controlled substance at d/c from ED?: No Time of Disposition: 19:28 <Analy Traylor - Last Filed: 05/31/23 22:14> Clinical Impression: Oral thrush Disposition: HOME SELF-CARE Condition: Stable Instructions (If sedation given, give patient instructions): Oral Candidiasis (ED) Additional Instructions: Please swish and spit nystatin solution every 6 hours Please return to the nearest emergency department symptoms worsen or persist Prescriptions: Nystatin 100,000 Unit/ml Susp [Mycostatin Oral Susp] 5 ml PO QID #140 ml Referrals: None,Stated [Primary Care Provider] - 1-2 days
[2023-05-31 20:19] VITALS: BP 143/76; PULSE 64; RESP 16; TEMP 98.7
[2023-05-31] MEDS ORDERED: NYSTATIN 100,000 UNIT/ML SUSP 500,000 UNIT/5 ML CUP PO SCH (21:00)
== END 2023-05-31 20:19 | disposition home or self-care (01) ==
LOC: EC 18:07
DX: B37.0 Candidal stomatitis (principal); I10 Essential (primary) hypertension; I25.10 Atherosclerotic heart disease of native coronary artery without angina pectoris; I25.2 Old myocardial infarction; Z88.1 Allergy status to other antibiotic agents; Z88.6 Allergy status to analgesic agent; Z88.5 Allergy status to narcotic agent; Z91.011 Allergy to milk products; Z88.8 Allergy status to other drugs, medicaments and biological substances
CPT/HCPCS: 99284

== ENCOUNTER 2023-07-07 05:57 | Emergency (ER) | payer MEDICARE, OTHER ==
[2023-07-07 06:04] VITALS: RESP 18
[2023-07-07] MEDS ORDERED: KETOROLAC 15 MG/ML 1 ML VIAL IVP STA (06:37)
[2023-07-07] MEDS ORDERED: KETOROLAC 15 MG/ML 1 ML VIAL IM STA (06:39)
[2023-07-07 06:59] LABS: Basophils # (A) 0.1 k/uL (0-0.2); Basophils % (A) 1 %; Eosinophils # (A) 0.1 k/uL (0-0.7); Eosinophils % (A) 1 %; HCT 48.3 % (39.0-53.0); HGB 16.4 gm/dL (13.0-17.5); Lymphocytes # (A) 1.8 k/uL (1.0-4.8); Lymphocytes % (A) 21 %; MCH 32.5 pg (25.0-35.0); MCV 95.6 fL (80.0-100.0); Mean Platelet Volume 6.9; Monocytes # (A) 0.4 k/uL (0-1.0); Monocytes % (A) 5 %; Neutrophils # (A) 6.1 k/uL (1.3-7.7); Neutrophils % (A) 71 %; Platelet Count 347 k/uL (150-450); RBC 5.06 m/uL (4.30-5.90); RDW 14.3 % (11.5-15.5); WBC 8.7 k/uL (3.8-10.6)
[2023-07-07 07:12] LABS: ALT 28 U/L (4-49); AST 25 U/L (17-59); African American GFR (CKD) 44 (>60 ml/min/1.73 sqM); Albumin 3.7 g/dL (3.5-5.0); Alkaline Phosphatase 66 U/L (38-126); Anion Gap 8 mmol/L; Blood Urea Nitrogen 19 mg/dL (9-20); Calcium 9.2 mg/dL (8.4-10.2); Carbon Dioxide 27 mmol/L (22-30); Chloride 97 mmol/L (98-107); Glucose 99 mg/dL (74-99); Non-African American GFR(CKD) 38 (>60 ml/min/1.73 sqM); Potassium 4.3 mmol/L (3.5-5.1); Sodium 132 mmol/L (137-145); Total Bilirubin 0.6 mg/dL (0.2-1.3); Total Protein 6.4 g/dL (6.3-8.2)
[2023-07-07 07:45] VITALS: TEMP 98.1
--- NOTE | 2023-07-07 07:51 | ED ---
General Adult HPI - General Chief complaint: Recheck/Abnormal Lab/Rx Stated complaint: Weakness Time Seen by Provider: 07/07/23 06:11 Source: EMS Mode of arrival: EMS - History of Present Illness Initial comments: Patient is a 72-year-old male who presents to the emergency department for feet and testicle issues. Patient reports pain in his feet for the past 3 months he denies any particular injury. States he has been following with Dr. Ponce for this issue and has had recent negative x-rays of his feet. Patient denies any reinjury states his feet were hurting him in the middle of the night. He denies fever, chills, nausea, vomiting. Denies leg pain and swelling. Patient also expresses concerns that his testicles are red. States he has been following with Dr. Kirby who gave him a cream 1 month ago. He denies any changes in redness states the testicles are somewhat tender which is not abnormal for him. Patient has a dumont catheter he denies penile pain and discharge. No abdominal pain, back pain. Patient overall feels weak no upper respiratory symptoms, chest pain, shortness of breath. - Related Data Home Medications Medication Instructions Recorded Confirmed buPROPion XL [Wellbutrin XL] 150 mg PO DAILY 09/15/18 07/07/23 atenoloL [Tenormin] 25 mg PO DAILY 05/09/23 07/07/23 Warfarin [Coumadin] 5 mg PO [id number]@209907/07/23 07/07/23 Warfarin [Coumadin] 6.25 mg PO MOFR@2100 07/07/23 07/07/23 Previous Rx's Medication Instructions Recorded Cephalexin [Keflex] 250 mg PO Q6HR #28 cap 07/07/23 Allergies Allergy/AdvReac Type Severity Reaction Status Date / Time acetaminophen [From Tylenol] Allergy Swelling Verified 07/07/23 08:26 azithromycin Allergy Unknown Verified 07/07/23 08:26 buspirone Allergy Unknown Verified 07/07/23 08:26 diazepam [From Valium] Allergy Unknown Verified 07/07/23 08:26 Iodinated Contrast Media Allergy Unknown Verified 07/07/23 08:26 [Iodinated Contrast- Oral and IV Dye] milk Allergy Unknown Verified 07/07/23 08:26 phenazopyridine Allergy Unknown Verified 09/21/23 08:26 [From Pyridium] sertraline Allergy Unknown Verified 07/07/23 08:26 amlodipine [From Norvasc] AdvReac Swelling Verified 07/07/23 08:26 ciprofloxacin [From Cipro] AdvReac Swelling Verified 07/07/23 08:26 valacyclovir [From Valtrex] AdvReac Swelling Verified 07/07/23 08:26 Review of Systems ROS Statement: Those systems with pertinent positive or pertinent negative responses have been documented in the HPI. ROS Other: All systems not noted in ROS Statement are negative. Past Medical History Past Medical History: Coronary Artery Disease (CAD), Hypertension, Myocardial Infarction (NC), Prostate Disorder Additional Past Medical History / Comment(s): bladder issues chronic dumont -pt stated it was changed on 05/06/23 Last Myocardial Infarction Date:: 2007 History of Any Multi-Drug Resistant Organisms: None Reported Past Surgical History: Heart Catheterization With Stent, Tonsillectomy Additional Past Surgical History / Comment(s): cystoscope, heart cath with stents Past Anesthesia/Blood Transfusion Reactions: Motion Sickness Date of Last Stent Placement:: 2005 Past Psychological History: Depression Smoking Status: Never smoker Past Alcohol Use History: None Reported Past Drug Use History: None Reported - Past Family History Mother Family Medical History: Cancer Additional Family Medical History / Comment(s): colon cancer Father Family Medical History: Myocardial Infarction (NC) General Exam General appearance: alert Eye exam: Present: normal appearance, PERRL, EOMI. Absent: scleral icterus, conjunctival injection, periorbital swelling Respiratory exam: Present: normal lung sounds bilaterally. Absent: respiratory distress, wheezes, rales, rhonchi, stridor Cardiovascular Exam: Present: regular rate, normal rhythm, normal heart sounds. Absent: systolic murmur, diastolic murmur, rubs, gallop, clicks exam: Present: normal inspection (mild erythema bilateral testicles ). Absent: testicular tenderness, scrotal swelling Extremities exam: Present: normal inspection, full ROM, normal capillary refill. Absent: tenderness, pedal edema, joint swelling, calf tenderness Neurological exam: Present: alert Psychiatric exam: Present: normal affect, normal mood Skin exam: Present: warm, dry, intact, normal color. Absent: rash Course Vital Signs 07/07/23 07/07/23 07/07/23 05:59 07:41 09:00 Temperature 98.2 F 98.1 F Pulse Rate 73 76 63 Respiratory 18 18 18 Rate Blood Pressure 179/94 171/95 157/87 O2 Sat by Pulse 98 97 97 Oximetry Medical Decision Making - Medical Decision Making Was pt. sent in by a medical professional or institution ([facility]UK[facility] Giles, [employer], urgent care, hospital, or penitentiary...) When possible be specific @ -No Did you speak to anyone other than the patient for history (EMS, parent, family, police, friend...)? What history was obtained from this source @ -No Did you review nursing and triage notes (agree or disagree)? Why? @ -I reviewed and agree with nursing and triage notes Were old charts reviewed (outside hosp., previous admission, EMS record, old EKG, old radiological studies, urgent care reports/EKG's, penitentiary records)? Report findings @ -No old charts were reviewed Differential Diagnosis (chest pain, altered mental status, abdominal pain women, abdominal pain men, vaginal bleeding, weakness, fever, dyspnea, syncope, headache, dizziness, GI bleed, back pain, seizure, CVA, palpatations, mental health)? @ -foot sprain, fracture, cellulititis, gout. This list is not meant to be all-inclusive EKG interpreted by me (3pts min.). @ -As above X-rays interpreted by me (1pt min.). @ -None done CT interpreted by me (1pt min.). @ -None done U/S interpreted by me (1pt. min.). @ -None done What testing was considered but not performed or refused? (CT, X-rays, U/S, labs)? Why? @ -None What meds were considered but not given or refused? Why? @ -None Did you discuss the management of the patient with other professionals (professionals i.e. MUKESH Giles, [employer], lab, RT, psych nurse, social science instructor, desktop operator, teacher, police officer, watch case polisher)? Give summary @ -No Was smoking cessation discussed for >3mins.? @ -No Was critical care preformed (if so, how long)? @ -No Were there social determinants of health that impacted care today? How? (Homelessness, low income, unemployed, alcoholism, drug addiction, transportation, low edu. Level, literacy, decrease access to med. care, detention, rehab)? @ -No Was there de-escalation of care discussed even if they declined (Discuss DNR or withdrawal of care, Hospice)? DNR status @ -No What co-morbidities impacted this encounter? (DM, HTN, Smoking, COPD, CAD, Cancer, CVA, ARF, Chemo, Hep., AIDS, mental health diagnosis, sleep apnea, morbid obesity)? @ -None Was patient admitted / discharged? Hospital course, mention meds given and route, prescriptions, significant lab abnormalities, going to OR and other pertinent info. @ -72-year-old presenting with bilateral feet pain and testicle erythema. Patient follows with his primary care provider for the feet pain he has had negative testing including x-rays. Physical exam reveals no abnormalities of the feet. Labs obtained there is no leukocytosis. Kidney function is improved since last visit, creatinine at 1.77. Dumont catheter was changed urine clean catch is consistent with infection. Patient does not have testicular swelling or pain he was given Keflex in the emergency department. He has no systemic symptoms or signs. Patient in stable medical condition for discharge with antibiotics for UTI. He will follow up with Dr. Kirby as appointment on Tuesday as well as primary care provider. Undiagnosed new problem with uncertain prognosis? @ -No Drug Therapy requiring intensive monitoring for toxicity (Heparin, Nitro, Insulin, Cardizem)? @ -No Were any procedures done? @ -No Diagnosis/symptom? @ -bilateral feet pain, UTI Acute, or Chronic, or Acute on Chronic? @ -acute Uncomplicated (without systemic symptoms) or Complicated (systemic symptoms)? @ uncomplicated Side effects of treatment? @ -No Exacerbation, Progression, or Severe Exacerbation? @ -No Poses a threat to life or bodily function? How? (Chest pain, USA, [place], pneumonia, PE, COPD, DKA, ARF, appy, cholecystitis, CVA, Diverticulitis, Homicidal, Suicidal, threat to staff... and all critical care pts) @ -No Dr. Darby is my attending - Lab Data Result diagrams: 07/07/23 06:46 07/07/23 06:46 Lab Results 07/07/23 07/07/23 07/07/23 Range/Units 06:46 06:46 08:40 WBC 8.7 (3.8-10.6) k/uL RBC 5.06 (4.30-5.90) m/uL Hgb 16.4 (13.0-17.5) gm/dL Hct 48.3 (39.0-53.0) % MCV 95.6 (80.0-100.0) fL MCH 32.5 (25.0-35.0) pg MCHC 34.0 (31.0-37.0) g/dL RDW 14.3 (11.5-15.5) % Plt Count 347 (150-450) k/uL MPV 6.9 Neutrophils % 71 % Lymphocytes % 21 % Monocytes % 5 % Eosinophils % 1 % Basophils % 1 % Neutrophils # 6.1 (1.3-7.7) k/uL Lymphocytes # 1.8 (1.0-4.8) k/uL Monocytes # 0.4 (0-1.0) k/uL Eosinophils # 0.1 (0-0.7) k/uL Basophils # 0.1 (0-0.2) k/uL Sodium 132 L (137-145) mmol/L Potassium 4.3 (3.5-5.1) mmol/L Chloride 97 L (98-107) mmol/L Carbon Dioxide 27 (22-30) mmol/L Anion Gap 8 mmol/L BUN 19 (9-20) mg/dL Creatinine 1.77 H (0.66-1.25) mg/dL Est GFR (CKD-EPI)AfAm 44 (>60 ml/min/1.73 sqM) Est GFR (CKD-EPI)NonAf 38 (>60 ml/min/1.73 sqM) Glucose 99 (74-99) mg/dL Calcium 9.2 (8.4-10.2) mg/dL Total Bilirubin 0.6 (0.2-1.3) mg/dL AST 25 (17-59) U/L ALT 28 (4-49) U/L Alkaline Phosphatase 66 (38-126) U/L Total Protein 6.4 (6.3-8.2) g/dL Albumin 3.7 (3.5-5.0) g/dL Urine Color Light Yellow Urine Appearance Cloudy (Clear) Urine pH 8.0 (5.0-8.0) Ur Specific Taylor 1.014 (1.001-1.035) Urine Protein 2+ H (Negative) Urine Glucose (UA) Negative (Negative) Urine Ketones Negative (Negative) Urine Blood Moderate H (Negative) Urine Nitrite Negative (Negative) Urine Bilirubin Negative (Negative) Urine Urobilinogen <2.0 (<2.0) mg/dL Ur Leukocyte Esterase Large H (Negative) Urine RBC 103 H (0-5) /hpf Urine WBC 99 H (0-5) /hpf Urine WBC Clumps Rare H (None) /hpf Ur Squamous Epith Cells <1 (0-4) /hpf Urine Bacteria Rare H (None) /hpf Urine Mucus Occasional H (None) /hpf Disposition Clinical Impression: Pain in both feet, UTI (urinary tract infection) Disposition: HOME SELF-CARE Condition: Good Instructions (If sedation given, give patient instructions): How to Care for Your Suprapubic Catheter (DC), Urinary Tract Infection in Older Adults (ED) Additional Instructions: Take medication as directed. Follow up with Dr. Kirby and primary care provider in 1-2 days. Return to the ED if you experience new, worsening, or concerning symptoms Prescriptions: Cephalexin [Keflex] 250 mg PO Q6HR #28 cap Is patient prescribed a controlled substance at d/c from ED?: No Referrals: Be Ponce MD [Primary Care Provider] - 1-2 days
[2023-07-07 09:09] VITALS: BP 157/87; PULSE 63
[2023-07-07 09:16] LABS: Appearance,Urine Cloudy (Clear); Bacteria,Urine Rare /hpf; Bilirubin,Urine Negative (Negative); Blood,Urine Moderate (Negative); Color,Urine Light Yellow; Glucose,Urine (UA) Negative (Negative); Ketones,Urine Negative (Negative); Leukocyte Esterase,Urine Large (Negative); Mucus,Urine Occasional /hpf; Nitrite,Urine Negative (Negative); Protein,Urine 2+ (Negative); RBC,Urine 103 /hpf (0-5); Specific Gravity,Urine 1.014 (1.001-1.035); Squamous Epithelial Cell,Urine <1 /hpf (0-4); Urobilinogen,Urine <2.0 mg/dL (<2.0); WBC,Urine 99 /hpf (0-5)
[2023-07-07] MEDS ORDERED: CEPHALEXIN 250 MG CAP PO ONE (09:40)
== END 2023-07-07 15:31 | disposition home or self-care (01) ==
LOC: EC 05:57
DX: M79.672 Pain in left foot (principal); M79.671 Pain in right foot; N39.0 Urinary tract infection, site not specified; I25.10 Atherosclerotic heart disease of native coronary artery without angina pectoris; I25.2 Old myocardial infarction; I10 Essential (primary) hypertension; F32.A Depression, unspecified; Z79.01 Long term (current) use of anticoagulants; Z79.899 Other long term (current) drug therapy; Z91.041 Radiographic dye allergy status; Z91.011 Allergy to milk products; Z88.6 Allergy status to analgesic agent; Z88.1 Allergy status to other antibiotic agents; Z88.8 Allergy status to other drugs, medicaments and biological substances
CPT/HCPCS: 36415; 80053; 85025; 81001; 87086; 99284; 96372; 51702; J1885

== ENCOUNTER 2023-07-07 14:52 | Emergency (ER) | payer MEDICARE, OTHER ==
[2023-07-07 15:14] VITALS: RESP 18
--- NOTE | 2023-07-07 17:13 | XR ---
EXAMINATION TYPE: XR KUB DATE OF EXAM: 07/07/2023 4:45 PM CLINICAL INDICATION:Male, 72 years old with history of constipation; [facility] COMPARISON: 04/02/2019 TECHNIQUE: One radiographic view of the abdomen was obtained. FINDINGS: Mild to moderate stool burden throughout the colon The bowel gas pattern is nonspecific wit hout dilated loops of small or large bowel. There is no evidence for organomegaly or pneumoperitoneum . The osseous structures are intact. No abnormal calcifications are present. Fecal material and gas are demonstrated throughout the colon and rectum. IMPRESSION: [id number] stool burden, Nonspecific bowel gas pattern without radiographic evidence for acute process.
[2023-07-07] MEDS ORDERED: GLYCERIN ADULT SUPPOSITORY 1 EACH RECTAL STA (17:24)
--- NOTE | 2023-07-07 17:24 | ED ---
General Adult HPI - General Chief complaint: Recheck/Abnormal Lab/Rx Stated complaint: cath blockage Time Seen by Provider: 07/07/23 16:14 Source: patient Mode of arrival: ambulatory Limitations: no limitations - History of Present Illness Initial comments: 72-year-old male presenting with chief complaint of "my catheter isn't draining". Patient states that he has had very little output since it was placed at the urologist office earlier today. He states he is only drinking 1 glass of water today. No suprapubic fullness or tenderness. Patient states "I feel like I have to poop". No nausea, vomiting, diarrhea. Patient states he is currently on antibiotics for UTI. No fevers or chills. No hematuria. - Related Data Home Medications Medication Instructions Recorded Confirmed buPROPion XL [Wellbutrin XL] 150 mg PO DAILY 09/15/18 07/07/23 atenoloL [Tenormin] 25 mg PO DAILY 05/09/23 07/07/23 Warfarin [Coumadin] 5 mg PO SUTUWETHSA@209907/07/23 07/07/23 Warfarin [Coumadin] 6.25 mg PO MOFR@209907/07/23 07/07/23 Previous Rx's Medication Instructions Recorded Cephalexin [Keflex] 250 mg PO Q6HR #28 cap 07/07/23 Allergies Allergy/AdvReac Type Severity Reaction Status Date / Time acetaminophen [From Tylenol] Allergy Swelling Verified 07/07/23 15:10 azithromycin Allergy Unknown Verified 07/07/23 15:10 buspirone Allergy Unknown Verified 07/07/23 15:10 diazepam [From Valium] Allergy Unknown Verified 07/07/23 15:10 Iodinated Contrast Media Allergy Unknown Verified 07/07/23 15:10 [Iodinated Contrast- Oral and IV Dye] milk Allergy Unknown Verified 07/07/23 15:10 phenazopyridine Allergy Unknown Verified 07/07/23 15:10 [From Pyridium] sertraline Allergy Unknown Verified 07/07/23 15:10 amlodipine [From Norvasc] AdvReac Swelling Verified 07/07/23 15:10 ciprofloxacin [From Cipro] AdvReac Swelling Verified 07/07/23 15:10 valacyclovir [From Valtrex] AdvReac Swelling Verified 07/07/23 15:10 Review of Systems ROS Statement: Those systems with pertinent positive or pertinent negative responses have been documented in the HPI. ROS Other: All systems not noted in ROS Statement are negative. Past Medical History Past Medical History: Coronary Artery Disease (CAD), Hypertension, Myocardial Infarction ([place]), Prostate Disorder Additional Past Medical History / Comment(s): bladder issues chronic dumont -pt stated it was changed on 05/06/23 Last Myocardial Infarction Date:: 2007 History of Any Multi-Drug Resistant Organisms: None Reported Past Surgical History: Heart Catheterization With Stent, Tonsillectomy Additional Past Surgical History / Comment(s): cystoscope, heart cath with stents Past Anesthesia/Blood Transfusion Reactions: Motion Sickness Date of Last Stent Placement:: 2005 Past Psychological History: Depression Smoking Status: Never smoker Past Alcohol Use History: None Reported Past Drug Use History: None Reported - Past Family History Mother Family Medical History: Cancer Additional Family Medical History / Comment(s): colon cancer Father Family Medical History: Myocardial Infarction ([place]) General Exam Limitations: no limitations General appearance: alert, in no apparent distress Head exam: Present: atraumatic, normocephalic, normal inspection Eye exam: Present: normal appearance, EOMI Neck exam: Present: normal inspection, full ROM Respiratory exam: Absent: respiratory distress GI/Abdominal exam: Present: soft. Absent: distended, tenderness, guarding, rebound, rigid Neurological exam: Present: alert, oriented X3 Psychiatric exam: Present: normal affect, normal mood Skin exam: Present: warm, dry, intact, normal color. Absent: rash Course Vital Signs 07/07/23 07/07/23 15:10 17:54 Temperature 97.9 F 98.1 F Pulse Rate 97 63 Respiratory 18 18 Rate Blood Pressure 151/91 121/66 O2 Sat by Pulse 97 98 Oximetry Medical Decision Making - Medical Decision Making Was pt. sent in by a medical professional or institution (, PA, COOKING INSTRUCTOR, urgent care, hospital, or longterm...) When possible be specific @ -No Did you speak to anyone other than the patient for history (EMS, parent, family, police, friend...)? What history was obtained from this source @ -No Did you review nursing and triage notes (agree or disagree)? Why? @ -I reviewed and agree with nursing and triage notes Were old charts reviewed (outside hosp., previous admission, EMS record, old EKG, old radiological studies, urgent care reports/EKG's, longterm records)? Report findings @ -No old charts were reviewed Differential Diagnosis (chest pain, altered mental status, abdominal pain women, abdominal pain men, vaginal bleeding, weakness, fever, dyspnea, syncope, headache, dizziness, GI bleed, back pain, seizure, CVA, palpatations, mental health, musculoskeletal)? @ -Differential includes obstruction, dehydration, constipation, this is not an all inclusive list EKG interpreted by me (3pts min.). @ -As above X-rays interpreted by me (1pt min.). @ -Mild to moderate stool burden, nonspecific bowel gas pattern without radiographic evidence for acute process CT interpreted by me (1pt min.). @ -None done U/S interpreted by me (1pt. min.). @ -None done What testing was considered but not performed or refused? (CT, X-rays, U/S, labs)? Why? @ -None What meds were considered but not given or refused? Why? @ -None Did you discuss the management of the patient with other professionals (professionals i.e. , PA, COOKING INSTRUCTOR, lab, RT, psych nurse, social insurance analyst, pathology laboratory aide, teacher, chief digital media officer, case technician)? Give summary @ -No Was smoking cessation discussed for >3mins.? @ -No Was critical care preformed (if so, how long)? @ -No Were there social determinants of health that impacted care today? How? (Homelessness, low income, unemployed, alcoholism, drug addiction, transportation, low edu. Level, literacy, decrease access to med. care, penitentiary, rehab)? @ -No Was there de-escalation of care discussed even if they declined (Discuss DNR or withdrawal of care, Hospice)? DNR status @ -No What co-morbidities impacted this encounter? (DM, HTN, Smoking, COPD, CAD, Cancer, CVA, ARF, Chemo, Hep., AIDS, mental health diagnosis, sleep apnea, morbid obesity)? @ -None Was patient admitted / discharged? Hospital course, mention meds given and route, prescriptions, significant lab abnormalities, going to OR and other pertinent info. @ -72-year-old male presenting with chief complaint of "my catheter won't drain". On examination the catheter is currently draining. Patient is concerned because he has not had as much output as he normally has had by this time. His bladder scan shows 34 mL. He states he is only drinking 1 glass of water today. I explained to the patient that this is likely why he has had low output today. He also has complaints of constipation, KUB x-ray shows constipation. Patient will be treated with a glycerin suppository. Follow-up with PCP. Report back to ER with any new or worsening symptoms. Discussed return parameters and answered all questions. Patient conveyed verbal understanding and agreed to the plan. I discussed this case in detail with my attending Dr. Jaramillo Undiagnosed new problem with uncertain prognosis? @ -No Drug Therapy requiring intensive monitoring for toxicity (Heparin, Nitro, Insulin, Cardizem)? @ -No Were any procedures done? @ -No Diagnosis/symptom? @ -Constipation Acute, or Chronic, or Acute on Chronic? @ -Acute Uncomplicated (without systemic symptoms) or Complicated (systemic symptoms)? @ -Uncomplicated Side effects of treatment? @ -No Exacerbation, Progression, or Severe Exacerbation? @ -No Poses a threat to life or bodily function? How? (Chest pain, [place], [place], pneumonia, PE, COPD, DKA, ARF, appy, cholecystitis, CVA, Diverticulitis, Homicidal, Suicidal, threat to staff... and all critical care pts) @ -No Disposition Clinical Impression: Constipation Disposition: HOME SELF-CARE Condition: Good Instructions (If sedation given, give patient instructions): Constipation (ED), High Fiber Diet (ED) Additional Instructions: Follow-up with PCP. Report back to ER with any new or worsening symptoms. Is patient prescribed a controlled substance at d/c from ED?: No Referrals: Be Ponce MD [Primary Care Provider] - 1-2 days Time of Disposition: 17:24
[2023-07-07 17:59] VITALS: BP 121/66; PULSE 63; TEMP 98.1
== END 2023-07-07 17:54 | disposition home or self-care (01) ==
LOC: EC 14:52
DX: K59.00 Constipation, unspecified (principal); I10 Essential (primary) hypertension; I25.10 Atherosclerotic heart disease of native coronary artery without angina pectoris; I25.2 Old myocardial infarction; F32.A Depression, unspecified; Z79.01 Long term (current) use of anticoagulants; Z79.899 Other long term (current) drug therapy; Z88.1 Allergy status to other antibiotic agents; Z88.6 Allergy status to analgesic agent; Z88.8 Allergy status to other drugs, medicaments and biological substances; Z91.011 Allergy to milk products; Z91.041 Radiographic dye allergy status; Z95.5 Presence of coronary angioplasty implant and graft
CPT/HCPCS: 74018; 99284

== ENCOUNTER 2024-07-22 16:52 | Emergency (ER) | payer MEDICARE, OTHER ==
[2024-07-22 17:11] VITALS: BP 166/89; PULSE 65; RESP 20; TEMP 98
--- NOTE | 2024-07-22 17:25 | ED ---
Abdominal Pain HPI - General Source: patient Mode of arrival: ambulatory Limitations: no limitations <Beatrice Lawton - Last Filed: 07/22/24 17:24> - General Source: patient, RN notes reviewed, old records reviewed Mode of arrival: ambulatory Limitations: no limitations - History of Present Illness MD Complaint: other (Scrotal pain and swelling) -: week(s) Migration to: suprapubic Severity: moderate Severity scale (1-10): 7 Quality: sharp Consistency: constant Improves With: nothing Worsens With: nothing Associated Symptoms: denies other symptoms Treatments Prior to Arrival: other (0) <Rodríguez Hahn - Last Filed: 07/26/24 23:04> - General Chief Complaint: Abdominal Pain Stated Complaint: Urogenital Time Seen by Provider: 07/22/24 17:24 - History of Present Illness Initial Comments: 73-year-old male presenting with chief complaint of testicular pain and swelling. Has been ongoing since April. He was post get an ultrasound done tomorrow but came here to get it done today. (Beatrice Lawton) This is a 73-year-old male to the ER for evaluation of testicular pain and swe lling, patient has had increasing pain and swelling with need for ultrasound as an outpatient, patient has had indwelling Dumont for around 6 years (Rodríguez Hahn) - Related Data Home Medications Medication Instructions Recorded Confirmed buPROPion XL [Wellbutrin XL] 150 mg PO DAILY 09/15/18 07/07/23 atenoloL [Tenormin] 25 mg PO DAILY 05/09/23 07/07/23 Warfarin [Coumadin] 5 mg PO SUTUWETHSA@209907/07/23 07/07/23 Warfarin [Coumadin] 6.25 mg PO MOFR@209907/07/23 07/07/23 Previous Rx's Medication Instructions Recorded Cephalexin [Keflex] 250 mg PO Q6HR #28 cap 07/07/23 Cefpodoxime Proxetil [Vantin] 200 mg PO Q12HR 10 Days #20 tab 05/21/24 Allergies Allergy/AdvReac Type Severity Reaction Status Date / Time acetaminophen [From Tylenol] Allergy Swelling Verified 07/22/24 17:11 azithromycin Allergy Unknown Verified 07/22/24 17:11 buspirone Allergy Unknown Verified 07/22/24 17:11 diazepam [From Valium] Allergy Unknown Verified 07/22/24 17:11 Iodinated Contrast Media Allergy Unknown Verified 07/22/24 17:11 [Iodinated Contrast- Oral and IV Dye] milk Allergy Unknown Verified 07/22/24 17:11 phenazopyridine Allergy Unknown Verified 07/22/24 17:11 [From Pyridium] sertraline Allergy Unknown Verified 07/22/24 17:11 amlodipine [From Norvasc] AdvReac Swelling Verified 07/22/24 17:11 ciprofloxacin [From Cipro] AdvReac Swelling Verified 07/22/24 17:11 doxycycline AdvReac Abdominal Verified 07/22/24 17:11 Pain valacyclovir [From Valtrex] AdvReac Swelling Verified 07/22/24 17:11 Review of Systems ROS Other: All systems not noted in ROS Statement are negative. <Beatrice Lawton - Last Filed: 07/22/24 17:24> ROS Other: All systems not noted in ROS Statement are negative. <Rodríguez Hahn - Last Filed: 07/26/24 23:04> ROS Statement: Those systems with pertinent positive or pertinent negative responses have been documented in the HPI. Past Medical History Past Medical History: Coronary Artery Disease (CAD), Hypertension, Myocardial Infarction ([place]), Prostate Disorder Additional Past Medical History / Comment(s): bladder issues chronic dumont -pt stated it was changed on 05/06/23 Last Myocardial Infarction Date:: 2007 History of Any Multi-Drug Resistant Organisms: None Reported Past Surgical History: Heart Catheterization With Stent, Tonsillectomy Additional Past Surgical History / Comment(s): cystoscope, heart cath with stents Past Anesthesia/Blood Transfusion Reactions: Motion Sickness Date of Last Stent Placement:: 2005 Past Psychological History: Depression Smoking Status: Never smoker Past Alcohol Use History: None Reported Past Drug Use History: None Reported - Past Family History Mother Family Medical History: Cancer Additional Family Medical History / Comment(s): colon cancer Father Family Medical History: Myocardial Infarction ([place]) <Beatrice Lawton - Last Filed: 07/22/24 17:24> General Exam Limitations: no limitations <Beatrice Lawton - Last Filed: 07/22/24 17:24> General appearance: alert, in no apparent distress, anxious Head exam: Present: atraumatic, normocephalic, normal inspection Eye exam: Present: normal appearance, PERRL, EOMI. Absent: scleral icterus, conjunctival injection, periorbital swelling ENT exam: Present: normal exam, mucous membranes moist Neck exam: Present: normal inspection. Absent: tenderness, meningismus, lymphadenopathy Respiratory exam: Present: normal lung sounds bilaterally. Absent: respiratory distress, wheezes, rales, rhonchi, stridor Cardiovascular Exam: Present: regular rate, normal rhythm, normal heart sounds. Absent: systolic murmur, diastolic murmur, rubs, gallop, clicks GI/Abdominal exam: Present: soft, normal bowel sounds. Absent: distended, tenderness, guarding, rebound, rigid exam: Present: urethral discharge (Patient does have significant purulent discharge redness and erythema of the scrotum and glans) Extremities exam: Present: normal inspection, full ROM, normal capillary refill. Absent: tenderness, pedal edema, joint swelling, calf tenderness Back exam: Present: normal inspection Neurological exam: Present: alert, oriented X3, CN II-XII intact Psychiatric exam: Present: normal affect, normal mood Skin exam: Present: warm, dry, intact, normal color. Absent: rash <Rodríguez Hahn - Last Filed: 07/26/24 23:04> - General Exam Comments Initial Comments: Visual Physical Exam Vital signs reviewed General: Well-appearing, nontoxic, no acute distress. Head: Normocephalic, atraumatic Eyes: PERRLA, EOMI ENT: Airway patent Chest: Nonlabored breathing Skin: No visual rash, normal skin tone Neuro: Alert and oriented 3 Musculoskeletal: No gross abnormalities (Beatrice Lawton) pus and purulence of glans and shaft and scrotum (Rodríguez Hahn) Course <Rodríguez Hahn - Last Filed: 07/26/24 23:04> Vital Signs 07/22/24 17:08 Temperature 98 F Pulse Rate 65 Respiratory 20 Rate Blood Pressure 166/89 O2 Sat by Pulse 98 Oximetry - Reevaluation(s) Reevaluation #1: 07/22/24 20:37 medical record is reviewed (Rodríguez Hahn) Reevaluation #2: 10/06/24 20:37 Patient symptoms unchanged (Rodríguez Hahn) Reevaluation #3: 07/22/24 20:37 Patient informed of results and questions answered (Rodríguez Hahn) Reevaluation #4: Was pt. sent in by a medical professional or institution (MUKESH Giles, [employer], urgent care, hospital, or senior living...) When possible be specific @ -no Did you speak to anyone other than the patient for history (EMS, parent, family, police, friend...)? What history was obtained from this source @ -no Did you review nursing and triage notes (agree or disagree)? Why? @ -agree Are old charts reviewed (outside hosp., previous admission, EMS record, old EKG, old radiological studies, urgent care reports/EKG's, senior living records)? Report findings @ -yes Differential Diagnosis (chest pain, altered mental status, abdominal pain women, abdominal pain men, vaginal bleeding, weakness, fever, dyspnea, syncope, headache, dizziness, GI bleed, back pain, seizure, CVA, palpatations, mental health, musculoskeletal)? @ -prior EKG interpreted by me (3pts min.). @ -no X-rays interpreted by me (1pt min.). @ -no CT interpreted by me (1pt min.). @ -no U/S interpreted by me (1pt. min.). @ -yes negative for acure disase What testing was considered but not performed or refused? (CT, X-rays, U/S, labs)? Why? @ -none What meds were considered but not given or refused? Why? @ -none Did you discuss the management of the patient with other professionals (professionals i.e. MUKESH Giles, [employer] H[employer]ER, lab, RT, psych nurse, social services coordinator, sensitized paper tester, teacher, community resource officer, case management associate)? Give summary @ -no Was smoking cessation discussed for >3mins.? @ -no Was critical care preformed (if so, how long)? @ -no Were there social determinants of health that impacted care today? How? (Homelessness, low income, unemployed, alcoholism, drug addiction, transportation, low edu. Level, literacy, decrease access to med. care, snf, rehab)? @ -none Was there de-escalation of care discussed even if they declined (Discuss DNR or withdrawal of care, Hospice)? DNR status @ -no What co-morbidities impacted this encounter? (DM, HTN, Smoking, COPD, CAD, Cancer, CVA, ARF, Chemo, Hep., AIDS, mental health diagnosis, sleep apnea, morbid obesity)? @ -none Was patient admitted / discharged? Hospital course, mention meds given and route, prescriptions, significant lab abnormalities, going to OR and other pertinent info. @ - 73 male with indwelling Dumont catheter patient does have balanitis on physical exam both swelling and redness of the scrotum and glans with pus Discharged Undiagnosed new problem with uncertain prognosis? @ -no Drug Therapy requiring intensive monitoring for toxicity (Heparin, Nitro, Insulin, Cardizem)? @ -no Were any procedures done? @ -no Diagnosis/symptom? @ -Balanitis Acute, or Chronic, or Acute on Chronic? @ -Acute Uncomplicated (without systemic symptoms) or Complicated (systemic symptoms)? @ -Complicated Side effects of treatment? @ -no Exacerbation, Progression, or Severe Exacerbation? @ -exacerbation Poses a threat to life or bodily function? How? (Chest pain, [place], [place], pneumonia, PE, COPD, DKA, ARF, appy, cholecystitis, CVA, Diverticulitis, Homicidal, Suicidal, threat to staff... and all critical care pts) @ -yes with infection balanitis (Rodríguez Hahn) Medical Decision Making <Beatrice Lawton - Last Filed: 07/22/24 17:24> <Rodríguez Hahn - Last Filed: 07/26/24 23:04> - Medical Decision Making I performed the quick note portion of this visit, electronically signed Beatrice Lawton PA-C (Beatrice Lawton) 73 male with indwelling Dumont catheter patient does have balanitis on physical exam both swelling and redness of the scrotum and glans with pus (Rodríguez Hahn) - Lab Data Lab Results 07/22/24 Range/Units 19:22 Urine Color Colorless Urine Appearance Clear (Clear) Urine pH 7.0 (5.0-8.0) Ur Specific [place] 1.003 (1.001-1.035) Urine Protein Negative (Negative) Urine Glucose (UA) Negative (Negative) Urine Ketones Negative (Negative) Urine Blood Trace H (Negative) Urine Nitrite Positive (Negative) Urine Bilirubin Negative (Negative) Urine Urobilinogen <2.0 (<2.0) mg/dL Ur Leukocyte Esterase Moderate H (Negative) Urine RBC 1 (0-5) /hpf Urine WBC 7 H (0-5) /hpf Ur Squamous Epith Cells <1 (0-4) /hpf Disposition <Beatrice Lawton - Last Filed: 07/22/24 17:24> Is patient prescribed a controlled substance at d/c from ED?: No <Rodríguez Hahn - Last Filed: 07/26/24 23:04> Clinical Impression: Balanitis Disposition: HOME SELF-CARE Condition: Good Instructions (If sedation given, give patient instructions): Mo (ED) Referrals: Choco Valdivia MD [Primary Care Provider] - 1-2 days
--- NOTE | 2024-07-22 18:30 | US ---
EXAMINATION TYPE: US scrotum with doppler. Grayscale and color Doppler Duplex imaging performed of navi robles scrotum. DATE OF EXAM: 07/22/2024 COMPARISON: NONE CLINICAL INDICATION: Male, 73 years old with history of swelling and pain; pain EXAM MEASUREMENTS: TESTICLES: Right Testicle: 4.0x2.5x2.7 cm Left Testicle: 4.1x2.3x3.1 cm EPIDIDYMIS HEAD: Right Epididymis: 0.5 cm Left Epididymis: 0.7 cm Doppler performed to assess for testicular vascularity; good bilateral color flow and waveforms are s een. There is no evidence of testicular torsion. Presence of hydroceles: small left Presence of varicoceles: right side IMPRESSION: 1. Small bilateral hydroceles. 2. No vascular changes of torsion [facility], Workstation: [facility], 07/22/2024 6:28 PM
[2024-07-22 19:56] LABS: Appearance,Urine Clear (Clear); Bilirubin,Urine Negative (Negative); Blood,Urine Trace (Negative); Color,Urine Colorless; Glucose,Urine (UA) Negative (Negative); Ketones,Urine Negative (Negative); Leukocyte Esterase,Urine Moderate (Negative); Nitrite,Urine Positive (Negative); Protein,Urine Negative (Negative); RBC,Urine 1 /hpf (0-5); Specific Gravity,Urine 1.003 (1.001-1.035); Squamous Epithelial Cell,Urine <1 /hpf (0-4); Urobilinogen,Urine <2.0 mg/dL (<2.0); WBC,Urine 7 /hpf (0-5)
[2024-07-22] MEDS: MUPIROCIN 2% OINT 22 GM TUBE TOPICAL STA (20:49)
== END 2024-07-22 20:55 | disposition home or self-care (01) ==
LOC: EC 16:52
CPT/HCPCS: 76870; 81001; 93975; 99285

== ENCOUNTER 2024-07-27 10:56 | Emergency (ER) | payer MEDICARE, OTHER ==
[2024-07-27 11:07] VITALS: RESP 18
--- NOTE | 2024-07-27 12:10 | ED ---
General Adult HPI - General Chief complaint: Recheck/Abnormal Lab/Rx Stated complaint: Swelling Time Seen by Provider: 07/27/24 11:30 Source: patient, EMS, RN notes reviewed Mode of arrival: EMS Limitations: no limitations - History of Present Illness Initial comments: 73-year-old male presenting with testicular soreness x 3 months. States he has had multiple visits for this issue where he has been prescribed antibiotics, saline soaks, and topical creams. Patient reports he is still having soreness of the bilateral testicles to the point where is he having difficulty walking due to the pain. He was seen 5 days ago where an ultrasound was performed as well as a UA. The ultrasound revealed bilateral small hydroceles, however otherwise no acute process. Patient does have a chronic indwelling Dumont catheter. He states he has seen urologists for this issue and they told him they do not know why he is having the symptoms. - Related Data Home Medications Medication Instructions Recorded Confirmed buPROPion XL [Wellbutrin XL] 150 mg PO DAILY 09/15/18 07/07/23 atenoloL [Tenormin] 25 mg PO DAILY 05/09/23 07/07/23 Warfarin [Coumadin] 5 mg PO SUTUWETHSA@209907/07/23 07/07/23 Warfarin [Coumadin] 6.25 mg PO MOFR@209907/07/23 07/07/23 Previous Rx's Medication Instructions Recorded Cephalexin [Keflex] 250 mg PO Q6HR #28 cap 07/07/23 Cefpodoxime Proxetil [Vantin] 200 mg PO Q12HR 10 Days #20 tab 05/21/24 Allergies Allergy/AdvReac Type Severity Reaction Status Date / Time acetaminophen [From Tylenol] Allergy Swelling Verified 07/27/24 11:07 azithromycin Allergy Unknown Verified 07/27/24 11:07 buspirone Allergy Unknown Verified 07/27/24 11:07 diazepam [From Valium] Allergy Unknown Verified 07/27/24 11:07 Iodinated Contrast Media Allergy Unknown Verified 07/27/24 11:07 [Iodinated Contrast- Oral and IV Dye] milk Allergy Unknown Verified 07/27/24 11:07 phenazopyridine Allergy Unknown Verified 07/27/24 11:07 [From Pyridium] sertraline Allergy Unknown Verified 07/27/24 11:07 amlodipine [From Norvasc] AdvReac Swelling Verified 07/27/24 11:07 ciprofloxacin [From Cipro] AdvReac Swelling Verified 07/27/24 11:07 doxycycline AdvReac Abdominal Verified 07/27/24 11:07 Pain valacyclovir [From Valtrex] AdvReac Swelling Verified 07/27/24 11:07 Review of Systems ROS Statement: Those systems with pertinent positive or pertinent negative responses have been documented in the HPI. ROS Other: All systems not noted in ROS Statement are negative. Past Medical History Past Medical History: Coronary Artery Disease (CAD), Hypertension, Myocardial Infarction (OR), Prostate Disorder Additional Past Medical History / Comment(s): bladder issues chronic dumont -pt stated it was changed on 05/06/23 Last Myocardial Infarction Date:: 2007 History of Any Multi-Drug Resistant Organisms: None Reported Past Surgical History: Heart Catheterization With Stent, Tonsillectomy Additional Past Surgical History / Comment(s): cystoscope, heart cath with stents Past Anesthesia/Blood Transfusion Reactions: Motion Sickness Date of Last Stent Placement:: 2005 Past Psychological History: Depression Smoking Status: Never smoker Past Alcohol Use History: None Reported Past Drug Use History: None Reported - Past Family History Mother Family Medical History: Cancer Additional Family Medical History / Comment(s): colon cancer Father Family Medical History: Myocardial Infarction (OR) General Exam Limitations: no limitations General appearance: alert, in no apparent distress Head exam: Present: atraumatic, normocephalic, normal inspection Eye exam: Present: normal appearance, PERRL, EOMI. Absent: scleral icterus, conjunctival injection, periorbital swelling GI/Abdominal exam: Present: soft, normal bowel sounds. Absent: distended, tenderness, guarding, rebound, rigid exam: Present: other (Mild erythema of scrotum, no drainage or purulence. There is an indwelling Dumont catheter present actively draining). Absent: t esticular tenderness, urethral discharge, scrotal swelling Neurological exam: Present: alert, oriented X3 Psychiatric exam: Present: normal affect, normal mood Skin exam: Present: warm, dry, intact, normal color. Absent: rash Course Vital Signs 07/27/24 11:02 Temperature 98.1 F Pulse Rate 60 Respiratory 18 Rate Blood Pressure 140/85 O2 Sat by Pulse 95 Oximetry Medical Decision Making - Medical Decision Making Was pt. sent in by a medical professional or institution (Dr., PA, SUPERVISOR CIGARET[employer] MAKING DEPARTMENT, urgent care, hospital, or prison...) When possible be specific @ -No Did you speak to anyone other than the patient for history (EMS, parent, family, police, friend...)? What history was obtained from this source @ -No Did you review nursing and triage notes (agree or disagree)? Why? @ -I reviewed and agree with nursing and triage notes Were old charts reviewed (outside hosp., previous admission, EMS record, old EKG, old radiological studies, urgent care reports/EKG's, prison records)? Report findings @ -ER visits from 07-22-2024 reviewed including ultrasound which revealed bilateral small hydroceles Differential Diagnosis (chest pain, altered mental status, abdominal pain women, abdominal pain men, vaginal bleeding, weakness, fever, dyspnea, syncope, headache, dizziness, GI bleed, back pain, seizure, CVA, palpatations, mental health, musculoskeletal)? @ -Testicular torsion, balanitis, epididymitis, hydrocele, UTI, cellulitis EKG interpreted by me (3pts min.). @ -None X-rays interpreted by me (1pt min.). @ -None done CT interpreted by me (1pt min.). @ -None done U/S interpreted by me (1pt. min.). @ -None done What testing was considered but not performed or refused? (CT, X-rays, U/S, labs)? Why? @ -Ultrasound and UA considered however deferred as patient patient underwent these tests 5 days ago for same symptoms What meds were considered but not given or refused? Why? @ -None Did you discuss the management of the patient with other professionals (professionals i.e. MUKESH Giles, SUPER[employer]OR [employer]MENT, lab, RT, psych nurse, 7th grade social studies teacher, wire coating machine operator, teacher, trust officer, case briefer)? Give summary @ -No Was smoking cessation discussed for >3mins.? @ -No Was critical care preformed (if so, how long)? @ -No Were there social determinants of health that impacted care today? How? (Homelessness, low income, unemployed, alcoholism, drug addiction, transportation, low edu. Level, literacy, decrease access to med. care, snf, rehab)? @ -No Was there de-escalation of care discussed even if they declined (Discuss DNR or withdrawal of care, Hospice)? DNR status @ -No What co-morbidities impacted this encounter? (DM, HTN, Smoking, COPD, CAD, Cancer, CVA, ARF, Chemo, Hep., AIDS, mental health diagnosis, sleep apnea, morbid obesity)? @ -None Was patient admitted / discharged? Hospital course, mention meds given and route, prescriptions, significant lab abnormalities, going to OR and other pertinent info. @ -Discharge. This is a 73-year-old male presenting for bilateral testicular soreness x 3 months. Patient has been seen multiple times in the ER and by urologist for this issue. He is currently using saline soaks and topical antifungal cream. On examination, there is no sign of infection or purulence. There is mild erythema to the scrotum. Discussed there is no sign of bacterial infection or sign of emergent etiology at this time. Prescribed trial of hydrocortisone topical cream however discussed with patient that he ultimately must follow-up with urology for further testing. Patient is agreeable to plan. Return precautions discussed. Case was discussed with my ED attending Dr. Peter. Patient discharged in stable condition. Undiagnosed new problem with uncertain prognosis? @ -No Drug Therapy requiring intensive monitoring for toxicity (Heparin, Nitro, Insulin, Cardizem)? @ -No Were any procedures done? @ -No Diagnosis/symptom? @ -Balanitis Acute, or Chronic, or Acute on Chronic? @ -Chronic Uncomplicated (without systemic symptoms) or Complicated (systemic symptoms)? @ -Uncomplicated Side effects of treatment? @ -No Exacerbation, Progression, or Severe Exacerbation? @ -No Poses a threat to life or bodily function? How? (Chest pain, USA, OR, pneumonia, PE, COPD, DKA, ARF, appy, cholecystitis, CVA, Diverticulitis, Homicidal, Suicidal, threat to staff... and all critical care pts) @ -No Disposition Clinical Impression: Balanitis Disposition: HOME SELF-CARE Condition: Stable Instructions (If sedation given, give patient instructions): Balanitis (ED) Additional Instructions: Use hydrocortisone cream 2 times daily to affected area. Continue saline soaks and topical antifungal cream. Follow-up with urology as discussed. Please return to the Emergency Department if symptoms worsen or any other concerns. Is patient prescribed a controlled substance at d/c from ED?: No Referrals: Choco Valdivia MD [Primary Care Provider] - 1-2 days Time of Disposition: 12:27
[2024-07-27] MEDS: HYDROCORTISONE 1% CREAM 30 GM TUBE TOPICAL PRN (12:42)
[2024-07-27 12:44] VITALS: PULSE 78
[2024-07-27 13:12] VITALS: BP 140/78; TEMP 98.1
== END 2024-07-27 13:13 | disposition home or self-care (01) ==
LOC: EC 10:56
CPT/HCPCS: 99283

== ENCOUNTER 2024-08-03 16:38 | Emergency (ER) | payer MEDICARE ==
[2024-08-03 17:26] VITALS: RESP 16; TEMP 97.6
--- NOTE | 2024-08-03 17:55 | ED ---
Male Urogenital HPI - General Source: patient, RN notes reviewed Mode of arrival: ambulatory Limitations: no limitations <Leslie Hagan - Last Filed: 08/03/24 17:52> - General Source: patient, RN notes reviewed, old records reviewed Mode of arrival: ambulatory Limitations: no limitations - History of Present Illness MD Complaint: testicle pain, testicle swelling, penile discharge -: week(s) Radiation: throat Consistency: constant Improves with: none Worsens with: none <Rodríguez Hahn - Last Filed: 08/07/24 21:28> - General Chief complaint: Urogenital Stated complaint: Testicle discomfort Time Seen by Provider: 08/03/24 17:52 - History of Present Illness Initial comments: Quick [id number] male presenting for testicular pain. States this has been ongoing for several months and he has had multiple ER visits for this. He has had an ultrasound that revealed small bilateral hydroceles, however was otherwise negative. States he has been diagnosed with balanitis and has tried multiple steroid and antifungal creams with no improvement in symptoms. States he has upcoming appointment with urologist but states pain worsened last night after he bent down to tie his shoes. He adamantly declines a repeat ultrasound today as he states it was too painful last time. (Leslie Hagan) This is a 73-year-old male to ER for evaluation of significant scrotal pain (Rodríguez Hahn) - Related Data Home Medications Medication Instructions Recorded Confirmed buPROPion XL [Wellbutrin XL] 150 mg PO DAILY 09/15/18 07/07/23 atenoloL [Tenormin] 25 mg PO DAILY 05/09/23 07/07/23 Warfarin [Coumadin] 5 mg PO SUTUWETHSA@209907/07/23 07/07/23 Warfarin [Coumadin] 6.25 mg PO MOFR@209907/07/23 07/07/23 Previous Rx's Medication Instructions Recorded Cephalexin [Keflex] 250 mg PO Q6HR #28 cap 07/07/23 Cefpodoxime Proxetil [Vantin] 200 mg PO Q12HR 10 Days #20 tab 05/21/24 Allergies Allergy/AdvReac Type Severity Reaction Status Date / Time acetaminophen [From Tylenol] Allergy Swelling Verified 08/03/24 17:26 azithromycin Allergy Unknown Verified 08/03/24 17:26 buspirone Allergy Unknown Verified 08/03/24 17:26 diazepam [From Valium] Allergy Unknown Verified 08/03/24 17:26 Iodinated Contrast Media Allergy Unknown Verified 08/03/24 17:26 [Iodinated Contrast- Oral and IV Dye] milk Allergy Unknown Verified 08/03/24 17:26 phenazopyridine Allergy Unknown Verified 08/03/24 17:26 [From Pyridium] sertraline Allergy Unknown Verified 08/03/24 17:26 amlodipine [From Norvasc] AdvReac Swelling Verified 08/03/24 17:26 ciprofloxacin [From Cipro] AdvReac Swelling Verified 08/03/24 17:26 doxycycline AdvReac Abdominal Verified 08/03/24 17:26 Pain valacyclovir [From Valtrex] AdvReac Swelling Verified 08/03/24 17:26 Review of Systems ROS Other: All systems not noted in ROS Statement are negative. <Leslie Hagan - Last Filed: 08/03/24 17:52> ROS Other: All systems not noted in ROS Statement are negative. <Rodríguez Hahn - Last Filed: 08/07/24 21:28> ROS Statement: Those systems with pertinent positive or pertinent negative responses have been documented in the HPI. Past Medical History Past Medical History: Coronary Artery Disease (CAD), Hypertension, Myocardial Infarction (PR), Prostate Disorder Additional Past Medical History / Comment(s): bladder issues chronic dumont -pt stated it was changed on 05/06/23 Last Myocardial Infarction Date:: 2007 History of Any Multi-Drug Resistant Organisms: None Reported Past Surgical History: Heart Catheterization With Stent, Tonsillectomy Additional Past Surgical History / Comment(s): cystoscope, heart cath with stents Past Anesthesia/Blood Transfusion Reactions: Motion Sickness Date of Last Stent Placement:: 2005 Past Psychological History: Depression Smoking Status: Never smoker Past Alcohol Use History: None Reported Past Drug Use History: None Reported - Past Family History Mother Family Medical History: Cancer Additional Family Medical History / Comment(s): colon cancer Father Family Medical History: Myocardial Infarction (PR) <Leslie Hagan - Last Filed: 08/03/24 17:52> General Exam Limitations: no limitations <Leslie Hagan - Last Filed: 08/03/24 17:52> General appearance: alert, in no apparent distress Head exam: Present: atraumatic, normocephalic, normal inspection Eye exam: Present: normal appearance, PERRL, EOMI. Absent: scleral icterus, conjunctival injection, periorbital swelling ENT exam: Present: normal exam, mucous membranes moist Neck exam: Present: normal inspection. Absent: tenderness, meningismus, lymphadenopathy Respiratory exam: Present: normal lung sounds bilaterally. Absent: respiratory distress, wheezes, rales, rhonchi, stridor Cardiovascular Exam: Present: regular rate, normal rhythm, normal heart sounds. Absent: systolic murmur, diastolic murmur, rubs, gallop, clicks GI/Abdominal exam: Present: soft, normal bowel sounds. Absent: distended, tenderness, guarding, rebound, rigid Extremities exam: Present: normal inspection, full ROM, normal capillary refill. Absent: tenderness, pedal edema, joint swelling, calf tenderness Back exam: Present: normal inspection Neurological exam: Present: alert, oriented X3, CN II-XII intact Psychiatric exam: Present: normal affect, normal mood Skin exam: Present: warm, dry, intact, normal color. Absent: rash <Rodríguez Hahn - Last Filed: 08/07/24 21:28> - General Exam Comments Initial Comments: Visual Physical Exam Vital signs reviewed General: Well-appearing, nontoxic, no acute distress. Head: Normocephalic, atraumatic Eyes: PERRLA, EOMI ENT: Airway patent Chest: Nonlabored breathing Skin: No visual rash, normal skin tone Neuro: Alert and oriented 3 Musculoskeletal: No gross abnormalities (Leslie Hagan) Course <Rodríguez Hahn - Last Filed: 08/07/24 21:28> Vital Signs 08/03/24 08/03/24 17:24 19:45 Temperature 97.6 F Pulse Rate 66 64 Respiratory 16 16 Rate Blood Pressure 149/93 150/82 O2 Sat by Pulse 97 98 Oximetry - Reevaluation(s) Reevaluation #1: Medical records reviewed (Rodríguez Hahn) Reevaluation #2: Patient symptoms unchanged (Rodríguez Hahn) Reevaluation #3: Patient informed of results questions answered (Rodríguez Hahn) Reevaluation #4: Was pt. sent in by a medical professional or institution (MUKESH Giles, TANKAGE GRINDER OPERATOR, urgent care, hospital, or long-term...) When possible be specific @ -no Did you speak to anyone other than the patient for history (EMS, parent, family, police, friend...)? What history was obtained from this source @ -no Did you review nursing and triage notes (agree or disagree)? Why? @ -agree Are old charts reviewed (outside hosp., previous admission, EMS record, old EKG, old radiological studies, urgent care reports/EKG's, long-term records)? Report findings @ -yes Differential Diagnosis (chest pain, altered mental status, abdominal pain women, abdominal pain men, vaginal bleeding, weakness, fever, dyspnea, syncope, headache, dizziness, GI bleed, back pain, seizure, CVA, palpatations, mental health, musculoskeletal)? @ -prior EKG interpreted by me (3pts min.). @ -no X-rays interpreted by me (1pt min.). @ -no CT interpreted by me (1pt min.). @ -no U/S interpreted by me (1pt. min.). @ -no What testing was considered but not performed or refused? (CT, X-rays, U/S, labs)? Why? @ -none What meds were considered but not given or refused? Why? @ -none Did you discuss the management of the patient with other professionals (professionals i.e. MUKESH Giles, TANKAGE GRINDER OPERATOR, lab, RT, psych nurse, manager social, shipper receiver, teacher, aoc operations intelligence officer, case managers)? Give summary @ -no Was smoking cessation discussed for >3mins.? @ -no Was critical care preformed (if so, how long)? @ -no Were there social determinants of health that impacted care today? How? (Homelessness, low income, unemployed, alcoholism, drug addiction, transportation, low edu. Level, literacy, decrease access to med. care, half-way, rehab)? @ -none Was there de-escalation of care discussed even if they declined (Discuss DNR or withdrawal of care, Hospice)? DNR status @ -no What co-morbidities impacted this encounter? (DM, HTN, Smoking, COPD, CAD, Cancer, CVA, ARF, Chemo, Hep., AIDS, mental health diagnosis, sleep apnea, morbid obesity)? @ -none Was patient admitted / discharged? Hospital course, mention meds given and route, prescriptions, significant lab abnormalities, going to OR and other pertinent info. @ - 73 male, no circumcision, patient does have balanitis with purulent drainage, significant scrotal cellulitis will place on topical and oral antibiotics and can be discharged home, chronic indwelling Dumont Discharge Undiagnosed new problem with uncertain prognosis? @ -no Drug Therapy requiring intensive monitoring for toxicity (Heparin, Nitro, Insulin, Cardizem)? @ -no Were any procedures done? @ -no Diagnosis/symptom? @ -Scrotal cellulitis lightest with balanitis Acute, or Chronic, or Acute on Chronic? @ -Acute Uncomplicated (without systemic symptoms) or Complicated (systemic symptoms)? @ -Complicated Side effects of treatment? @ -no Exacerbation, Progression, or Severe Exacerbation? @ -exacerbation Poses a threat to life or bodily function? How? (Chest pain, USA, PR, pneumonia, PE, COPD, DKA, ARF, appy, cholecystitis, CVA, Diverticulitis, Homicidal, Suicidal, threat to staff... and all critical care pts) @ -yes extremes of age (Rodríguez Hahn) Medical Decision Making <Leslie Hagan - Last Filed: 08/03/24 17:52> <Rodríguez Hahn - Last Filed: 08/07/24 21:28> - Medical Decision Making I completed the quick note portion of this chart signed Leslie Hagan PA-C (Leslie Hagan) 73 male, no circumcision, patient does have balanitis with purulent drainage, significant scrotal cellulitis will place on topical and oral antibiotics and can be discharged home, chronic indwelling Dumont (Rodríguez Hahn) Disposition <Leslie Hagan - Last Filed: 08/03/24 17:52> Is patient prescribed a controlled substance at d/c from ED?: No Time of Disposition: 19:20 <Rodríguez Hahn - Last Filed: 08/07/24 21:28> Clinical Impression: Cellulitis of scrotum, Balanitis Disposition: HOME SELF-CARE Condition: Good Instructions (If sedation given, give patient instructions): Cellulitis (ED), Balanitis (ED) Referrals: Choco Valdivia MD [Primary Care Provider] - 1-2 days
[2024-08-03] MEDS: NYSTATIN 100,000 UNIT/GM POWD 15 GM TOPICAL STA (19:38)
[2024-08-03] MEDS: MUPIROCIN 2% OINT 22 GM TUBE TOPICAL STA (19:38)
[2024-08-03 19:51] VITALS: BP 150/82; PULSE 64
== END 2024-08-03 19:45 | disposition home or self-care (01) ==
LOC: EC 16:38
CPT/HCPCS: 99284

== ENCOUNTER 2024-08-13 11:37 | Observation (INO) | payer MEDICARE, OTHER ==
--- NOTE | 2024-08-13 13:13 | ED ---
Recheck HPI - General Chief Complaint: Recheck/Abnormal Lab/Rx Stated Complaint: Groin pain Time Seen by Provider: 08/13/24 12:49 Source: patient, EMS, RN notes reviewed, old records reviewed Mode of arrival: EMS Limitations: no limitations - History of Present Illness Initial Comments: This is a 73 male to the ER for evaluation patient presents today for evaluation regards to scrotal swelling scrotal pain scrotal edema chronic issue greater than 2 to 3 weeks with no resolution. Despite many ER visits outpatient hospital visits as well as different treatment modalities. Patient states he is at his wits end Complaint: wound re-check -: week(s) Symptoms Since Prior Visit: no new symptoms Associated Symptoms: none Treatments Prior to Arrival: Given Antibiotics on, other - Related Data Home Medications Medication Instructions Recorded Confirmed buPROPion XL [Wellbutrin XL] 150 mg PO DAILY 09/15/18 08/13/24 atenoloL [Tenormin] 25 mg PO DAILY 05/09/23 08/13/24 Warfarin [Coumadin] 2.5 mg PO MOWEFR@209907/07/23 08/13/24 Warfarin [Coumadin] 5 mg PO SUTUTHSA@209907/07/23 08/13/24 Previous Rx's Medication Instructions Recorded Clotrimazole Cream [Lotrimin Cream] 1 applic TOPICAL BID #1 each 08/17/24 Famotidine [Pepcid] 20 mg PO DAILY #30 tab 08/17/24 Fluticasone Nasal [place] [Flonase 2 spray EA NOSTRIL DAILY ml 08/17/24 Nasal [place]] cefuroxime axetiL [Ceftin] 500 mg PO BID 7 Days #14 tab 08/17/24 Allergies Allergy/AdvReac Type Severity Reaction Status Date / Time acetaminophen [From Tylenol] Allergy Swelling Verified 08/13/24 14:52 azithromycin Allergy Unknown Verified 08/13/24 14:52 buspirone Allergy Unknown Verified 08/13/24 14:52 diazepam [From Valium] Allergy Unknown Verified 08/13/24 14:52 Iodinated Contrast Media Allergy Unknown Verified 08/13/24 14:52 [Iodinated Contrast- Oral and IV Dye] phenazopyridine Allergy Unknown Verified 08/13/24 14:52 [From Pyridium] sertraline Allergy Unknown Verified 08/13/24 14:52 amlodipine [From Norvasc] AdvReac Swelling Verified 08/13/24 14:52 ciprofloxacin [From Cipro] AdvReac Swelling Verified 08/13/24 14:52 doxycycline AdvReac Abdominal Verified 08/13/24 14:52 Pain sucralfate [From Carafate] AdvReac Chest Pain Verified 08/13/24 14:52 valacyclovir [From Valtrex] AdvReac Swelling Verified 08/13/24 14:52 Review of Systems ROS Statement: Those systems with pertinent positive or pertinent negative responses have been documented in the HPI. ROS Other: All systems not noted in ROS Statement are negative. Past Medical History Past Medical History: Coronary Artery Disease (CAD), Hypertension, Myocardial Infarction ([place]), Prostate Disorder Additional Past Medical History / Comment(s): bladder issues chronic [place] -pt stated it was changed on 05/06/23 Last Myocardial Infarction Date:: 2007 History of Any Multi-Drug Resistant Organisms: None Reported Past Surgical History: Heart Catheterization With Stent, Tonsillectomy Additional Past Surgical History / Comment(s): cystoscope, heart cath with stents Past Anesthesia/Blood Transfusion Reactions: Motion Sickness Date of Last Stent Placement:: 2005 Past Psychological History: Depression Smoking Status: Never smoker Past Alcohol Use History: None Reported Past Drug Use History: None Reported - Past Family History Mother Family Medical History: Cancer Additional Family Medical History / Comment(s): colon cancer Father Family Medical History: Myocardial Infarction ([place]) General Exam Limitations: no limitations General appearance: alert, in no apparent distress, anxious Head exam: Present: atraumatic, normocephalic, normal inspection Eye exam: Present: normal appearance, PERRL, EOMI. Absent: scleral icterus, conjunctival injection, periorbital swelling ENT exam: Present: normal exam, mucous membranes moist Neck exam: Present: normal inspection. Absent: tenderness, meningismus, lymphadenopathy Respiratory exam: Present: normal lung sounds bilaterally. Absent: respiratory distress, wheezes, rales, rhonchi, stridor Cardiovascular Exam: Present: regular rate, normal rhythm, normal heart sounds. Absent: systolic murmur, diastolic murmur, rubs, gallop, clicks GI/Abdominal exam: Present: soft, normal bowel sounds. Absent: distended, tenderness, guarding, rebound, rigid Extremities exam: Present: normal inspection, full ROM, normal capillary refill. Absent: tenderness, pedal edema, joint swelling, calf tenderness Back exam: Present: normal inspection Neurological exam: Present: alert, oriented X3, CN II-XII intact Psychiatric exam: Present: normal affect, normal mood Skin exam: Present: warm, dry, intact, normal color. Absent: rash Course Vital Signs 08/13/24 08/13/24 08/13/24 12:00 15:00 17:51 Temperature 97.7 F 98.4 F 97.9 F Pulse Rate 64 68 69 Respiratory 18 18 18 Rate Blood Pressure 155/84 168/96 147/93 O2 Sat by Pulse 99 99 99 Oximetry - Reevaluation(s) Reevaluation #1: 08/13/24 13:33 Medical records reviewed Reevaluation #2: 08/13/24 13:48 Patient symptoms improved here in the ER Reevaluation #3: 08/13/24 13:48 Patient informed of results and questions answered Reevaluation #4: Was pt. sent in by a medical professional or institution (, PA, CELLOPHANER, urgent care, hospital, or shelter...) When possible be specific @ -no Did you speak to anyone other than the patient for history (EMS, parent, family, police, friend...)? What history was obtained from this source @ -no Did you review nursing and triage notes (agree or disagree)? Why? @ -agree Are old charts reviewed (outside hosp., previous admission, EMS record, old EKG, old radiological studies, urgent care reports/EKG's, shelter records)? Report findings @ -yes Differential Diagnosis (chest pain, altered mental status, abdominal pain women, abdominal pain men, vaginal bleeding, weakness, fever, dyspnea, syncope, headache, dizziness, GI bleed, back pain, seizure, CVA, palpatations, mental health, musculoskeletal)? @ -prior EKG interpreted by me (3pts min.). @ -yes X-rays interpreted by me (1pt min.). @ -no CT interpreted by me (1pt min.). @ -no U/S interpreted by me (1pt. min.). @ -no What testing was considered but not performed or refused? (CT, X-rays, U/S, labs)? Why? @ -none What meds were considered but not given or refused? Why? @ -none Did you discuss the management of the patient with other professionals (professionals i.e. DrDomingo, PA, CELLOPHANER, lab, RT, psych nurse, clinical social work therapist, carnival worker, teacher, retirement officer, patient case manager)? Give summary @ -no Was smoking cessation discussed for >3mins.? @ -no Was critical care preformed (if so, how long)? @ -no Were there social determinants of health that impacted care today? How? (Homeles sness, low income, unemployed, alcoholism, drug addiction, transportation, low edu. Level, literacy, decrease access to med. care, nursing home, rehab)? @ -none Was there de-escalation of care discussed even if they declined (Discuss DNR or withdrawal of care, Hospice)? DNR status @ -no What co-morbidities impacted this encounter? (DM, HTN, Smoking, COPD, CAD, Cancer, CVA, ARF, Chemo, Hep., AIDS, mental health diagnosis, sleep apnea, morbid obesity)? @ -none Was patient admitted / discharged? Hospital course, mention meds given and route, prescriptions, significant lab abnormalities, going to OR and other pertinent info. @ - 73 male to the ER for evaluation of scrotal pain and swelling. Patient admitted for further care Admitted Undiagnosed new problem with uncertain prognosis? @ -no Drug Therapy requiring intensive monitoring for toxicity (Heparin, Nitro, Insulin, Cardizem)? @ -no Were any procedures done? @ -no Diagnosis/symptom? @ -Severe scrotal pain and swelling Acute, or Chronic, or Acute on Chronic? @ -Acute Uncomplicated (without systemic symptoms) or Complicated (systemic symptoms)? @ -Complicated Side effects of treatment? @ -no Exacerbation, Progression, or Severe Exacerbation? @ -exacerbation Poses a threat to life or bodily function? How? (Chest pain, [place], [place], pneumonia, PE, COPD, DKA, ARF, appy, cholecystitis, CVA, Diverticulitis, Homicidal, Suicidal, threat to staff... and all critical care pts) @ -yes yes with extremes of age - Consultations Consultation #1: Spoke with who will observe this patient Medical Decision Making - Medical Decision Making 73 male to the ER for evaluation of scrotal pain and swelling. Patient admitted for further care - Lab Data Result diagrams: 08/14/24 03:03 08/17/24 03:52 Lab Results 08/13/24 08/13/24 08/13/24 Range/Units 13:17 13:17 13:17 WBC 8.2 (3.8-10.6) k/uL RBC 5.73 (4.30-5.90) m/uL Hgb 18.4 H (13.0-17.5) gm/dL Hct 54.9 H (39.0-53.0) % MCV 95.7 (80.0-100.0) fL MCH 32.1 (25.0-35.0) pg MCHC 33.5 (31.0-37.0) g/dL RDW 13.9 (11.5-15.5) % Plt Count 239 (150-450) k/uL MPV 7.3 Neutrophils % 71 % Lymphocytes % 20 % Monocytes % 5 % Eosinophils % 3 % Basophils % 1 % Neutrophils # 5.8 (1.3-7.7) k/uL Lymphocytes # 1.6 (1.0-4.8) k/uL Monocytes # 0.4 (0-1.0) k/uL Eosinophils # 0.2 (0-0.7) k/uL Basophils # 0.1 (0-0.2) k/uL PT 21.9 H (10.0-12.5) sec INR 2.2 H (<1.2) APTT 34.3 H (22.0-30.0) sec Sodium 136 L (137-145) mmol/L Potassium 4.2 (3.5-5.1) mmol/L Chloride 102 (98-107) mmol/L Carbon Dioxide 26 (22-30) mmol/L Anion Gap 8 mmol/L BUN 20 (9-20) mg/dL Creatinine 2.25 H (0.66-1.25) mg/dL Est GFR (CKD-EPI)AfAm 32 (>60 ml/min/1.73 sqM) Est GFR (CKD-EPI)NonAf 28 (>60 ml/min/1.73 sqM) Glucose 102 H (74-99) mg/dL Plasma Lactic Acid [place] (0.7-2.0) mmol/L Calcium 9.9 (8.4-10.2) mg/dL Phosphorus 2.0 L (2.5-4.5) mg/dL Magnesium 1.6 (1.6-2.3) mg/dL Total Bilirubin 1.3 (0.2-1.3) mg/dL AST 32 (17-59) U/L ALT 25 (4-49) U/L Alkaline Phosphatase 76 (38-126) U/L Troponin I (0.000-0.034) ng/mL C-Reactive Protein <0.5 (<1.0) mg/dL NT-Pro-B Natriuret Pep 1430 pg/mL Total Protein 8.0 (6.3-8.2) g/dL Albumin 4.7 (3.5-5.0) g/dL Urine Color Urine Appearance (Clear) Urine pH (5.0-8.0) Ur Specific [place] (1.001-1.035) Urine Protein (Negative) Urine Glucose (UA) (Negative) Urine Ketones (Negative) Urine Blood (Negative) Urine Nitrite (Negative) Urine Bilirubin (Negative) Urine Urobilinogen (<2.0) mg/dL Ur Leukocyte Esterase (Negative) Urine RBC (0-5) /hpf Urine WBC (0-5) /hpf Ur Squamous Epith Cells (0-4) /hpf Urine Bacteria (None) /hpf Urine Mucus (None) /hpf 08/13/24 08/13/24 08/13/24 Range/Units 13:17 13:17 13:30 WBC (3.8-10.6) k/uL RBC (4.30-5.90) m/uL Hgb (13.0-17.5) gm/dL Hct (39.0-53.0) % MCV (80.0-100.0) fL MCH (25.0-35.0) pg MCHC (31.0-37.0) g/dL RDW (11.5-15.5) % Plt Count (150-450) k/uL MPV Neutrophils % % Lymphocytes % % Monocytes % % Eosinophils % % Basophils % % Neutrophils # (1.3-7.7) k/uL Lymphocytes # (1.0-4.8) k/uL Monocytes # (0-1.0) k/uL Eosinophils # (0-0.7) k/uL Basophils # (0-0.2) k/uL PT (10.0-12.5) sec INR (<1.2) APTT (22.0-30.0) sec Sodium (137-145) mmol/L Potassium (3.5-5.1) mmol/L Chloride (98-107) mmol/L Carbon Dioxide (22-30) mmol/L Anion Gap mmol/L BUN (9-20) mg/dL Creatinine (0.66-1.25) mg/dL Est GFR (CKD-EPI)AfAm (>60 ml/min/1.73 sqM) Est GFR (CKD-EPI)NonAf (>60 ml/min/1.73 sqM) Glucose (74-99) mg/dL Plasma Lactic Acid [place] 1.9 (0.7-2.0) mmol/L Calcium (8.4-10.2) mg/dL Phosphorus (2.5-4.5) mg/dL Magnesium (1.6-2.3) mg/dL Total Bilirubin (0.2-1.3) mg/dL AST (17-59) U/L ALT (4-49) U/L Alkaline Phosphatase (38-126) U/L Troponin I 0.019 (0.000-0.034) ng/mL C-Reactive Protein (<1.0) mg/dL NT-Pro-B Natriuret Pep pg/mL Total Protein (6.3-8.2) g/dL Albumin (3.5-5.0) g/dL Urine Color Light Yellow Urine Appearance Clear (Clear) Urine pH 8.5 H (5.0-8.0) Ur Specific [place] 1.013 (1.001-1.035) Urine Protein 1+ H (Negative) Urine Glucose (UA) Negative (Negative) Urine Ketones Negative (Negative) Urine Blood Trace H (Negative) Urine Nitrite Positive (Negative) Urine Bilirubin Negative (Negative) Urine Urobilinogen <2.0 (<2.0) mg/dL Ur Leukocyte Esterase Large H (Negative) Urine RBC 13 H (0-5) /hpf Urine WBC 51 H (0-5) /hpf Ur Squamous Epith Cells 1 (0-4) /hpf Urine Bacteria Rare H (None) /hpf Urine Mucus Rare H (None) /hpf - EKG Data -: EKG Interpreted by Me (EKG sinus 66 MT QRS 145 QTc 436) - Radiology Data Radiology results: report reviewed (Chest x-ray is negative for acute disease), image reviewed Disposition Clinical Impression: Cellulitis of scrotum, Scrotal pain, Weakness, Dehydration, Chronic renal disease Disposition: ADMITTED IP TO THIS HOSP Condition: Stable Is patient prescribed a controlled substance at d/c from ED?: No Time of Disposition: 13:45
[2024-08-13 13:33] LABS: Basophils # (A) 0.1 k/uL (0-0.2); Basophils % (A) 1 %; Eosinophils # (A) 0.2 k/uL (0-0.7); Eosinophils % (A) 3 %; HCT 54.9 % (39.0-53.0); HGB 18.4 gm/dL (13.0-17.5); Lymphocytes # (A) 1.6 k/uL (1.0-4.8); Lymphocytes % (A) 20 %; MCH 32.1 pg (25.0-35.0); MCHC 33.5 g/dL (31.0-37.0); MCV 95.7 fL (80.0-100.0); Mean Platelet Volume 7.3; Monocytes # (A) 0.4 k/uL (0-1.0); Monocytes % (A) 5 %; Neutrophils # (A) 5.8 k/uL (1.3-7.7); Neutrophils % (A) 71 %; Platelet Count 239 k/uL (150-450); RBC 5.73 m/uL (4.30-5.90); RDW 13.9 % (11.5-15.5); WBC 8.2 k/uL (3.8-10.6)
[2024-08-13] MEDS: MORPHINE SULFATE 4 MG/ML SYRINGE IV STA (13:35)
[2024-08-13 13:41] LABS: INR 2.2 (<1.2); Partial Thromboplastin Time 34.3 sec (22.0-30.0); Prothrombin Time 21.9 sec (10.0-12.5)
[2024-08-13 13:45] LABS: Appearance,Urine Clear (Clear); Bacteria,Urine Rare /hpf; Bilirubin,Urine Negative (Negative); Blood,Urine Trace (Negative); Color,Urine Light Yellow; Glucose,Urine (UA) Negative (Negative); Ketones,Urine Negative (Negative); Leukocyte Esterase,Urine Large (Negative); Mucus,Urine Rare /hpf; Nitrite,Urine Positive (Negative); PH, Urine 8.5 (5.0-8.0); Protein,Urine 1+ (Negative); RBC,Urine 13 /hpf (0-5); Specific Gravity,Urine 1.013 (1.001-1.035); Squamous Epithelial Cell,Urine 1 /hpf (0-4); Urobilinogen,Urine <2.0 mg/dL (<2.0); WBC,Urine 51 /hpf (0-5)
[2024-08-13 13:47] LABS: ALT 25 U/L (4-49); AST 32 U/L (17-59); African American GFR (CKD) 32 (>60 ml/min/1.73 sqM); Albumin 4.7 g/dL (3.5-5.0); Alkaline Phosphatase 76 U/L (38-126); Anion Gap 8 mmol/L; Blood Urea Nitrogen 20 mg/dL (9-20); C Reactive Protein <0.5 mg/dL (<1.0); Calcium 9.9 mg/dL (8.4-10.2); Carbon Dioxide 26 mmol/L (22-30); Chloride 102 mmol/L (98-107); Glucose 102 mg/dL (74-99); Magnesium 1.6 mg/dL (1.6-2.3); Non-African American GFR(CKD) 28 (>60 ml/min/1.73 sqM); Potassium 4.2 mmol/L (3.5-5.1); Sodium 136 mmol/L (137-145); Total Bilirubin 1.3 mg/dL (0.2-1.3)
[2024-08-13] MEDS: SODIUM CHLORIDE 0.9% 1,000 ML IV STA (13:52)
[2024-08-13 13:53] LABS: NT-Pro-B-Type Natriuretic Pept 1430 pg/mL
--- NOTE | 2024-08-13 14:06 | XR ---
EXAMINATION TYPE: XR chest 2V DATE OF EXAM: 08/13/2024 1:53 PM COMPARISON: Chest radiographs from 05/21/2024 TECHNIQUE: XR chest 2V Frontal and lateral views of the chest. CLINICAL INDICATION:Male, 73 years old with history of Weakness; FINDINGS: Lungs/Pleura: There is no evidence of pleural effusion, focal consolidation, or pneumothorax. Pulmonary vascularity: Unremarkable. Heart/mediastinum: Cardiomediastinal silhouette is prominent in size. Musculoskeletal: No acute osseous pathology. Mild multilevel degenerative disc disease. IMPRESSION: No acute cardiopulmonary disease/process. [facility] Bret Doe, , 08/13/2024 2:03 PM
[2024-08-13] MEDS ORDERED: ONDANSETRON 4 MG/2 ML VIAL IVP PRN (14:28)
[2024-08-13] MEDS ORDERED: MORPHINE SULFATE 4 MG/ML SYRINGE IV PRN (14:28)
[2024-08-13] MEDS ORDERED: NALOXONE 0.4 MG/ML 1 ML VIAL IV PRN (14:28)
--- NOTE | 2024-08-13 14:47 | P.HPIM ---
History of Present Illness 73-year-old male came in for scrotal swelling and redness. Patient did not have much of swelling but does have some redness and concerned about cellulitis of the scrotum. Patient was given Keflex took 3 doses without any improvement because of which patient came to ER. Patient is on Coumadin INR is therapeutic for atrial fibrillation. REVIEW OF SYSTEMS: All other systems are negative except those mentioned in the HPI PHYSICAL EXAMINATION: GENERAL: The patient is alert and oriented x3, not in any acute distress. Well developed, well nourished. HEENT: Pupils are round and equally reacting to light. EOMI. No scleral icterus. No conjunctival pallor. Normocephalic, atraumatic. No pharyngeal erythema. No thyromegaly. CARDIOVASCULAR: S1 and S2 present. No murmurs, rubs, or gallops. PULMONARY: Chest is clear to auscultation, no wheezing or crackles. ABDOMEN: Soft, nontender, nondistended, normoactive bowel sounds. No palpable organomegaly. MUSCULOSKELETAL: No joint swelling or deformity. EXTREMITIES: No cyanosis, clubbing, or pedal edema. NEUROLOGICAL: Gross neurological examination did not reveal any focal deficits. SKIN: Patient does have redness and cellulitis of the scrotum Assessment and plan -Scrotal cellulitis: Patient will be started on cefazolin patient denied any history of MRSA in the past. Consult infectious disease -Paroxysmal atrial fibrillation presently sinus rhythm rate controlled on Coumadin therapeutic on Coumadin continue with home dose of Coumadin repeat INR tomorrow -Chronic kidney disease stage IIIb: Patient does have a acute renal failure baseline creatinine 1.7 present creatinine 2.3 patient on IV fluids continue IV fluids repeat basic metabolic profile tomorrow -Hypertension DVT prophylaxis: On Coumadin and therapeutic on Coumadin Past Medical History Past Medical History: Coronary Artery Disease (CAD), Hypertension, Myocardial Infarction ([place]), Prostate Disorder Additional Past Medical History / Comment(s): bladder issues chronic [place] -pt stated it was changed on 05/06/23 Last Myocardial Infarction Date:: 2007 History of Any Multi-Drug Resistant Organisms: None Reported Past Surgical History: Heart Catheterization With Stent, Tonsillectomy Additional Past Surgical History / Comment(s): cystoscope, heart cath with stents Past Anesthesia/Blood Transfusion Reactions: Motion Sickness Date of Last Stent Placement:: 2005 Past Psychological History: Depression Smoking Status: Never smoker Past Alcohol Use History: None Reported Past Drug Use History: None Reported - Past Family History Mother Family Medical History: Cancer Additional Family Medical History / Comment(s): colon cancer Father Family Medical History: Myocardial Infarction ([place]) Medications and Allergies Home Medications Medication Instructions Recorded Confirmed Type buPROPion XL [Wellbutrin XL] 150 mg PO DAILY 09/15/18 07/07/23 History atenoloL [Tenormin] 25 mg PO DAILY 05/09/23 07/07/23 History Cephalexin [Keflex] 250 mg PO Q6HR #28 cap 07/07/23 Rx Warfarin [Coumadin] 5 mg PO SUTUWETHSA@209907/07/23 07/07/23 History Warfarin [Coumadin] 6.25 mg PO MOFR@209907/07/23 07/07/23 History Cefpodoxime Proxetil [Vantin] 200 mg PO Q12HR 10 Days #20 tab 05/21/24 Rx Allergies Allergy/AdvReac Type Severity Reaction Status Date / Time acetaminophen [From Tylenol] Allergy Swelling Verified 08/13/24 12:00 azithromycin Allergy Unknown Verified 08/13/24 12:00 buspirone Allergy Unknown Verified 08/13/24 12:00 diazepam [From Valium] Allergy Unknown Verified 08/13/24 12:00 Iodinated Contrast Media Allergy Unknown Verified 08/13/24 12:00 [Iodinated Contrast- Oral and IV Dye] milk Allergy Unknown Verified 08/13/24 12:00 phenazopyridine Allergy Unknown Verified 08/13/24 12:00 [From Pyridium] sertraline Allergy Unknown Verified 08/13/24 12:00 amlodipine [From Norvasc] AdvReac Swelling Verified 08/13/24 12:00 ciprofloxacin [From Cipro] AdvReac Swelling Verified 08/13/24 12:00 doxycycline AdvReac Abdominal Verified 08/13/24 12:00 Pain valacyclovir [From Valtrex] AdvReac Swelling Verified 08/13/24 12:00 Physical Exam Vitals: Vital Signs Temp Pulse Resp BP Pulse Ox 08/13/24 12:00 97.7 F 64 18 155/84 99 Intake and Output 08/12/24 08/13/24 08/13/24 22:59 06:59 14:59 Other: Weight 107.955 kg Results CBC & Chem 7: 08/13/24 13:17 08/13/24 13:17 Labs: Abnormal Lab Results - Last 24 Hours (Table) 08/13/24 08/13/24 08/13/24 Range/Units 13:17 13:17 13:17 Hgb 18.4 H (13.0-17.5) gm/dL Hct 54.9 H (39.0-53.0) % PT 21.9 H (10.0-12.5) sec INR 2.2 H (<1.2) APTT 34.3 H (22.0-30.0) sec Sodium 136 L (137-145) mmol/L Creatinine 2.25 H (0.66-1.25) mg/dL Glucose 102 H (74-99) mg/dL Phosphorus 2.0 L (2.5-4.5) mg/dL Urine pH (5.0-8.0) Urine Protein (Negative) Urine Blood (Negative) Ur Leukocyte Esterase (Negative) Urine RBC (0-5) /hpf Urine WBC (0-5) /hpf Urine Bacteria (None) /hpf Urine Mucus (None) /hpf 08/13/24 Range/Units 13:30 Hgb (13.0-17.5) gm/dL Hct (39.0-53.0) % PT (10.0-12.5) sec INR (<1.2) APTT (22.0-30.0) sec Sodium (137-145) mmol/L Creatinine (0.66-1.25) mg/dL Glucose (74-99) mg/dL Phosphorus (2.5-4.5) mg/dL Urine pH 8.5 H (5.0-8.0) Urine Protein 1+ H (Negative) Urine Blood Trace H (Negative) Ur Leukocyte Esterase Large H (Negative) Urine RBC 13 H (0-5) /hpf Urine WBC 51 H (0-5) /hpf Urine Bacteria Rare H (None) /hpf Urine Mucus Rare H (None) /hpf
[2024-08-13] MEDS: IBUPROFEN 400 MG TAB PO PRN (19:03)
[2024-08-13] MEDS: WARFARIN 2.5 MG TAB PO SCH (21:46)
[2024-08-13] MEDS: SODIUM CHLORIDE 0.9% 1,000 ML IV SCH (21:47)
--- NOTE | 2024-08-13 22:11 | P.CONS ---
History of Present Illness - Reason for Consult Consult date: 08/13/24 Scrotal cellulitis Requesting physician: Lisandra Tidwell - Chief Complaint Scrotal pain and swelling x days - History of Present Illness Patient is a 73-year-old male with a past medical history significant for coronary disease hypertension [place] prostate disorder patient did have a chronic indwelling Dumont catheter that is changed once a month presenting to the hospital for evaluation of scrotal pain and swelling apparently has been going on for more than a week patient denies any history of any trauma has been complaining of pain to the scrotal area to be sharp moderate intensity without radiation with some associated swelling redness no open wound or any drainage denies high-grade fever. The patient has been treated with oral Keflex in the outpatient setting without improvement has the patient presented to hospital on arrival to the ER the patient was afebrile and no fever have been recorded subsequently patient was not tachycardic hypotensive or hypoxic he did have a white count of 8.2 creatinine is 2.25 electrolytes are normal liver enzymes are normal urine is mildly positive he did receive a dose of Rocephin has been admitted to hospital infectious disease was consulted for further management of antibiotic therapy patient did have a scrotal ultrasound done on 07/22/2024 did shows small bilateral hydroceles and no vascular changes or torsion Review of Systems Positive point and negatives has been mentioned in the HPI, complete review of systems was performed and all other systems are negative Past Medical History Past Medical History: Coronary Artery Disease (CAD), Hypertension, Myocardial Infarction ([place]), Prostate Disorder Additional Past Medical History / Comment(s): bladder issues chronic dumont -pt stated it was changed on 05/06/23 Last Myocardial Infarction Date:: 2007 History of Any Multi-Drug Resistant Organisms: None Reported Past Surgical History: Heart Catheterization With Stent, Tonsillectomy Additional Past Surgical History / Comment(s): cystoscope, heart cath with stents Past Anesthesia/Blood Transfusion Reactions: Motion Sickness Date of Last Stent Placement:: 2005 Past Psychological History: Depression Smoking Status: Never smoker Past Alcohol Use History: None Reported Past Drug Use History: None Reported - Past Family History Mother Family Medical History: Cancer Additional Family Medical History / Comment(s): colon cancer Father Family Medical History: Myocardial Infarction ([place]) Medications and Allergies Home Medications Medication Instructions Recorded Confirmed Type buPROPion XL [Wellbutrin XL] 150 mg PO DAILY 09/15/18 08/13/24 History atenoloL [Tenormin] 25 mg PO DAILY 05/09/23 08/13/24 History Warfarin [Coumadin] 2.5 mg PO MOWEFR@209907/07/23 08/13/24 History Warfarin [Coumadin] 5 mg PO SUTUTHSA@209907/07/23 08/13/24 History Allergies Allergy/AdvReac Type Severity Reaction Status Date / Time acetaminophen [From Tylenol] Allergy Swelling Verified 08/13/24 14:52 azithromycin Allergy Unknown Verified 08/13/24 14:52 buspirone Allergy Unknown Verified 08/13/24 14:52 diazepam [From Valium] Allergy Unknown Verified 08/13/24 14:52 Iodinated Contrast Media Allergy Unknown Verified 08/13/24 14:52 [Iodinated Contrast- Oral and IV Dye] milk Allergy Unknown Verified 08/13/24 14:52 phenazopyridine Allergy Unknown Verified 08/13/24 14:52 [From Pyridium] sertraline Allergy Unknown Verified 08/13/24 14:52 amlodipine [From Norvasc] AdvReac Swelling Verified 08/13/24 14:52 ciprofloxacin [From Cipro] AdvReac Swelling Verified 08/13/24 14:52 doxycycline AdvReac Abdominal Verified 08/13/24 14:52 Pain sucralfate [From Carafate] AdvReac Chest Pain Verified 08/13/24 14:52 valacyclovir [From Valtrex] AdvReac Swelling Verified 08/13/24 14:52 Physical Exam Vitals: Vital Signs Temp Pulse Resp BP Pulse Ox 08/13/24 12:00 97.7 F 64 18 155/84 99 Intake and Output 08/13/24 08/13/24 08/13/24 06:59 14:59 22:59 Other: Weight 107.955 kg GENERAL DESCRIPTION: Elderly male lying in bed, no distress. No tachypnea or accessory muscle of respiration use. HEENT: Shows Pallor , no scleral icterus. Oral mucous membrane is dry. No pharyngeal erythema or thrush NECK: Trachea central, no thyromegaly. LUNGS: Unlabored breathing. Clear to auscultation anteriorly. No wheeze or crackle. HEART: S1, S2, regular rate and rhythm. No loud murmur ABDOMEN: Soft, no tenderness , guarding or rigidity, no organomegaly : Minimal scrotal erythema no significant swelling open wound or any drainage EXTREMITIES: No edema of feet. SKIN: No rash, no masses palpable. NEUROLOGICAL: The patient is awake, alert, oriented x3, mood and affect normal. Results CBC & Chem 7: 08/13/24 13:17 08/13/24 13:17 Labs: Abnormal Lab Results - Last 24 Hours (Table) 08/13/24 08/13/24 08/13/24 Range/Units 13:17 13:17 13:17 Hgb 18.4 H (13.0-17.5) gm/dL Hct 54.9 H (39.0-53.0) % PT 21.9 H (10.0-12.5) sec INR 2.2 H (<1.2) APTT 34.3 H (22.0-30.0) sec Sodium 136 L (137-145) mmol/L Creatinine 2.25 H (0.66-1.25) mg/dL Glucose 102 H (74-99) mg/dL Phosphorus 2.0 L (2.5-4.5) mg/dL Urine pH (5.0-8.0) Urine Protein (Negative) Urine Blood (Negative) Ur Leukocyte Esterase (Negative) Urine RBC (0-5) /hpf Urine WBC (0-5) /hpf Urine Bacteria (None) /hpf Urine Mucus (None) /hpf 08/13/24 Range/Units 13:30 Hgb (13.0-17.5) gm/dL Hct (39.0-53.0) % PT (10.0-12.5) sec INR (<1.2) APTT (22.0-30.0) sec Sodium (137-145) mmol/L Creatinine (0.66-1.25) mg/dL Glucose (74-99) mg/dL Phosphorus (2.5-4.5) mg/dL Urine pH 8.5 H (5.0-8.0) Urine Protein 1+ H (Negative) Urine Blood Trace H (Negative) Ur Leukocyte Esterase Large H (Negative) Urine RBC 13 H (0-5) /hpf Urine WBC 51 H (0-5) /hpf Urine Bacteria Rare H (None) /hpf Urine Mucus Rare H (None) /hpf Assessment and Plan (1) Cellulitis of scrotum Current Visit: Yes Status: Acute Code(s): N49.2 - INFLAMMATORY DISORDERS OF SCROTUM SNOMED Code(s): 44001686 Plan: 1patient presented to hospital with increasing pain to the scrotum male noted to have minimal redness no significant swelling no discoloration or testicular tenderness was noticed concerning for possible mild cellulitis failing outpatient oral Keflex therapy. 2mildly elevated creatinine and risk of nephrotoxicity from vancomycin 3we will suggest cefazolin 2 g every 8 hours and see clinical response We will follow on clinical condition and cultures to further adjust medication if needed Thank you for this consultation we will follow the patient along with you Dictation was produced using [employer] dictation software. please excuse any grammatical, word or spelling errors. Time with Patient: Greater than 30
[2024-08-13] MEDS: MORPHINE SULFATE 4 MG/ML SYRINGE IVP STA (23:28)
[2024-08-14 08:39] LABS: Basophils # (A) 0.09 X 10*3/uL (0.00-0.10); Eosinophils # (A) 0.35 X 10*3/uL (0.04-0.35); HCT 48.6 % (39.6-50.0); HGB 16.7 g/dL (13.0-17.0); Lymphocytes # (A) 2.06 X 10*3/uL (0.90-5.00); Lymphocytes % (A) 23.4 %; MCH 31.7 pg (27.0-32.0); MCHC 34.4 g/dL (32.0-37.0); MCV 92.2 FL (80.0-97.0); Mean Platelet Volume 9.8 FL (9.5-12.2); Monocytes # (A) 0.64 X 10*3/uL (0.20-1.00); Monocytes % (A) 7.3 %; NRBC Per 100 WBC 0 X 10*3/uL (0.00-0.01); Neutrophils # (A) 5.63 X 10*3/uL (1.80-7.70); Platelet Count 201 X 10*3/uL (140-440); RBC 5.27 X 10*6/uL (4.40-5.60); RDW 14.3 % (11.5-14.5)
[2024-08-14] MEDS: buPROPion XL 150 MG TAB.ER.24H PO SCH (08:55)
[2024-08-14] MEDS: atenoloL 25 MG TAB PO SCH (08:55)
[2024-08-14 09:00] LABS: BUN/Creat Ratio 8.82 Ratio (12.00-20.00); Blood Urea Nitrogen 19.4 mg/dL (9.0-27.0); Calcium 8.8 mg/dL (8.7-10.3); Carbon Dioxide 20.3 mmol/L (21.6-31.8); Chloride 103 mmol/L (96-109); Glucose 90 mg/dL (70-110); Potassium 3.9 mmol/L (3.5-5.5); Sodium 137 mmol/L (135-145)
[2024-08-14 10:44] LABS: INR 2.2 sec (0.93-1.11); Prothrombin Time 22.6 sec (9.9-11.9)
--- NOTE | 2024-08-14 13:32 | P.PN ---
Subjective Progress Note Date: 08/14/24 Principal diagnosis: Reason for follow-up is scrotal cellulitis Patient is a 73-year-old male with a past medical history significant for coronary disease hypertension [place] prostate disorder patient did have a chronic indwelling Harper catheter that is changed once a month presenting to the hospital for evaluation of scrotal pain and swelling apparently has been diagnos ed with a cellulitis did not responded well to Keflex. On today's evaluation that is 08/14/2024, Patient is afebrile this morning patient denies having any chest pain shortness of breath or cough, the patient is currently on room air, patient denies any abdominal pain no diarrhea no nausea no vomiting patient mention redness to the scrotal area has decreased still having some pain and no drainage. Patient white count is 8.80, creatinine is 2.2 Objective - Vital Signs Vital signs: Vital Signs Temp 97.7 F 08/14/24 07:00 Pulse 58 L 08/14/24 07:00 Resp 16 08/14/24 07:00 BP 130/70 08/14/24 07:00 Pulse Ox 95 08/14/24 07:00 FiO2 Intake & Output 08/13/24 08/14/24 08/14/24 18:59 06:59 18:59 Output Total 1800 Balance -1800 Weight 107.955 kg Output: Urine 1800 Other: Voiding Method Indwelling Catheter Indwelling Catheter Indwelling Catheter - Exam GENERAL DESCRIPTION: An elderly male lying in bed in no distress RESPIRATORY SYSTEM: Unlabored breathing , decreased breath sounds at bases HEART: S1 S2 regular rate and rhythm , ABDOMEN: Soft , no tenderness EXTREMITIES: No edema feet - Labs CBC & Chem 7: 08/14/24 03:03 08/14/24 03:03 Labs: Abnormal Lab Results - Last 24 Hours (Table) 08/13/24 08/13/24 08/13/24 Range/Units 13:17 13:17 13:17 Hgb 18.4 H (13.0-17.5) gm/dL Hct 54.9 H (39.0-53.0) % PT 21.9 H (10.0-12.5) sec INR 2.2 H (<1.2) APTT 34.3 H (22.0-30.0) sec Sodium 136 L (137-145) mmol/L Carbon Dioxide (21.6-31.8) mmol/L Anion Gap (4.00-12.00) mmol/L Creatinine 2.25 H (0.66-1.25) mg/dL Est GFR (CKD-EPI) (>=60) BUN/Creatinine Ratio (12.00-20.00) Ratio Glucose 102 H (74-99) mg/dL Phosphorus 2.0 L (2.5-4.5) mg/dL Urine pH (5.0-8.0) Urine Protein (Negative) Urine Blood (Negative) Ur Leukocyte Esterase (Negative) Urine RBC (0-5) /hpf Urine WBC (0-5) /hpf Urine Bacteria (None) /hpf Urine Mucus (None) /hpf 08/13/24 08/14/24 08/14/24 Range/Units 13:30 03:03 03:03 Hgb (13.0-17.5) gm/dL Hct (39.0-53.0) % PT 22.6 H (10.0-12.5) sec INR 2.20 H (<1.2) APTT (22.0-30.0) sec Sodium (137-145) mmol/L Carbon Dioxide 20.3 L (21.6-31.8) mmol/L Anion Gap 13.70 H (4.00-12.00) mmol/L Creatinine 2.2 H (0.66-1.25) mg/dL Est GFR (CKD-EPI) 31 L (>=60) BUN/Creatinine Ratio 8.82 L (12.00-20.00) Ratio Glucose (74-99) mg/dL Phosphorus (2.5-4.5) mg/dL Urine pH 8.5 H (5.0-8.0) Urine Protein 1+ H (Negative) Urine Blood Trace H (Negative) Ur Leukocyte Esterase Large H (Negative) Urine RBC 13 H (0-5) /hpf Urine WBC 51 H (0-5) /hpf Urine Bacteria Rare H (None) /hpf Urine Mucus Rare H (None) /hpf Assessment and Plan (1) Cellulitis of scrotum Current Visit: Yes Status: Acute Code(s): N49.2 - INFLAMMATORY DISORDERS OF SCROTUM SNOMED Code(s): 35574952 Plan: 1patient presented to hospital with increasing pain to the scrotum male noted to have minimal redness no significant swelling no discoloration or testicular tenderness was noticed concerning for possible mild cellulitis failing outpatient oral Keflex therapy. 2mildly elevated creatinine and risk of nephrotoxicity from vancomycin 3patient to continue with the cefazolin in view of some clinical improvement and monitor clinical course closely Dictation was produced using [employer] dictation software. please excuse any grammatical, word or spelling errors.
[2024-08-14 15:36] VITALS: BMI 34.1
[2024-08-14] MEDS: WARFARIN 5 MG TAB PO SCH (20:50)
[2024-08-15 04:18] LABS: INR 2.5 (<1.2); Prothrombin Time 24.6 sec (10.0-12.5)
[2024-08-15 08:44] LABS: BUN/Creat Ratio 10.95 Ratio (12.00-20.00); Calcium 8.6 mg/dL (8.7-10.3); Carbon Dioxide 21.3 mmol/L (21.6-31.8); Chloride 104 mmol/L (96-109); Glucose 90 mg/dL (70-110); Potassium 4.1 mmol/L (3.5-5.5); Sodium 137 mmol/L (135-145)
--- NOTE | 2024-08-15 09:15 | P.PN ---
Subjective Progress Note Date: 08/14/24 73-year-old male came in for scrotal swelling and redness. Patient did not have much of swelling but does have some redness and concerned about cellulitis of the scrotum. Patient was given Keflex took 3 doses without any improvement because of which patient came to ER. Patient is on Coumadin INR is therapeutic for atrial fibrillation. 08/14/2024 Today in follow-up on the medical floor. There is improvement in the cellulitis of the scrotum there is not swelling at this point. He remains on IV cefazolin and infectious diseases following closely. Cell count is normal today at 8.80 INR is 2.20. BUN of 19.4 creatinine of 2.2 sodium level of 137. Review of Systems Constitutional: Denied any fatigue denied any fever. Cardio vascular: denied any chest pain, palpitations Gastrointestinal: denied any nausea, vomiting, diarrhea Pulmonary: Denied any shortness of breath cough Neurologic denied any new focal deficits All inpatient medications were reviewed and appropriate changes in these medi cations as dictated in the interval history and assessment and plan. PHYSICAL EXAMINATION: GENERAL: The patient is alert and oriented x3, not in any acute distress. Well developed, well nourished. HEENT: Pupils are round and equally reacting to light. EOMI. No scleral icterus. No conjunctival pallor. Normocephalic, atraumatic. No pharyngeal erythema. No thyromegaly. CARDIOVASCULAR: S1 and S2 present. No murmurs, rubs, or gallops. PULMONARY: Chest is clear to auscultation, no wheezing or crackles. ABDOMEN: Soft, nontender, nondistended, normoactive bowel sounds. No palpable organomegaly. MUSCULOSKELETAL: No joint swelling or deformity. EXTREMITIES: No cyanosis, clubbing, or pedal edema. NEUROLOGICAL: Gross neurological examination did not reveal any focal deficits. SKIN: Patient does have redness and cellulitis of the scrotum Assessment and plan -Scrotal cellulitis: Patient will be started on cefazolin patient denied any history of MRSA in the past. Consult infectious disease -Paroxysmal atrial fibrillation presently sinus rhythm rate controlled on Coumadin therapeutic on Coumadin continue with home dose of Coumadin repeat INR tomorrow -Chronic kidney disease stage IIIb: Patient does have a acute renal failure baseline creatinine 1.7 present creatinine 2.2 continue fluids and repeat BMP in the AM -Hypertension DVT prophylaxis: On Coumadin and therapeutic on Coumadin the impression and plan of care has been dictated by Luda Snider, Nurse Practitioner as directed. Dr. Diann MD I have performed a history and physical examination and medical decision making of this patient, discussed the same with the dictator, and agree with the dictators assessment and plan as written, documented as a scribe. Based on total visit time, I have performed more than 50% of this visit. Objective - Vital Signs Vital signs: Vital Signs Temp 97.7 F 08/14/24 07:00 Pulse 58 L 08/14/24 07:00 Resp 16 08/14/24 07:00 BP 130/70 08/14/24 07:00 Pulse Ox 95 08/14/24 07:00 FiO2 Intake & Output 08/13/24 08/14/24 08/14/24 18:59 06:59 18:59 Output Total 1800 Balance -1800 Weight 107.955 kg Output: Urine 1800 Other: Voiding Method Indwelling Catheter Indwelling Catheter - Labs CBC & Chem 7: 08/14/24 03:03 08/15/24 02:57 Labs: Abnormal Lab Results - Last 24 Hours (Table) 08/13/24 08/13/24 08/13/24 Range/Units 13:17 13:17 13:17 Hgb 18.4 H (13.0-17.5) gm/dL Hct 54.9 H (39.0-53.0) % PT 21.9 H (10.0-12.5) sec INR 2.2 H (<1.2) APTT 34.3 H (22.0-30.0) sec Sodium 136 L (137-145) mmol/L Carbon Dioxide (21.6-31.8) mmol/L Anion Gap (4.00-12.00) mmol/L Creatinine 2.25 H (0.66-1.25) mg/dL Est GFR (CKD-EPI) (>=60) BUN/Creatinine Ratio (12.00-20.00) Ratio Glucose 102 H (74-99) mg/dL Phosphorus 2.0 L (2.5-4.5) mg/dL Urine pH (5.0-8.0) Urine Protein (Negative) Urine Blood (Negative) Ur Leukocyte Esterase (Negative) Urine RBC (0-5) /hpf Urine WBC (0-5) /hpf Urine Bacteria (None) /hpf Urine Mucus (None) /hpf 08/13/24 08/14/24 Range/Units 13:30 03:03 Hgb (13.0-17.5) gm/dL Hct (39.0-53.0) % PT (10.0-12.5) sec INR (<1.2) APTT (22.0-30.0) sec Sodium (137-145) mmol/L Carbon Dioxide 20.3 L (21.6-31.8) mmol/L Anion Gap 13.70 H (4.00-12.00) mmol/L Creatinine 2.2 H (0.66-1.25) mg/dL Est GFR (CKD-EPI) 31 L (>=60) BUN/Creatinine Ratio 8.82 L (12.00-20.00) Ratio Glucose (74-99) mg/dL Phosphorus (2.5-4.5) mg/dL Urine pH 8.5 H (5.0-8.0) Urine Protein 1+ H (Negative) Urine Blood Trace H (Negative) Ur Leukocyte Esterase Large H (Negative) Urine RBC 13 H (0-5) /hpf Urine WBC 51 H (0-5) /hpf Urine Bacteria Rare H (None) /hpf Urine Mucus Rare H (None) /hpf Assessment and Plan Time with Patient: Less than 30
--- NOTE | 2024-08-15 12:17 | P.PN ---
Subjective Progress Note Date: 08/15/24 Principal diagnosis: Reason for follow-up is scrotal cellulitis Patient is a 73-year-old male with a past medical history significant for coronary disease hypertension [place] prostate disorder patient did have a chronic indwelling Harper catheter that is changed once a month presenting to the hospital for evaluation of scrotal pain and swelling apparently has been diagnos ed with a cellulitis did not responded well to Keflex. On today's evaluation that is 08/15/2024,the patient denies any fever or any chills, patient is breathing comfortably on room air, the patient denies chest pain shortness of breath and no significant cough, patient denies abdominal pain, no nausea vomiting or diarrhea. Mention pain to the scrotal area has slightly decreased in intensity no drainage. Patient did have INR of 2.5 creatinine is 2.1 Objective - Vital Signs Vital signs: Vital Signs Temp 97.5 F L 08/15/24 07:25 Pulse 59 L 08/15/24 07:25 Resp 16 08/15/24 07:25 BP 168/87 08/15/24 07:25 Pulse Ox 95 08/15/24 07:25 FiO2 Intake & Output 08/14/24 08/15/24 08/15/24 18:59 06:59 18:59 Intake Total 200 Output Total 1200 800 Balance -1200 -800 200 Weight 107.955 kg Intake: Oral 200 Output: Urine 1200 800 Other: Voiding Method Indwelling Catheter Indwelling Catheter # Voids 1 - Exam GENERAL DESCRIPTION: An elderly male lying in bed in no distress RESPIRATORY SYSTEM: Unlabored breathing , decreased breath sounds at bases HEART: S1 S2 regular rate and rhythm , ABDOMEN: Soft , no tenderness EXTREMITIES: No edema feet - Labs CBC & Chem 7: 08/14/24 03:03 08/15/24 02:57 Labs: Abnormal Lab Results - Last 24 Hours (Table) 08/15/24 08/15/24 Range/Units 02:57 02:57 PT 24.6 H (10.0-12.5) sec INR 2.5 H (<1.2) Carbon Dioxide 21.3 L (21.6-31.8) mmol/L Creatinine 2.1 H (0.6-1.5) mg/dL Est GFR (CKD-EPI) 33 L (>=60) BUN/Creatinine Ratio 10.95 L (12.00-20.00) Ratio Calcium 8.6 L (8.7-10.3) mg/dL Assessment and Plan (1) Cellulitis of scrotum Current Visit: Yes Status: Acute Code(s): N49.2 - INFLAMMATORY DISORDERS OF SCROTUM SNOMED Code(s): 80227923 Plan: 1patient presented to hospital with increasing pain to the scrotum male noted to have minimal redness no significant swelling no discoloration or testicular tenderness was noticed concerning for possible mild cellulitis failing outpatient oral Keflex therapy. 2patient is some improvement in his symptoms to continue with the cefazolin and consider Ceftin on discharge Dictation was produced using [employer] dictation software. please excuse any gra mmatical, word or spelling errors. Time with Patient: Less than 30
[2024-08-15] MEDS: CLOTRIMAZOLE 1% CREAM 30 GM TUBE TOPICAL SCH (13:35)
[2024-08-15] MEDS: HYDROCORTISONE 1% CREAM 30 GM TUBE TOPICAL SCH (13:35)
--- NOTE | 2024-08-15 21:57 | P.PN ---
Subjective Progress Note Date: 08/15/24 73-year-old male came in for scrotal swelling and redness. Patient did not have much of swelling but does have some redness and concerned about cellulitis of the scrotum. Patient was given Keflex took 3 doses without any improvement because of which patient came to ER. Patient is on Coumadin INR is therapeutic for atrial fibrillation. 08/14/2024 Today in follow-up on the medical floor. There is improvement in the cellulitis of the scrotum there is not swelling at this point. He remains on IV cefazolin and infectious diseases following closely. Cell count is normal today at 8.80 INR is 2.20. BUN of 19.4 creatinine of 2.2 sodium level of 137. 08/15/2024 Patient is evaluated today in follow up. Scrotal cellulitis again improving. Remains on IV cefazolin and ID following. He has complaints of eczema around his mouth/chin as well as some dry itching in between his toes. He is asking for cr eams. BUN 23 and creatinine 2.1 today. INR 2.5. Review of Systems Constitutional: Denied any fatigue denied any fever. Cardio vascular: denied any chest pain, palpitations Gastrointestinal: denied any nausea, vomiting, diarrhea Pulmonary: Denied any shortness of breath cough Neurologic denied any new focal deficits All inpatient medications were reviewed and appropriate changes in these medica tions as dictated in the interval history and assessment and plan. PHYSICAL EXAMINATION: GENERAL: The patient is alert and oriented x3, not in any acute distress. Well developed, well nourished. HEENT: Pupils are round and equally reacting to light. EOMI. No scleral icterus. No conjunctival pallor. Normocephalic, atraumatic. No pharyngeal erythema. No thyromegaly. CARDIOVASCULAR: S1 and S2 present. No murmurs, rubs, or gallops. PULMONARY: Chest is clear to auscultation, no wheezing or crackles. ABDOMEN: Soft, nontender, nondistended, normoactive bowel sounds. No palpable organomegaly. MUSCULOSKELETAL: No joint swelling or deformity. EXTREMITIES: No cyanosis, clubbing, or pedal edema. NEUROLOGICAL: Gross neurological examination did not reveal any focal deficits. SKIN: Patient does have redness and cellulitis of the scrotum Assessment and plan -Scrotal cellulitis: Patient will be started on cefazolin patient denied any history of MRSA in the past. Consult infectious disease -Paroxysmal atrial fibrillation presently sinus rhythm rate controlled on Coumadin therapeutic on Coumadin continue with home dose of Coumadin repeat INR tomorrow -Chronic kidney disease stage IIIb: Patient does have a acute renal failure baseline creatinine 1.7 present creatinine 2.2 continue fluids and repeat BMP in the AM -Hypertension -Tinea pedis in the toe webbings added lotrimin BID -Excema on face added hydrocortisone cream to use BID DVT prophylaxis: On Coumadin and therapeutic on Coumadin Full Code the impression and plan of care has been dictated by Luda Snider, Nurse Practitioner as directed. Dr. Diann MD I have performed a history and physical examination and medical decision making of this patient, discussed the same with the dictator, and agree with the dictators assessment and plan as written, documented as a scribe. Based on total visit time, I have performed more than 50% of this visit. Objective - Vital Signs Vital signs: Vital Signs Temp 97.9 F 08/15/24 13:20 Pulse 69 08/15/24 13:20 Resp 17 08/15/24 13:20 BP 156/82 08/15/24 13:20 Pulse Ox 98 08/15/24 13:20 FiO2 Intake & Output 08/15/24 08/15/24 08/16/24 06:59 18:59 06:59 Intake Total 200 Output Total 800 2200 Balance -800 -2000 Intake: Oral 200 Output: Urine 800 2200 Other: Voiding Method Indwelling Catheter # Voids 1 - Labs CBC & Chem 7: 08/14/24 03:03 08/15/24 02:57 Labs: Abnormal Lab Results - Last 24 Hours (Table) 08/15/24 08/15/24 Range/Units 02:57 02:57 PT 24.6 H (10.0-12.5) sec INR 2.5 H (<1.2) Carbon Dioxide 21.3 L (21.6-31.8) mmol/L Creatinine 2.1 H (0.6-1.5) mg/dL Est GFR (CKD-EPI) 33 L (>=60) BUN/Creatinine Ratio 10.95 L (12.00-20.00) Ratio Calcium 8.6 L (8.7-10.3) mg/dL Assessment and Plan Time with Patient: Less than 30
[2024-08-16 04:48] LABS: INR 2.9 (<1.2); Prothrombin Time 28.3 sec (10.0-12.5)
[2024-08-16 08:46] LABS: Calcium 8.5 mg/dL (8.7-10.3); Carbon Dioxide 20.6 mmol/L (21.6-31.8); Chloride 106 mmol/L (96-109); Glucose 92 mg/dL (70-110); Potassium 4.4 mmol/L (3.5-5.5); Sodium 136 mmol/L (135-145)
[2024-08-16] MEDS: KETOROLAC 15 MG/ML 1 ML VIAL IVP PRN (08:50)
--- NOTE | 2024-08-16 14:31 | P.PN ---
Subjective Progress Note Date: 08/16/24 Principal diagnosis: Reason for follow-up is scrotal cellulitis Patient is a 73-year-old male with a past medical history significant for coronary disease hypertension ND prostate disorder patient did have a chronic indwelling Harper catheter that is changed once a month presenting to the hospital for evaluation of scrotal pain and swelling apparently has been diagnos ed with a cellulitis did not responded well to Keflex. On today's evaluation that is 08/16/2024,the patient remains to be afebrile, patient is on room air not requiring supplemental oxygen and denies any shortness of breath no chest pain or cough.Patient denies having any nausea or vomiting, no abdominal pain and no diarrhea patient has been complaining of some pain to the scrotal area and also passed through his Harper catheter. No CBC was done today INR is 2.9 creatinine is 2.0 Objective - Vital Signs Vital signs: Vital Signs Temp 97.7 F 08/16/24 08:00 Pulse 69 08/16/24 11:13 Resp 22 08/16/24 08:00 BP 146/82 08/16/24 08:00 Pulse Ox 97 08/16/24 08:00 FiO2 Intake & Output 08/15/24 08/16/24 08/16/24 18:59 06:59 18:59 Intake Total 200 250 Output Total 2200 2600 500 Balance -2000 -2600 -250 Intake: Oral 200 250 Output: Urine 2200 2600 500 Other: Voiding Method Indwelling Catheter Indwelling Catheter - Exam GENERAL DESCRIPTION: An elderly male lying in bed in no distress RESPIRATORY SYSTEM: Unlabored breathing , decreased breath sounds at bases HEART: S1 S2 regular rate and rhythm , ABDOMEN: Soft , no tenderness EXTREMITIES: No edema feet - Labs CBC & Chem 7: 08/14/24 03:03 08/16/24 04:07 Labs: Abnormal Lab Results - Last 24 Hours (Table) 08/16/24 08/16/24 Range/Units 04:07 04:07 PT 28.3 H (10.0-12.5) sec INR 2.9 H (<1.2) Carbon Dioxide 20.6 L (21.6-31.8) mmol/L Creatinine 2.0 H (0.6-1.5) mg/dL Est GFR (CKD-EPI) 35 L (>=60) BUN/Creatinine Ratio 11.00 L (12.00-20.00) Ratio Calcium 8.5 L (8.7-10.3) mg/dL Assessment and Plan (1) Cellulitis of scrotum Current Visit: Yes Status: Acute Code(s): N49.2 - INFLAMMATORY DISORDERS OF SCROTUM SNOMED Code(s): 39204067 Plan: 1patient presented to hospital with increasing pain to the scrotum male noted to have minimal redness no significant swelling no discoloration or testicular tenderness was noticed concerning for possible mild cellulitis failing outpatient oral Keflex therapy. 2patient not complaining of significant purulent drainage through the Harper catheter Harper catheter should be changed as it was last changed about a month ago and will get a UA from the new Harper and may benefit from repeating the scrotal ultrasound this was discussed with TELEGRAPHER AGENT for admitting team for now continue with the cefazolin Dictation was produced using [employer] dictation software. please excuse any grammatical, word or spelling errors. Time with Patient: Less than 30
[2024-08-16] MEDS: FLUTICASONE NASAL 50MCG/SPRAY 16GM BTL EA NOSTRIL SCH (14:54)
[2024-08-16] MEDS: FAMOTIDINE 20 MG TAB PO SCH (14:56)
--- NOTE | 2024-08-16 15:46 | US ---
EXAMINATION TYPE: US scrotum with doppler. DATE OF EXAM: 08/16/2024 COMPARISON: 07/22/24 CLINICAL INDICATION: Male, 73 years old with history of bilateral testicular pain with palpation.; ce llulitis in scrotum TECHNIQUE: Grayscale, color Doppler and spectral Doppler imaging of the scrotum. FINDINGS: EXAM MEASUREMENTS: TESTICLES: Right Testicle: 4.2 x 3.0 x 2.5 cm Left Testicle: 3.9 x 2.5 x 2.8 cm EPIDIDYMIS HEAD: Right Epididymis: 0.7 cm Left Epididymis: 0.7 cm Doppler performed to assess for testicular vascularity; good bilateral color flow and waveforms are s een. There is no evidence of testicular torsion. Presence of hydroceles: Small on left. Minimal debris is present. Presence of varicoceles: no No suspicious complex hydrocele. IMPRESSION: 1. Small left hydrocele. 2. No acute abnormality identified. [facility], Workstation: [facility], 08/16/2024 3:44 PM
[2024-08-16] MEDS: WARFARIN 2.5 MG TAB PO ONE (18:01)
[2024-08-16 18:25] LABS: Appearance,Urine Clear (Clear); Bilirubin,Urine Negative (Negative); Blood,Urine Small (Negative); Color,Urine Colorless; Glucose,Urine (UA) Negative (Negative); Ketones,Urine Negative (Negative); Leukocyte Esterase,Urine Moderate (Negative); Mucus,Urine Rare /hpf; Nitrite,Urine Negative (Negative); Protein,Urine 1+ (Negative); RBC,Urine 9 /hpf (0-5); Specific Gravity,Urine 1.009 (1.001-1.035); Urobilinogen,Urine <2.0 mg/dL (<2.0); WBC,Urine 19 /hpf (0-5)
[2024-08-17 04:21] LABS: INR 2.4 (<1.2); Prothrombin Time 23.4 sec (10.0-12.5)
--- NOTE | 2024-08-17 07:16 | P.PN ---
Subjective Progress Note Date: 08/16/24 73-year-old male came in for scrotal swelling and redness. Patient did not have much of swelling but does have some redness and concerned about cellulitis of the scrotum. Patient was given Keflex took 3 doses without any improvement because of which patient came to ER. Patient is on Coumadin INR is therapeutic for atrial fibrillation. 08/14/2024 Today in follow-up on the medical floor. There is improvement in the cellulitis of the scrotum there is not swelling at this point. He remains on IV cefazolin and infectious diseases following closely. Cell count is normal today at 8.80 INR is 2.20. BUN of 19.4 creatinine of 2.2 sodium level of 137. 08/15/2024 Patient is evaluated today in follow up. Scrotal cellulitis again improving. Remains on IV cefazolin and ID following. He has complaints of eczema around his mouth/chin as well as some dry itching in between his toes. He is asking for cr eams. BUN 23 and creatinine 2.1 today. INR 2.5. 08/16/2024 Patient is evaluated today resting in bed he states that his scrotum is tender to palpation was worse overnight. He is also requesting something for a runny nose. His INR today is 2.9. He continues on IV cefazolin Review of Systems Constitutional: Denied any fatigue denied any fever. Cardio vascular: denied any chest pain, palpitations Gastrointestinal: denied any nausea, vomiting, diarrhea Pulmonary: Denied any shortness of breath cough Neurologic denied any new focal deficits All inpatient medications were reviewed and appropriate changes in these medications as dictated in the interval history and assessment and plan. PHYSICAL EXAMINATION: GENERAL: The patient is alert and oriented x3, not in any acute distress. Well developed, well nourished. HEENT: Pupils are round and equally reacting to light. EOMI. No scleral icterus. No conjunctival pallor. Normocephalic, atraumatic. No pharyngeal erythema. No thyromegaly. CARDIOVASCULAR: S1 and S2 present. No murmurs, rubs, or gallops. PULMONARY: Chest is clear to auscultation, no wheezing or crackles. ABDOMEN: Soft, nontender, nondistended, normoactive bowel sounds. No palpable organomegaly. MUSCULOSKELETAL: No joint swelling or deformity. EXTREMITIES: No cyanosis, clubbing, or pedal edema. NEUROLOGICAL: Gross neurological examination did not reveal any focal deficits. SKIN: Patient does have redness and cellulitis of the scrotum Assessment and plan -Scrotal cellulitis: Patient will be started on cefazolin patient denied any history of MRSA in the past. Consult infectious disease -Paroxysmal atrial fibrillation presently sinus rhythm rate controlled on Coumadin therapeutic on Coumadin continue with home dose of Coumadin repeat INR tomorrow -Chronic kidney disease stage IIIb: Patient does have a acute renal failure baseline creatinine 1.7 present creatinine 2.2 continue fluids and repeat BMP in the AM -Hypertension -Tinea pedis in the toe webbings added lotrimin BID -Excema on face added hydrocortisone cream to use BID DVT prophylaxis: On Coumadin and therapeutic on Coumadin Full Code Repeat scrotal ultrasound. Continue antibiotics. DC home tomorrow. the impression and plan of care has been dictated by Luda Snider, Nurse Practitioner as directed. Dr. Diann MD I have performed a history and physical examination and medical decision making of this patient, discussed the same with the dictator, and agree with the dictators assessment and plan as written, documented as a scribe. Based on total visit time, I have performed more than 50% of this visit. Objective - Vital Signs Vital signs: Vital Signs Temp 97.9 F 08/16/24 14:00 Pulse 73 08/16/24 14:00 Resp 20 08/16/24 14:00 BP 129/69 08/16/24 14:00 Pulse Ox 97 08/16/24 14:00 FiO2 Intake & Output 08/15/24 08/16/24 08/16/24 18:59 06:59 18:59 Intake Total 200 250 Output Total 2200 2600 500 Balance -2000 -2600 -250 Intake: Oral 200 250 Output: Urine 2200 2600 500 Other: Voiding Method Indwelling Catheter Indwelling Catheter - Labs CBC & Chem 7: 08/14/24 03:03 08/16/24 04:07 Labs: Abnormal Lab Results - Last 24 Hours (Table) 08/16/24 08/16/24 Range/Units 04:07 04:07 PT 28.3 H (10.0-12.5) sec INR 2.9 H (<1.2) Carbon Dioxide 20.6 L (21.6-31.8) mmol/L Creatinine 2.0 H (0.6-1.5) mg/dL Est GFR (CKD-EPI) 35 L (>=60) BUN/Creatinine Ratio 11.00 L (12.00-20.00) Ratio Calcium 8.5 L (8.7-10.3) mg/dL Assessment and Plan Time with Patient: Less than 30
[2024-08-17 08:57] VITALS: RESP 18
[2024-08-17 09:08] LABS: BUN/Creat Ratio 10.57 Ratio (12.00-20.00); Blood Urea Nitrogen 24.3 mg/dL (9.0-27.0); Glucose 88 mg/dL (70-110)
[2024-08-17 09:09] LABS: Calcium 8.5 mg/dL (8.7-10.3); Carbon Dioxide 19.4 mmol/L (21.6-31.8); Chloride 106 mmol/L (96-109); Sodium 137 mmol/L (135-145)
--- NOTE | 2024-08-17 13:05 | P.PN ---
Subjective Progress Note Date: 08/17/24 Principal diagnosis: Reason for follow-up is scrotal cellulitis Patient is a 73-year-old male with a past medical history significant for coronary disease hypertension ND prostate disorder patient did have a chronic indwelling Harper catheter that is changed once a month presenting to the hospital for evaluation of scrotal pain and swelling apparently has been diagnos ed with a cellulitis did not responded well to Keflex. On today's evaluation that is 08/17/2024, the patient continues to be afebrile, the patient is on room air and breathing comfortably, the Pt denies having any chest pain or cough, the patient denies having any abdominal pain no vomiting or any diarrhea, the patient Harper catheter has been changed overall pain to the testicular area has decreased in intensity. Patient did have a INR of 2.4, creatinine is 2.3 urine is mildly positive Objective - Vital Signs Vital signs: Vital Signs Temp 97.6 F 08/17/24 08:00 Pulse 63 08/17/24 08:00 Resp 18 08/17/24 10:58 BP 167/84 08/17/24 08:00 Pulse Ox 98 08/17/24 08:00 FiO2 Intake & Output 08/16/24 08/17/24 08/17/24 18:59 06:59 18:59 Intake Total 250 240 Output Total 500 1000 Balance -250 -760 Intake: Oral 250 240 Output: Urine 500 1000 Other: Voiding Method Indwelling Catheter Indwelling Catheter Indwelling Catheter # Bowel Movements 1 - Exam GENERAL DESCRIPTION: An elderly male lying in bed in no distress RESPIRATORY SYSTEM: Unlabored breathing , decreased breath sounds at bases HEART: S1 S2 regular rate and rhythm , ABDOMEN: Soft , no tenderness EXTREMITIES: No edema feet - Labs CBC & Chem 7: 08/14/24 03:03 08/17/24 03:52 Labs: Abnormal Lab Results - Last 24 Hours (Table) 08/16/24 08/17/24 08/17/24 Range/Units 18:06 03:52 03:52 PT 23.4 H (10.0-12.5) sec INR 2.4 H (<1.2) Carbon Dioxide 19.4 L (21.6-31.8) mmol/L Creatinine 2.3 H (0.6-1.5) mg/dL Est GFR (CKD-EPI) 29 L (>=60) BUN/Creatinine Ratio 10.57 L (12.00-20.00) Ratio Calcium 8.5 L (8.7-10.3) mg/dL Urine Protein 1+ H (Negative) Urine Blood Small H (Negative) Ur Leukocyte Esterase Moderate H (Negative) Urine RBC 9 H (0-5) /hpf Urine WBC 19 H (0-5) /hpf Urine Mucus Rare H (None) /hpf Assessment and Plan (1) Cellulitis of scrotum Current Visit: Yes Status: Acute Code(s): N49.2 - INFLAMMATORY DISORDERS OF SCROTUM SNOMED Code(s): 88032236 Plan: 1patient presented to hospital with increasing pain to the scrotum male noted to have minimal redness no significant swelling no discoloration or testicular tenderness was noticed concerning for possible mild cellulitis failing outpatient oral Keflex therapy. 2patient Harper catheter has been changed urine is looking clear now and seem to have some improvement to the testicular pain consider short course of oral Ceftin on discharge Dictation was produced using [employer] dictation software. please excuse any grammatical, word or spelling errors. Time with Patient: Less than 30
[2024-08-17 14:10] VITALS: BP 147/75; PULSE 61; TEMP 97.7
--- NOTE | 2024-08-17 17:40 | P.GSCN ---
History of Present Illness Consult date: 08/17/24 Reason for Consult: Bilateral testicular pain History of present illness: This is a 73-year-old male with history of bilateral testicular pain, admitted to the hospital for possible scrotal cellulitis. He is a known patient to Dr. Chávez with [facility] urology. He was evaluated by his primary care which was felt that he had a scrotal cellulitis was started on Keflex without improvement and subsequently presented to the ER. On presentation to the ER patient was afebrile without any evidence of leukocytosis, he did underwent a scrotal ultrasound which showed no abnormality. He does have history of chronic urinary retention being managed with a Dumont catheter. Review of Systems - Constitutional Denies chills, Denies fever - Gastrointestinal Denies abdominal pain, Denies nausea, Denies vomiting - Neurological Denies headaches, Denies syncope Past Medical History Past Medical History: Coronary Artery Disease (CAD), Hypertension, Myocardial Infarction ([place]), Prostate Disorder Additional Past Medical History / Comment(s): bladder issues chronic dumont -pt stated it was changed on 05/06/23 Last Myocardial Infarction Date:: 2007 History of Any Multi-Drug Resistant Organisms: None Reported Past Surgical History: Heart Catheterization With Stent, Tonsillectomy Additional Past Surgical History / Comment(s): cystoscope, heart cath with stents Past Anesthesia/Blood Transfusion Reactions: Motion Sickness Date of Last Stent Placement:: 2005 Past Psychological History: Depression Smoking Status: Never smoker Past Alcohol Use History: None Reported Past Drug Use History: None Reported - Past Family History Mother Family Medical History: Cancer Additional Family Medical History / Comment(s): colon cancer Father Family Medical History: Myocardial Infarction ([place]) Medications and Allergies Home Medications Medication Instructions Recorded Confirmed Type buPROPion XL [Wellbutrin XL] 150 mg PO DAILY 09/15/18 08/13/24 History atenoloL [Tenormin] 25 mg PO DAILY 05/09/23 08/13/24 History Warfarin [Coumadin] 2.5 mg PO MOWEFR@209907/07/23 08/13/24 History Warfarin [Coumadin] 5 mg PO SUTUTHSA@209907/07/23 08/13/24 History Clotrimazole Cream [Lotrimin Cream] 1 applic TOPICAL BID #1 each 08/17/24 Rx Famotidine [Pepcid] 20 mg PO DAILY #30 tab 08/17/24 Rx Fluticasone Nasal [place] [Flonase 2 spray EA NOSTRIL DAILY ml 08/17/24 Rx Nasal [place]] cefUROXime axetiL [Ceftin] 500 mg PO BID 7 Days #14 tab 08/17/24 Rx Allergies Allergy/AdvReac Type Severity Reaction Status Date / Time acetaminophen [From Tylenol] Allergy Swelling Verified 08/13/24 14:52 azithromycin Allergy Unknown Verified 08/13/24 14:52 buspirone Allergy Unknown Verified 08/13/24 14:52 diazepam [From Valium] Allergy Unknown Verified 08/13/24 14:52 Iodinated Contrast Media Allergy Unknown Verified 08/13/24 14:52 [Iodinated Contrast- Oral and IV Dye] phenazopyridine Allergy Unknown Verified 08/13/24 14:52 [From Pyridium] sertraline Allergy Unknown Verified 08/13/24 14:52 amlodipine [From Norvasc] AdvReac Swelling Verified 08/13/24 14:52 ciprofloxacin [From Cipro] AdvReac Swelling Verified 08/13/24 14:52 doxycycline AdvReac Abdominal Verified 08/13/24 14:52 Pain sucralfate [From Carafate] AdvReac Chest Pain Verified 08/13/24 14:52 valacyclovir [From Valtrex] AdvReac Swelling Verified 08/13/24 14:52 Surgical - Exam Vital Signs Temp Pulse Resp BP Pulse Ox 97.7 F 64 18 155/84 99 08/13/24 12:00 08/13/24 12:00 08/13/24 12:00 08/13/24 12:00 08/13/24 12:00 - General no distress, no pain - Eyes normal ocular movement, no pale - ENT normal nares, normal mucosa - Respiratory normal expansion, normal respiratory effort - Abdomen Abdomen: soft, non tender, no distended - Genitourinary Mild bilateral testicular tenderness, no erythema, induration or swelling appreciated testicles present - Psychiatric oriented to time, oriented to person, oriented to place Results - Labs 08/14/24 03:03 08/17/24 03:52 Abnormal Lab Results - Last 24 Hours (Table) 08/16/24 08/17/24 08/17/24 Range/Units 18:06 03:52 03:52 PT 23.4 H (10.0-12.5) sec INR 2.4 H (<1.2) Carbon Dioxide 19.4 L (21.6-31.8) mmol/L Creatinine 2.3 H (0.6-1.5) mg/dL Est GFR (CKD-EPI) 29 L (>=60) BUN/Creatinine Ratio 10.57 L (12.00-20.00) Ratio Calcium 8.5 L (8.7-10.3) mg/dL Urine Protein 1+ H (Negative) Urine Blood Small H (Negative) Ur Leukocyte Esterase Moderate H (Negative) Urine RBC 9 H (0-5) /hpf Urine WBC 19 H (0-5) /hpf Urine Mucus Rare H (None) /hpf Diabetes panel 08/17/24 Range/Units 03:52 Sodium 137 (135-145) mmol/L Potassium 4.0 (3.5-5.5) mmol/L Chloride 106 (96-109) mmol/L Carbon Dioxide 19.4 L (21.6-31.8) mmol/L BUN 24.3 (9.0-27.0) mg/dL Creatinine 2.3 H (0.6-1.5) mg/dL Glucose 88 (70-110) mg/dL Calcium 8.5 L (8.7-10.3) mg/dL Calcium panel 08/17/24 Range/Units 03:52 Calcium 8.5 L (8.7-10.3) mg/dL Pituitary panel 08/17/24 Range/Units 03:52 Sodium 137 (135-145) mmol/L Potassium 4.0 (3.5-5.5) mmol/L Chloride 106 (96-109) mmol/L Carbon Dioxide 19.4 L (21.6-31.8) mmol/L BUN 24.3 (9.0-27.0) mg/dL Creatinine 2.3 H (0.6-1.5) mg/dL Glucose 88 (70-110) mg/dL Calcium 8.5 L (8.7-10.3) mg/dL Adrenal panel 08/17/24 Range/Units 03:52 Sodium 137 (135-145) mmol/L Potassium 4.0 (3.5-5.5) mmol/L Chloride 106 (96-109) mmol/L Carbon Dioxide 19.4 L (21.6-31.8) mmol/L BUN 24.3 (9.0-27.0) mg/dL Creatinine 2.3 H (0.6-1.5) mg/dL Glucose 88 (70-110) mg/dL Calcium 8.5 L (8.7-10.3) mg/dL Assessment and Plan Assessment: 73-year-old male admitted to the hospital with possible scrotal cellulitis, on exam I do not appreciate any evidence of cellulitis or orchitis, scrotal ultrasound is normal. His pain is most likely from chronic orchialgia rather than cellulitis from my and no further intervention is needed, he can follow-up as an outpatient with his urologist
[2024-08-17] MEDS ORDERED: WARFARIN 2.5 MG TAB PO ONE (18:00)
--- NOTE | 2024-08-18 15:16 | P.DS ---
Providers Date of admission: 08/13/24 14:29 Attending physician: Lilian Parson Consults: 08/13/24 14:43 Consult Physician Routine Consulting Provider: Magdaleno Aguilar Consult Reason/Comments: scrotal cellulitis Do you want consulting provider notified?: Yes 08/17/24 11:15 Consult Physician Routine Consulting Provider: Guevara Kirby Consult Reason/Comments: Hydrocele, scrotum swelling Do you want consulting provider notified?: Yes Primary care physician: Choco Valdivia Hospital Course: Final Diagnosis -Scrotal cellulitis: Patient will be started on cefazolin patient denied any history of MRSA in the past. -Chronic orchalgia per urology. -Paroxysmal atrial fibrillation presently sinus rhythm rate controlled on Coumadin therapeutic on Coumadin -Chronic kidney disease stage IIIb: Patient does have a acute renal failure baseline creatinine 1.7 -Hypertension -Tinea pedis in the toe webbings added lotrimin BID -Excema on face added hydrocortisone cream to use BID Discharge Disposition Able for discharge home. He will continue a course of oral Ceftin for the next 7 days. Patient will follow-up with Dr. Aguilar in the office in 1 week he will also follow-up with urology in the office in 1 week. Has an appointment with his PCP Dr. Choco Valdivia on August 23 at 2 PM. Hospital Course 73-year-old male came in for scrotal swelling and redness. Patient did not have much of swelling but does have some redness and concerned about cellulitis of the scrotum. Patient was given Keflex took 3 doses without any improvement because of which patient came to ER. Patient is on Coumadin INR is therapeutic for atrial fibrillation. Had a scrotal ultrasound that showed a small left hydrocele. He came into the hospital infectious disease was consulted he was started on IV cefazolin. There was improvement in his scrotal cellulitis he has continued to report significant discomfort. There is no evidence of torsion. The redness had improved and there is no scrotal edema. Patient does continue t o report some intermittent pain urology was consulted and had a repeat scrotal ultrasound which continues to show the small left hydrocele. Urology felt this was a chronic orchalgia and recommending to follow-up with the patient in the office. Discharged home. Please see medication reconciliation for a list of current medications. Thank you for allowing us to participate in the care of this patient. The impression and plan of care has been dictated by Luda Snider, Nurse Practitioner as directed. Dr. Diann MD I have performed a history and physical examination and medical decision making of this patient, discussed the same with the dictator, and agree with the dictators assessment and plan as written, documented as a scribe. Based on total visit time, I have performed more than 50% of this visit. Patient Condition at Discharge: Stable Plan - Discharge Summary Discharge Rx Participant: No New Discharge Prescriptions: New cefUROXime axetiL [Ceftin] 500 mg PO BID 7 Days #14 tab Fluticasone Nasal [place] [Flonase Nasal [place]] 2 spray EA NOSTRIL DAILY ml Clotrimazole Cream [Lotrimin Cream] 1 applic TOPICAL BID #1 each Famotidine [Pepcid] 20 mg PO DAILY #30 tab Continue buPROPion XL [Wellbutrin XL] 150 mg PO DAILY Warfarin [Coumadin] 2.5 mg PO MOWEFR@2099 atenoloL [Tenormin] 25 mg PO DAILY Warfarin [Coumadin] 5 mg PO SUTUTHSA@2100 Discharge Medication List buPROPion XL [Wellbutrin XL] 150 mg PO DAILY 09/15/18 [History] atenoloL [Tenormin] 25 mg PO DAILY 05/09/23 [History] Warfarin [Coumadin] 2.5 mg PO MOWEFR@2100 07/07/23 [History] Warfarin [Coumadin] 5 mg PO SUTUTHSA@209907/07/23 [History] Clotrimazole Cream [Lotrimin Cream] 1 applic TOPICAL BID #1 each 08/17/24 [Rx] Famotidine [Pepcid] 20 mg PO DAILY #30 tab 08/17/24 [Rx] Fluticasone Nasal [place] [Flonase Nasal [place]] 2 spray EA NOSTRIL DAILY ml 08/17/24 [Rx] cefUROXime axetiL [Ceftin] 500 mg PO BID 7 Days #14 tab 08/17/24 [Rx] Follow up Appointment(s)/Referral(s): Guevara Kirby MD [STAFF PHYSICIAN] - 1 Week (Office will call patient with appointment date and time) Choco Valdivia MD [Primary Care Provider] - 08/23/24 2:00 pm (Appointment with Luis Antonio) Magdaleno Aguilar MD [STAFF PHYSICIAN] - 1 Week (Please call to make appointment. Office closed) Patient Instructions/Handouts: Cellulitis (GEN), Scrotal Pain (GEN) Activity/Diet/Wound Care/Special Instructions: Follow up with urology in the office Continue oral antibiotics for the next 7 days Continue the lotrimin to the toes for the next 5 days. Discharge Disposition: HOME SELF-CARE
== END 2024-08-17 16:00 | disposition home or self-care (01) ==
LOC: EC 11:37 → 5NMEDONC 14:29 → 4SSUR 17:28
PROVIDERS: ADMIT Hospitalist; ATTEND Hospitalist
DX: N49.2 Inflammatory disorders of scrotum (principal); I48.0 Paroxysmal atrial fibrillation; I12.9 Hypertensive chronic kidney disease with stage 1 through stage 4 chronic kidney disease, or unspecified chronic kidney disease; N18.32 Chronic kidney disease, stage 3b; I25.10 Atherosclerotic heart disease of native coronary artery without angina pectoris; B35.3 Tinea pedis; I25.2 Old myocardial infarction; L30.9 Dermatitis, unspecified; N17.9 Acute kidney failure, unspecified; N43.3 Hydrocele, unspecified; E86.0 Dehydration; F32.A Depression, unspecified; Z79.01 Long term (current) use of anticoagulants; Z79.899 Other long term (current) drug therapy; Z88.1 Allergy status to other antibiotic agents; Z91.041 Radiographic dye allergy status
CPT/HCPCS: 96376 ×3; 96361 ×3; 96366 ×5; 96375 ×2; 96365; 99285; 36415; 93005; 83880; 80053; 80048 ×4; 83605; 83735; 84100; 84484; 85025 ×2; 85610 ×5; 85730; 86140; 81001 ×2; 87086; 87077; 87186; 71046; 93975; 76870; G0378 ×5; J2270; J0690 ×5; J0696; J1885 ×2

== ENCOUNTER 2024-10-28 02:32 | Emergency (ER) | payer MEDICARE, OTHER ==
[2024-10-28 02:35] VITALS: RESP 18; TEMP 98.7
--- NOTE | 2024-10-28 02:37 | ED ---
Weakness HPI - General Chief complaint: Weakness Stated complaint: Weakness Time Seen by Provider: 10/28/24 02:34 Source: patient, EMS, RN notes reviewed, old records reviewed Mode of arrival: EMS Limitations: no limitations - History of Present Illness Initial comments: This is a 74-year-old male to ER for overall not feeling well weakness persistent and significant cough with mucus production. Significant cough and congestion here in the emergency department states he has runny nose chest tightness as well MD Complaint: generalized weakness -: days(s) Location: generalized Severity: mild Consistency: constant Improves with: none Worsens with: none Context: recent illness, history of similar Associated Symptoms: denies other symptoms - Related Data Home Medications Medication Instructions Recorded Confirmed buPROPion XL [Wellbutrin XL] 150 mg PO DAILY 09/15/18 08/13/24 atenoloL [Tenormin] 25 mg PO DAILY 05/09/23 08/13/24 Warfarin [Coumadin] 2.5 mg PO MOWEFR@209907/07/23 08/13/24 Warfarin [Coumadin] 5 mg PO SUTUTHSA@209907/07/23 08/13/24 Previous Rx's Medication Instructions Recorded Clotrimazole Cream [Lotrimin Cream] 1 applic TOPICAL BID #1 each 08/17/24 Famotidine [Pepcid] 20 mg PO DAILY #30 tab 08/17/24 Fluticasone Nasal [place] [Flonase 2 spray EA NOSTRIL DAILY ml 08/17/24 Nasal [place]] cefuroxime axetiL [Ceftin] 500 mg PO BID 7 Days #14 tab 08/17/24 Allergies Allergy/AdvReac Type Severity Reaction Status Date / Time acetaminophen [From Tylenol] Allergy Swelling Verified 10/28/24 02:35 azithromycin Allergy Unknown Verified 10/28/24 02:35 buspirone Allergy Unknown Verified 10/28/24 02:35 diazepam [From Valium] Allergy Unknown Verified 10/28/24 02:35 Iodinated Contrast Media Allergy Unknown Verified 10/28/24 02:35 [Iodinated Contrast- Oral and IV Dye] phenazopyridine Allergy Unknown Verified 10/28/24 02:35 [From Pyridium] sertraline Allergy Unknown Verified 10/28/24 02:35 amlodipine [From Norvasc] AdvReac Swelling Verified 10/28/24 02:35 ciprofloxacin [From Cipro] AdvReac Swelling Verified 10/28/24 02:35 doxycycline AdvReac Abdominal Verified 10/28/24 02:35 Pain sucralfate [From Carafate] AdvReac Chest Pain Verified 10/28/24 02:35 valacyclovir [From Valtrex] AdvReac Swelling Verified 10/28/24 02:35 Review of Systems ROS Statement: Those systems with pertinent positive or pertinent negative responses have been documented in the HPI. ROS Other: All systems not noted in ROS Statement are negative. Past Medical History Past Medical History: Coronary Artery Disease (CAD), Hypertension, Myocardial Infarction ([place]), Prostate Disorder Additional Past Medical History / Comment(s): bladder issues chronic dumont Last Myocardial Infarction Date:: 2007 History of Any Multi-Drug Resistant Organisms: None Reported Past Surgical History: Heart Catheterization With Stent, Tonsillectomy Additional Past Surgical History / Comment(s): cystoscope, heart cath with stents Past Anesthesia/Blood Transfusion Reactions: Motion Sickness Date of Last Stent Placement:: 2005 Past Psychological History: Depression Smoking Status: Never smoker Past Alcohol Use History: None Reported Past Drug Use History: None Reported - Past Family History Mother Family Medical History: Cancer Additional Family Medical History / Comment(s): colon cancer Father Family Medical History: Myocardial Infarction ([place]) General Exam General appearance: alert, in no apparent distress Head exam: Present: atraumatic, normocephalic, normal inspection Eye exam: Present: normal appearance, PERRL, EOMI. Absent: scleral icterus, conjunctival injection, periorbital swelling ENT exam: Present: normal exam, mucous membranes moist Neck exam: Present: normal inspection. Absent: tenderness, meningismus, lymphadenopathy Respiratory exam: Present: normal lung sounds bilaterally. Absent: respiratory distress, wheezes, rales, rhonchi, stridor Cardiovascular Exam: Present: regular rate, normal rhythm, normal heart sounds. Absent: systolic murmur, diastolic murmur, rubs, gallop, clicks GI/Abdominal exam: Present: soft, normal bowel sounds. Absent: distended, tenderness, guarding, rebound, rigid Extremities exam: Present: normal inspection, full ROM, normal capillary refill. Absent: tenderness, pedal edema, joint swelling, calf tenderness Back exam: Present: normal inspection Neurological exam: Present: alert, oriented X3, CN II-XII intact Psychiatric exam: Present: normal affect, normal mood Skin exam: Present: warm, dry, intact, normal color. Absent: rash Course Vital Signs 10/28/24 10/28/24 02:33 06:52 Temperature 98.7 F Pulse Rate 83 79 Respiratory 18 18 Rate Blood Pressure 126/71 111/95 O2 Sat by Pulse 94 L 97 Oximetry - Reevaluation(s) Reevaluation #1: 10/28/24 06:01 Medical records reviewed Reevaluation #2: 10/28/24 06:01 Patient symptoms unchanged Reevaluation #3: 10/28/24 06:01 Patient informed of results and questions answered Reevaluation #4: Was pt. sent in by a medical professional or institution (, MUKESH, CUSTOMER SALES SERVICE MANAGER, urgent care, hospital, or senior living...) When possible be specific @ -no Did you speak to anyone other than the patient for history (EMS, parent, family, police, friend...)? What history was obtained from this source @ -no Did you review nursing and triage notes (agree or disagree)? Why? @ -agree Are old charts reviewed (outside hosp., previous admission, EMS record, old EKG, old radiological studies, urgent care reports/EKG's, senior living records)? Report findings @ -yes Differential Diagnosis (chest pain, altered mental status, abdominal pain women, abdominal pain men, vaginal bleeding, weakness, fever, dyspnea, syncope, headache, dizziness, GI bleed, back pain, seizure, CVA, palpatations, mental health, musculoskeletal)? @ -prior EKG interpreted by me (3pts min.). @ -no X-rays interpreted by me (1pt min.). @ -yes negative for acute disease CT interpreted by me (1pt min.). @ -no U/S interpreted by me (1pt. min.). @ -no What testing was considered but not performed or refused? (CT, X-rays, U/S, labs)? Why? @ -none What meds were considered but not given or refused? Why? @ -none Did you discuss the management of the patient with other professionals (professionals i.e. MUKESH Giles, CUSTOMER SALES SERVICE MANAGER, lab, RT, psych nurse, social security benefits interviewer, supervisor typesetting, teacher, chief marketing officer, medical case manager)? Give summary @ -no Was smoking cessation discussed for >3mins.? @ -no Was critical care preformed (if so, how long)? @ -no Were there social determinants of health that impacted care today? How? (Homelessness, low income, unemployed, alcoholism, drug addiction, transpor tation, low edu. Level, literacy, decrease access to med. care, long term, rehab)? @ -none Was there de-escalation of care discussed even if they declined (Discuss DNR or withdrawal of care, Hospice)? DNR status @ -no What co-morbidities impacted this encounter? (DM, HTN, Smoking, COPD, CAD, Cancer, CVA, ARF, Chemo, Hep., AIDS, mental health diagnosis, sleep apnea, morbid obesity)? @ -none Was patient admitted / discharged? Hospital course, mention meds given and route, prescriptions, significant lab abnormalities, going to OR and other pertinent info. @ - 74 male to ER with cough congestion patient has dyspnea here in the emergency department positive for coronavirus here in the emergency department chest x-ray is negative he can be discharged Discharge Undiagnosed new problem with uncertain prognosis? @ -no Drug Therapy requiring intensive monitoring for toxicity (Heparin, Nitro, Insul in, Cardizem)? @ -no Were any procedures done? @ -no Diagnosis/symptom? @ -Coronavirus Acute, or Chronic, or Acute on Chronic? @ -Acute Uncomplicated (without systemic symptoms) or Complicated (systemic symptoms)? @ -Complicated Side effects of treatment? @ -no Exacerbation, Progression, or Severe Exacerbation? @ -exacerbation Poses a threat to life or bodily function? How? (Chest pain, [place], [place], pneumonia, PE, COPD, DKA, ARF, appy, cholecystitis, CVA, Diverticulitis, Homicidal, Suicidal, threat to staff... and all critical care pts) @ -yes with coronavirus Reevaluation #5: Differential Dyspnea: Coronary syndrome, arrhythmia, tamponade, asthma, COPD, pulmonary embolism, pneumonia, pneumothorax, pulmonary effusion, anaphylaxis, diabetic ketoacidosis, flailed chest, pulmonary contusion, diaphragmatic rupture, anemia, neuromuscular, this is not meant to be an all-inclusive list. Medical Decision Making - Medical Decision Making 74 male to ER with cough congestion patient has dyspnea here in the emergency department positive for coronavirus here in the emergency department chest x-ray is negative he can be discharged - Lab Data Result diagrams: 10/28/24 03:05 10/28/24 03:05 Lab Results 10/28/24 10/28/24 10/28/24 Range/Units 03:05 03:05 03:29 WBC 10.4 (3.8-10.6) k/uL RBC 4.98 (4.30-5.90) m/uL Hgb 15.7 (13.0-17.5) gm/dL Hct 46.0 (39.0-53.0) % MCV 92.5 (80.0-100.0) fL MCH 31.5 (25.0-35.0) pg MCHC 34.1 (31.0-37.0) g/dL RDW 13.8 (11.5-15.5) % Plt Count 181 (150-450) k/uL MPV 8.2 Neutrophils % 80 % Lymphocytes % 12 % Monocytes % 5 % Eosinophils % 1 % Basophils % 0 % Neutrophils # 8.4 H (1.3-7.7) k/uL Lymphocytes # 1.2 (1.0-4.8) k/uL Monocytes # 0.5 (0-1.0) k/uL Eosinophils # 0.1 (0-0.7) k/uL Basophils # 0.0 (0-0.2) k/uL Sodium 129 L (137-145) mmol/L Potassium 4.1 (3.5-5.1) mmol/L Chloride 95 L (98-107) mmol/L Carbon Dioxide 21 L (22-30) mmol/L Anion Gap 13 mmol/L BUN 24 H (9-20) mg/dL Creatinine 2.31 H (0.66-1.25) mg/dL Est GFR (CKD-EPI)AfAm 31 (>60 ml/min/1.73 sqM) Est GFR (CKD-EPI)NonAf 27 (>60 ml/min/1.73 sqM) Glucose 110 H (74-99) mg/dL Calcium 9.6 (8.4-10.2) mg/dL Phosphorus 2.9 (2.5-4.5) mg/dL Magnesium 1.7 (1.6-2.3) mg/dL Total Bilirubin 1.4 H (0.2-1.3) mg/dL AST 39 (17-59) U/L ALT 19 (4-49) U/L Alkaline Phosphatase 62 (38-126) U/L Total Protein 6.6 (6.3-8.2) g/dL Albumin 4.0 (3.5-5.0) g/dL Urine Color Urine Appearance (Clear) Urine pH (5.0-8.0) Ur Specific [place] (1.001-1.035) Urine Protein (Negative) Urine Glucose (UA) (Negative) Urine Ketones (Negative) Urine Blood (Negative) Urine Nitrite (Negative) Urine Bilirubin (Negative) Urine Urobilinogen (<2.0) mg/dL Ur Leukocyte Esterase (Negative) Urine RBC (0-5) /hpf Urine WBC (0-5) /hpf Amorphous Sediment (None) /hpf Urine Bacteria (None) /hpf Influenza Type A (PCR) Not Detected (Not Detectd) Influenza Type B (PCR) Not Detected (Not Detectd) RSV (PCR) Not Detected (Not Detectd) SARS-CoV-2 (PCR) Detected A (Not Detectd) 10/28/24 Range/Units 03:30 WBC (3.8-10.6) k/uL RBC (4.30-5.90) m/uL Hgb (13.0-17.5) gm/dL Hct (39.0-53.0) % MCV (80.0-100.0) fL MCH (25.0-35.0) pg MCHC (31.0-37.0) g/dL RDW (11.5-15.5) % Plt Count (150-450) k/uL MPV Neutrophils % % Lymphocytes % % Monocytes % % Eosinophils % % Basophils % % Neutrophils # (1.3-7.7) k/uL Lymphocytes # (1.0-4.8) k/uL Monocytes # (0-1.0) k/uL Eosinophils # (0-0.7) k/uL Basophils # (0-0.2) k/uL Sodium (137-145) mmol/L Potassium (3.5-5.1) mmol/L Chloride (98-107) mmol/L Carbon Dioxide (22-30) mmol/L Anion Gap mmol/L BUN (9-20) mg/dL Creatinine (0.66-1.25) mg/dL Est GFR (CKD-EPI)AfAm (>60 ml/min/1.73 sqM) Est GFR (CKD-EPI)NonAf (>60 ml/min/1.73 sqM) Glucose (74-99) mg/dL Calcium (8.4-10.2) mg/dL Phosphorus (2.5-4.5) mg/dL Magnesium (1.6-2.3) mg/dL Total Bilirubin (0.2-1.3) mg/dL AST (17-59) U/L ALT (4-49) U/L Alkaline Phosphatase (38-126) U/L Total Protein (6.3-8.2) g/dL Albumin (3.5-5.0) g/dL Urine Color Colorless Urine Appearance Clear (Clear) Urine pH 6.5 (5.0-8.0) Ur Specific [place] 1.006 (1.001-1.035) Urine Protein Trace H (Negative) Urine Glucose (UA) Negative (Negative) Urine Ketones Negative (Negative) Urine Blood Moderate H (Negative) Urine Nitrite Positive (Negative) Urine Bilirubin Negative (Negative) Urine Urobilinogen <2.0 (<2.0) mg/dL Ur Leukocyte Esterase Moderate H (Negative) Urine RBC 3 (0-5) /hpf Urine WBC 12 H (0-5) /hpf Amorphous Sediment Rare H (None) /hpf Urine Bacteria Occasional H (None) /hpf Influenza Type A (PCR) (Not Detectd) Influenza Type B (PCR) (Not Detectd) RSV (PCR) (Not Detectd) SARS-CoV-2 (PCR) (Not Detectd) - Radiology Data Radiology results: report reviewed (Chest x-ray is negative for acute disease), image reviewed Disposition Clinical Impression: Coronavirus infection Disposition: HOME SELF-CARE Condition: Good Instructions (If sedation given, give patient instructions): Coronavirus Disease 2019 (COVID-19), COVID-19 (Coronavirus Disease 2019) (ED) Is patient prescribed a controlled substance at d/c from ED?: No Referrals: Choco Valdivia MD [Primary Care Provider] - 1-2 days Time of Disposition: 06:00
[2024-10-28 03:31] LABS: ALT 19 U/L (4-49); AST 39 U/L (17-59); African American GFR (CKD) 31 (>60 ml/min/1.73 sqM); Alkaline Phosphatase 62 U/L (38-126); Anion Gap 13 mmol/L; Blood Urea Nitrogen 24 mg/dL (9-20); Calcium 9.6 mg/dL (8.4-10.2); Carbon Dioxide 21 mmol/L (22-30); Chloride 95 mmol/L (98-107); Glucose 110 mg/dL (74-99); Magnesium 1.7 mg/dL (1.6-2.3); Non-African American GFR(CKD) 27 (>60 ml/min/1.73 sqM); Phosphorus 2.9 mg/dL (2.5-4.5); Potassium 4.1 mmol/L (3.5-5.1); Sodium 129 mmol/L (137-145); Total Bilirubin 1.4 mg/dL (0.2-1.3); Total Protein 6.6 g/dL (6.3-8.2)
[2024-10-28 03:33] LABS: Basophils % (A) 0 %; Eosinophils # (A) 0.1 k/uL (0-0.7); Eosinophils % (A) 1 %; HGB 15.7 gm/dL (13.0-17.5); Lymphocytes # (A) 1.2 k/uL (1.0-4.8); Lymphocytes % (A) 12 %; MCH 31.5 pg (25.0-35.0); MCHC 34.1 g/dL (31.0-37.0); MCV 92.5 fL (80.0-100.0); Mean Platelet Volume 8.2; Monocytes # (A) 0.5 k/uL (0-1.0); Monocytes % (A) 5 %; Neutrophils # (A) 8.4 k/uL (1.3-7.7); Neutrophils % (A) 80 %; Platelet Count 181 k/uL (150-450); RBC 4.98 m/uL (4.30-5.90); RDW 13.8 % (11.5-15.5); WBC 10.4 k/uL (3.8-10.6)
[2024-10-28] MEDS: SODIUM CHLORIDE 0.9% 500 ML 500 ML IV STA ×2 (03:39→06:30)
[2024-10-28 04:32] LABS: Amorphous Sediment,Urine Rare /hpf; Appearance,Urine Clear (Clear); Bacteria,Urine Occasional /hpf; Bilirubin,Urine Negative (Negative); Blood,Urine Moderate (Negative); Color,Urine Colorless; Glucose,Urine (UA) Negative (Negative); Ketones,Urine Negative (Negative); Leukocyte Esterase,Urine Moderate (Negative); Nitrite,Urine Positive (Negative); PH, Urine 6.5 (5.0-8.0); Protein,Urine Trace (Negative); RBC,Urine 3 /hpf (0-5); Specific Gravity,Urine 1.006 (1.001-1.035); Urobilinogen,Urine <2.0 mg/dL (<2.0); WBC,Urine 12 /hpf (0-5)
[2024-10-28 05:03] LABS: Influenza A Not Detected (Not Detectd); Influenza B Not Detected (Not Detectd); RSV Not Detected (Not Detectd)
--- NOTE | 2024-10-28 05:42 | XR ---
EXAM: XR Chest, 1 View CLINICAL HISTORY: ITS.REASON XR Reason: cough TECHNIQUE: Frontal view of the chest. COMPARISON: XR Chest dated 08/05/24 FINDINGS: Lungs: Low lung volumes. Mild patchy opacity in the left lateral lung base. Pleural space: Unremarkable. No pneumothorax. Heart: Unremarkable. No cardiomegaly. Mediastinum: Unremarkable. Normal mediastinal contour. Bones/joints: Unremarkable. No acute fracture. IMPRESSION: Low lung volumes. Mild patchy opacity in the left lateral lung base. May represent atelectasis or airspace disease.
[2024-10-28] MEDS: BENZONATATE 100 MG CAP PO STA (06:32)
[2024-10-28] MEDS: DEXAMETHASONE SOD PHOSPHATE 10 MG/ML 1 ML VIAL IVP STA (06:32)
[2024-10-28] MEDS: KETOROLAC 15 MG/ML 1 ML VIAL IVP STA (06:32)
[2024-10-28 06:52] VITALS: BP 111/95; PULSE 79
== END 2024-10-28 07:05 | disposition home or self-care (01) ==
LOC: EC 02:32
DX: R53.1 Weakness (principal); B97.29 Other coronavirus as the cause of diseases classified elsewhere; Z88.8 Allergy status to other drugs, medicaments and biological substances; Z88.1 Allergy status to other antibiotic agents; Z88.6 Allergy status to analgesic agent; Z91.041 Radiographic dye allergy status
CPT/HCPCS: 36415; 80053; 83735; 84100; 85025; 81001; 87636; 71045; 99285; 96374; 96375; 96361; J1100; J1885

== ENCOUNTER 2025-05-09 13:18 | Inpatient (IN) | payer MEDICARE, OTHER ==
--- NOTE | 2025-05-09 15:49 | ED ---
General Adult HPI - General Chief complaint: Psychiatric Symptoms Stated complaint: Psyciatric symptoms Time Seen by Provider: 05/09/25 15:03 Source: patient, family, RN notes reviewed, old records reviewed Mode of arrival: ambulatory Limitations: no limitations - History of Present Illness Initial comments: This is a 74-year-old male presenting with his daughter for decreased appetite, weight loss, and noncompliance with medication. Patient is currently in independent living but has significantly worsened over the past 1 month. He is not compliant with physical therapy. He is not leaving his room. He is not taking his medication as prescribed. Patient admits that he is suspicious of other people. Denies any suicidal or homicidal ideation. - Related Data Home Medications Medication Instructions Recorded Confirmed buPROPion XL [Wellbutrin XL] 150 mg PO DAILY 09/15/18 05/09/25 atenoloL [Tenormin] 25 mg PO DAILY 05/09/23 05/09/25 Apixaban [Eliquis] 5 mg PO BID 05/09/25 05/09/25 Allergies Allergy/AdvReac Type Severity Reaction Status Date / Time acetaminophen [From Tylenol] Allergy Swelling Verified 05/09/25 15:40 azithromycin Allergy Unknown Verified 05/09/25 15:40 buspirone Allergy Unknown Verified 05/09/25 15:40 diazepam [From Valium] Allergy Unknown Verified 05/09/25 15:40 Iodinated Contrast Media Allergy Unknown Verified 05/09/25 15:40 [Iodinated Contrast- Oral and IV Dye] phenazopyridine Allergy Unknown Verified 05/09/25 15:40 [From Pyridium] sertraline Allergy Unknown Verified 05/09/25 15:40 amlodipine [From Norvasc] AdvReac Swelling Verified 05/09/25 15:40 ciprofloxacin [From Cipro] AdvReac Swelling Verified 05/09/25 15:40 doxycycline AdvReac Abdominal Verified 05/09/25 15:40 Pain sucralfate [From Carafate] AdvReac Chest Pain Verified 05/09/25 15:40 valacyclovir [From Valtrex] AdvReac Swelling Verified 05/09/25 15:40 Review of Systems ROS Statement: Those systems with pertinent positive or pertinent negative responses have been documented in the HPI. ROS Other: All systems not noted in ROS Statement are negative. Past Medical History Past Medical History: Coronary Artery Disease (CAD), Hypertension, Myocardial Infarction ([place]), Prostate Disorder Additional Past Medical History / Comment(s): bladder issues chronic polly dumont 10/28/2023 Last Myocardial Infarction Date:: 2007 History of Any Multi-Drug Resistant Organisms: None Reported Past Surgical History: Heart Catheterization With Stent, Tonsillectomy Additional Past Surgical History / Comment(s): cystoscope, heart cath with stents Past Anesthesia/Blood Transfusion Reactions: Motion Sickness Date of Last Stent Placement:: 2005 Past Psychological History: Depression Smoking Status: Never smoker Past Alcohol Use History: None Reported Past Drug Use History: None Reported - Past Family History Mother Family Medical History: Cancer Additional Family Medical History / Comment(s): colon cancer Father Family Medical History: Myocardial Infarction ([place]) General Exam Limitations: no limitations General appearance: alert, in no apparent distress Head exam: Present: atraumatic, normocephalic Eye exam: Present: normal appearance, PERRL Respiratory exam: Present: normal lung sounds bilaterally. Absent: respiratory distress, wheezes Cardiovascular Exam: Present: regular rate, normal rhythm GI/Abdominal exam: Present: soft. Absent: distended, tenderness, guarding Extremities exam: Present: normal inspection. Absent: pedal edema Neurological exam: Present: alert, oriented X3, CN II-XII intact. Absent: motor sensory deficit Psychiatric exam: Present: depressed, flat affect. Absent: suicidal ideation Skin exam: Present: warm, dry, intact Course Vital Signs 05/09/25 13:34 Temperature 97.4 F L Pulse Rate 79 Respiratory 18 Rate Blood Pressure 122/85 O2 Sat by Pulse 96 Oximetry Medical Decision Making - Medical Decision Making Was pt. sent in by a medical professional or institution (, PA, NETWORK COMMUNICATIONS ENGINEER, urgent care, hospital, or [place] [facility] [place]...) When possible be specific @ -No Did you speak to anyone other than the patient for history (EMS, parent, family, police, friend...)? What history was obtained from this source @Patient's daughter Did you review nursing and triage notes (agree or disagree)? Why? @ -I reviewed and agree with nursing and triage notes Were old charts reviewed (outside hosp., previous admission, EMS record, old EKG, old radiological studies, urgent care reports/EKG's, [place] [facility] records)? Report findings @ -No old charts were reviewed Differential Weakness: Hypoglycemia, shock, sepsis, hyponatremia, anemia, infection, [place], ETOH, adverse medicine reaction, overdose, stroke, this is not meant to be an all-inclusive list. Differential Mental Health Depression, anxiety, bipolar, psychosis, schizophrenia, borderline personality, situational depression, adjustment disorder, behavioral disorder, brain tumor, malingering, substance abuse, encephalopathy, medication reaction, dementia, hypothyroidism, degenerative neurologic disorder, lupus.... This is not meant to be all-inclusive list EKG interpreted by me (3pts min.). @ -Sinus rhythm with first-degree AV block nonspecific conduction delay rate of 85, RI interval 212, QRS duration 156, QTc [address] segment elevation. X-rays interpreted by me (1pt min.). @ -None done CT interpreted by me (1pt min.). @ -None done U/S interpreted by me (1pt. min.). @ -None done What testing was considered but not performed or refused? (CT, X-rays, U/S, labs)? Why? @ -None What meds were considered but not given or refused? Why? @ -None Did you discuss the management of the patient with other professionals (professionals i.e. , PA, NETWORK COMMUNICATIONS ENGINEER, lab, RT, psych nurse, social worker clinical, aircraft pilot, teacher, chief talent officer, case finishing machine adjuster)? Give summary @Dr. Parson will admit. Was smoking cessation discussed for >3mins.? @ -No Was critical care preformed (if so, how long)? @ -No Were there social determinants of health that impacted care today? How? (Homelessness, low income, unemployed, alcoholism, drug addiction, transportation, low edu. Level, literacy, decrease access to med. care, [place] [facility], rehab)? @ -No Was there de-escalation of care discussed even if they declined (Discuss DNR or withdrawal of care, Hospice)? DNR status @ -No What co-morbidities impacted this encounter? (DM, HTN, Smoking, COPD, CAD, Cancer, CVA, ARF, Chemo, Hep., AIDS, mental health diagnosis, sleep apnea, morbid obesity)? @ -None Was patient admitted / discharged? Hospital course, mention meds given and route, prescriptions, significant lab abnormalities, going to OR and other pertinent info. @ -74-year-old male presenting with failure to thrive, poor appetite, not able to take care of himself in independent living. Patient will likely require placement. Admitted to [facility]. Case discussed with Dr. Parson. Undiagnosed new problem with uncertain prognosis? @ -No Drug Therapy requiring intensive monitoring for toxicity (Heparin, Nitro, Insulin, Cardizem)? @ -No Were any procedures done? @ -No Diagnosis/symptom? @ -Failure to thrive, needs placement Acute, or Chronic, or Acute on Chronic? @ -[acute Uncomplicated (without systemic symptoms) or Complicated (systemic symptoms)? @ -Default Side effects of treatment? @ -No Exacerbation, Progression, or Severe Exacerbation? @ -No Poses a threat to life or bodily function? How? (Chest pain, [place], [place], pneumonia, PE, COPD, DKA, ARF, appy, cholecystitis, CVA, Diverticulitis, Homicidal, Suicidal, threat to staff... and all critical care pts) @ -Yes, poor oral intake, fall risk - Lab Data Result diagrams: 05/09/25 16:38 05/09/25 16:38 Lab Results 05/09/25 05/09/25 05/09/25 Range/Units 16:38 16:38 18:01 WBC 7.31 (4.50-10.00) 10*3/uL RBC 5.16 (4.40-5.60) 10*6/uL Hgb 16.2 (13.0-17.0) g/dL Hct 47.1 (39.6-50.0) % MCV 91.3 (80.0-97.0) fL MCH 31.4 (27.0-32.0) pg MCHC 34.4 (32.0-37.0) g/dL Plt Count 183 (140-440) 10*3/uL MPV 9.6 (9.5-12.2) fL Immature Gran % (Auto) 0.3 % Neutrophils % 64.9 % Lymphocytes % 22.8 % Monocytes % 7.1 % Eosinophils % 3.8 % Basophils % 1.1 % Immature Gran # 0.02 (0.00-0.04) 10*3/uL Neutrophils # 4.74 (1.80-7.70) 10*3/uL Lymphocytes # 1.67 (0.90-5.00) 10*3/uL Monocytes # 0.52 (0.20-1.00) 10*3/uL Eosinophils # 0.28 (0.04-0.35) 10*3/uL Basophils # 0.08 (0.00-0.10) 10*3/uL Sodium 133 L (137-145) mmol/L Potassium 4.0 (3.5-5.1) mmol/L Chloride 101 (98-107) mmol/L Carbon Dioxide 23 (22-30) mmol/L Anion Gap 9 mmol/L BUN 16 (9-20) mg/dL Creatinine 1.67 H (0.66-1.25) mg/dL Est GFR (CKD-EPI)AfAm 46 (>60 ml/min/1.73 sqM) Est GFR (CKD-EPI)NonAf 40 (>60 ml/min/1.73 sqM) Glucose 134 H (74-99) mg/dL Calcium 8.9 (8.4-10.2) mg/dL Total Bilirubin 0.9 (0.2-1.3) mg/dL AST 23 (17-59) U/L ALT 13 (4-49) U/L Alkaline Phosphatase 64 (38-126) U/L Total Protein 6.3 (6.3-8.2) g/dL Albumin 3.7 (3.5-5.0) g/dL Urine Color Light Yellow Urine Appearance Clear (Clear) Urine pH 6.5 (5.0-8.0) Ur Specific [place] 1.016 (1.001-1.035) Urine Protein 3+ H (Negative) Urine Glucose (UA) Negative (Negative) Urine Ketones Negative (Negative) Urine Blood Small H (Negative) Urine Nitrite Negative (Negative) Urine Bilirubin Negative (Negative) Urine Urobilinogen <2.0 (<2.0) mg/dL Ur Leukocyte Esterase Small H (Negative) Urine RBC 18 H (0-5) /hpf Urine WBC 24 H (0-5) /hpf Urine Bacteria Few H (None) /hpf Urine Mucus Rare H (None) /hpf Urine Opiates Screen Not Detected (NotDetected) Ur Oxycodone Screen Not Detected (NotDetected) Urine Methadone Screen Not Detected (NotDetected) Ur Barbiturates Screen Not Detected (NotDetected) U Tricyclic Antidepress Not Detected (NotDetected) Ur Phencyclidine Scrn Not Detected (NotDetected) Ur Amphetamines Screen Not Detected (NotDetected) U Methamphetamines Scrn Not Detected (NotDetected) U Benzodiazepines Scrn Not Detected (NotDetected) Urine Cocaine Screen Not Detected (NotDetected) U Marijuana (THC) Screen Not Detected (NotDetected) Serum Alcohol <10 mg/dL Disposition Clinical Impression: Weakness Disposition: ADMITTED IP TO THIS HOSP Condition: Stable Is patient prescribed a controlled substance at d/c from ED?: No Referrals: Choco Valdivia MD [Primary Care Provider] - 1-2 days Time of Disposition: 18:42
[2025-05-09 16:53] LABS: Basophils # (A) 0.08 10*3/uL (0.00-0.10); Basophils % (A) 1.1 %; Eosinophils # (A) 0.28 10*3/uL (0.04-0.35); Eosinophils % (A) 3.8 %; HCT 47.1 % (39.6-50.0); HGB 16.2 g/dL (13.0-17.0); Lymphocytes # (A) 1.67 10*3/uL (0.90-5.00); Lymphocytes % (A) 22.8 %; MCH 31.4 pg (27.0-32.0); MCHC 34.4 g/dL (32.0-37.0); MCV 91.3 fL (80.0-97.0); Monocytes # (A) 0.52 10*3/uL (0.20-1.00); Monocytes % (A) 7.1 %; Neutrophils # (A) 4.74 10*3/uL (1.80-7.70); Neutrophils % (A) 64.9 %; Platelet Count 183 10*3/uL (140-440); RBC 5.16 10*6/uL (4.40-5.60); RDW 14.4 % (11.5-14.5); WBC 7.31 10*3/uL (4.50-10.00)
[2025-05-09 17:07] LABS: ALT 13 U/L (4-49); AST 23 U/L (17-59); African American GFR (CKD) 46 (>60 ml/min/1.73 sqM); Albumin 3.7 g/dL (3.5-5.0); Alkaline Phosphatase 64 U/L (38-126); Anion Gap 9 mmol/L; Blood Urea Nitrogen 16 mg/dL (9-20); Calcium 8.9 mg/dL (8.4-10.2); Carbon Dioxide 23 mmol/L (22-30); Chloride 101 mmol/L (98-107); Glucose 134 mg/dL (74-99); Non-African American GFR(CKD) 40 (>60 ml/min/1.73 sqM); Potassium 4.0 mmol/L (3.5-5.1); Sodium 133 mmol/L (137-145); Total Protein 6.3 g/dL (6.3-8.2)
[2025-05-09 18:18] LABS: Bacteria,Urine Few /hpf; Bilirubin,Urine Negative (Negative); Blood,Urine Small (Negative); Color,Urine Light Yellow; Glucose,Urine (UA) Negative (Negative); Ketones,Urine Negative (Negative); Leukocyte Esterase,Urine Small (Negative); Mucus,Urine Rare /hpf; Nitrite,Urine Negative (Negative); PH, Urine 6.5 (5.0-8.0); Protein,Urine 3+ (Negative); RBC,Urine 18 /hpf (0-5); Specific Gravity,Urine 1.016 (1.001-1.035); Urobilinogen,Urine <2.0 mg/dL (<2.0); WBC,Urine 24 /hpf (0-5)
[2025-05-09 18:28] LABS: Barbiturate Screen,Urine Not Detected (NotDetected); Benzodiazepines Screen,Urine Not Detected (NotDetected); Opiate Screen,Urine Not Detected (NotDetected); Oxycodone Screen, Urine Not Detected (NotDetected); Phencyclidine Screen,Urine Not Detected (NotDetected); Tricyclic Antidepressant,Urine Not Detected (NotDetected); Urn Cannabinoid Scrn Not Detected (NotDetected)
[2025-05-09] MEDS ORDERED: NALOXONE 0.4 MG/ML 1 ML VIAL IV PRN (18:37)
[2025-05-09] MEDS: SODIUM CHLORIDE 0.9% 1,000 ML IV SCH (19:10)
[2025-05-09] MEDS: APIXABAN 5 MG TAB PO SCH (22:50)
--- NOTE | 2025-05-10 00:29 | HP ---
HISTORY AND PHYSICAL CHIEF COMPLAINTS: Weakness and psychosis, possible. HISTORY OF PRESENT ILLNESS: This 74-year-old gentleman with a past medical history of CAD, myocardial infarction, was living in [facility]. Apparently, for the last several months, the patient had some changes in the behavior with decreased appetite, weight loss and noncompliance with medications and increased agitated and paranoid and the patient is not compliant with physical therapy either and the family has taken the patient to the [facility] for evaluation and treatment at this time. Currently, the patient is oriented to time, place and there is no history of fever, rigors, or chills. The patient is complaining of difficulty in walking. The patient has a Harper catheter. PAST MEDICAL HISTORY: Reviewed include CAD, history of myocardial infarction, prostate disorder. Rest of the history and chart is also reviewed. HOME MEDICATIONS: Reviewed, include Wellbutrin. ALLERGIES: Tylenol. FAMILY HISTORY: History of colon cancer in the family. SOCIAL HISTORY: No history of smoking or alcohol. REVIEW OF SYSTEMS: A 14-point review of systems could not be taken because of change in mental status. PHYSICAL EXAMINATION: VITAL SIGNS: Pulse is 79, blood pressure 120/85, and respirations 18. HEENT: Conjunctivae normal. NECK: No JVD. CARDIOVASCULAR: S1, S2. RESPIRATION: Breath sounds diminished at the bases. ABDOMEN: Soft, nontender. LEGS: No edema. NERVOUS SYSTEM: No focal deficits. LABORATORY DATA: Sodium 130. Rest of the labs are noted. ASSESSMENT: 1. Change in mental status, possible acute psychosis. 2. Rule out urinary tract infection. 3. Elevated creatinine with chronic kidney disease, stage III. 4. History of coronary artery disease. 5. Gait dysfunction, history of myocardial infarction. 6. History of chronic Harper. 7. COVID in October 2024. 8. History of CAD stent. RECOMMENDATIONS: This 74-year-old gentleman presented with multiple complex medical issues. We will monitor the patient closely. Continue the current management and treatment, otherwise I recommend Psychiatric consultation, PT, OT evaluation. Resume the home medications. Rule out UTI, sepsis with cultures. Guarded prognosis because of multiple complex medical conditions. Further recommendations to follow. MMODL / IJN: [id number] /
[2025-05-10 07:53] LABS: Basophils # (A) 0.11 X 10*3/uL (0.00-0.10); Basophils % (A) 1.4 %; Eosinophils # (A) 0.58 X 10*3/uL (0.04-0.35); Eosinophils % (A) 7.2 %; HCT 45.4 % (39.6-50.0); HGB 15.1 g/dL (13.0-17.0); Immature Grans, Automated 0.40 %; Lymphocytes # (A) 2.53 X 10*3/uL (0.90-5.00); Lymphocytes % (A) 31.5 %; MCH 30.8 pg (27.0-32.0); MCHC 33.3 g/dL (32.0-37.0); MCV 92.7 FL (80.0-97.0); Monocytes # (A) 0.71 X 10*3/uL (0.20-1.00); Monocytes % (A) 8.8 %; NRBC Per 100 WBC 0 X 10*3/uL (0.00-0.01); Neutrophils # (A) 4.07 X 10*3/uL (1.80-7.70); Neutrophils % (A) 50.7 %; Platelet Count 202 X 10*3/uL (140-440); RBC 4.90 X 10*6/uL (4.40-5.60); RDW 14.5 % (11.5-14.5); WBC 8.03 X 10*3/uL (4.50-10.00)
[2025-05-10 08:21] LABS: Anion Gap 11.60 mmol/L (4.00-12.00); BUN/Creat Ratio 9.44 Ratio (12.00-20.00); Blood Urea Nitrogen 17.0 mg/dL (9.0-27.0); Calcium 8.8 mg/dL (8.7-10.3); Carbon Dioxide 22.4 mmol/L (21.6-31.8); Chloride 101 mmol/L (96-109); Glucose 86 mg/dL (70-110); Potassium 3.9 mmol/L (3.5-5.5); Sodium 135 mmol/L (135-145)
[2025-05-10] MEDS: buPROPion XL 150 MG TAB.ER.24H PO SCH (10:50)
[2025-05-10] MEDS: NEOMYCIN-BACITRACIN-POLY OINT 14 GM TUBE TOPICAL SCH (12:46)
--- NOTE | 2025-05-10 13:34 | P.CN ---
Psychiatric Consult - . Consult date: 05/10/25 Consult:: 05/10/25 13:29 IDENTIFYING DATA: This patient is a 74-year-old male with a guardian who is his daughter, living at [facility] REASON FOR REFERRAL: Psychiatry was consulted for psychosis? HISTORY OF PRESENT ILLNESS: The patient presented to the hospital with weight loss, decreased appetite and medication nonadherence. Patient also reported was suspicious of other people. Seen and evaluated in his room. He states ultimately that bilateral foot pain is the cause of him not leaving his room while at the assisted living facility. Patient states he requires wide shoes and he needs someone to take a look at his feet due to the pain. He states overall feeling safe at [facility] however his feet was impacting his ability to eat and leave his room. He claims to normally be social and this has been bothering him being isolated. He does admit to a recent 20 pound weight loss back in November over the course of a few days. He does report some difficulties with sleep, excess worry about the past. He states because of his symptoms his doctor increased his Wellbutrin to 300 mg however caused him to feel more aggressive and he stopped this medication after a few weeks. At this time patient denies any suicidal or homicidal ideations, intent or plan. Patient denies any auditory, visual hallucinations and denies any paranoia or delusions. Patients admits to using no substances. PAST PSYCHIATRIC HISTORY: Patient has a history of depression. Patient is currently on Wellbutrin XL 150 mg daily. He has tried Zoloft, BuSpar, Abilify in the past. Patient reports 2 previous inpatient psychiatric hospitalizations, last being 14 years ago. Patient denies any psychiatric outpatient follow-up. Patient denies any history of suicide attempts in the past. PAST MEDICAL HISTORY: Coronary Artery Disease (CAD), Hypertension, Myocardial Infarction ([place]), Prostate Disorder. ALLERGIES: as per EMR. CHEMICAL DEPENDENCY HISTORY: as per HPI. FAMILY PSYCHIATRIC/SUBSTANCE USE HISTORY: Denies SOCIAL HISTORY: Patient is , has a daughter who is also his guardian, retired and living at [facility]. MENTAL STATUS EXAM: General Appearance: Patient appears to be stated age is alert, and cooperative. Patient appears to have fair hygiene and grooming wearing hospital gown with fair eye contact. Behavior: Patient is calmly sitting in bed without any agitated behavior. Speech: Patient's speech is fluent and nonpressured. Mood/Affect: Patient reports their mood is "okay", affect is congruent Suicidality/Homicidality: Patient denies having any suicidal or homicidal ideation intent or plan. Perceptions: Patient denies any visual hallucinations and denies any auditory hallucinations Though content/process: There is no evidence of any delusional thought content and thought process is linear and goal-directed. Memory and concentration: AOX3, grossly intact for the purposes of this session. Judgment and insight: Poor IMPRESSIONS: Depression, unspecified Generalized anxiety disorder PLAN: -At this time patient DOES NOT meet criteria for inpatient psychiatric admission. -Would recommend the following medication changes/additions: Start Remeron 7.5 mg at bedtime for mood/sleep/appetite, continue Wellbutrin XL 150 mg daily for depression -Communicated plan to patient's nurse -Will continue to follow along -Please contact with any questions.
[2025-05-10] MEDS: BENZOCAINE/MENTHOL LOZENG 1 EACH LOZENGE MUCOUS MEM PRN (15:06)
[2025-05-10] MEDS: NYSTATIN 100,000 UNIT/GM POWD 15 GM TOPICAL SCH (21:24)
[2025-05-10] MEDS: MIRTAZAPINE 15 MG TAB PO SCH (21:24)
--- NOTE | 2025-05-11 01:16 | PN ---
PROGRESS NOTE DATE OF SERVICE: 05/10/2025 SUBJECTIVE: This is a 74-year-old gentleman admitted with paranoid schizophrenia, also had features of UTI. The patient continues to be confused. Psychiatry is evaluating the patient, and adjusting medications. I have talked to the family at length and apparently, the patient needs to go to a new place according to the family. There is no history of fever, rigors, or chills. PAST MEDICAL HISTORY: Reviewed. REVIEW OF SYSTEMS: Could not be taken. CURRENT MEDICATIONS: Reviewed. PHYSICAL EXAMINATION: VITAL SIGNS: Pulse 62, blood pressure 120/74, and respirations 16. CHEST: Clear to auscultation. ABDOMEN: Soft. NERVOUS SYSTEM: No focal deficits. LABORATORY DATA: Reviewed. ASSESSMENT: 1. Change in mental status, possible acute metabolic encephalopathy. 2. Acute urinary tract infection, possibly. 3. Possible paranoid psychosis, acute exacerbation. 4. Elevated creatinine with chronic kidney disease, stage III. 5. History of coronary artery disease. 6. Gait dysfunction. 7. History of myocardial infarction. 8. History of chronic Harper. 9. COVID in October 2024. 10.History of CAD stent. RECOMMENDATIONS AND DISCUSSION: I recommend to continue current management. Empiric antibiotics. Follow the cultures. Repeat labs. Closely follow with Psychiatry and adjust medications. Closely monitor with rn social work and Case Management team. Prognosis guarded. Once again, as earlier, I talked with the guardian at length. Further recommendations to follow. MMODL / IJN: [id number] /
[2025-05-11] MEDS: TAMSULOSIN 0.4 MG CAP.ER.24H PO SCH (09:20)
[2025-05-11 10:00] LABS: Basophils # (A) 0.10 X 10*3/uL (0.00-0.10); Basophils % (A) 1.2 %; Eosinophils # (A) 0.71 X 10*3/uL (0.04-0.35); Eosinophils % (A) 8.2 %; HCT 46.2 % (39.6-50.0); HGB 15.1 g/dL (13.0-17.0); Immature Grans, Automated 0.20 %; Lymphocytes # (A) 2.48 X 10*3/uL (0.90-5.00); Lymphocytes % (A) 28.7 %; MCH 30.7 pg (27.0-32.0); MCHC 32.7 g/dL (32.0-37.0); MCV 93.9 FL (80.0-97.0); Monocytes # (A) 0.73 X 10*3/uL (0.20-1.00); Monocytes % (A) 8.5 %; NRBC Per 100 WBC 0 X 10*3/uL (0.00-0.01); Neutrophils # (A) 4.59 X 10*3/uL (1.80-7.70); Neutrophils % (A) 53.2 %; Platelet Count 193 X 10*3/uL (140-440); RBC 4.92 X 10*6/uL (4.40-5.60); RDW 14.6 % (11.5-14.5); WBC 8.63 X 10*3/uL (4.50-10.00)
[2025-05-11 10:08] LABS: Anion Gap 12.50 mmol/L (4.00-12.00); BUN/Creat Ratio 7.89 Ratio (12.00-20.00); Blood Urea Nitrogen 15.0 mg/dL (9.0-27.0); Calcium 8.9 mg/dL (8.7-10.3); Carbon Dioxide 24.5 mmol/L (21.6-31.8); Chloride 102 mmol/L (96-109); Glucose 83 mg/dL (70-110); Potassium 4.2 mmol/L (3.5-5.5); Sodium 139 mmol/L (135-145)
[2025-05-11] MEDS ORDERED: FLUTICASONE NASAL 50MCG/SPRAY 16GM BTL EA NOSTRIL PRN (16:40)
--- NOTE | 2025-05-12 02:52 | PN ---
PROGRESS NOTE DATE OF SERVICE: 05/11/2025 SUBJECTIVE: This is a 74-year-old gentleman who was admitted with change in mental status, possible paranoid psychosis exacerbation. He is being closely monitored. No chest pain. No palpitation. OBJECTIVE: VITAL SIGNS: On exam, pulse 71, blood pressure 130/70, respirations 18. CHEST: Clear to auscultation. CARDIOVASCULAR: S1, S2. ABDOMEN: Soft. NERVOUS SYSTEM: Nonfocal. LABS: Reviewed. Cultures, urine cultures were gram-negative bacilli. ASSESSMENT: 1. Change in mental status, possible acute metabolic encephalopathy. 2. Acute UTI, possibly. Gram-negative bacilli. 3. Adenoid psychosis, acute exacerbation. 4. Elevated creatinine with chronic kidney disease, stage III. 5. History of CAD. 6. Gait dysfunction. 7. History of myocardial infarction. 8. History of chronic Harper. 9. COVID in October 2024. 10.History of CAD stent. 11.Gait dysfunction. RECOMMENDATIONS: Recommend to continue current management and symptomatic treatment. Otherwise closely monitor. Continue the antibiotics. Follow the cultures. We will continue to monitor. Prognosis guarded. Further recommendations to follow. MMODL / IJN: [id number] /
--- NOTE | 2025-05-13 03:56 | PN ---
PROGRESS NOTE DATE OF SERVICE: 05/12/2025 SUBJECTIVE: This is a 74-year-old gentleman, who was admitted with change in mental status, acute UTI, is being closely monitored. No chest pain. No palpitation. OBJECTIVE: VITAL SIGNS: Pulse is 72, blood pressure 131/70, and respirations 18. CHEST: Clear to auscultation. CARDIOVASCULAR: S1, S2. ABDOMEN: Soft. NERVOUS SYSTEM: Nonfocal. LABS: Reviewed. ASSESSMENT: 1. Change in mental status, possible acute metabolic encephalopathy. 2. Acute urinary tract infection, possibly gram-negative bacilli. 3. Possible paranoid psychosis, acute exacerbation. 4. Elevated creatinine with chronic kidney disease, stage 3. 5. Multiple complex medical issues. RECOMMENDATIONS: Continue the current management and treatment, otherwise at this time, I recommend repeat labs. Follow the ID of the organisms, psychiatric evaluation, possible ECF rehab. Prognosis guarded. Further recommendations to follow. MMODL / IJN: [id number] /
[2025-05-13 08:02] LABS: Anion Gap 10.40 mmol/L (4.00-12.00); BUN/Creat Ratio 7.68 Ratio (12.00-20.00); Blood Urea Nitrogen 14.6 mg/dL (9.0-27.0); Calcium 9.1 mg/dL (8.7-10.3); Carbon Dioxide 25.6 mmol/L (21.6-31.8); Chloride 100 mmol/L (96-109); Glucose 85 mg/dL (70-110); Potassium 4.1 mmol/L (3.5-5.5); Sodium 136 mmol/L (135-145)
[2025-05-13 08:03] LABS: Basophils # (A) 0.09 X 10*3/uL (0.00-0.10); Basophils % (A) 1.0 %; Eosinophils # (A) 0.91 X 10*3/uL (0.04-0.35); Eosinophils % (A) 10.2 %; HCT 46.0 % (39.6-50.0); HGB 15.1 g/dL (13.0-17.0); Immature Grans, Automated 0.20 %; Lymphocytes # (A) 2.63 X 10*3/uL (0.90-5.00); Lymphocytes % (A) 29.6 %; MCH 30.8 pg (27.0-32.0); MCHC 32.8 g/dL (32.0-37.0); MCV 93.7 FL (80.0-97.0); Monocytes # (A) 0.66 X 10*3/uL (0.20-1.00); Monocytes % (A) 7.4 %; NRBC Per 100 WBC 0 X 10*3/uL (0.00-0.01); Neutrophils # (A) 4.57 X 10*3/uL (1.80-7.70); Neutrophils % (A) 51.6 %; Platelet Count 195 X 10*3/uL (140-440); RBC 4.91 X 10*6/uL (4.40-5.60); RDW 14.4 % (11.5-14.5); WBC 8.88 X 10*3/uL (4.50-10.00)
[2025-05-13] MEDS ORDERED: ACETAMINOPHEN TAB 325 MG TAB PO PRN (13:08)
[2025-05-13] MEDS: IBUPROFEN 400 MG TAB PO PRN (13:18)
--- NOTE | 2025-05-13 23:22 | P.PN ---
Subjective Progress Note Date: 05/13/25 This is a 74-year-old male who was recently admitted with change in mental status, secondary to acute urinary tract infection that was present on admission. Patient with chronic indwelling Harper catheter maintained on antibiotics in the form of ceftriaxone as urine culture finalized showing Citrobacter . Patient to continue with chronic indwelling Harper catheter and continued Harper catheter management. Patient residing at an [facility] although having aggressive behavior and increased anxiety, daughter who is power of associate attorney reporting he is not able to return there. Case management is following placing referrals to other ECF versus AFC's. Patient is afebrile with no reported chest pain or shortness of breath. Patient has been tolerating diet with no reported nausea or vomiting. Encouraged to increase activity as tolerated and will continue with current medication regimen Review of systems: Constitutional: No reports of fatigue, fever, or chills Cardiovascular: No reports of chest pain or palpitations Respiratory: No reports of shortness of breath or cough GI: reports of nausea, no reports of of vomiting, : No reports of dysuria or retention Neurovascular: reports of generalized weakness All medications have been reviewed Active Medications PHYSICAL EXAMINATION: GENERAL: The patient is alert and oriented x4, Well developed, well nourished. HEENT: Pupils are round and equally reacting to light. EOMI. no scleral icterus. No conjunctival pallor. Normocephalic, atraumatic. No pharyngeal erythema. No thyromegaly. CARDIOVASCULAR: S1 and S2 muffled PULMONARY: diminished breath sounds bilaterally with no wheezing or rhonchi noted. ABDOMEN: soft. Nontender on exam. obese. non-distended, normoactive bowel sounds. No palpable organomegaly. MUSCULOSKELETAL: No joint swelling or deformity. EXTREMITIES: No cyanosis, clubbing, or pedal edema. NEUROLOGICAL: Gross neurological examination did not reveal any focal deficits. Diffuse weakness SKIN: No rashes. Assessment: Change in mental status, acute metabolic encephalopathy, likely secondary to urinary tract infection was present on admission, cultures finalized as Citrobacter Possible paranoid psychosis, acute exacerbation, improving Elevated creatinine with chronic kidney disease stage III History of coronary artery disease Hypertension Previous myocardial infarction Prostate disorder History of depression and schizophrenia History of paranoid schizophrenia GI prophylaxis DVT prophylaxis Full code Plan: Recommend to continue with current medications and management with case management following making referrals to other AFC's as patient's current residence he is unable to return to. Continue antibiotics and will continue with indwelling Harper catheter. Ensure Harper catheter was exchanged in the ER on admission Will continue ceftriaxone at this time and likely transition to oral antibiotics on discharge Patient with continued weakness would benefit from ECF or AFC that can accommoda te Await PT/OT therapy notes and will discuss further with case management regarding discharge planning Due to multiple complex medical issues, overall prognosis is guarded The impression and plan of care has been dictated by Yani Buckner, nurse practitioner as directed. Dr. Eb MD I have performed a history and examination and MDM of this patient, discussed the same with the dictator, and agree with the dictator's assessment and plan as written ,documented as a scribe. Based on total visit time, I have performed more than 50% of the visit. Any additional findings or plans will be noted. Objective - Vital Signs Vital signs: Vital Signs Temp 97.4 F L 05/13/25 07:39 Pulse 74 05/13/25 07:39 Resp 15 05/13/25 07:39 BP 127/75 05/13/25 07:39 Pulse Ox 94 L 05/13/25 07:39 FiO2 Intake & Output 05/12/25 05/13/25 05/13/25 18:59 06:59 18:59 Output Total 1175 1900 Balance -1175 -1900 Output: Urine 1175 1900 Other: # Bowel Movements 0 - Labs CBC & Chem 7: 05/13/25 03:21 05/13/25 03:21 Labs: Abnormal Lab Results - Last 24 Hours (Table) 05/13/25 05/13/25 Range/Units 03:21 03:21 Eosinophils # 0.91 H (0.04-0.35) X 10*3/uL Creatinine 1.9 H (0.6-1.5) mg/dL Est GFR (CKD-EPI) 37 L (>=60) BUN/Creatinine Ratio 7.68 L (12.00-20.00) Ratio Microbiology - Last 24 Hours (Table) 05/09/25 21:37 Blood Culture - Preliminary Blood 05/09/25 18:01 Urine Culture - Final Urine,Voided Citrobacter freundii
[2025-05-14] MEDS: PANTOPRAZOLE 40 MG TABLET PO SCH (06:30)
[2025-05-14 08:28] LABS: Anion Gap 10.20 mmol/L (4.00-12.00); BUN/Creat Ratio 9.29 Ratio (12.00-20.00); Blood Urea Nitrogen 19.5 mg/dL (9.0-27.0); Calcium 9.1 mg/dL (8.7-10.3); Carbon Dioxide 25.8 mmol/L (21.6-31.8); Chloride 101 mmol/L (96-109); Glucose 90 mg/dL (70-110); Potassium 4.2 mmol/L (3.5-5.5); Sodium 137 mmol/L (135-145)
[2025-05-14] MEDS: ZINC OXIDE PASTE (Z-GUARD) 1 APPLIC TOPICAL PRN (09:17)
[2025-05-14] MEDS: FOLIC ACID 1 MG TAB PO SCH (12:12)
[2025-05-14] MEDS: MULTIVITAMINS, THERA 1 EACH TAB PO SCH (12:12)
[2025-05-14] MEDS: THIAMINE 100 MG TAB PO SCH (12:12)
--- NOTE | 2025-05-14 23:13 | P.PN ---
Subjective Progress Note Date: 05/14/25 This is a 74-year-old male who was recently admitted with change in mental status, secondary to acute urinary tract infection that was present on admission. Patient with chronic indwelling Harper catheter maintained on antibiotics in the form of ceftriaxone as urine culture finalized showing Citrobacter . Patient to continue with chronic indwelling Harper catheter and continued Harper catheter management. Patient residing at an AF although having aggressive behavior and increased anxiety, daughter who is power of commercial real estate attorney reporting he is not able to return there. Case management is following placing referrals to other ECF versus AFC's. Patient is afebrile with no reported chest pain or shortness of breath. Patient has been tolerating diet with no reported nausea or vomiting. Encouraged to increase activity as tolerated and will continue with current medication regimen 05/14/2025 Patient is seen in follow-up today with no acute issues noted overnight. Patient does continue with chronic indwelling Harper catheter and will continue with no issues noted. Patient's creatinine today slightly elevated although stable at 2.1, sodium 137, potassium 4.2. Patient's baseline creatinine is 2. Patient with continued weakness and would benefit from ECF for strength and mobility as patient has had prolonged hospitalization and progressively becoming more weak. [facility] Patient is calm and cooperative with no issues noted from nursing staff. Encourage sitting up in the chair more frequently including with all meals and increased activity as tolerated. Will follow-up on repeat labs to monitor kidney functions and electrolytes. Replace electrolytes per protocol Review of systems: Constitutional: No reports of fatigue, fever, or chills Cardiovascular: No reports of chest pain or palpitations Respiratory: No reports of shortness of breath or cough GI: reports of nausea, no reports of of vomiting, : No reports of dysuria or retention Neurovascular: reports of generalized weakness All medications have been reviewed Active Medications PHYSICAL EXAMINATION: GENERAL: The patient is alert and oriented x2, baseline well developed, well nourished. Elderly appearing HEENT: Pupils are round and equally reacting to light. EOMI. no scleral icterus. No conjunctival pallor. Normocephalic, atraumatic. No pharyngeal erythema. No thyromegaly. CARDIOVASCULAR: S1 and S2 muffled PULMONARY: diminished breath sounds bilaterally with no wheezing or rhonchi noted. ABDOMEN: soft. Nontender on exam. obese. non-distended, normoactive bowel sounds. No palpable organomegaly. MUSCULOSKELETAL: No joint swelling or deformity. EXTREMITIES: No cyanosis, clubbing, or pedal edema. NEUROLOGICAL: Gross neurological examination did not reveal any focal deficits. Diffuse weakness SKIN: No rashes. Assessment: Change in mental status, acute metabolic encephalopathy, likely secondary to urinary tract infection was present on admission, cultures finalized as Citrobacter Possible paranoid psychosis, acute exacerbation, improving Elevated creatinine with chronic kidney disease stage III History of coronary artery disease Hypertension Previous myocardial infarction Prostate disorder History of depression and schizophrenia History of paranoid schizophrenia GI prophylaxis DVT prophylaxis Full code Plan: Recommend to continue with current medications and management with case management following making referrals to ECF with continued PT/OT therapy. patient's current residence report he is unable to return to. Continue antibiotics and will continue with indwelling Harper catheter. Ensure Harper catheter was exchanged in the ER on admission Will continue ceftriaxone at this time and likely transition to oral antibiotics on discharge Patient with continued weakness would benefit from ECF or AFC that can accommodate Await PT/OT therapy notes and will discuss further with case management regardi ng discharge planning. Referral placed to [facility] was also Due to multiple complex medical issues, overall prognosis is guarded The impression and plan of care has been dictated by Yani Buckner, nurse practitioner as directed. Dr. Eb MD I have performed a history and examination and MDM of this patient, discussed the same with the dictator, and agree with the dictator's assessment and plan as written ,documented as a scribe. Based on total visit time, I have performed more than 50% of the visit. Any additional findings or plans will be noted. Objective - Vital Signs Vital signs: Vital Signs Temp 97.2 F L 05/14/25 14:00 Pulse 74 05/14/25 14:00 Resp 18 05/14/25 14:00 BP 134/72 05/14/25 14:00 Pulse Ox 99 05/14/25 14:00 FiO2 Intake & Output 05/14/25 05/14/25 05/15/25 06:59 18:59 06:59 Output Total 1400 825 Balance -1400 -825 Output: Urine 1400 825 Other: Voiding Method Indwelling Catheter # Voids 1 # Bowel Movements 1 - Labs CBC & Chem 7: 05/13/25 03:21 05/14/25 03:33 Labs: Abnormal Lab Results - Last 24 Hours (Table) 05/14/25 Range/Units 03:33 Creatinine 2.1 H (0.6-1.5) mg/dL Est GFR (CKD-EPI) 32 L (>=60) BUN/Creatinine Ratio 9.29 L (12.00-20.00) Ratio
[2025-05-15 08:12] LABS: Anion Gap 10.10 mmol/L (4.00-12.00); BUN/Creat Ratio 11.00 Ratio (12.00-20.00); Blood Urea Nitrogen 19.8 mg/dL (9.0-27.0); Calcium 8.9 mg/dL (8.7-10.3); Carbon Dioxide 24.9 mmol/L (21.6-31.8); Chloride 100 mmol/L (96-109); Glucose 81 mg/dL (70-110); Potassium 4.1 mmol/L (3.5-5.5); Sodium 135 mmol/L (135-145)
--- NOTE | 2025-05-15 15:14 | P.DS ---
Providers Date of admission: 05/09/25 18:47 Expected date of discharge: 05/15/25 Attending physician: Lilian Parson Consults: 05/09/25 18:30 Consult Physician Routine Consulting Provider: Psychiatry - [facility] Psychiatry Consult Reason/Comments: psychosis? Do you want consulting provider notified?: Yes Primary care physician: Choco Valdivia Hospital Course: Final diagnosis Change in mental status, acute metabolic encephalopathy, secondary to urinary tract infection was present on admission, cultures finalized as Citrobacter Possible paranoid psychosis, acute exacerbation, improving Elevated creatinine with chronic kidney disease stage III History of coronary artery disease Hypertension Previous myocardial infarction Prostate disorder with chronic indwelling Harper catheter History of depression and schizophrenia History of paranoid schizophrenia GI prophylaxis DVT prophylaxis Full code Plan Discharge disposition Patient is being discharged in a stable condition with guarded prognosis to [facility]. Patient will follow-up with in the outpatient setting upon discharge. Patient is to continue with antibiotics for the next few days and recommend outpatient follow-up with nephrology and urology as scheduled. Total time taken is greater than 35 minutes. Hospital course This is a 74-year-old male who was recently admitted with acute altered mental status with confusion and agitation normally resides at an [facility] although having increased agitation and anxiety. Patient with chronic indwelling Harper catheter presented with a urinary tract infection and Citrobacter finalized on the cultures. Patient showing clinical improvement maintained on ceftriaxone and will continue with oral Ceftin twice daily for the next 3 days to complete the course. Patient with acute on chronic kidney disease recommend repeat labs in the outpatient setting. Patient to follow-up with urology outpatient as well and would recommend continued Harper catheter care. Patient with significant weakness and prolonged hospitalization evaluated by physical therapy recommending rehab and patient and family are agreeable. Patient has received insurance authorization and has been accepted at [facility]. Patient's mentation is improved and cooperative and at baseline. Currently no reports of chest pain, shortness of breath, or palpitations. Patient is afebrile. No reports of nausea or vomiting and patient is tolerating diet. Patient will be going to [facility] today. Guarded prognosis Physical exam: Gen: This is a 74-year-old male who is awake, alert and oriented x 2, baseline, well-developed, elderly appearing HEENT: Head is atraumatic, normocephalic. Pupils equal, round. Sclerae is anicteric. NECK: Supple. No JVD. No lymphadenopathy. No thyromegaly. LUNGS: Diminished breath sounds bilaterally otherwise clear to auscultation. No wheezes or rhonchi. No intercostal retractions. HEART: Regular rate and rhythm. No murmur. ABDOMEN: Soft. Bowel sounds are present. No masses. No tenderness. EXTREMITIES: No pedal edema. No calf tenderness. NEUROLOGICAL: Patient is awake, alert and oriented x2. Cranial nerves 2 through 12 are grossly intact. Diffusely weak Please refer to medication reconciliation sheet for a list of medications. The impression and plan of care has been dictated by Nurse Ananth Blue as directed. Dr. Eb MD I have performed a history and examination and MDM of this patient, discussed the same with the dictator, and agree with the dictator's assessment and plan as written ,documented as a scribe. Based on total visit time, I have performed more than 50% of the visit. Patient Condition at Discharge: Stable Plan - Discharge Summary New Discharge Prescriptions: New cefuroxime axetiL [Ceftin] 500 mg PO BID 3 Days #6 tab Folic Acid 1 mg PO DAILY@1200 tab Multivitamins, Thera [Multivitamin (formulary)] 1 each PO DAILY@1200 tab Pantoprazole [Protonix] 40 mg PO AC-BRKFST tab Jucmiqrz-Ykqyrlzavv-Iujm Oint [Triple Antibiotic Ointment] 1 applic TOPICAL DAILY each Thiamine [Vitamin B-1] 100 mg PO DAILY@1200 tab Benzocaine/Menthol Lozeng [Cepacol lozenge] 1 each MUCOUS MEM Q4HR PRN lozenge PRN Reason: Dry Nasal Passages Tamsulosin [Flomax] 0.4 mg PO PC-BRKFST cap Ibuprofen [Motrin] 400 mg PO Q8H PRN tab PRN Reason: Pain Nystatin 100,000 Unit/gm Powd [Mycostatin Powder] 1 applic TOPICAL BID each Mirtazapine [Remeron] 7.5 mg PO HS tab Continue buPROPion XL [Wellbutrin XL] 150 mg PO DAILY atenoloL [Tenormin] 25 mg PO DAILY Apixaban [Eliquis] 5 mg PO BID Discharge Medication List buPROPion XL [Wellbutrin XL] 150 mg PO DAILY 09/15/18 [History] atenoloL [Tenormin] 25 mg PO DAILY 05/09/23 [History] Apixaban [Eliquis] 5 mg PO BID 05/09/25 [History] Benzocaine/Menthol Lozeng [Cepacol lozenge] 1 each MUCOUS MEM Q4HR PRN lozenge 05/15/25 [Rx] Folic Acid 1 mg PO DAILY@1200 tab 05/15/25 [Rx] Ibuprofen [Motrin] 400 mg PO Q8H PRN tab 05/15/25 [Rx] Mirtazapine [Remeron] 7.5 mg PO HS tab 05/15/25 [Rx] Multivitamins, Thera [Multivitamin (formulary)] 1 each PO DAILY@1200 tab 05/15/25 [Rx] Tmhmnbaz-Gxyytobpyl-Jtgb Oint [Triple Antibiotic Ointment] 1 applic TOPICAL DAILY each 05/15/25 [Rx] Nystatin 100,000 Unit/gm Powd [Mycostatin Powder] 1 applic TOPICAL BID each 05/15/25 [Rx] Pantoprazole [Protonix] 40 mg PO AC-BRKFST tab 05/15/25 [Rx] Tamsulosin [Flomax] 0.4 mg PO PC-BRKFST cap 05/15/25 [Rx] Thiamine [Vitamin B-1] 100 mg PO DAILY@1200 tab 05/15/25 [Rx] cefuroxime axetiL [Ceftin] 500 mg PO BID 3 Days #6 tab 05/15/25 [Rx] Follow up Appointment(s)/Referral(s): Choco Valdivia MD [Primary Care Provider] - 1-2 days Ambulatory/Diagnostic Orders: Complete Blood Count w/diff [LAB.AMB] Location: None Selected Activity/Diet/Wound Care/Special Instructions: Activity as tolerated Patient is going to [facility] Continue taking oral antibiotics twice daily for the next 3 days Continue chronic indwelling Harper catheter Follow-up with urology outpatient Follow-up with primary care provider on discharge Discharge Disposition: TRANSFER TO SNF/F
[2025-05-16 07:50] VITALS: BMI 27.9
--- NOTE | 2025-05-16 18:51 | P.DS ---
Providers Date of admission: 05/09/25 18:47 Expected date of discharge: 05/16/25 Attending physician: Lilian Parson Consults: 05/09/25 18:30 Consult Physician Routine Consulting Provider: Psychiatry - [facility] Psychiatry Consult Reason/Comments: psychosis? Do you want consulting provider notified?: Yes Primary care physician: Choco Valdivia Hospital Course: Final diagnosis Change in mental status, acute metabolic encephalopathy, secondary to urinary tract infection was present on admission, cultures finalized as Citrobacter Possible paranoid psychosis, acute exacerbation, improving Elevated creatinine with chronic kidney disease stage III History of coronary artery disease Hypertension Previous myocardial infarction Prostate disorder with chronic indwelling Harper catheter History of depression and schizophrenia History of paranoid schizophrenia GI prophylaxis DVT prophylaxis Full code Discharge disposition Patient is being discharged in a stable condition with guarded prognosis to [facility]. Patient will follow-up with in the outpatient setting upon discharge. Patient is to continue with antibiotics for the next few days and recommend outpatient follow-up with nephrology and urology as scheduled. Total time taken is greater than 35 minutes. Hospital course This is a 74-year-old male who was recently admitted with acute altered mental s tatus with confusion and agitation normally resides at an [facility] although having increased agitation and anxiety. Patient with chronic indwelling Harper catheter presented with a urinary tract infection and Citrobacter finalized on the cultures. Patient showing clinical improvement maintained on ceftriaxone and will continue with oral Ceftin twice daily for the next 3 days to complete the course. Patient with acute on chronic kidney disease recommend repeat labs in the outpatient setting. Patient to follow-up with urology outpatient as well and would recommend continued Harper catheter care. Patient with significant weakness and prolonged hospitalization evaluated by physical therapy recommending rehab and patient and family are agreeable. Patient has received insurance authorization and has been accepted at [facility]. Patient's mentation is improved and cooperative and at baseline. Currently no reports of chest pain, shortness of breath, or palpitations. Patient is afebrile. No reports of nausea or vomiting and patient is tolerating diet. Patient will be going to [facility] today. Guarded prognosis 05/16/2025 Per liaison [facility] is able to take the patient on 05/17/2025 and will be discharged. Physical exam: Gen: This is a 74-year-old male who is awake, alert and oriented x 2, baseline, well-developed, elderly appearing HEENT: Head is atraumatic, normocephalic. Pupils equal, round. Sclerae is anicteric. NECK: Supple. No JVD. No lymphadenopathy. No thyromegaly. LUNGS: Diminished breath sounds bilaterally otherwise clear to auscultation. No wheezes or rhonchi. No intercostal retractions. HEART: Regular rate and rhythm. No murmur. ABDOMEN: Soft. Bowel sounds are present. No masses. No tenderness. EXTREMITIES: No pedal edema. No calf tenderness. NEUROLOGICAL: Patient is awake, alert and oriented x2. Cranial nerves 2 through 12 are grossly intact. Diffusely weak Please refer to medication reconciliation sheet for a list of medications. The impression and plan of care has been dictated by Yani Buckner, Nurse Practitioner as directed. Dr. Eb MD I have performed a history and examination and MDM of this patient, discussed the same with the dictator, and agree with the dictator's assessment and plan as written ,documented as a scribe. Based on total visit time, I have performed more than 50% of the visit. Patient Condition at Discharge: Stable Plan - Discharge Summary New Discharge Prescriptions: New cefuroxime axetiL [Ceftin] 500 mg PO BID 3 Days #6 tab Folic Acid 1 mg PO DAILY@1200 tab Multivitamins, Thera [Multivitamin (formulary)] 1 each PO DAILY@1200 tab Pantoprazole [Protonix] 40 mg PO AC-BRKFST tab Uurygyic-Vymjrczhro-Vxnl Oint [Triple Antibiotic Ointment] 1 applic TOPICAL DAILY each Thiamine [Vitamin B-1] 100 mg PO DAILY@1200 tab Benzocaine/Menthol Lozeng [Cepacol lozenge] 1 each MUCOUS MEM Q4HR PRN lozenge PRN Reason: Dry Nasal Passages Tamsulosin [Flomax] 0.4 mg PO PC-BRKFST cap Ibuprofen [Motrin] 400 mg PO Q8H PRN tab PRN Reason: Pain Nystatin 100,000 Unit/gm Powd [Mycostatin Powder] 1 applic TOPICAL BID each Mirtazapine [Remeron] 7.5 mg PO HS tab Continue buPROPion XL [Wellbutrin XL] 150 mg PO DAILY atenoloL [Tenormin] 25 mg PO DAILY Apixaban [Eliquis] 5 mg PO BID Discharge Medication List buPROPion XL [Wellbutrin XL] 150 mg PO DAILY 09/15/18 [History] atenoloL [Tenormin] 25 mg PO DAILY 05/09/23 [History] Apixaban [Eliquis] 5 mg PO BID 05/09/25 [History] Benzocaine/Menthol Lozeng [Cepacol lozenge] 1 each MUCOUS MEM Q4HR PRN lozenge 05/15/25 [Rx] Folic Acid 1 mg PO DAILY@1200 tab 05/15/25 [Rx] Ibuprofen [Motrin] 400 mg PO Q8H PRN tab 05/15/25 [Rx] Mirtazapine [Remeron] 7.5 mg PO HS tab 05/15/25 [Rx] Multivitamins, Thera [Multivitamin (formulary)] 1 each PO DAILY@1200 tab 05/15/25 [Rx] Ucrpgbbc-Mpenegutba-Hilu Oint [Triple Antibiotic Ointment] 1 applic TOPICAL DAILY each 05/15/25 [Rx] Nystatin 100,000 Unit/gm Powd [Mycostatin Powder] 1 applic TOPICAL BID each 05/15/25 [Rx] Pantoprazole [Protonix] 40 mg PO AC-BRKFST tab 05/15/25 [Rx] Tamsulosin [Flomax] 0.4 mg PO PC-BRKFST cap 05/15/25 [Rx] Thiamine [Vitamin B-1] 100 mg PO DAILY@1200 tab 05/15/25 [Rx] cefuroxime axetiL [Ceftin] 500 mg PO BID 3 Days #6 tab 05/15/25 [Rx] Follow up Appointment(s)/Referral(s): Choco Valdivia MD [Primary Care Provider] - 1-2 days (ECF please call for follow- up appointment.) Ambulatory/Diagnostic Orders: Complete Blood Count w/diff [LAB.AMB] Location: None Selected Activity/Diet/Wound Care/Special Instructions: Activity as tolerated Patient is going to [facility] Continue taking oral antibiotics twice daily for the next 3 days Continue chronic indwelling Harper catheter Follow-up with urology outpatient Follow-up with primary care provider on discharge Discharge Disposition: TRANSFER TO SNF/ECF
[2025-05-16 21:15] VITALS: RESP 16
[2025-05-17 08:19] VITALS: BP 109/66; PULSE 71; TEMP 97.5
--- NOTE | 2025-05-20 15:44 | CDI ---
Documentation Clarification Form Date: From: Rebeka Willis Phone: Admit Date: 05/09/2025 06:47:00 PM Patient Name: Rodney De La Fuente Visit Number: [id number] Discharge Date: 05/17/2025 11:55:00 AM ATTENTION: The Clinical Documentation Specialists (CDI) and [facility] Coding Staff appreciate your assistance in clarifying documentation. Please respond to the clarification below the line at the bottom and electronically sign. The CDI & [facility] Coding staff will review the response and follow-up if needed. Please note: Queries are made part of the Legal Health Record. If you have any questions, please contact the author of this message via ITS. Doctor/Provider: Lilian Eb UTI is documented in DS on 05/17/2025 and patient has [insert device dumont, ]. Additional clarification regarding the etiology of the UTI is requested. History/Risk Factors: This is a 74-year-old male who was recently admitted with acutealtered mental statuswithconfusionandagitationnormally resides at an [facility] , having increasedagitationandanxiety.Patient with chronic indwellingFoley catheter presented with aurinary tract infectionand Citrobacter finalized on the cultures. Clinical Indicators On 05/13 -Patient with chronic indwellingFoley cathetermaintained on antibiotics in the form of ceftriaxone as urine culture finalized showing Citrobacter .Patient to continue with chronic indwellingFoley catheterand continuedFoley cathetermanagement On 05/14 pn -Patient is seen infollow-uptoday with no acute issues noted overnight. Patient does continue with chronic indwellingFoley catheterand will continue with no issues noted.Patient's creatinine today slightlyelevatedalthough stable at 2.1, sodium 137, potassium 4.2.Patient's baseline creatinine is 2. Patient with continuedweaknessandwould benefit fromECF for strength and mobility as patient has hadprolongedhospitalization and progressively becoming moreweak Pn on 05/16Change in mental status, acutemetabolic encephalopathy, secondary tourinary tract infectionwas present on admission, cultures finalized as Citrobacter Treatment: Continue antibiotics and will continue with indwellingFoley catheter.Ensure Dumont catheter was exchangedin the ER on admission Will continue ceftriaxone at this time and likely transition to oral antibiotics on discharge Please clarify the etiology of the UTI, if known: [ ] Dumont catheter [ ] UTI not related to catheter/urostomy [ ] Other condition, please specify [ x] Unable to determine (Template Last Revised: December 2020) MTDD
== END 2025-05-17 11:55 | DRG 689 ==
LOC: EEVIPCON 13:18 → EC 13:18 → 4SSUR 18:46 → OBSVTOIN 18:47 → 4SSUR 21:30
PROVIDERS: ADMIT Hospitalist; ATTEND Hospitalist
DX: N39.0 Urinary tract infection, site not specified (principal); G93.41 Metabolic encephalopathy; F20.0 Paranoid schizophrenia; N18.30 Chronic kidney disease, stage 3 unspecified; I12.9 Hypertensive chronic kidney disease with stage 1 through stage 4 chronic kidney disease, or unspecified chronic kidney disease; F32.A Depression, unspecified; N17.9 Acute kidney failure, unspecified; F41.1 Generalized anxiety disorder; I25.10 Atherosclerotic heart disease of native coronary artery without angina pectoris; N42.9 Disorder of prostate, unspecified; I25.2 Old myocardial infarction; Z91.148 Patient's other noncompliance with medication regimen for other reason; Z79.899 Other long term (current) drug therapy; Z79.01 Long term (current) use of anticoagulants; Z88.1 Allergy status to other antibiotic agents; Z91.041 Radiographic dye allergy status
CPT/HCPCS: 36415; 51702; 80048; 80053; 80306; 80320; 81001; 82075; 82140; 85025; 87040; 87077; 87086; 87186; 93005; 96360; 96361; 99285